=== PATIENT | female | born 1970 | race Caucasian/White ===

== ENCOUNTER 2024-06-26 07:58 | Outpatient (CLI) | payer OTHER, SELFPAY ==
--- NOTE | 2024-06-26 08:01 | CA_ITS ---
APPROVED REPORT EXAM: Comprehensive 2D, Doppler, and color-flow Echocardiogram English Composition Teacher: Shiloh Harris CRT Ht: 5 ft 6 in Wt: 234lbs BSA: 2.14 BP: 126/82 mmHg Indications: Shortness of Breath, Peripheral Edema, Hyperlipidemia, smoker 2D Dimensions LA Volume 71.40 mL LA Volume Index 33.36 mL/m2 (M/F) 16-34 M-Mode Dimensions RVDd 1.89 cm (0.9-2.6) LA Diam 3.93 cm (1.9-4.0) LVDd 4.62 cm (3.5-5.7) LVDs 3.33 cm (3.5-5.7) IVSd 1.93 cm (0.6-1.1) PWd 1.04 cm (0.6-1.1) EF (Teich) 54.10% FS 27.90% EDV (Teich) 98.30 mL TAPSE 2.78 (<1.7) ESV (Teich) 45.10 mL LV Diastology E Decel Time 417 (160-240 msec) E/A Ratio 1.0 MED A' 6.30 cm/s LAT A' 9.20 cm/s Aortic Valve AO Peak GR. 8.80 mmHg Mitral Valve MV E Max Mo. 171.0 (40-130 cm/s) MV A Velocity 169.0 (40-130 cm/s) E/A Ratio 1.01 MV Mean Gr. 5.90 (<2mmHg) MV PHT 122.0 ms Pulmonary Valve PV Peak Velocity 158.0 (50-150 cm/s) Tricuspid Valve TR P. Velocity 321.00 cm/s RAP Estimate 10.00 mmHg RVSP 51.20 mmHg Left Ventricle The left ventricle is normal size. The left ventricular systolic function is normal. The left ventricular ejection fraction is within the normal range. There is increased LV wall thickness. There is normal LV segmental wall motion. The left ventricular diastolic function is normal. LVEF is 60%. Right Ventricle The right ventricle is normal size. The right ventricular systolic function is normal. Atria Left atrium is mildly dilated. The right atrium size is normal. There is no Doppler evidence of interatrial shunt. Aortic Valve The aortic valve is mildly thickened. There is no aortic valvular stenosis. No aortic regurgitation is present. Mitral Valve Mild mitral annular calcification is present. The mitral valve leaflets are mildly thickened. The posterior MV leaflet is restricted in mobility. The mitral valve is possibly rheumatic. Mild mitral stenosis. Mean MV gradient is 6 mmHg (HR 74 bpm). MVA by PHT method is 1.8 cm2. Mild mitral regurgitation. Tricuspid Valve The tricuspid valve leaflets are thin and pliable. Mild tricuspid regurgitation. RVSP is 30-35 mmHg. Pulmonic Valve The pulmonary valve is normal in structure. Trace pulmonic regurgitation. Great Vessels The aortic root is normal in size. The ascending aorta is not well-visualized. IVC is normal in size and collapses >50% with inspiration. Pericardium There is no pericardial effusion. Other Information Study Quality: Fair Conclusion Normal biventricular systolic function. Mild LA dilation. Mild mitral annular calcification. The MV leaflets are possibly rheumatic. The posterior MV leaflet is restricted in mobility. Mild MR. Mild MS (mean MV gradient is 6 mmHg (HR 74 bpm). MVA by PHT method is 1.8 cm2). Electronically signed by : Ana Holloway MD 07/01/2024 13:26:36
== END 2024-06-26 23:59 | disposition home or self-care (01) ==
LOC: RT 07:59
PROVIDERS: PCP Nurse Practitioner Family; Visit Provider Internal Medicine
DX: R06.02 Shortness of breath (principal); R60.9 Edema, unspecified; F17.210 Nicotine dependence, cigarettes, uncomplicated
CPT/HCPCS: 93306

== ENCOUNTER 2024-08-12 10:40 | Outpatient (CLI) | payer OTHER, SELFPAY ==
--- NOTE | 2024-08-12 10:46 | XR_ITS ---
FINAL REPORT CLINICAL HISTORY: Acute cough FINDINGS: Two views of the chest were obtained. The heart size and pulmonary vascularity are within normal limits. The mediastinum is normal. There is bronchial wall thickening consistent with bronchitis. There is a small right pleural effusion. There is no pneumothorax. The bony thorax is intact. IMPRESSION: Bronchial wall thickening consistent with bronchitis and a small right pleural effusion. Reviewed, Interpreted and Dictated by Steven Cross III, MD Transcribed by Mona Manrique Authenticated and [facility]
== END 2024-08-12 23:59 | disposition home or self-care (01) ==
LOC: RAD 10:42
PROVIDERS: PCP Nurse Practitioner Family; Visit Provider Nurse Practitioner
DX: R05.9 Cough, unspecified (principal)
CPT/HCPCS: 71046

== ENCOUNTER 2025-03-06 10:00 | Emergency (ER) | payer OTHER, SELFPAY ==
--- OUTSIDE RECORDS SUMMARY | 2025-03-06 10:06 | XMS_ITS | Clinical Summary ---
Author Organization 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 10/07/2020 Active SYMBICORT 160-4.5 mcg/actuation Inhl HFA Aerosol Inhaler Inhale 2 Puffs into the lungs every 12 hours. 09/27/2020 Active PROVENTIL HFA 90 mcg/actuation Inhl HFA Aerosol Inhaler Inhale 2 Puffs into the lungs every 4 hours as needed. 09/15/2020 Active omeprazole (PRILOSEC) 40 mg Oral Capsule, Delayed Release(E.C.) Take 40 mg by mouth daily. 09/27/2020 Active ergocalciferol (DRISDOL) 1,250 mcg (50,000 unit) Oral Capsule Take 50,000 Units by mouth daily. 09/27/2020 Active montelukast (SINGULAIR) 10 mg Oral Tablet Take 10 mg by mouth daily. 09/27/2020 Active medroxyPROGESTER one (DEPO-PROVERA) 150 mg/mL IM Suspension Inject 150 mg into the muscle Every 90 Days. 09/15/2020 Active aspirin (ASPIRIN) 81 mg Oral Tablet, Chewable Take 1 Tab by mouth daily. 30 Tab 11 10/25/2020 Active atorvastatin (LIPITOR) 10 mg Oral Tablet Take 1 Tab by mouth nightly. 30 Tab 11 10/25/2020 Active Active Problems Problem Noted Date Diagnosed Date Coronary artery disease of n ative artery of [place] heart with stable angina pectoris 10/25/2020 Overview (10/25/2020): CAD BY CHEST CT Other emphysema 10/25/2020 Dyspnea on exertion 10/25/2020 Smoker 10/25/2020 Family History Medical History Relation Name Comments Heart Disease Brother 1 Heart Failure Brother 2 Heart Disease Mother Relation Name Status Comments Brother 1 Brother 2 Mother Social History Tobacco Use Types Packs/Day Years Used Date Smoking Tobacco: Every Day Cigarettes Smokeless Tobacco: Former Comments:down from 2 packs/d ay Alcohol Use Standard Drinks/Week Comments Yes 0 (1 standard drink = 0.6 oz pur e alcohol) very rarely Comments No Sex and Gender Information Value Date Recorded Sex Assigned at Not on file Legal Sex Female 10:13 AM EST Gender Identity Not on file Sexual Orientation Not on file Obstetrics History Last Filed Vital Signs Vital Sign Reading Time Taken Comments Blood Pressure 122/68 01/13/2021 11:51 AM EDT Pulse 87 01/13/2021 11:51 AM EDT Temperature 36.7 C (98 F) 10/25/2020 12:59 PM EST Respiratory Rate 12 11/09/2020 10:3 5 AM EST Oxygen Saturation 96% 01/13/2021 11: 51 AM EDT room air @ rest Inhaled Oxygen Concentration - - Weight 100.2 kg (220 lb 12. 8 oz) 01/13/2021 11:51 AM EDT Height 167.6 cm (5' 6 ) 01/13/2021 11:5 1 AM EDT Body Mass Index 35.64 01/13/2021 11:51 AM EDT Plan of Treatment Health Maintenance Due Date Last Done Comments Annual Wellness Exam 1974 Hepatitis B Vaccine (1 of 3 - 19+ 3-dose series) 1990 Pneumococcal Vaccine 50+ (1 of 2 - PCV) 1990 Cervical Cancer Screening 1992 Pap Smear 1992 HPV/Pap Cotest 2001 Breast Cancer Screening 2011 Cologuard 2016 Colon Cancer Screening 2016 Colonoscopy 2016 FIT 2016 Sigmoidoscopy 2016 Virtual Colonography 2016 DTaP/TDaP/Td (2 - Td or Tdap) 03/21/2020 03/21/2010 Zoster (1 of 2) 2021 COVID-19 Vaccine (1 - 2023-2 5 season) 2024 Influenza Vaccine (Season Ended) 2025 Meningococcal B Vaccine Aged Out No l onger eligible based on patient's age to complete this topic Insurance [employer] OPEN ACCESS [facility]US [facility] [place] MDR [employer] ACCESS PLUS [facility] [place] Care Teams Airplane Dispatcher Relationship Specialty Start Date End Date Nora Hooks NP [facility] [place] [address] PCP - General Nurse Practitioner 10/25/20 Apollo Hernandez MD [address] [place] [address] [place] [id number] Internal Medicine-Cardiovascular Disease 10/25/20
--- OUTSIDE RECORDS SUMMARY | 2025-03-06 10:06 | XMS_ITS | Continuity of Care Document ---
[facility] Address [address] [place] [address] [place] [address] Assessment No assessment recorded. Plan of Treatment Reminders Order Date Submit Date Provider Last Modified By Organization Details Last Modified Time Details Appointments Follow Up 2024 10:00A M Pacheco Krause APRN Not available Not available Not available Lab None recorded. Referral None recorded. Procedures None recorded. Surgeries None recorded. Imaging XR, chest, 2 view - concern for right lower lobe pneumonia 2024 025 [facility], [address] [place] [address] , [place], [address], 01/16/2025 15:33:49 Medication Orders ceftriaxo ne 1 gram intraveno us solution 2024 025 [email or web address] Not available 01/21/2025 09:52:24 Patient TargetsNo targets recorded. Patient Instructions Encounter Date Encounter Id Patient Instructions Last Modified By Organization Details Last Modified Time 01/16/2025 [id number] -take medication s as prescribed - will call with lab results when available to discuss findings, any further evaluation, treatment, or follow up - Otherwise, follow up in 2 weeks for re-evaluation or sooner for worsening of symptoms [email or web address] Not available 01/16/2025 15:09:20 Reason for Referral None Reported. Results Created Date Observation Date Name Description Value Unit Range Abnormal Flag Note LastModifiedBy Organization Detail LastModifiedTime 01/17/20 25 XR, chest , 2 view No observ ation record ed. [email or web address] [address] , [place], [address], 01/19/2025 10:09:23 01/23/20 25 XR, chest , 2 view No observ ation record ed. [address] [place], [address], 01/22/2025 15:27:32 02/13/20 25 XR, chest , 2 view No observ ation record ed. [address] , [place], [address], 02/16/2025 10:47:59 Result Notes None recorded. Problems Name Problem SNOMED Code Status Onset Date Resolution Date Notes Provider Name and Address Organization Details Recorded Time Long-ter m drug therapy Active 2016 depo provera; declines BOB Shine, VALET MANAGER [address], [place], [address] , [place] - [facility] 7 10:59:48 Dyspnea 773264584 Completed 201905/07/2020 Nora Hooks null, [place] - [facility] 0 09:12:40 Vitamin D deficien cy 44960188 Active 2019 Crystal Lotus null, [place] [facility] 0 16:07:20 Pulmonar y emphysem a 78164944 Active 2019 Nora Hooks [place] [facility] 0 16:44:31 Asthma 143960862 Active 2020 Flores Garcia [place], [place] [facility] 1 10:26:19 Chronic obstruct lucie pulmonar y disease 44400300 Active 2020 Flores Garcia [place] [facility] 1 10:26:24 Fibrocys tic disease of breast 74480404 Active 2020 Kristen Shine, VALET MA[employer]GER [address], [place], [address] , [place] - [facility] 1 14:39:41 Suspecte d COVID-19 612482379 Completed 10/11/2020 Removal Reason: Problem added by user from the COVID-19 watch flag Susan Valentine null, [place] - [facility] 1 13:48:16 COVID-19 [id number] Completed 202005/30/2021 Removal Reason: Problem marked historic al by user [email or web address] from the COVID-19 watch flag Pacheco Schmitting, VALET MANAGER [address], [place], [address] , [place] - [facility] 4 11:12:19 COVID-19 [id number] Completed 202005/30/2021 Removal Reason: Problem marked historic al by user from the COVID-19 watch flag Pacheco Krause, VALET MANAGER [address], [place], [address] , [place] - [facility] 4 11:12:19 Suspecte d COVID-19 [id number] Completed 08/02/2021 Removal Reason: Problem marked historic al by user [email or web address] from the COVID-19 watch flag Susan Valentine null, [place] [facility] 1 13:48:16 COVID-19 [id number] Completed 202106/22/2022 Pacheco Schmitting, VALET MANAGER [address], [place], [address] , [place] [facility] 4 11:12:19 Allergic rhinitis 59501388 Active 2021 Crystal Lotus [place] [facility] 2 14:53:22 Acute pharyngi tis 749386040 Completed 202102/09/2023 Crystal Lotus [place] [facility] 3 09:03:10 Acid reflux 665889088 Active 2015 Trudy Miguel Angel [place] [facility] 6 09:53:44 Fibroade nosis of breast 80206494 Active 2015 Trudy Miguel Angel [place] [facility] 6 09:54:02 Lateral epicondy litis 703243116 Completed 201501/24/2017 Abraham Rebollar MD [address], [place], [address] , [place] [facility] 7 13:07:37 Nodule of lung 238949459 Active 2022 Latosha Pavon, VAL[employer] MA[employer]GER [address], [place], [address] , [place] [facility] 3 09:33:01 Seasonal allergic rhinitis 178873714 Active 2022 Latosha Pavon, VALET MANAGER [address], [place], [address] , [place] [facility] 3 09:33:19 Pain of left ankle joint 97181847326 674690 Active 2022 Latosha Pavon, BUBBA [address], [place], [address] , [place] [facility] 3 09:34:47 Pharyngi tis 966393982 Active 2022 Pacheco Krause APRN [address], [place], [address] , [place] [facility] 3 11:35:20 Upper respirat ory infectio n 32360214 Active 2022 Pacheco Krause APRN [address], [place], [address] , [place] [facility] 3 13:36:54 Acute bronchit is 58056620 Active 2022 Pacheco Krause APRN [address], [place], [address] , [place] [facility] 3 14:08:31 Obesity 208903253 Active 2022 Pacheco Krause APRN [address], [place], [address] , [place] [facility] 3 14:25:02 Chronic bronchit is 31064600 Active 2022 Pacheco Krause APRN [address], [place], [address] , [place] [facility] 3 11:41:44 Cough 42347893 Active 2022 Pacheco Krause APRN [address], [place], [address] , [place] [facility] 3 11:45:40 Acute sinusiti s 25872388 Active 2022 Pacheco Krause, BUBBA [address], [place], [address] , [place] [facility] 3 12:57:59 Influenz a caused by Influenz a A virus 598941755 Active 2023 Agustin Rahman, DO [address], [place], [address] , [place] [facility] 4 16:32:14 Sore throat 151687418 Active 2023 Agustin Rahman, DO [address], [place], [address] , [place] [facility] 4 16:33:29 Neuropat hy 852243346 Active 2023 Pacheco Krause APRN [address], [place], [address] , [place] [facility] 4 09:02:03 Candidia sis of mouth 46150349 Active 2023 Pacheco Krause APRN [address], [place], [address] , [place] [facility] 4 09:14:47 Bilatera l lower limb edema 072247564 Active 2023 Pacheco Krause APRN [address], [place], [address] , [place] [facility] 4 16:00:30 Communit y acquired pneumoni a 842409009 Active 2023 Pacheco Krause APRN [address], [place], [address] , [place] [facility] 4 16:15:11 Middle ear effusion 5326173818 Active 2023 Pacheco Krause APRN [address], [place], [address] , [place] [facility] 4 16:23:46 Acute exacerba tion of chronic obstruct lucie pulmonar y disease 670492945 Active 2023 Pacheco Krause APRN [address], [place], [address] , [place] [facility] 4 14:19:15 COVID-19 477976058 Active 2023 Pacheco Krause, VALET MANAGER [address], [place], [address] , [place] [facility] 4 11:12:19 Reducibl e umbilica l hernia 352980510 Active 2023 Pacheco Krause, VAL[employer] MANAGER [address], [place], [address] , [place] [facility] 4 09:26:12 Prediabe candy 954452775 Active 2024 Pacheco Krause, VALET MANAGER [address], [place], [address] , [place] [facility] 5 09:42:06 Hyperlip idemia 48418994 Active 2024 Pacheco Krause, VALET MANAGER [address], [place], [address] , [place] [facility] 5 09:42:39 Visual disturba nce 74197875 Active 2024 Pacheco Krause, VALET MANAGER [address], [place], [address] , [place] [facility] 5 10:00:41 Viral gastroen teritis 952127560 Active 2024 Louis Pool MD [address], [place], [address] , [place] [facility] 5 09:59:31 Low back pain 288648146 Active 2024 Louis Pool MD [address], [place], [address] , [place] [facility] 5 10:00:23 Acute infectiv e bronchit is 167643821 Active 2024 Pacheco Krause, VALET MANAGER [address], [place], [address] , [place] [facility] 5 14:13:08 Acute low back pain 538860409 Active 2024 Pacheco Krause, BUBBA [address], [place], [address] , [place] [facility] 5 10:01:08 Increase d frequenc y of urinatio n 963662406 Active 2024 Pacheco Schmitting, VALET MANAGER [address], [place], [address] , [place] [facility] 5 10:08:15 Acute transuda tive otitis media 32057871 Active 2024 Pacheco Krause, VALET MANAGER [address], [place], [address] , [place] [facility] 5 15:55:33 Nicotine dependen ce 30291636 Active 2016 Dolly fontanez, [place] - [facility] 7 11:36:27 Tendinit is of foot 776991194 Active 2016 Abraham Rebollar MD [address], [place], [address] , [place] [facility] 7 13:07:57 Problem Notes None recorded. Procedures Surgical History Date Name Laterality Status Provider Name and Address Organization Details Recorded Time 05/23/20 21 Medication Reconcilliation completed Crystal Lotus [place] - [facility] 05/23/2021 11:07:57 10/07/19 21 Medication Reconcilliation completed Mainor Garner [place] - [facility] 10/07/2020 10:55:54 09/15/19 21 Systolic B/P less than 130 mm Hg completed Flores Garcia [place] [facility] 09/15/2020 10:33:55 09/15/19 21 Diastolic B/P less than 80 mm Hg completed Flores Garcia [place] [facility] 09/15/2020 10:33:50 09/15/19 21 Date of Last Pap Smear completed Kristen Shine, VALET MA[employer]GER [address], [place], [address], [place] [facility] 09/17/2020 15:27:26 07/01/20 20 Systolic B/P less than 130 mm Hg completed Crystal Lotus [place] [facility] 07/01/2020 13:54:20 07/01/20 20 Diastolic B/P 80-89 mm Hg completed Crystal Lotus [place] [facility] 07/01/2020 13:54:23 05/13/20 20 Systolic B/P less than 130 mm Hg completed Crystal Lotus [place] [facility] 05/13/2020 11:29:49 05/13/20 20 Diastolic B/P 80-89 mm Hg completed Crystal Lotus [place] [facility] 05/13/2020 11:29:52 05/07/20 20 Systolic B/P less than 130 mm Hg completed Crystal Lotus [place] [facility] 05/07/2020 09:06:14 05/07/20 20 Diastolic B/P 80-89 mm Hg completed Crystal Lotus [place] [facility] 05/07/2020 09:06:17 04/27/20 20 Date of Last Mammogram completed Flores Dineroann [place] [facility] 08/10/2020 11:20:32 04/13/20 20 Systolic B/P less than 130 mm Hg completed Crystal Lotus [place] [facility] 04/13/2020 08:29:36 04/13/20 20 Diastolic B/P less than 80 mm Hg completed Crystal Lotus [place] [facility] 04/13/2020 08:29:34 04/01/20 20 Diastolic B/P 80-89 mm Hg completed Crystal Lotus [place] [facility] 04/01/2020 14:18:05 04/01/20 20 Systolic B/P 130-139 mm Hg completed Crystal Lotus [place] [facility] 04/01/2020 14:18:01 12/01/19 20 Diastolic B/P less than 80 mm Hg completed Crystal Lotus [place] [facility] 12/01/2019 11:40:33 12/01/19 20 Diastolic B/P 80-89 mm Hg completed Crystal Lotus [place] [facility] 12/01/2019 11:40:34 12/01/19 20 Medication Reconcilliation completed Crystal Lotus [place] [facility] 12/01/2019 11:35:35 11/24/19 20 Diastolic B/P 80-89 mm Hg completed Crystal Lotus [place] [facility] 11/24/2019 09:27:07 11/24/19 20 Systolic B/P greater than or equal to 140 mm Hg completed Crystal Lotus [place] [facility] 11/24/2019 09:27:04 11/21/19 20 Diastolic B/P less than 80 mm Hg completed Crystal Lotus [place] [facility] 11/21/2019 14:46:34 11/21/19 20 Systolic B/P 130-139 mm Hg completed Crystal Lotus [place] [facility] 11/21/2019 14:46:30 Imaging Results None recorded. Procedure Notes None recorded. Medical Equipment None Reported. Allergies Allergen ID Allergen Name Allergen Category Reaction Reaction Severity Criticality Documentation Date Start Date Code Code System Note Provider Name and Address Organization Details Recorded Time 707217 Trelegy medicatio n facial swelling moderate high 02/12/2023 33045 40 RxNorm [facility] - [facility] 4 16:04:33 Medications Name Sig Start Date Stop Date Status Note LastModified by Organization Details LastModified Time Cleocin HCl 300 mg capsule take one capsule by mouth three times a day 03/29 completed Cleocin 300 mg oral capsule; Prescrib e Status: Prescrib ed on: 02/10/20 15 3:48PM;D iscontin ued Status: Disconti nued on: 03/29/20 8:40AM;U ser: alfonso lamb;Est. Completi on: 02/14/20 15;Pharm acyVerif ied: 02/10/20 3:48PM Not Available Not Available Not Available amoxicill in 500 mg capsule TAKE 1 CAPSULE BY MOUTH EVERY 12 HOURS FOR 10 DAYS . 05/14 completed Not Available Not Available Not Available clotrimaz ole 10 mg julian TAKE ONE (1) TABLET FIVE (5) TIMES A DAY BY ORAL ROUTE NEEDED FOR 14 DAYS. 12/20 completed Not Available Not Available Not Available promethaz ine-DM 6.25 mg-15 mg/5 mL oral syrup TAKE FIVE (5) ML EVERY SIX (6) HOURS BY ORAL ROUTE NEEDED, FOR COUGH. 07/25 completed Not Available Not Available Not Available nystatin 100,000 unit/mL oral suspensio n TAKE FIVE (5) ML FOUR (4) TIMES A DAY BY ORAL ROUTE NEEDED FOR 14 DAYS. 02/20 completed Not Available Not Available Not Available prednison e 10 mg tablet TAKE FOUR (4) TABLETS BY MOUTH FOR 3 DAYS TAKE THREE (3) TABLETS BY MOUTH FOR 3 DAYS TAKE 2 TABLETS BY MOUTH FOR 3 DAYS THEN TAKE 1 TABLET FOR 3 DAYS THEN STOP 01/21 completed Not Available Not Available Not Available doxycycli ne hyclate 100 mg capsule TAKE ONE (1) CAPSULE TWICE A DAY BY ORAL ROUTE FOR 10 DAYS. 01/21 completed Not Available Not Available Not Available ipratropi um 0.5 mg-albute rol 3 mg (2.5 mg base)/3 mL nebulizat ion soln INHALE THREE (3) ML EVERY SIX (6) HOURS BY NEBULIZA TION ROUTE NEEDED FOR 30 DAYS. 02/10 completed Not Available Not Available Not Available albuterol sulfate 2.5 mg/3 mL (0.083 %) solution for nebulizat ion INHALE THREE (3) ML THREE (3) TIMES A DAY BY MOUTH VIA NEBULIZA TION NEEDED active Not Available Not Available No t Available cetirizin e 10 mg tablet TAKE ONE (1) TABLET EVERY DAY BY ORAL ROUTE FOR 30 DAYS. 12/20 completed Not Available Not Available Not Available atorvasta tin 10 mg tablet TAKE 1 TABLET BY MOUTH AT NIGHT 06/22 completed Not Available Not Available Not Available azithromy suzy 250 mg tablet TAKE TWO (2) TABLETS (500 MG) BY ORAL ROUTE ONCE DAILY FOR ONE (1) DAY THEN ONE (1) TABLET (250 MG) BY ORAL ROUTE ONCE DAILY FOR FOUR (4) DAYS 01/16 completed Not Available Not Available Not Available ibuprofen 800 mg tablet TAKE ONE (1) TABLET THREE (3) TIMES A DAY BY ORAL ROUTE NEEDED. 06/22 completed Not Available Not Available Not Available fluconazo le 150 mg tablet TAKE 1 TABLET BY MOUTH ONCE NOW AND REPEAT IN 72 HOURS 06/22 completed Not Available Not Available Not Available benzonata te 200 mg capsule Take 1 capsule 3 times a day by oral route as needed for 7 days, for COUGH. 09/26 completed Not Available Not Available Not Available Celestone Soluspan 6 mg/mL suspensio n for injection Take 6 mg by injectio n route. 08/02 completed Not Available Not Available Not Available Keflex 500 mg capsule take 1 capsule (500 mg) by oral route every 12 hours for 7 days 12/09 completed Not Available Not Available Not Available prednison e 20 mg tablet TAKE 1 TABLET BY MOUTH EVERY DAY 09/26 completed Not Available Not Available Not Available prednison e 5 mg tablet 11/08 completed Not Available Not Available Not Available promethaz ine 6.25 mg-codein e 10 mg/5 mL syrup TAKE FIVE (5) ML EVERY SIX (6) HOURS BY ORAL ROUTE NEEDED. 08/09 completed Not Available Not Available Not Available ceftriaxo ne 1 gram intraveno us solution give 1 g injectio n IM once 01/21 completed Not Available Not Available Not Available omeprazol e 40 mg capsule,d elayed release TAKE ONE (1) CAPSULE TWICE A DAY BY ORAL ROUTE FOR 90 DAYS. active Not Available Not Available No t Available Nicotrol 10 mg inhalatio n cartridge Max: 16 cartridg es/day; Info: stop cigarett e use at start of tx; use frequent continuo us puffing x20min for each cartridg e (80 deep inhalati ons over 20min releases 4 mg nicotine of which 2 mg is absorbed ) 10/07 completed Not Available Not Available Not Available amoxicill in 500 mg tablet TAKE 1 TABLET BY MOUTH EVERY 12 HOURS FOR 10 DAYS 05/14 completed Not Available Not Available Not Available ondansetr on 8 mg disintegr ating tablet PLACE ONE (1) TABLET ON TOP OF TONGUE WHERE IT WILL DISSOLVE EVERY EIGHT (8) HOURS NEEDED FOR 5 DAYS 06/22 completed Not Available Not Available Not Available Depo-Medr ol 80 mg/mL suspensio n for injection Take 1 mL by injectio n route. 05/30 completed Not Available Not Available Not Available Bicillin C-R 1,200,000 unit/2 mL intramusc ular syringe Inject 2 mL every day by intramus cular route for 1 day. 09/26 completed Not Available Not Available Not Available ceftriaxo ne 1 gram solution for injection give 1 g ceftriax one injectio n IM once 02/12 completed Not Available Not Available Not Available amoxicill in 875 mg tablet Take 1 tablet every 12 hours by oral route for 7 days. 02/09 completed Not Available Not Available Not Available potassium chloride ER 20 mEq tablet,ex tended release(p art/cryst ) TAKE ONE (1) TABLET EVERY DAY BY ORAL ROUTE FOR 7 DAYS. 05/30 completed Not Available Not Available Not Available famotidin e 20 mg tablet TAKE 1 TABLET BY MOUTH AT BEDTIME NEEDED 06/22 completed Not Available Not Available Not Available Depo-Prov era 150 mg/mL intramusc ular suspensio n Inject 1 mL every 12 weeks 06/22 completed Not Available Not Available Not Available nicotine (polacril ex) 4 mg gum CHEW ONE (1) PIECE BY MOUTH NEEDED FOR SMOKING CESSATIO N. 02/10 completed Not Available Not Available Not Available diazepam 2 mg tablet Take 1 tablet twice a day by oral route as needed for 15 days. 02/10 completed Not Available Not Available Not Available benzonata te 100 mg capsule TAKE ONE (1) CAPSULE THREE (3) TIMES A DAY BY ORAL ROUTE NEEDED FOR 14 DAYS. 09/07 completed Not Available Not Available Not Available oseltamiv ir 75 mg capsule TAKE 1 CAPSULE BY MOUTH EVERY 12 HOURS FOR 5 DAYS 11/25 completed Not Available Not Available Not Available Lincocin 300 mg/mL injection solution Take 1 mL by injectio n route. 06/04 completed Not Available Not Available Not Available promethaz ine 25 mg tablet TAKE 1 TABLET BY MOUTH EVERY SIX (6) HOURS NEEDED FOR NAUSEA 05/30 completed Not Available Not Available Not Available indometha suzy 25 mg capsule Take 1 capsule 3 times a day by oral route as needed for 30 days. 02/10 completed Not Available Not Available Not Available nicotine 21 mg/24 hr daily transderm al patch APPLY ONE (1) PATCH TO SKIN EVERY DAY FOR TWO (2) WEEKS 02/10 completed Not Available Not Available Not Available sertralin e 25 mg tablet Take 1 tablet every day by oral route for 30 days. 02/10 completed Not Available Not Available Not Available omeprazol e 20 mg capsule,d elayed release take 1 capsule (20 mg) by oral route once daily before a meal 11/08 completed Not Available Not Available Not Available aspirin 81 mg chewable tablet TAKE 1 TABLET BY MOUTH EVERY DAY 06/22 completed Not Available Not Available Not Available diclofena c sodium 75 mg tablet,de layed release TAKE ONE (1) TABLET TWICE A DAY BY ORAL ROUTE NEEDED FOR 30 DAYS. active Not Available Not Available No t Available monteluka st 10 mg tablet TAKE ONE (1) TABLET EVERY DAY BY ORAL ROUTE AT BEDTIME FOR 30 DAYS. 08/29 completed Not Available Not Available Not Available furosemid e 20 mg tablet TAKE 1 TABLET (20 MG) BY MOUTH EVERY DAY active Not Available Not Available No t Available ergocalci ferol (vitamin D2) 1,250 mcg (50,000 unit) capsule TAKE ONE (1) CAPSULE EVERY WEEK BY ORAL ROUTE FOR 90 DAYS, FOR VITAMIN D DEFICIEN CY. active Not Available Not Available No t Available dexametha sone sodium phosphate 4 mg/mL injection solution Inject 1 mL by intramus cular route. 07/26 completed Not Available Not Available Not Available Nasonex 50 mcg/actua tion Crumpton Crumpton 2 sprays every day by intranas al route for 7 days. 12/09 completed Not Available Not Available Not Available prednison e 5 mg tablets in a dose pack Take 1 dose pk every day by oral route as directed for 6 days. 07/18 completed Not Available Not Available Not Available levofloxa suzy 500 mg tablet TAKE ONE (1) TABLET EVERY 24 HOURS BY ORAL ROUTE FOR 7 DAYS. 08/09 completed Not Available Not Available Not Available levofloxa suzy 750 mg tablet TAKE ONE (1) TABLET EVERY DAY BY ORAL ROUTE FOR 7 DAYS. 02/20 completed Not Available Not Available Not Available methylpre dnisolone 4 mg tablets in a dose pack FOLLOW PACKAGE DIRECTIO NS 01/16 completed Not Available Not Available Not Available albuterol sulfate HFA 90 mcg/actua tion aerosol inhaler INHALE TWO (2) PUFFS EVERY FOUR (4) HOURS BY INHALATI ON ROUTE NEEDED FOR 30 DAYS. active Not Available Not Available No t Available ketorolac 60 mg/2 mL intramusc ular solution Inject 60 mg by intramus cular route. 05/23 completed Not Available Not Available Not Available cefdinir 300 mg capsule Take 1 capsule every 12 hours by oral route for 10 days. 09/26 completed Not Available Not Available Not Available dexametha sone sodium phosphate 10 mg/mL injection solution give 1 ml injectio n IM once 02/205 completed Not Available Not Available Not Available fluoxetin e 20 mg capsule 11/08 completed Not Available Not Available Not Available fluticaso ne propionat e 50 mcg/actua tion nasal spray,katerin pension SPRAY ONE (1) SPRAY EVERY DAY BY INTRANAS AL ROUTE FOR 30 DAYS. active Not Available Not Available No t Available doxycycli ne hyclate 100 mg tablet TAKE 1 TABLET BY MOUTH EVERY 12 HOURS 09/07 completed Not Available Not Available Not Available amoxicill in 875 mg-potass ium clavulana te 125 mg tablet TAKE ONE (1) TABLET EVERY 12 HOURS BY ORAL ROUTE FOR 7 DAYS. 01/21 completed Not Available Not Available Not Available Bactrim DS 800 mg-160 mg tablet take 1 tablet by oral route 2 times per day for 10 days 11/24 completed Bactrim DS 800-160 mg oral tablet;R ecorded Status: Recorded on: 11/13/19 13 10:25AM; Disconti nued Status: Disconti nued on: 11/25/19 14 8:37AM;U ser: [email or web address];Es t. Completi on: 11/23/19 13;Print ed: 11/13/19 13 Not Available Not Available Not Available TobraDex 0.3 %-0.1 % eye drops,katerin pension Instill 1 drop 3 times a day by ophthalm ic route for 7 days. 07/01 completed Not Available Not Available Not Available Depo-Prov era 150 mg/mL intramusc ular syringe inject 1 millilit er (150 mg) by intramus cular route every 3 months 04/27 completed Depo-Pro vera 150 mg/mL intramus cular syringe; Recorded Status: Recorded on: 02/22/20 16 9:38AM;D iscontin ued Status: Disconti nued on: 04/27/20 16 3:37PM;U ser: [email or web address]; Printed: 02/22/20 16 Not Available Not Available Not Available Mucinex 600 mg tablet, extended release TAKE ONE (1) TABLET EVERY 12 HOURS BY ORAL ROUTE NEEDED FOR 7 DAYS. 06/22 completed Not Available Not Available Not Available Prilosec OTC 20 mg tablet,de layed release Take 1 tablet every day by oral route. 11/30 completed Not Available Not Available Not Available Voltaren one bid 06/21 completed voltaren 75 mg.;Marshall rded Status: Recorded on: 05/23/20 15 5:32PM;D iscontin ued Status: Disconti nued on: 06/21/20 15 9:20AM;U ser: [email or web address]; Est. Completi on: 06/12/20 15;Indic ation: pain - (-5) Not Available Not Available Not Available omeprazol e 1 qd am 03/29 completed omperazo le 20mg;Rec orded Status: Recorded on: 12/09/19 14 1:16PM;D iscontin ued Status: Disconti nued on: 03/29/20 15 8:40AM;U ser: alfonso lamb;Est. Completi on: 04/07/20 14;Indic ation: - (-5) Not Available Not Available Not Available prednison e 1 bid x 1 wk then qd x7 02/27 completed predniso ne 10 mg;Recor ded Status: Recorded on: 12/15/19 16 10:39AM; Disconti nued Status: Disconti nued on: 02/28/20 16 9:18AM;U ser: alfonso lamb;Est. Completi on: 12/29/19 16;Indic ation: - (-5) Not Available Not Available Not Available Keflex one tid 05/23 completed keflex 500 mg.;Marshall rded Status: Recorded on: 05/14/20 15 1:16PM;D iscontin ued Status: Disconti nued on: 05/23/20 15 5:32PM;U ser: [email or web address]; Est. Completi on: 05/21/20 15;Indic ation: bronch - (-5) Not Available Not Available Not Available Cleocin 1 tid 03/29 completed cleocin 300 mg;Recor ded Status: Recorded on: 02/10/20 15 3:42PM;D iscontin ued Status: Disconti nued on: 03/29/20 15 8:40AM;U ser: alfonso lamb;Est. Completi on: 02/14/20 15;Indic ation: - (-5) Not Available Not Available Not Available Flexeril 1 tid 02/27 completed flexeril 10 mg;Recor ded Status: Recorded on: 12/15/19 16 10:39AM; Disconti nued Status: Disconti nued on: 02/28/20 16 9:18AM;U ser: [email or web address] [email or web address];Est. Completi on: 12/22/19 16;Indic ation: - (-5) Not Available Not Available Not Available Levaquin one daily 06/21 completed levoquin 500 mg.;Marshall rded Status: Recorded on: 05/23/20 15 5:32PM;D iscontin ued Status: Disconti nued on: 06/21/20 15 9:20AM;U ser: [email or web address]; Est. Completi on: 05/30/20 15;Indic ation: cough - (-5) Not Available Not Available Not Available Phenergan W/Codeine one tsp qid prn 06/21 completed phenerga n with codiene standard ;Recorde d Status: Recorded on: 05/23/20 15 5:32PM;D iscontin ued Status: Disconti nued on: 06/21/20 15 9:20AM;U ser: [email or web address]; Est. Completi on: 05/30/20 15;Indic ation: cough - (-5) Not Available Not Available Not Available dexametha sone sodium phosphate (PF) 10 mg/mL injection solution give 1 ml injectio n IM once 05/30 completed Not Available Not Available Not Available Brovana 15 mcg/2 mL solution for nebulizat ion Inhale 2 mL twice a day by inhalati on route for 30 days. 02/10 completed Not Available Not Available Not Available Symbicort 160 mcg-4.5 mcg/actua tion HFA aerosol inhaler INHALE TWO (2) PUFFS TWICE A DAY BY INHALATI ON ROUTE FOR 30 DAYS. 01/21 completed Not Available Not Available Not Available omeprazol e 20 mg tablet,de layed release take 1 tablet by oral route daily for 30 days 03/29 completed omeprazo le 20 mg oral tablet,d elayed release (/MACHELLE); Prescrib e Status: Prescrib ed on: 12/09/19 14 6:39PM;D iscontin ued Status: Disconti nued on: 03/29/20 15 8:40AM;U ser: alfonso lamb;Est. Completi on: 02/07/20 14;Pharm acyVerif ied: 12/09/19 14 6:39PM Not Available Not Available Not Available diclofena c 1 % topical gel APPLY TWO (2) GRAMS TO THE AFFECTED AREA(S) BY TOPICAL ROUTE FOUR (4) TIMES PER DAY 01/21 completed Not Available Not Available Not Available Cetiri-D 5 mg-120 mg tablet,ex tended release Take 1 tablet twice a day by oral route for 7 days. 12/09 completed Not Available Not Available Not Available azelastin e 205.5 mcg (0.15 %) nasal spray [place] 1 spray twice a day by intranas al route for 30 days, for allergie s. 08/29 completed [facility] is out of this and not sure when they will be getting it. Not Available Not Available Not Available Solu-Medr ol (PF) 125 mg/2 mL solution for injection Give 2 ml injectio n IM once 02/12 completed Not Available Not Available Not Available Allergy Relief (fexofena dine) 180 mg tablet TAKE ONE (1) TABLET EVERY DAY BY ORAL ROUTE FOR 30 DAYS. active Not Available Not Available No t Available Orabase (benzocai ne) 20 % mucosal paste apply as directed for 7 days 03/29 completed Orabase (benzoca ine) 20 % mucous membrane paste;Pr escribe Status: Prescrib ed on: 02/10/20 15 3:49PM;D iscontin ued Status: Disconti nued on: 03/29/20 15 8:40AM;U ser: alfonso lamb;Est. Completi on: 02/17/20 15;Pharm acyVerif ied: 02/10/20 15 3:49PM Not Available Not Available Not Available Chantix Continuin g Month Box 1 mg tablet TAKE ONE (1) TABLET BY MOUTH TWICE DAILY 06/22 completed Not Available Not Available Not Available Chantix Starting Month Box 0.5 mg (11)-1 mg (42) tablets in dose pack Take 1 startr pk by oral route as directed . 05/07 completed Not Available Not Available Not Available Mucus DM Max ER 60 mg-1,200 mg tablet,ex tended release TAKE 1 TABLET BY MOUTH TWICE DAILY 7 DAYS 02/20 completed Not Available Not Available Not Available potassium chloride ER 20 mEq tablet,ex tended release Take 1 tablet every day by oral route for 7 days. 05/30 completed Not Available Not Available Not Available Anoro Ellipta 62.5 mcg-25 mcg/actua tion powder for inhalatio n INHALE ONE (1) PUFF EVERY DAY BY INHALATI ON ROUTE FOR 30 DAYS. 08/29 completed Not Available Not Available Not Available Spiriva Respimat 2.5 mcg/actua tion solution for inhalatio n INHALE TWO (2) PUFFS EVERY DAY BY INHALATI ON ROUTE FOR 30 DAYS. 08/29 completed Not Available Not Available Not Available Trelegy Ellipta 100 mcg-62.5 mcg-25 mcg powder for inhalatio n INHALE ONE (1) PUFF EVERY DAY 01/21 completed Not Available Not Available Not Available Breztri Aerospher e 160 mcg-9mcg- 4.8mcg/ac tuation HFA aerosol inhaler INHALE TWO (2) PUFFS BY MOUTH TWICE A DAY active Not Available Not Available No t Available Wegovy 0.25 mg/0.5 mL subcutane ous pen injector Inject 0.25 mg every week by subcutan eous route as directed for 28 days. 01/21 completed Not Available Not Available Not Available Paxlovid 300 mg (150 mg x 2)-100 mg tablets in a dose pack TAKE ONE (1) DOSE PACKET EVERY DAY BY ORAL ROUTE DIRECTED FOR FIVE (5) DAYS, FOR COVID-19 . 07/25 completed Not Available Not Available Not Available Vitals Date Recorded Body height Body mass index (BMI) Body weight Heart rate Oxygen saturation Oxygen saturation in Arterial blood by Pulse oximetry Respiratory rate Systolic And Diastolic Provider Name and Address Organization Details Last Updated DateTime 5 170.18 cm 34.1 kg/m2 78756.1 4 g 85 /min 94 % 94 % 20 /min 136/84 mm[Hg] Joanne Saenzter [place] - [facility] 5 13:26:22 Social History Question Answer Notes LastModified by Organizat ion Details LastModified Time Tobacco Smoking Status Former Smoker 2 weeks as of 01/16 Joanne fontanez, [place] - [facility] 01/16/2025 13:28:33 Do You Have An Advance Directive? No Information not available 07/18/2017 Are You Blind Or Do You Have Difficulty Seeing? No Information not available 08/17/2016 Is Blood Transfusion Acceptable In An Emergency? Yes Information not available 07/18/2017 What Is Your Level Of Caffeine Consumption? Heavy Information not available 07/18/2017 How Much Tobacco Do You Chew? None Information not available 08/17/2016 In The 14 Days Before Symptom Onset, Have You Had Close Contact With A Laboratory-confir med COVID-19 While That Case Was Ill? No [email or web address] Information not available 12/01/2024 In The 14 Days Before Symptom Onset, Have You Had Close Contact With A Person Who Is Under Investigation For COVID-19 While That Person Was Ill? No [email or web address] Information not available 12/01/2024 Have You Been To An Area Known To Be High Risk For COVID-19? No [email or web address] Information not available 12/01/2024 Are You Deaf Or Do You Have Serious Difficulty Hearing? No Information not available 08/17/2016 What Type Of Diet Are You Following? REGULAR Information not available 08/17/2016 Which Illicit Or Recreational Drugs Have You Used? Denies Information not available 08/17/2016 Have You Processed Blood Or Body Fluids From An Ebola Virus Disease Patient Without Appropriate PPE? No Information not available 12/01/2024 Do You Reside In Or Have You Traveled To An Area Where Ebola Virus Transmission Is Active? No [email or web address] Information not available 12/01/2024 How Many Days Of Moderate To Strenuous Exercise, Like A Brisk Walk, Did You Do In The Last 7 Days? 1 [email or web address] Information not available 05/16/2018 On Those Days That You Engage In Moderate To Strenuous Exercise, How Many Minutes, On Average, Do You Exercise? 1 Information not available 05/16/2018 Have There Been Any Changes To Your Family Or Social Situation? No [email or web address] Information no t available 12/01/2024 Have You Recently Or Are You Planning To Travel To An Area With Zika Virus? No [email or web address] Information not available 12/01/2024 Live Alone Or With Others? With Others Information not available 08/17/2016 Do You Have A Medical Power Of Paper Machine Supervisor? No Information not available 12/01/2024 What Was The Date Of Your Most Recent Tobacco Screening? 02/20/2025 [email or web address] Information not available 02/20/2025 What Is Your Current Pack Years? [email or web address] Information not available 02/12/2023 Performs Monthly Self-breast Exam? Yes Sometimes Information no t available 07/18/2017 What Is Your Relationship Status? Unknown Information not available 08/17/2016 Seat Belts Used Routinely Yes Information not available 07/18/2017 Are You Sexually Active? Yes Information not available 07/18/2017 Do You Have Smoke And Carbon Monoxide Detectors In Your Home? No [email or web address] Information not available 12/01/2024 At What Age Did You Start Smoking Tobacco? 14 Information not available 02/12/2023 Are You Passively Exposed To Smoke? No [email or web address] Information no t available 12/01/2024 How Much Tobacco Do You Smoke? 1.5 PPD Information not available 09/15/2020 Do You Use Sunscreen Routinely? No Information not available 07/18/2017 Has Tobacco Cessation Counseling Been Provided? Yes Information not available 06/22/2022 On What Date Was Tobacco Cessation Counseling Provided? 02/20/2025 [email or web address] Information not available 02/20/2025 How Many Years Have You Smoked Tobacco? 38 [email or web address] Information not available 09/15/2020 Do You Have Difficulty Walking Or Climbing Stairs? No Information not available 08/17/2016 Sex: Female Functional Status Question Answer Note LastModified by Organizat ion Details LastModified Time Do you use any illicit or recreational drugs? No Information not available 10/19/2022 Do you or have you ever used any other forms of tobacco or nicotine? No Information not available 06/22/2022 What is your level of alcohol consumption? None Information not available 08/17/2016 Do you or have you ever used smokeless tobacco? Never used smokeless tobacco [email or web address] Information not available 09/15/2020 Are you currently employed? Yes Information not available 07/18/2017 Urinary incontinence assessment performed? Yes Information not available 05/16/2018 Are you able to walk? [email or web address] Information not available 07/18/2017 Do you have difficulty doing errands alone? No Information not available 08/17/2016 What is your occupation? [employer] Information not available 08/17/2016 Do you have difficulty dressing or bathing? No Information not available 08/17/2016 Do you or have you ever used e-cigarettes or vape? Never used electronic cigarettes [email or web address] Information not available 09/15/2020 What is your exercise level? None Information not available 08/17/2016 Mental Status Question Answer Note LastModified by Organizat ion Details LastModified Time Do you feel stressed (tense, restless, nervous, or anxious, or unable to sleep at night)? [id number] [email or web address] Information not available 05/16/2018 Do you have difficulty concentrating, remembering or making decisions? No Information no t available 08/17/2016 Family History Relationship Description Onset Age of this Age Resolved Age Notes LastModified by Organization Details LastModified Time Father Alzheimer's disease 68 74 ntarter Not available 2015 09:56:08 Mother Alzheimer's disease ntarter Not available 2015 09:56:08 Mother Congestive heart failure ntarter Not available 2015 09:56:16 Maternal Grandmother Malignant neoplasm of ovary ntarter Not available 2015 09:56:28 Medical History Condition Response Acid Reflux (GERD) Y Breast Problem Y Gynecological History Statement/Question Response Last Annual Exam/Provider 09/15/2020 w/DT Date of Last Mammogram 04/27/2020 Date of LMP 09/08/2020 Sexually Active? Y Menses Monthly N Date of Last Pap Smear 09/15/2020 Sexual Problems? 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 Desired Control Method Hormonal In jection Obstetrics History GPAL:G 1 P 1 0 0 1 Type Value Full Term 1 Living 1 Total 1 Immunizations Vaccine Type Date Status Note Provider Name and Address Organization Details Recorded Time RSV, recombinant, protein subunit RSVpreF, adjuvant reconstituted, 0.5 mL, PF 09/26/19 completed Krystle fontanez, [place] - [facility] 09/26/2024 09:47:56 Influenza, split virus, quadrivalent, preservative 09/15/19 cancelled patient objection Kristen Shine, [employer] [address], [place], [address], [place] - [facility] 09/15/2020 11:14:13 zoster recombinant 09/26/19 cancelled patient objection Pacheco Krause, [employer] [address], [place], [address], [place] - [facility] 09/27/2024 09:41:43 Tdap 09/26/19 cancelled patient objection Pacheco Krause, [employer] [address], [place], [address], [place] - [facility] 09/27/2024 09:41:43 Pneumococcal conjugate PCV20, polysaccharide [id number] conjugate, adjuvant, PF 09/26/19 completed Pacheco Krause, [employer] [address], [place], [address], [place] - [facility] 09/27/2024 09:41:43 Influenza, split virus, trivalent, preservative 09/26/19 cancelled patient objection Pacheco Krause, [employer] [address], [place], [address], [place] - [facility] 09/27/2024 09:41:43 Tdap 10/17/19 completed Joanne fontanez, [place] - [facility] 10/17/2024 12:57:12 COVID-19, mRNA, LNP-S, PF, 100 mcg/0.5mL dose or 50 mcg/0.25mL dose 11/25/19 22 completed Crystal Lotus null, [place] - [facility] 06/22/2022 14:44:03 COVID-19, mRNA, LNP-S, PF, 100 mcg/0.5mL dose or 50 mcg/0.25mL dose 11/06/19 22 completed Crystal Lotus null, [place] - [facility] 06/22/2022 14:44:03 Tdap 03/21/20 10 completed Crystal Lotus null, [place] - [facility] 06/22/2022 14:44:03 Past Encounters Encounter ID Performer Location Encounter Start Date Encounter Closed Date Diagnosis/Indication Diagnosis SNOMED-CT Code Diagnosis ICD10 Code Diagnosis Note [id number] Pacheco Krause APRN [address] [place] [address] 01/16/2025 12:52:42 01/16/2025 14:23:37 Acute infective bronchitis 245423569 J20.8 Health Concerns Section Related Observation LastModified by Organization Detai ls LastModified Time None Recorded Concern Status LastModified by Organization Details LastModified Time None Recorded Payers Encounter Date Sequence Insurance Name Policy Number Policy Whaley Covered Member ID Whaley Member ID Guarantor Name 01/16/2025 1 [employer] ([place] [id number] Cassia Rios [id number] Cassia Rios Notes Date Note Type Note Provider Name and Address Organization Details Recorded Time 01/16/2025 text/html Cassia is a 54-year-old female that presents to the office with a chief complaint of pain in her right lung area that has been ongoing since December. She has been on 3 rounds of antibiotics/steroid s without improvement. She feels like it harder to get a full breath of air. 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 She also has not smoked since 01/02. Pacheco Krause, [employer] [address], [place], [address], [place] - [facility] 01/16/2025 15:09:48 OBGyn Episode No OBEpisode recorded.
--- OUTSIDE RECORDS SUMMARY | 2025-03-06 10:06 | XMS_ITS | Data Portability ---
Author Organization [facility], [place] Address [address] [place] [address] Care Team Providers Care Mover Helper Name Role Phone [facility] Primary Care Provider Assessment Encounter Date Assessment Date Assessment LastModified by Organization Details LastModified Time 09/05/2023 09/05/2023 Assessment: 1. Emphysema 2. Dyspnea *PFT (05/10/2023): no restriction, +midflow obstruction, mild MICKEY response *A1AT Genotype (05/10/2023): M/M 3. Symptoms consistent with LAURA: hypersomnia, fatigue, headaches, brain fog, snoring, witnessed apneas *HST 05/10/2023: severe LAURA, AHI:30.9, sleep related hypoxia JOSE ALFREDO 58%, max HR 158 BPM 4. Seasonal allergies *RAST Panel (05/10/2023): +cockroach, ragweed *IgE: 26 5. Current Heavy Smoker 2 ppd x 41 years *LDCT Chest (04/23/2023): no suspicious lung nodules; multiple areas of scarring most notably at the right lung base; few scattered calcified granulomas; emphysematous changes; no evidence of lymphadenopathy 6. Pulmonary Nodules 7. History of vitamin d deficiency, GERD *managed by PCP 8. BMI 35.2 9. Covid +05/13/2023 10. Influenza A (09/02/2023) Plan: 1. Continue Symbicort 160 mcg 2 puffs BID; instructed to rinse mouth after each use *Failed Anoro 2. Continue Albuterol nebs/HFA prn 3. Continue APAP 4-20 cm H20 nightly and prn *Advised not to drive or operate heavy machinery if feeling tired or fatigued 4.Continue Cetirizine daily (RX Renewed) 5. Continue Montelukast daily (RX Renewed) 6. RX Spiriva daily 7. Smoking Cessation 8. Discussed dietary changes, increased physical activity 9. RTO as scheduled Smoking cessation was discussed with the patient for less than 10 minutes. The detrimental effects to the patient's health of continued smoking was explained. Methods to quit smoking were also discussed to include nicotine replacement therapy and pharmacologic treatment. *Discussed tapering method Not available 09/09/2023 14:00:56 06/10/2024 06/10/2024 Imaging Studies Reviewed *LDCT Chest (04/23/2023): no suspicious lung nodules; multiple areas of scarring most notably at the right lung base; few scattered calcified granulomas; emphysematous changes; no evidence of lymphadenopathy Assessment: 1. Emphysema 2. Dyspnea *PFT (05/10/2023): no restriction, +midflow obstruction, mild MICKEY response *Full PFT (06/10/2024): moderate obstruction, no restriction, +midflow obstruction, mildly reduced DLCO/VA, +MICKEY *A1AT Genotype (05/10/2023): M/M 3. LAURA *HST 05/10/2023: severe LARUA, AHI:30.9, sleep related hypoxia JOSE ALFREDO 58%, max HR 158 BPM 4. Seasonal allergies *RAST Panel (05/10/2023): +cockroach, ragweed *IgE: 26 5. Current Heavy Smoker 2 ppd x 41 years 6. Pulmonary Nodules 7. History of vitamin d deficiency, GERD *managed by PCP 8. BMI 35.2 9. Covid +05/13/2023 10. Influenza A (09/02/2023) Plan: 1. Continue Symbicort 160 mcg 2 puffs BID; instructed to rinse mouth after each use; Encouraged compliance with use *Failed Anoro 2. Continue Albuterol nebs/HFA prn (RX Renewed on HFA) 3. Continue APAP 4-20 cm H20 nightly and prn *Order new mask size medium Epiphyte Comfort Gel Blue (sent to [facility]) *Advised not to drive or operate heavy machinery if feeling tired or fatigued 4.Continue Cetirizine daily 5. Continue Montelukast daily 6. Continue Spiriva daily; encouraged compliance with use 7. Smoking Cessation 8. Order LDCT Chest -sent to [facility] per patient request 9. RTO as scheduled, sooner if needed Smoking cessation was discussed with the patient for less than 10 minutes. The detrimental effects to the patient's health of continued smoking was explained. Methods to quit smoking were also discussed to include nicotine replacement therapy and pharmacologic treatment. *Discussed tapering method Portions of this note may be dictated using voice recognition software and or use of a lpn or medical assistant. Variances in spelling and vocabulary are possible and unintentional. Not all errors are caught/corrected. Please notify the author if any discrepancies are noted or if the meaning of any statement is not clear. This is a summary discussion with the patient and in no way is intended to be a verbatum summation of everything discussed. We apologize for any inconvenience. Not available 06/10/2024 12:44:42 08/11/2024 08/11/2024 Imaging Studies Reviewed *LDCT Chest (04/23/2023): no suspicious lung nodules; multiple areas of scarring most notably at the right lung base; few scattered calcified granulomas; emphysematous changes; no evidence of lymphadenopathy Assessment: * Post Covid cough 1. Emphysema 2. Dyspnea *PFT (05/10/2023): no restriction, +midflow obstruction, mild MICKEY response *Full PFT (06/10/2024): moderate obstruction, no restriction, +midflow obstruction, mildly reduced DLCO/VA, +MICKEY *A1AT Genotype (05/10/2023): M/M 3. LAURA *HST 05/10/2023: severe LAURA, AHI:30.9, sleep related hypoxia JOSE ALFREDO 58%, max HR 158 BPM 4. Seasonal allergies *RAST Panel (05/10/2023): +cockroach, ragweed *IgE: 26 5. Current Heavy Smoker 2 ppd x 41 years 6. Pulmonary Nodules 7. History of vitamin d deficiency, GERD *managed by PCP 8. BMI 35.2 9. Covid +05/13/2023; 07/20/2024 10. Influenza A (09/02/2023) Plan: Sick Visit RX Doxycycline 100 mg BID x 10 days Order CXR (patient request to complete at ) 1. Continue Symbicort 160 mcg 2 puffs BID; instructed to rinse mouth after each use; Encouraged compliance with use *Failed Anoro 2. Continue Albuterol nebs/HFA prn 3. Continue APAP 4-20 cm H20 nightly and prn *Advised not to drive or operate heavy machinery if feeling tired or fatigued 4.Continue Cetirizine daily 5. Continue Montelukast daily 6. Spiriva discontinued by patient 7. Smoking Cessation 8. LDCT next due 07/2025 9. RTO as scheduled, sooner if needed Smoking cessation was discussed with the patient for less than 10 minutes. The detrimental effects to the patient's health of continued smoking was explained. Methods to quit smoking were also discussed to include nicotine replacement therapy and pharmacologic treatment. *Discussed tapering method Portions of this note may be dictated using voice recognition software and or use of a lpn or medical assistant. Variances in spelling and vocabulary are possible and unintentional. Not all errors are caught/corrected. Please notify the author if any discrepancies are noted or if the meaning of any statement is not clear. This is a summary discussion with the patient and in no way is intended to be a verbatum summation of everything discussed. We apologize for any inconvenience. Not available 08/11/2024 14:11:52 12/22/2024 12/22/2024 Imaging Studies Reviewed *LDCT Chest (04/23/2023): no suspicious lung nodules; multiple areas of scarring most notably at the right lung base; few scattered calcified granulomas; emphysematous changes; no evidence of lymphadenopathy *LDCT Chest (07/15/2024): stable subcentimeter nodules, emphysema Assessment: 1. Emphysema 2. Dyspnea *PFT (05/10/2023): no restriction, +midflow obstruction, mild MICKEY response *Full PFT (06/10/2024): moderate obstruction, no restriction, +midflow obstruction, mildly reduced DLCO/VA, +MICKEY *A1AT Genotype (05/10/2023): M/M 3. LAURA *HST 05/10/2023: severe LAURA, AHI:30.9, sleep related hypoxia JOSE ALFREDO 58%, max HR 158 BPM 4. Seasonal allergies *RAST Panel (05/10/2023): +cockroach, ragweed *IgE: 26 5. Current Heavy Smoker 2 ppd x 41 years 6. Pulmonary Nodules 7. History of vitamin d deficiency, GERD *managed by PCP 8. BMI 35.2 9. Covid +05/13/2023 10. Influenza A (09/02/2023) Plan: 1. Stop Symbicort; RX Breztri 2 puffs BID; rinse mouth after each use-savings card provided to patient *Failed Anoro 2. Continue Albuterol nebs/HFA prn 3. Continue APAP 4-20 cm H20 nightly and prn; encouraged nightly compliance *Order to Increase humidity sent to DME *Advised not to drive or operate heavy machinery if feeling tired or fatigued 4.Patient discontinued Cetirizine and Montelukast due to itching 5. Smoking Cessation 6. LDCT Chest next due 07/2025 7. RX Zepbound 2.5 mg subcutaneously weekly *Sever LAURA, AHI 30.9 *The goal of treatment is to reduce the risk of major adverse cardiovascular events including but not limited to cardiovascular , non fatal [place] or non fatal stroke 8. RTO in 1 month for medication follow up and weigh in Smoking cessation was discussed with the patient for less than 10 minutes. The detrimental effects to the patient's health of continued smoking was explained. Methods to quit smoking were also discussed to include nicotine replacement therapy and pharmacologic treatment. *Discussed tapering method Portions of this note may be dictated using voice recognition software and or use of a lpn or medical assistant. Variances in spelling and vocabulary are possible and unintentional. Not all errors are caught/corrected. Please notify the author if any discrepancies are noted or if the meaning of any statement is not clear. This is a summary discussion with the patient and in no way is intended to be a verbatum summation of everything discussed. We apologize for any inconvenience. Not available 12/23/2024 12:09:05 01/12/2025 01/12/2025 Imaging Studies Reviewed *LDCT Chest (04/23/2023): no suspicious lung nodules; multiple areas of scarring most notably at the right lung base; few scattered calcified granulomas; emphysematous changes; no evidence of lymphadenopathy *LDCT Chest (07/15/2024): stable subcentimeter nodules, emphysema Assessment: 1. Emphysema 2. Dyspnea *PFT (05/10/2023): no restriction, +midflow obstruction, mild MICKEY response *Full PFT (06/10/2024): moderate obstruction, no restriction, +midflow obstruction, mildly reduced DLCO/VA, +MICKEY *A1AT Genotype (05/10/2023): M/M 3. LAURA *HST 05/10/2023: severe ALURA, AHI:30.9, sleep related hypoxia JOSE ALFREDO 58%, max HR 158 BPM 4. Seasonal allergies *RAST Panel (05/10/2023): +cockroach, ragweed *IgE: 26 5. Current Heavy Smoker 2 ppd x 41 years 6. Pulmonary Nodules 7. History of vitamin d deficiency, GERD *managed by PCP 8. BMI 35.2 9. Covid +05/13/2023 10. Influenza A (09/02/2023) Plan: Sick Visit RX Augmentin 875/125 mg BID x 7 days RX Prednisone 40/30/20/10 mg x 3 days each RX Nystatin four times daily as directed 1. Continue Breztri 2 puffs BID; rinse mouth after each use-savings card provided to patient; discussed thorough oral hygiene after each use to prevent oral thrush *Failed Anoro & Symbicort 2. Continue Albuterol nebs/HFA prn 3. Continue APAP 4-20 cm H20 nightly and prn; encouraged nightly compliance *Order to Increase humidity sent to DME *Advised not to drive or operate heavy machinery if feeling tired or fatigued 4.Patient discontinued Cetirizine and Montelukast due to itching 5. Smoking Cessation-Good JOB!! 6. LDCT Chest next due 07/2025 7. Zepbound not covered by her plan 8. RTO in 3 months Portions of this note may be dictated using voice recognition software and or use of a lpn or medical assistant. Variances in spelling and vocabulary are possible and unintentional. Not all errors are caught/corrected. Please notify the author if any discrepancies are noted or if the meaning of any statement is not clear. This is a summary discussion with the patient and in no way is intended to be a verbatum summation of everything discussed. We apologize for any inconvenience. Not available 01/12/2025 15:38:28 Plan of Treatment Reminders Order Date Submit Date Provider Last Modified By Organization Details Last Modified Time Details Appointments FOLLOW_UP 2024 10:00A Shane Amaral NP Not available Not available Not available Lab None recorded. Referral None recorded. Procedures None recorded. Surgeries None recorded. Imaging LDCT, chest, for lung cancer screening - PATIENT REQUEST TO COMPLETE AT [facility]; PLEASE FAX RESULTS TO [phone] 2024 025 [email or web address] 0 [facility]/[address], [address] [place] [address], [address], 12/24/2024 11:40:14 XR, chest, 2 view - PLEASE FAX RESULTS TO [phone]; ORIGINALL Y REFERRED BY Shane BARRETT (05/10/202023 024 [email or web address] [facility], [address] [place] [address], [address], 08/25/2024 09:13:59 LDCT, chest, for lung cancer screening - PATIENT REQUEST TO COMPLETE AT [facility]; PLEASE FAX RESULTS TO [phone] 2023 024 [facility], [address] [place] [address], [address], 06/18/2024 14:35:02 Medication Orders nystatin 100,000 unit/mL oral suspensio n 2024 025 [facility] [place], [address] [place] [address], [address], 01/12/2025 15:35:13 amoxicill in 875 mg-potass ium clavulana te 125 mg tablet [address], [address], 01/12/2025 15:35:13 prednison e 10 mg tablet [address], [address], 01/12/2025 15:35:12 Zepbound 2.5 mg/0.5 mL subcutane ous pen injector [address], [address], 01/12/2025 16:30:29 Breztri Aerospher e 160 mcg-9mcg- 4.8mcg/ac tuation HFA aerosol inhaler [address], [address], 12/22/2024 15:18:12 doxycycli ne hyclate 100 mg capsule 2023 [email or web address], [address], 01/12/2025 14:43:00 albuterol sulfate HFA 90 mcg/actua tion aerosol inhaler [address], [address], 06/10/2024 10:24:22 Spiriva Respimat 2.5 mcg/actua tion solution for inhalatio n 2023 [email or web address], [address], 12/22/2024 14:43:15 Patient TargetsNo targets recorded. Patient Instructions Encounter Date Encounter Id Patient Instructions Last Modified By Organization Details Last Modified Time 06/10/2024 [id number] LDCT Shared Decision Making The patient was counselled regarding the low dose screening CT requirements. the benefits of screening were discussed to include the potential to reveal a lung malignancy in the early stages where it could possibly be better treated. Potential harms of screening were also discussed to include potential false positive results. It was stressed that they should continue annual screening for 10 years. They state they understand the potential benefits and risks and would like to proceed with screening. Smoking cessation was discussed with the patient for less than 10 minutes. The detrimental effects to the patient's health of continued smoking was explained. Methods to quit smoking were also discussed to include nicotine replacement therapy and pharmacologic treatment. Not available 06/10/2024 12:47:47 12/22/2024 [id number] Smoking cessatio n was discussed with the patient for less than 10 minutes. The detrimental effects to the patient's health of continued smoking was explained. Methods to quit smoking were also discussed to include nicotine replacement therapy and pharmacologic treatment. Not available 12/23/2024 12:16:11 Reason for Referral None Reported. Results Created Date Observation Date Name Description Value Unit Range Abnormal Flag Note LastModifiedBy Organization Detail LastModifiedTime 09/10/1909/02/2023 XR, chest , 2 view No observ ation record ed. [email or web address] [facility] [address] [facility] [place], [address], 09/10/2023 12:50:05 06/10/2005/30/2024 XR, chest , 2 view No observ ation record ed. [facility] (Registration ) [address] [place], [address], 06/11/2024 16:17:35 06/10/2006/05/2024 CPAP compl iance * No observ ation record ed. Not Available 06/11 16:17:48 06/10/2006/10/2024 compl ete PFT* No observ ation record ed. Not Available 06/11 12:37:23 08/11/20 24 07/15/2024 LDCT, chest , for lung cance alejandra benjamin No observ ation record ed. [email or web address] [facility] [facility], [place], [address], 08/11/2024 11:42:17 08/13/20 24 08/12/2024 XR, chest , 2 view No observ ation record ed. [email or web address] [facility] Scheduling Department -New Scheduling Process [address], [place], [address], 08/13/2024 09:22:54 08/14/20 24 08/07/2024 CPAP compl iance * No observ ation record ed. [email or web address] Not Available 2023 12:20:34 12/25/19 25 12/22/2024 compl ete PFT* No observ ation record ed. [email or web address] Not Available 2024 13:19:16 Result Notes None recorded. Problems Name Problem SNOMED Code Status Onset Date Resolution Date Notes Provider Name and Address Organization Details Recorded Time Chronic obstructive pulmonary disease 52868563 Active 2022 keyon fontanez, [place] - [facility] 3 15:24:16 Pulmonary emphysema 10810779 Active 2022 keyon fontanez [place] - [facility] 3 15:24:20 Seasonal allergy 975448404 Active 2022 Cheyanne Amaral NP [address], [place], [address], [place] - [facility] 3 15:50:11 Obstructive sleep apnea syndrome 60331830 Active 2022 Cheyanne Amaral NP [address], [place], [address], [place] [facility] 3 20:25:17 Body mass index 30+ - obesity 896343793 Active 2022 Cheyanne Amaral NP [address], [place], [address], [place] [facility] 3 20:25:31 Acute COVID-19 3212819351 Active 2022 Cheyanne Amaral NP [address], [place], [address], [place] [facility] 3 14:36:09 Cough 53069662 Active 2022 Cheyanne Amaral NP [address], [place], [address], [place] [facility] 3 11:13:05 Acute bronchitis 13208615 Active 2022 [address], [place], [place], [address], [place] [facility] 3 15:39:04 Gastroesophag eal reflux disease 485832685 Active 2022 Cheyanne Amaral NP [address], [place], [address], [place] [facility] 3 09:26:08 Upper respiratory infection 07127146 Active 2022 AN[address], [place], [address], [place] [facility] 3 15:20:25 Candidiasis of mouth 16965282 Active 2023 Cheyanne Amaral NP [address], [place], [address], [place] [facility] 5 15:34:39 Acute sinusitis 11485302 Active 2023 Cheyanne Amaral NP [address], [place], [address], [place] [facility] 5 15:33:50 Problem Notes None recorded. Procedures Surgical History Date Name Laterality Status Provider Name and Address Organization Details Recorded Time biopsy of breast completed [facility] 08/11/2024 10:33:05 Imaging Results None recorded. Procedure Notes None recorded. Medical Equipment None Reported. Allergies Allergen ID Allergen Name Allergen Category Reaction Reaction Severity Criticality Documentation Date Start Date Code Code System Note Provider Name and Address Organization Details Recorded Time Trelegy medicatio n facial swelling Not available Not available 05/10/2023 22365 40 RxNorm keyon víctor null, [facility] 3 15:21:53 35033 ethanol environme nt,medica tion facial swelling Not available Not available 05/10/2023 448 RxNorm keyon víctor null, [facility] 3 15:22:15 Medications Name Sig Start Date Stop Date Status Note LastModified by Organization Details LastModified Time amoxicillin 500 mg capsule TAKE 1 CAPSULE BY MOUTH EVERY 12 HOURS FOR 10 DAYS . 06/10 completed Not Available Not Available Not Available clotrimazol e 10 mg julian TAKE ONE (1) TABLET FIVE (5) TIMES A DAY BY ORAL ROUTE NEEDED FOR 14 DAYS. 07/11 completed Not Available Not Available Not Available nystatin 100,000 unit/mL oral suspension TAKE FIVE (5) ML FOUR (4) TIMES A DAY BY ORAL ROUTE NEEDED FOR 14 DAYS. active Not Available Not Available No t Available prednisone 10 mg tablet TAKE FOUR (4) TABLETS BY MOUTH FOR 3 DAYS TAKE THREE (3) TABLETS BY MOUTH FOR 3 DAYS TAKE 2 TABLETS BY MOUTH FOR 3 DAYS THEN TAKE 1 TABLET FOR 3 DAYS THEN STOP active Not Available Not Available No t Available doxycycline hyclate 100 mg capsule TAKE ONE (1) CAPSULE TWICE A DAY BY ORAL ROUTE FOR 10 DAYS. 01/12 completed Not Available Not Available Not Available albuterol sulfate 2.5 mg/3 mL (0.083 %) solution for nebulizatio n INHALE THREE (3) ML THREE (3) TIMES A DAY BY MOUTH VIA NEBULIZAT ION NEEDED active Not Available Not Available No t Available cetirizine 10 mg tablet TAKE ONE (1) TABLET EVERY DAY BY ORAL ROUTE FOR 30 DAYS. 08/11 completed Not Available Not Available Not Available azithromyci n 250 mg tablet TAKE TWO (2) TABLETS (500 MG) BY ORAL ROUTE ONCE DAILY FOR ONE (1) DAY THEN ONE (1) TABLET (250 MG) BY ORAL ROUTE ONCE DAILY FOR FOUR (4) DAYS 12/22 completed Not Available Not Available Not Available prednisone 20 mg tablet TAKE 1 TABLET BY MOUTH EVERY DAY 12/22 completed Not Available Not Available Not Available omeprazole 40 mg capsule,del ayed release TAKE ONE (1) CAPSULE TWICE A DAY BY ORAL ROUTE FOR 90 DAYS. active Not Available Not Available No t Available amoxicillin 500 mg tablet TAKE 1 TABLET BY MOUTH EVERY 12 HOURS FOR 10 DAYS 06/10 completed Not Available Not Available Not Available amoxicillin 875 mg tablet TAKE ONE (1) TABLET EVERY 12 HOURS BY ORAL ROUTE FOR 7 DAYS. 05/10 completed Not Available Not Available Not Available potassium chloride ER 20 mEq tablet,exte nded release(par t/cryst) TAKE ONE (1) TABLET EVERY DAY BY ORAL ROUTE FOR 7 DAYS. 12/22 completed Not Available Not Available Not Available benzonatate 100 mg capsule TAKE ONE (1) CAPSULE THREE (3) TIMES A DAY BY ORAL ROUTE NEEDED FOR 14 DAYS. 07/11 completed Not Available Not Available Not Available oseltamivir 75 mg capsule TAKE 1 CAPSULE BY MOUTH EVERY 12 HOURS FOR 5 DAYS 08/11 completed Not Available Not Available Not Available diclofenac sodium 75 mg tablet,elly yed release TAKE 1 TABLET BY MOUTH EVERY 12 HOURS 12/22 completed Not Available Not Available Not Available montelukast 10 mg tablet TAKE ONE (1) TABLET EVERY DAY BY ORAL ROUTE AT BEDTIME FOR 30 DAYS. 08/11 completed Not Available Not Available Not Available furosemide 20 mg tablet TAKE 1 TABLET (20 MG) BY MOUTH EVERY DAY active Not Available Not Available No t Available ergocalcife rol (vitamin D2) 1,250 mcg (50,000 unit) capsule TAKE ONE (1) CAPSULE EVERY WEEK BY ORAL ROUTE FOR 90 DAYS, FOR VITAMIN D DEFICIENC Y. active Not Available Not Available No t Available methylpredn isolone 4 mg tablets in a dose pack FOLLOW PACKAGE DIRECTION S 01/12 completed Not Available Not Available Not Available albuterol sulfate HFA 90 mcg/actuati on aerosol inhaler Inhale 2 puffs every 4 hours by inhalatio n route as needed for 30 days. 2023 active Not Available Not Available Not Avai lable fluticasone propionate 50 mcg/actuati on nasal spray,suspe nsion SPRAY ONE (1) SPRAY EVERY DAY BY INTRANASA L ROUTE FOR 30 DAYS. 12/22 completed Not Available Not Available Not Available doxycycline hyclate 100 mg tablet TAKE 1 TABLET BY MOUTH EVERY 12 HOURS 06/10 completed Not Available Not Available Not Available amoxicillin 875 mg-potassiu m clavulanate 125 mg tablet TAKE ONE (1) TABLET EVERY 12 HOURS BY ORAL ROUTE FOR 7 DAYS. active Not Available Not Available No t Available Symbicort 160 mcg-4.5 mcg/actuati on HFA aerosol inhaler INHALE TWO (2) PUFFS TWICE A DAY BY INHALATIO N ROUTE FOR 30 DAYS. 01/12 completed Not Available Not Available Not Available diclofenac 1 % topical gel APPLY TWO (2) GRAMS TO THE AFFECTED AREA(S) BY TOPICAL ROUTE FOUR (4) TIMES PER DAY 12/22 completed Not Available Not Available Not Available Anoro Ellipta 62.5 mcg-25 mcg/actuati on powder for inhalation INHALE ONE (1) PUFF EVERY DAY BY INHALATIO N ROUTE FOR 30 DAYS. 08/11 completed Not Available Not Available Not Available Spiriva Respimat 2.5 mcg/actuati on solution for inhalation INHALE TWO (2) PUFFS EVERY DAY BY INHALATIO N ROUTE FOR 30 DAYS. 12/22 completed Not Available Not Available Not Available Trelegy Ellipta 100 mcg-62.5 mcg-25 mcg powder for inhalation INHALE ONE (1) PUFF EVERY DAY 12/22 completed Not Available Not Available Not Available Breztri Aerosphere 160 mcg-9mcg-4. 8mcg/actuat ion HFA aerosol inhaler INHALE TWO (2) PUFFS BY MOUTH TWICE A DAY active Not Available Not Available No t Available semaglutide (weight loss) 0.25 mg/0.5 mL subcutaneou s pen injector Semagluti de 2mg/1mlDi albertae #1 ml vial, syringes and alcohol wipesSig: Inject 10 units (0.25mg) subcutane ous weekly 01/12 completed Not Available Not Available Not Available Paxlovid 300 mg (150 mg x 2)-100 mg tablets in a dose pack Take 1 dose pk by oral route as directed. 07/11 completed Not Available Not Available Not Available Zepbound 2.5 mg/0.5 mL subcutaneou s pen injector Inject 2.5 mg every week by subcutane ous route for 28 days. 01/12 completed Not Available Not Available Not Available Vitals Date Recorded Body height Provider Name an d Address Organization Details Last Updated DateTime 09/05/2023 170.18 cm Arcelia Brian [facility] 09/05/2023 11:37:02 Date Recorded Body height Body mass index (BMI) Body weight Oxygen saturation Oxygen saturation in Arterial blood by Pulse oximetry Heart rate Respiratory rate Body temperature Systolic And Diastolic Provider Name and Address Organization Details Last Updated DateTime 5 170.18 cm 35.3 kg/m2 324980. 72 g 95 % 95 % 91 /min 20 /min 98.5 [degF] 120/78 mm[Hg] [facility] 5 14:47:22 Date Recorded Body height Oxygen saturation Oxygen saturation in Arterial blood by Pulse oximetry Heart rate Respiratory rate Body temperature Systolic And Diastolic Provider Name and Address Organization Details Last Updated DateTime 5 170.18 cm 98 % 98 % 78 /min 22 /min 97.3 [degF] 142/80 mm[Hg] keyon renee [facility] 5 14:42:02 Date Recorded Body height Body mass index (BMI) Body weight Oxygen saturation Oxygen saturation in Arterial blood by Pulse oximetry Heart rate Respiratory rate Body temperature Systolic And Diastolic Provider Name and Address Organization Details Last Updated DateTime 4 170.18 cm 35.4 kg/m2 609448. 88 g 95 % 95 % 97 /min 18 /min 96.9 [degF] 106/66 mm[Hg] [facility] 4 10:06:49 Date Recorded Body height Body mass index (BMI) Body weight Oxygen saturation Oxygen saturation in Arterial blood by Pulse oximetry Heart rate Respiratory rate Body temperature Systolic And Diastolic Provider Name and Address Organization Details Last Updated DateTime 4 170.18 cm 36 kg/m2 461977. 25 g 92 % 92 % 98 /min 22 /min 96.8 [degF] 126/78 mm[Hg] airamashley norton [facility] 4 10:27:10 Social History Question Answer Notes LastModified by Organizat ion Details LastModified Time Tobacco Smoking Status Current Every Day Smoker keyon fontanez [facility] 05/10/2023 15:23:51 Do You Have An Advance Directive? No [email or web address] Information not available 05/10/2023 Is Your Home Air Conditioned? Yes [email or web address] Information not available 07/11/2023 Where Do You Live? [place]iler Information not available 08/11/2024 Do You Have A Medical Power Of Surveillance Inspector? No [email or web address] Information not available 07/11/2023 What Was The Date Of Your Most Recent Tobacco Screening? 12/22/2024 [email or web address] Information not available 12/22/2024 What Is Your Current Pack Years? 30ormorepac kyears [email or web address] Information not available 07/11/2023 Do You Have Any Pets? Yes Cats And Dogs [email or web address] Information not available 07/11/2023 What Is Your Relationship Status? Information not available 08/11/2024 At What Age Did You Start Smoking Tobacco? 11 [email or web address] Information not available 08/11/2024 Are There Any Smokers In Your House? Yes [email or web address] Information not available 07/11/2023 How Much Tobacco Do You Smoke? 2 PPD [email or web address] Information not available 05/10/2023 Has Tobacco Cessation Counseling Been Provided? Yes [email or web address] Information not available 07/11/2023 On What Date Was Tobacco Cessation Counseling Provided? 12/22/2024 [email or web address] Information not available 12/22/2024 How Many Years Have You Smoked Tobacco? 41 Information not available 05/10/2023 Have You Recently Traveled Abroad? No [email or web address] Information not available 07/11/2023 Are You Currently In School? No [email or web address] Information not available 07/11/2023 Sex: Unknown Functional Status Question Answer Note LastModified by Organizat ion Details LastModified Time Do you or have you ever used any other forms of tobacco or nicotine? No [email or web address] Information not available 07/11/2023 Are you currently employed? 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 Family History Relationship Description Onset Age of this Age Resolved Age Notes LastModified by Organization Details LastModified Time Brother Myocardial infarction [email or web address] Not available 05/2024 10:31:40 Brother Cerebrovascu lar accident Not available 10:31:48 Mother Cerebrovascu lar accident [email or web address] Not available 10:31:48 Father Dementia [email or web address] Not availab le 08/11/2024 10:31:53 Medical History Condition Response Acid Reflux (GERD) Y Gynecological HistoryNo gynecological history recorded. Obstetrics History GPAL:G 0 P 0 0 0 0 Past Encounters Encounter ID Performer Location Encounter Start Date Encounter Closed Date Diagnosis/Indication Diagnosis SNOMED-CT Code Diagnosis ICD10 Code Diagnosis Note [id number] Cheyanne Amaral NP [facility] [address] [place] [address] [address] [place] [address] 05/10/2023 14:50:10 05/10/2023 16:06:21 Chronic obstructive pulmonary disease 57768943 J44.9 Seasonal allergy 1516372 04 J30.2 Pulmonary emphysema 8743 3001 J43.9 Dyspnea 739488683 R06.00 Hypersomnia 71839144 G47 .10 Fatigue 15768760 R53.83 Heavy tobacco smoker 048 0683674 28467 Z72.0 Nodule of lung 109798593 R91.1 [id number] Cheyanne Amaral NP [facility] [address] [place] [address] [address] [place] [id number] 05/11/2023 10:47:00 05/11/2023 11:11:27 Chronic obstructive pulmonary disease 20196075 J44.9 Seasonal allergy 5696648 04 J30.2 Pulmonary emphysema 8743 3001 J43.9 Dyspnea 936637455 R06.00 Hypersomnia 32689047 G47 .10 Fatigue 58787335 R53.83 Heavy tobacco smoker 355 2398678 56445 Z72.0 Nodule of lung 723851000 R91.1 Obstructiv e sleep apnea syndrome 79847751 G47.33 Body mass index 30+ - obesity 719126876 Z68.35 [id number] Cheyanne Amaral NP [address] [place] [id number] 05/14/2023 14:31:15 05/14/2023 14:43:35 Seasonal allergy 441911449 J30.2 Pulmonary emphysema 8743 3001 J43.9 Dyspnea 010705435 R06.00 Hypersomnia 75263081 G47 .10 Fatigue 52300325 R53.83 Heavy tobacco smoker 111 9353140 26598 Z72.0 Nodule of lung 316993516 R91.1 Obstructiv e sleep apnea syndrome 77689376 G47.33 Body mass index 30+ - obesity 834056850 Z68.35 Acute COVID-19 924856746 8 U07.1 Chronic ob structive pulmonary disease 32551524 J44.9 [id number] Cheyanne Amaral NP [address] [place] [id number] 06/05/2023 10:46:51 06/05/2023 11:18:16 Seasonal allergy 627794380 J30.2 Pulmonary emphysema 8743 3001 J43.9 Dyspnea 937689598 R06.00 Hypersomnia 27521396 G47 .10 Fatigue 03414062 R53.83 Heavy tobacco smoker 964 5155138 38844 Z72.0 Nodule of lung 338577580 R91.1 Obstructiv e sleep apnea syndrome 89662261 G47.33 Body mass index 30+ - obesity 175874435 Z68.35 Acute COVID-19 560149288 8 U07.1 Chronic ob structive pulmonary disease 11305656 J44.9 Cough 97603623 R05.9 [id number] Cheyanne Amaral NP [address] [place] [id number] 07/11/2023 08:42:04 07/11/2023 09:22:36 Seasonal allergy 347357403 J30.2 Pulmonary emphysema 8743 3001 J43.9 Dyspnea 966639294 R06.00 Hypersomnia 12298716 G47 .10 Fatigue 68062789 R53.83 Heavy tobacco smoker 749 2091458 82573 Z72.0 Nodule of lung 411346994 R91.1 Obstructiv e sleep apnea syndrome 48551318 G47.33 Body mass index 30+ - obesity 734987520 Z68.35 Acute COVID-19 118232752 8 U07.1 Chronic ob structive pulmonary disease 11783923 J44.9 Cough 26067527 R05.9 Gastroesop hageal reflux disease 318283431 K21.9 [id number] Cheyanne Amaral NP [address] [place] [id number] 09/05/2023 11:36:14 09/05/2023 12:42:45 Obstructive sleep apnea syndrome 49331240 G47.33 Seasonal allergy 0434718 04 J30.2 Pulmonary emphysema 8743 3001 J43.9 Dyspnea 760638964 R06.00 Hypersomnia 57801246 G47 .10 Fatigue 42987945 R53.83 Heavy tobacco smoker 555 1401626 85038 Z72.0 Nodule of lung 652239288 R91.1 Body mass index 30+ - obesity 714342644 Z68.35 Acute COVID-19 305249594 8 U07.1 Chronic ob structive pulmonary disease 24730198 J44.9 Cough 46296771 R05.9 Gastroesop hageal reflux disease 783828715 K21.9 [id number] Junior Multani DO [address] [place] [id number] 06/10/2024 08:49:42 06/10/2024 12:13:55 Pulmonary emphysema 58792797 J43.9 Obstructiv e sleep apnea syndrome 43777703 G47.33 Seasonal allergy 9586494 04 J30.2 Dyspnea 734607605 R06.00 Hypersomnia 06357266 G47 .10 Fatigue 93205873 R53.83 Heavy tobacco smoker 538 2486624 33003 Z72.0 Nodule of lung 787005124 R91.1 Body mass index 30+ - obesity 984085100 Z68.35 Acute COVID-19 746715144 8 U07.1 Chronic ob structive pulmonary disease 21704972 J44.9 Cough 06313175 R05.9 Gastroesop hageal reflux disease 202262132 K21.9 [id number] Junior Multani [address] [place], [place] [id number] 08/11/2024 10:15:48 08/11/2024 10:56:36 Pulmonary emphysema 27308927 J43.9 Obstructiv e sleep apnea syndrome 89283351 G47.33 Seasonal allergy 1593903 04 J30.2 Dyspnea 062604927 R06.00 Hypersomnia 58742239 G47 .10 Fatigue 11647782 R53.83 Heavy tobacco smoker 370 1252001 83793 Z72.0 Nodule of lung 798210779 R91.1 Body mass index 30+ - obesity 621362613 Z68.35 Acute COVID-19 255203837 8 U07.1 Chronic ob structive pulmonary disease 02595750 J44.9 Cough 70668335 R05.9 Gastroesop hageal reflux disease 740139728 K21.9 Acute bronchitis 5461357 2 J20.9 [id number] Junior Multani [address] [place], [place] [id number] 12/22/2024 14:14:12 12/22/2024 15:23:24 Chronic obstructive pulmonary disease 07885143 J44.9 Pulmonary emphysema 8743 3001 J43.9 Obstructiv e sleep apnea syndrome 39953674 G47.33 Seasonal allergy 9762760 04 J30.2 Dyspnea 715015305 R06.00 Hypersomnia 88970396 G47 .10 Fatigue 08576531 R53.83 Heavy tobacco smoker 739 2392203 17324 Z72.0 Nodule of lung 236925702 R91.1 Body mass index 30+ - obesity 949249240 Z68.35 Acute COVID-19 191848300 8 U07.1 Cough 25099132 R05.9 Gastroesop hageal reflux disease 052968197 K21.9 [id number] Junior Multani [facility] [address] [place] [address] [address] [place] [address] 01/12/2025 14:40:27 01/13/2025 10:42:15 Chronic obstructive pulmonary disease 84872213 J44.9 Pulmonary emphysema 8743 3001 J43.9 Obstructiv e sleep apnea syndrome 23811365 G47.33 Seasonal allergy 1102531 04 J30.2 Dyspnea 660178015 R06.00 Hypersomnia 73974062 G47 .10 Fatigue 92061120 R53.83 Heavy tobacco smoker 104 9765403 97697 Z72.0 Nodule of lung 954341363 R91.1 Body mass index 30+ - obesity 405859047 Z68.35 Acute COVID-19 169972355 8 U07.1 Cough 19938567 R05.9 Gastroesop hageal reflux disease 062638335 K21.9 Acute sinusitis 98524044 J01.90 Candidiasis of mouth 797 31648 B37.0 Health Concerns Section Related Observation LastModified by Organization Detai ls LastModified Time None Recorded Concern Status LastModified by Organization Details LastModified Time None Recorded Advance Directives Directive N: Payers Insurance Date Sequence Insurance Name Policy Number Policy Whaley Covered Member ID Whaley Member ID Guarantor Name 12/28/2024 PAYMENT PLAN Cassia Rios 12/22/2024 1 [facility] [employer] Cassiaeliceo Rios [id number] [facility] Date Note Type Note Provider Name and Address Organization Details Recorded Time 09/05/2023 text/html This is a 52 year-old female who presents to the office via telemedicine for ER follow up.The patient reports being in ER on (09/02/2023) for increased shortness of breath, feeling light headed and weakness. Patient tested positive for influenza A and secondary bronchitis. Patient was treated with nebs and IV steroids. She was given prescriptions for Tamiflu, Doxycycline and Prednisone taper. She did not take the Tamiflu prescribed.The patient today complains of chest congestion and shortness of breath. She reports her cough and wheezing have improved. She continues to use symbicort and spiriva as directed. Has been using albuterol inhaler 2 times daily and albuterol nebs every 6 hours on average with positive results.Patient continues to smoke.Denies fever, chills, chest pain, nausea, vomiting, diarrhea. Cheyanne Amaral NP [address], [place], [address], [facility] 09/09/2023 14:02:13 06/10/2024 text/html This 53 year-old female returns to the office for the ongoing management of emphysema, COPD. Patient states that since last visit she was diagnosed with pneumonia several weeks ago and treated with antibiotics. She reports her symptoms have since improved. Patient also had an echocardiogram today due to lower extremity edema. Patient admits to inconsistent use of Symbicort and Spiriva. She reports occasional shortness of breath, non productive cough and wheezing. Denies any nocturnal respiratory symptoms. She has not been using an albuterol inhaler. Patient continues to use her CPAP nightly but would like to try a gel mask. A compliance report was generated for the dates of 05/07/2024- that revealed 10 days (33%) compliance greater than 4 hours, 20/30 days (67%) overall compliance, AHI 0.8 and median leaks 8.7 L/min.Denies fever, chills, chest pain, nausea, vomiting, diarrhea. Cheyanne Amaral NP [address], [place], [address], [facility] 06/10/2024 12:48:01 08/11/2024 text/html This 53 year-old female returns to the office for a sick visit and to review the results of recent LDCT Chest. The patient reports having COVID 07/20/2024. Patient was prescribed Paxlovid and Prednisone but did not take the Paxlovid due to potential adverse effects. Today patient complains of a productive cough (post-COVID) with yellow mucus, shortness of air above her baseline and a sound described as rubbing in the right lung, as noted by one of her co-workers. No complaints of wheezing or nocturnal respiratory symptoms. Patient continues to use Symbicort twice daily and Albuterol nebs twice daily. Denies any recent use of her Albuterol inhaler. Patient is no longer taking Spiriva as she feels it takes her breath away. She has also discontinued the use of Montelukast and Cetirizine. Patient continues to smoke 2 ppd with no current desire to quit. Patient continues to use her CPAP nightly. A compliance report was generated for the dates of (07/09/2024-08/07/20 24) that revealed 5 days (17%) compliance greater than 4 hours, 17/30 days (57%) overall compliance, AHI 0.9 and median leaks 3.3 L/min. Patient states she did not wear her CPAP when she had Covid. Compliance data was discussed during todays visit. Denies fever, chills, chest pain, nausea, vomiting, diarrhea. Cheyanne Amaral NP [address], [place], [address], [facility] 08/11/2024 14:12:20 12/22/2024 text/html This 54 year-old female returns to the office for the ongoing management of emphysema, COPD. Patient denies any significant medical events since her last visit. Patient admits to inconsistent use of Symbicort due to cost. She reports shortness of breath with exertion that is often exacerbated by heat, non productive cough and wheezing. Denies any nocturnal respiratory symptoms. She uses her Albuterol inhaler twice daily and albuterol nebs 1 to 2 times per week. Patient discontinued the use of cetirizine and Montelukast due to itching. Patient is also inconsistent with CPAP use due to a dry mouth. A compliance report was generated for the dates of 11/19/2024- that revealed 1 day (3%) compliance greater than 4 hours, 6/30 days (20%) compliance overall, AHI 0.3 and median leaks 0. Compliance data was discussed during todays visit. Patient continues to smoke 2 ppd with no current desire to quit Denies fever, chills, chest pain, nausea, vomiting, diarrhea. Cheyanne Amaral NP [address], [place], [address], [facility] 12/23/2024 12:18:29 01/12/2025 text/html This 54 year-old female returns to the office for a sick visit. The patient complains of maxillary sinus pressure, right lung pain, and shortness of breath. She also reports developing blisters on her tongue from Breztri. She continues to use Albuterol inhaler once per week, and used an Albuterol neb treatment this morning. The patient reports she quit smoking on January 02. Denies fever, chills, chest pain, nausea, vomiting, diarrhea. Cheyanne Amaral NP [address], [place], [address], [facility] 01/12/2025 15:38:44 OBGyn Episode No OBEpisode recorded.
[2025-03-06 10:07] VITALS: BP 130/83; PULSE 85; RESP 18; TEMP 36.7; O2SAT 98; BMI 35.5
--- OUTSIDE RECORDS SUMMARY | 2025-03-06 10:07 | XMS_ITS | Continuity of Care Document ---
Author Organization [facility] Address [address] [place] [address] [place] [address] Assessment No assessment recorded. Plan of Treatment Reminders Order Date Submit Date Provider Last Modified By Organization Details Last Modified Time Details Appointments Follow Up 2024 10:00A M Pacheco Krause APRN Not available Not available Not available Lab gram stain, sputum 2024 025 [place] [facility], [address], Rob F, [place], [address], 01/24/2025 20:09:19 Referral None recorded. Procedures None recorded. Surgeries None recorded. Imaging XR, chest, 2 view - follow up right middle and lower lobe pneumonia 2024 025 [facility], [address] [place] [address] , [place], [address], 01/22/2025 15:05:59 Medication Orders ceftriaxo ne 1 gram solution for injection 2024 025 [email or web address] Not available 02/12/2025 09:41:22 Solu-Medr ol (PF) 125 mg/2 mL solution for injection 2024 025 [email or web address] Not available 02/12/2025 09:41:27 Patient TargetsNo targets recorded. Patient Instructions Encounter Date Encounter Id Patient Instructions Last Modified By Organization Details Last Modified Time 01/21/2025 [id number] learning about healthy weight [email or web address] Not available 01/21/2025 10:29:04 body mass index: care instructions [email or web address] Not available 01/21/2025 10:29:04 - Continue takin g any prescribed antibiotics as directed - Take any OTC pain medication as needed for discomfort - Rest and avoid strenuous activity - Stay hydrated by drinking plenty of fluids - Monitor for any worsening symptoms such as increased chest pain, shortness of breath, or fever - Follow up in one week for further evaluation and treatment - Keep a record of any changes in symptoms or side effects and report them to your healthcare provider [email or web address] Not available 01/21/2025 10:32:20 Reason for Referral None Reported. Results Created Date Observation Date Name Description Value Unit Range Abnormal Flag Note LastModifiedBy Organization Detail LastModifiedTime 01/17/20 25 XR, chest , 2 view No observ ation record ed. [address] , [place], [address], 01/19/2025 10:09:23 01/23/20 25 XR, chest , 2 view No observ ation record ed. [address] , [place], [address], 01/22/2025 15:27:32 02/13/20 25 XR, chest , 2 view No observ ation record ed. [address] , [place], [address], 02/16/2025 10:47:59 Result Notes None recorded. Problems Name Problem SNOMED Code Status Onset Date Resolution Date Notes Provider Name and Address Organization Details Recorded Time Long-ter m drug therapy Active 2016 depo provera; declines BOB Shine, [employer]OUNDATION [employer] [address], [place], [address] , [place] - [facility] 7 10:59:48 Dyspnea 330237273 Completed 201905/07/2020 Nora Hooks null, [place] - [facility] 0 09:12:40 Vitamin D deficien 43081009 Active 2019 Karen Gautam null, [place] - [facility] 0 16:07:20 Pulmonar y emphysem a 79349384 Active 2019 Nora Hooks null, [place] - [facility] 0 16:44:31 Asthma 726006363 Active 2020 Flores Garcia null, [place] - [facility] 1 10:26:19 Chronic obstruct lucie pulmonar y disease 12145030 Active 2020 Flores Garcia [place] - [facility] 1 10:26:24 Fibrocys tic disease of breast 64798732 Active 2020 Kristen Rl, [employer]ATION [employer]ATOR [address], [place], [address] , [place] - [facility] 1 14:39:41 Suspecte d COVID-19 927179772 Completed 10/11/2020 Removal Reason: Problem added by user from the COVID-19 watch flag Susan Valentine null, [place] - [facility] 1 13:48:16 COVID-19 202770815 Completed 202005/30/2021 Removal Reason: Problem marked historic al by user [email or web address] from the COVID-19 watch flag Pacheco Krause, FOUNDATION CO[employer]INATOR [address], [place], [address] , [place] - [facility] 4 11:12:19 COVID-19 170530716 Completed 202005/30/2021 Removal Reason: Problem marked historic al by user from the COVID-19 watch flag Pacheco Krause, FOUNDATION COORDINATOR [address], [place], [address] , [place] - [facility] 4 11:12:19 Suspecte d COVID-19 121435442 Completed 08/02/2021 Removal Reason: Problem marked historic al by user [email or web address] from the COVID-19 watch flag Susan Valentine null, [place] - [facility] 1 13:48:16 COVID-19 839875640 Completed 202106/22/2022 Pacheco Krause, FOUNDATION COORDINATOR [address], [place], [address] , [place] [facility] 4 11:12:19 Allergic rhinitis 91414876 Active 2021 Crystal Lotus null, [place] - [facility] 2 14:53:22 Acute pharyngi tis 435137432 Completed 202102/09/2023 Crystal Lotus [place] [facility] 3 09:03:10 Acid reflux 365297636 Active 2015 Trudy Miguel Angel null, [place] - [facility] 6 09:53:44 Fibroade nosis of breast 65830173 Active 2015 Trudy Miguel Angel [place] - [facility] 6 09:54:02 Lateral epicondy litis 580478350 Completed 201501/24/2017 Abraham Rebollar MD [address], [place], [address] , [place] [facility] 7 13:07:37 Nodule of lung 533351615 Active 2022 Latosha Pavon, [employer]OUNDATION CO[employer]ATOR [address], [place], [address] , [place] [facility] 3 09:33:01 Seasonal allergic rhinitis 225059305 Active 2022 Latosha Pavon APRN [address], [place], [address] , [place] [facility] 3 09:33:19 Pain of left ankle joint 04797172930 048349 Active 2022 Latosha Pavon APRN [address], [place], [address] , [place] [facility] 3 09:34:47 Pharyngi tis 873290588 Active 2022 Pacheco Krause APRN [address], [place], [address] , [place] [facility] 3 11:35:20 Upper respirat ory infectio n 06628189 Active 2022 Pacheco Krause APRN [address], [place], [address] , [place] [facility] 3 13:36:54 Acute bronchit is 21086149 Active 2022 Pacheco Krause, FOUNDATION CO[employer]ATOR [address], [place], [address] , [place] [facility] 3 14:08:31 Obesity 977164555 Active 2022 Pacheco Krause, FOUNDATION CO[employer]INATOR [address], [place], [address] , [place] [facility] 3 14:25:02 Chronic bronchit is 59772874 Active 2022 Pacheco Krause, FOUNDATION CO[employer]INATOR [address], [place], [address] , [place] [facility] 3 11:41:44 Cough 04129578 Active 2022 Pacheco Krause APRN [address], [place], [address] , [place] [facility] 3 11:45:40 Acute sinusiti s 78207202 Active 2022 Pacheco Krause APRN [address], [place], [address] , [place] - [facility] 3 12:57:59 Influenz a caused by Influenz a A virus 431793109 Active 2023 Agustin Rahman DO [address], [place], [address] , [place] [facility] 4 16:32:14 Sore throat 863309107 Active 2023 Agustin Rahman DO [address], [place], [address] , [place] [facility] 4 16:33:29 Neuropat hy 698171634 Active 2023 Pacheco Krause APRN [address], [place], [address] , [place] [facility] 4 09:02:03 Candidia sis of mouth 78235962 Active 2023 Pacheco Krause APRN [address], [place], [address] , [place] [facility] 4 09:14:47 Bilatera l lower limb edema 267669276 Active 2023 Pacheco Krause APRN [address], [place], [address] , [place] [facility] 4 16:00:30 Communit y acquired pneumoni a 324697996 Active 2023 Pacheco Krause APRN [address], [place], [address] , [place] [facility] 4 16:15:11 Middle ear effusion 6019380032 Active 2023 Pacheco Krause APRN [address], [place], [address] , [place] [facility] 4 16:23:46 Acute exacerba tion of chronic obstruct lucie pulmonar y disease 226351095 Active 2023 Pacheco Krause APRN [address], [place], [address] , [place] [facility] 4 14:19:15 COVID-19 595902040 Active 2023 Pacheco Krause APRN [address], [place], [address] , [place] [facility] 4 11:12:19 Reducibl e umbilica l hernia 358390638 Active 2023 Pacheco Krause APRN [address], [place], [address] , [place] [facility] 4 09:26:12 Prediabe candy 901266506 Active 2024 Pacheco Krause APRN [address], [place], [address] , [place] [facility] 5 09:42:06 Hyperlip idemia 04554868 Active 2024 Pacheco Krause APRN [address], [place], [address] , [place] [facility] 5 09:42:39 Visual disturba nce 05692159 Active 2024 Pacheco Krause APRN [address], [place], [address] , [place] [facility] 5 10:00:41 Viral gastroen teritis 414059055 Active 2024 Louis Pool MD [address], [place], [address] , [place] [facility] 5 09:59:31 Low back pain 076475760 Active 2024 Louis Pool MD [address], [place], [address] , [facility] - [facility] 5 10:00:23 Acute infectiv e bronchit is 172191519 Active 2024 Pacheco Krause, [employer]OUNDATION CO[employer]ATOR [address], [place], [address] , [place] [facility] 5 14:13:08 Acute low back pain 855113211 Active 2024 Pacheco Krause, FOUNDATION CO[employer]ATOR [address], [place], [address] , [facility] - [facility] 5 10:01:08 Increase d frequenc y of urinatio n 432532669 Active 2024 Pacheco Krause, FOUNDATION COORDINATOR [address], [place], [address] , [facility] - [facility] 5 10:08:15 Acute transuda tive otitis media 27188198 Active 2024 Pacheco Krause, FOUNDATION COORDINATOR [address], [place], [address] , [place] [facility] 5 15:55:33 Nicotine dependen ce 57751377 Active 2016 Dolly Champagne [place] - [facility] 7 11:36:27 Tendinit is of foot 209388034 Active 2016 Abraham Rebollar MD [address], [place], [address] , [facility] - [facility] 7 13:07:57 Problem Notes None recorded. Procedures Surgical History Date Name Laterality Status Provider Name and Address Organization Details Recorded Time 05/23/20 Medication Reconcilliation completed Karen Gautam [place] - [facility] 05/23/2021 11:07:57 10/07/19 21 Medication Reconcilliation completed Mainor Garner [place] - [facility] 10/07/2020 10:55:54 09/15/19 21 Systolic B/P less than 130 mm Hg completed Flores Garcia [place] - [facility] 09/15/2020 10:33:55 09/15/19 21 Diastolic B/P less than 80 mm Hg completed Flores Garcia [place] - [facility] 09/15/2020 10:33:50 09/15/19 21 Date of Last Pap Smear completed Kristen Shine APRN [address], [place], [address], [place] [facility] 09/17/2020 15:27:26 07/01/20 20 [...] 20 Date of Last Mammogram completed Flores Garcia [place] - [facility] 08/10/2020 11:20:32 04/13/20 20 [...] Lotus [place] - [facility] 12/01/2019 11:40:34 12/01/19 Medication Reconcilliation completed Crystal Lotus [place] - [facility] 12/01/2019 11:35:35 11/24/19 Diastolic B/P 80-89 mm Hg completed Crystal Lotus [place] - [facility] 11/24/2019 09:27:07 11/24/19 Systolic B/P greater than or equal to 140 mm Hg completed Crystal Lotus [place] - [facility] 11/24/2019 09:27:04 11/21/19 Diastolic B/P less than 80 mm Hg completed Crystal Lotus [place] - [facility] 11/21/2019 14:46:34 11/21/19 Systolic B/P 130-139 mm Hg completed Crystal Lotus [place] - [facility] 11/21/2019 14:46:30 Imaging Results None recorded. Procedure Notes None recorded. Medical Equipment None Reported. Allergies Allergen ID Allergen Name Allergen Category Reaction Reaction Severity Criticality Documentation Date Start Date Code Code System Note Provider Name and Address Organization Details Recorded Time 920618 Trelegy medicatio n facial swelling moderate high 02/12/2023 91283 40 RxNorm Cassandra fontanez, [place] - [facility] 16:04:33 Medications Name Sig Start Date Stop Date Status Note LastModified by Organization Details LastModified Time Cleocin HCl 300 mg capsule take one capsule by mouth three times a day 03/29 completed Cleocin 300 mg oral capsule; Prescrib e Status: Prescrib ed on: 02/10/20 15 3:48PM;D iscontin ued Status: Disconti nued on: 03/29/20 15 8:40AM;U ser: alfonso lamb;EstBakari Completi on: 02/14/20 15;Pharm acyVerif ied: 02/10/20 15 3:48PM Not Available Not Available Not Available [...] Available Not Available Nasonex 50 mcg/actua tion [place] 2 sprays every day by intranas al [...] give 1 ml injectio n IM once 02/20 completed Not Available Not Available Not [...] Disconti nued on: 02/28/20 16 9:18AM;U ser: markrandibe [email or web address];Est. Completi on: 12/29/19 16;Indic ation: - (-5) [...] 16 9:18AM;U ser: alfonso lamb;Est. Completi on: 12/22/19 16;Indic ation: - (-5) [...] le 20 mg oral tablet,d elayed release (/EC); Prescrib e Status: Prescrib ed on: 12/09/19 [...] e 205.5 mcg (0.15 %) nasal spray [place] 1 spray twice a day by intranas [...] paste;Pr escribe Status: Prescrib ed on: 02/10/20 3:49PM;D iscontin ued Status: Disconti nued on: 03/29/20 8:40AM;U ser: alfonso lamb;Est. Completi on: 02/17/20 15;Pharm acyVerif ied: 02/10/20 3:49PM Not Available Not Available Not Available [...] completed Not Available Not Available Not Available Keila Aerospher e 160 mcg-9mcg- 4.8mcg/ac tuation HFA [...] Updated DateTime 5 170.18 cm 34.1 kg/m2 95778.1 4 g 82 /min 95 % 95 % 20 /min 124/76 mm[Hg] Joanne Peace [place] - [facility] 5 09:55:40 Social History Question Answer Notes LastModified by [...] COVID-19 While That Case Was Ill? No [email or web address] Information not available 12/01/2024 In The 14 Days Before Symptom Onset, Have You Had Close Contact With A Person Who Is Under Investigation For COVID-19 While That Person Was Ill? No [email or web address] Information not available 12/01/2024 Have You Been To An Area Known To Be High Risk For COVID-19? No [email or web address] Information not available 12/01/2024 Are You Deaf [...] Where Ebola Virus Transmission Is Active? No [email or web address] Information not available 12/01/2024 How Many Days Of Moderate To Strenuous Exercise, Like A Brisk Walk, Did You Do In The Last 7 Days? 1 [email or web address] Information not available 05/16/2018 On Those Days That You Engage In Moderate To Strenuous Exercise, How Many Minutes, On Average, Do You Exercise? 1 [email or web address] Information not available 05/16/2018 Have There Been Any Changes To Your Family Or Social Situation? No [email or web address] Information no t available 12/01/2024 Have You Recently Or Are You Planning To Travel To An Area With Zika Virus? No Information not available 12/01/2024 Live Alone Or With Others? With Others Information not available 08/17/2016 Do You Have A Medical Power Of Self Storage Manager? No [email or web address] Information not available 12/01/2024 What Was The Date Of Your Most Recent Tobacco Screening? 02/20/2025 [email or web address] Information not available 02/20/2025 What Is Your Current Pack Years? [email or web address] [email or web address] Information not available 02/12/2023 Performs Monthly Self-breast Exam? Yes Sometimes Information no t available 07/18/2017 What Is Your Relationship Status? Unknown Information not available 08/17/2016 Seat Belts Used Routinely Yes Information not available 07/18/2017 Are You Sexually Active? Yes Information not available 07/18/2017 Do You Have Smoke And Carbon Monoxide Detectors In Your Home? No [email or web address] Information not available 12/01/2024 At What Age Did You Start Smoking Tobacco? 14 Information not available 02/12/2023 Are You Passively Exposed To Smoke? No Information no t available 12/01/2024 How Much Tobacco Do You Smoke? 1.5 PPD [email or web address] Information not available 09/15/2020 Do You Use Sunscreen Routinely? No Information not available 07/18/2017 Has Tobacco Cessation Counseling Been Provided? Yes Information not available 06/22/2022 On What Date Was Tobacco Cessation Counseling Provided? 02/20/2025 [email or web address] Information not available 02/20/2025 How Many Years Have You Smoked Tobacco? 38 Information not available 09/15/2020 Do You Have [...] used smokeless tobacco? Never used smokeless tobacco [email or web address] Information not available 09/15/2020 Are you currently employed? Yes Information not available 07/18/2017 Urinary incontinence assessment performed? Yes [email or web address] Information not available 05/16/2018 Are you able to walk? YESWOREST Information not available 07/18/2017 Do you have difficulty doing errands alone? No Information not available 08/17/2016 What is your occupation? [employer] Information not available 08/17/2016 Do you have difficulty dressing or bathing? No Information not available 08/17/2016 Do you or have you ever used e-cigarettes or vape? Never used electronic cigarettes [email or web address] Information not available 09/15/2020 What is your exercise level? None Information not available 08/17/2016 Mental Status Question Answer Note LastModified by Organizat ion Details LastModified Time Do you feel stressed (tense, restless, nervous, or anxious, or unable to sleep at night)? [id number] Information not available 05/16/2018 Do you have [...] 09/15/2020 Sexual Problems? 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 LMP Definite Desired Control Method Hormonal In jection Obstetrics History GPAL:G 1 P 1 0 0 1 Type Value Full Term 1 Living 1 Total 1 Immunizations Vaccine Type Date Status Note Provider Name and Address Organization Details Recorded Time RSV, recombinant, protein subunit RSVpreF, adjuvant reconstituted, 0.5 mL, PF 09/26/19 completed Krystle Oskar fontanez, [place] - [facility] 09/26/2024 09:47:56 Influenza, split virus, quadrivalent, preservative 09/15/19 cancelled patient objection Kristen Shine, FOUNDATION CO[employer]INATOR [address], [place], [address], [place] [facility] 09/15/2020 11:14:13 zoster recombinant 09/26/19 cancelled patient objection Pacheco Krause, FOUNDATION COORDINATOR [address], [place], [address], [place] [facility] 09/27/2024 09:41:43 Tdap 09/26/19 cancelled patient objection Pacheco Krause, FOUNDATION COORDINATOR [address], [place], [address], [place] [facility] 09/27/2024 09:41:43 Pneumococcal conjugate PCV20, polysaccharide [id number] conjugate, adjuvant, PF 09/26/19 completed Pacheco Krause, FOUNDATION COORDINATOR [address], [place], [address], [place] [facility] 09/27/2024 09:41:43 Influenza, split virus, trivalent, preservative 09/26/19 cancelled patient objection Pacheco Krause, FOUNDATION COORDINATOR [address], [place], [address], [place] [facility] 09/27/2024 09:41:43 Tdap 10/17/19 completed Joanne Saenzter null, [place] [facility] 10/17/2024 12:57:12 COVID-19, mRNA, LNP-S, PF, 100 mcg/0.5mL dose or 50 mcg/0.25mL dose 11/25/19 completed Crystal Lotus null, [place] [facility] 06/22/2022 14:44:03 COVID-19, mRNA, LNP-S, PF, 100 mcg/0.5mL dose or 50 mcg/0.25mL dose 11/06/19 completed Crystal Lotus [place] [facility] 06/22/2022 14:44:03 Tdap 03/21/20 completed Crystal Lotus [place] [facility] 06/22/2022 14:44:03 Past Encounters Encounter ID Performer Location Encounter Start Date Encounter Closed Date Diagnosis/Indication Diagnosis SNOMED-CT Code Diagnosis ICD10 Code Diagnosis Note [id number] Pacheco Krause APRN [address] [place] [address] 01/16/2025 12:52:42 01/16/2025 14:23:37 Acute infective bronchitis 362604652 J20.8 [id number] Pacheco Krause APRN [address] [place] [address] 01/21/2025 09:39:37 01/21/2025 10:27:45 Community acquired pneumonia 020532548 J18.9 - Presents for follow up on community acquired pneumonia- Seen on 01/16 with pain in right lower lung area, dyspnea, productive cough- On 3 rounds of antibiotic s/steroids without improvemen t including Augmentin and Prednisone - Chest XR showed right lower and middle lobe pneumonia- Given 1 g ceftriaxon e IM at last visit- Mild improvemen t in pain, dyspnea, productive cough- Administer another 1 g ceftriaxon e IM and solumedrol 125 mg IM- Repeat chest x-ray and obtain sputum culture- Follow up in 1 week Body mass index 30+ - obesity 991820473 E66.9 Obesity 053874156 E66.9 Obese class I 5081291999 73877 E66.811 Health Concerns Section Related Observation LastModified by Organization Detai ls LastModified Time None Recorded Concern Status LastModified by Organization Details LastModified Time None Recorded Payers Encounter Date Sequence Insurance Name Policy Number Policy Whaley Covered Member ID Whaley Member ID Guarantor Name 01/21/[address] [facility] ([id number] Cassia Rios [id number] Cassia Rios Notes Date Note Type Note Provider Name and Address Organization Details Recorded Time 01/21/2025 text/html Cassia is a 54-year-old female presenting for a follow-up on community-acquired pneumonia. She initially presented with right lower lung pain, dyspnea, and a productive cough on 01/16 that started 6 weeks prior. Despite three rounds of antibiotics and steroids, including Augmentin and Prednisone, she has not experienced significant improvement. A chest XR revealed right lower and middle lobe pneumonia, for which she received 1 g ceftriaxone IM. She has now completed her course of antibiotics and steroids. Cassia reports mild improvement in pain, dyspnea, and cough, but has been experiencing night sweats since her last visit. She denies fever, myalgias, and cold chills. Pacheco Krause, FOUNDATION COORDINATOR [address], [place], [address], [facility] - [facility] 01/21/2025 10:32:59 OBGyn Episode No OBEpisode recorded.
--- OUTSIDE RECORDS SUMMARY | 2025-03-06 10:07 | XMS_ITS | Continuity of Care Document ---
Author Organization [facility] Address [address] [place] [address] [place] [address] Assessment No assessment recorded. Plan of Treatment Reminders Order Date Submit Date Provider Last Modified By Organization Details Last Modified Time Details Appointments Follow Up 2024 10:00A M Pacheco Krause, [employer] Not available Not available Not available Lab urinalysi s complete, reflex culture 2024 025 [place] [facility], [address], Rob F, [place], [address], 02/14/2025 06:15:50 microorga nism identific ation, unspecifi ed specimen 2024 025 [facility], [address], [place] [address], [place], [address], 02/26/2025 08:09:43 Referral None recorded. Procedures None recorded. Surgeries None recorded. Imaging XR, chest, 2 view - recent right lower and middle lobe pneumonia that was resolved but symptoms have returned 2024 025 [facility], [address] [place] [address] , [place], [address], 02/12/2025 16:42:51 Medication Orders levofloxa suzy 750 mg tablet 2024 025 [facility], [address] [place] [address], [place], [address], 02/20/2025 15:39:18 dexametha sone sodium phosphate 10 mg/mL injection solution 2024 025 [place] [address] Not available 02/20/2025 15:15:25 dextromet horphan-g uaifenesi n ER 60 mg-1,200 mg tab,exten d release,1 2hr [address], [place], [address], 02/20/2025 15:39:12 Patient TargetsNo targets recorded. Patient Instructions Encounter Date Encounter Id Patient Instructions Last Modified By Organization Details Last Modified Time 02/12/2025 [id number] learning about healthy weight [email or web address] Not available 02/12/2025 10:07:50 body mass index: care instructions [email or web address] Not available 02/12/2025 10:07:50 -take medication s as prescribed -follow up in1 week for re-evaluation [email or web address] Not available 02/12/2025 10:25:02 Reason for Referral None Reported. Results Created Date Observation Date Name Description Value Unit Range Abnormal Flag Note LastModifiedBy Organization Detail LastModifiedTime 01/17/20 25 XR, chest , 2 view No observ ation record ed. [address] , [place], [address], 01/19/2025 10:09:23 01/23/20 25 XR, chest , 2 view No observ ation record ed. [address] , [place], [address], 01/22/2025 15:27:32 02/13/20 25 XR, chest , 2 view No observ ation record ed. [address] , [place], [address], 02/16/2025 10:47:59 Result Notes None recorded. Problems Name Problem SNOMED Code Status Onset Date Resolution Date Notes Provider Name and Address Organization Details Recorded Time Long-ter m drug therapy Active 2016 depo provera; declines BOB Shine, [employer] [address], [place], [address] , [place] [facility] 7 10:59:48 Dyspnea 579539947 Completed 201905/07/2020 Nora Hooks null, [place] [facility] 0 09:12:40 Vitamin D deficien cy 23326458 Active 2019 Crystal Lotus [place], [place] [facility] 0 16:07:20 Pulmonar y emphysem a 26490466 Active 2019 Nora Hooks [place] [facility] 0 16:44:31 Asthma 986129227 Active 2020 Flores Garcia [place] [facility] 1 10:26:19 Chronic obstruct lucie pulmonar y disease 11354812 Active 2020 Flores Garcia [place] [facility] 1 10:26:24 Fibrocys tic disease of breast 15233614 Active 2020 Kristen Shine, [employer] [address], [place], [address] , [place] [facility] 1 14:39:41 Suspecte d COVID-19 983666856 Completed 10/11/2020 Removal Reason: Problem added by user from the COVID-19 watch flag Susan Valentine null[place] [facility] 1 13:48:16 COVID-19 [id number] Completed 202005/30/2021 Removal Reason: Problem marked historic al by user [email or web address] from the COVID-19 watch flag Pacheco Krause, [employer] [address], [place], [address] , [place] [facility] 4 11:12:19 COVID-19 371674219 Completed 202005/30/2021 Removal Reason: Problem marked historic al by user from the COVID-19 watch flag Pacheco Krause, [employer] [address], [place], [address] , [place] [facility] 4 11:12:19 Suspecte d COVID-19 066111558 Completed 08/02/2021 Removal Reason: Problem marked historic al by user [email or web address] from the COVID-19 watch flag Susan Valentine [place] [facility] 1 13:48:16 COVID-19 642618028 Completed 202106/22/2022 Pacheco Krause, [employer] [address], [place], [address] , [place] [facility] 4 11:12:19 Allergic rhinitis 25982738 Active 2021 Crystal Lotus [place] [facility] 2 14:53:22 Acute pharyngi tis 829892655 Completed 202102/09/2023 Crystal Lotus [place] [facility] 3 09:03:10 Acid reflux 884098284 Active 2015 Trudycassandra Michelle [place] [facility] 6 09:53:44 Fibroade nosis of breast 00966403 Active 2015 Trudy Miguel Angel [place] [facility] 6 09:54:02 Lateral epicondy litis 105879301 Completed 201501/24/2017 Abraham Rebollar MD [address], [place], [address] , [place] [facility] 7 13:07:37 Nodule of lung 698797359 Active 2022 Latosha Pavon APRN [address], [place], [address] , [place] [facility] 3 09:33:01 Seasonal allergic rhinitis 300601129 Active 2022 Latosha Pavon APRN [address], [place], [address] , [place] [facility] 3 09:33:19 Pain of left ankle joint 77761271960 199142 Active 2022 Latosha Pavon APRN [address], [place], [address] , [place] [facility] 3 09:34:47 Pharyngi tis 158698156 Active 2022 Pacheco Krause, [employer] [address], [place], [address] , [place] [facility] 3 11:35:20 Upper respirat ory infectio n 27848631 Active 2022 Pacheco Krause, [employer] [address], [place], [address] , [place] [facility] 3 13:36:54 Acute bronchit is 98964362 Active 2022 Pacheco Krause, [employer] [address], [place], [address] , [place] [facility] 3 14:08:31 Obesity 186876880 Active 2022 Pacheco Krause, BUBBA [address], [place], [address] , [place] [facility] 3 14:25:02 Chronic bronchit is 50306654 Active 2022 Pacheco Krause, [employer] [address], [place], [address] , [place] [facility] 3 11:41:44 Cough 76162055 Active 2022 Pacheco Krause, BUBBA [address], [place], [address] , [place] [facility] 3 11:45:40 Acute sinusiti s 87605908 Active 2022 Pacheco Krause, BUBBA [address], [place], [address] , [place] [facility] 3 12:57:59 Influenz a caused by Influenz a A virus 288574409 Active 2023 Agustin Rahman, DO [address], [place], [address] , [place] [facility] 4 16:32:14 Sore throat 654947867 Active 2023 Agustin Rhaman, DO [address], [place], [address] , [place] [facility] 4 16:33:29 Neuropat hy 906572558 Active 2023 Pacheco Krause APRN [address], [place], [address] , [place] [facility] 4 09:02:03 Candidia sis of mouth 66616140 Active 2023 Pacheco Krause [employer] [address], [place], [address] , [place] [facility] 4 09:14:47 Bilatera l lower limb edema 484698982 Active 2023 Pacheco Krause APRN [address], [place], [address] , [place] [facility] 4 16:00:30 Communit y acquired pneumoni a 383537961 Active 2023 Pacheco Krause APRN [address], [place], [address] , [place] [facility] 4 16:15:11 Middle ear effusion 0479344641 Active 2023 Pacheco Krause APRN [address], [place], [address] , [place] [facility] 4 16:23:46 Acute exacerba tion of chronic obstruct lucie pulmonar y disease 689191147 Active 2023 Pacheco Krause APRN [address], [place], [address] , [place] [facility] 4 14:19:15 COVID-19 798776094 Active 2023 Pacheco Krause APRN [address], [place], [address] , [place] [facility] 4 11:12:19 Reducibl e umbilica l hernia 082210074 Active 2023 Pacheco Krause APRN [address], [place], [address] , [place] [facility] 4 09:26:12 Prediabe candy 138050006 Active 2024 Pacheco Krause APRN [address], [place], [address] , [place] [facility] 5 09:42:06 Hyperlip idemia 50247903 Active 2024 Pacheco Krause APRN [address], [place], [address] , [place] [facility] 5 09:42:39 Visual disturba nce 55888543 Active 2024 Pacheco Krause, [employer] [address], [place], [address] , [place] [facility] 5 10:00:41 Viral gastroen teritis 082376547 Active 2024 Louis Pool MD [address], [place], [address] , [place] [facility] 5 09:59:31 Low back pain 214904334 Active 2024 Louis Pool MD [address], [place], [address] , [place] [facility] 5 10:00:23 Acute infectiv e bronchit is 744588132 Active 2024 Pacheco Krause APRN [address], [place], [place], [address] , [place] [facility] 5 14:13:08 Acute low back pain 213192253 Active 2024 Pacheco Krause APRN [address], [place] , [place], [address] , [place] [facility] 5 10:01:08 Increase d frequenc y of urinatio n 214545412 Active 2024 Pacheco Krause APRN [address], [place], [place], [address] , [place] [facility] 5 10:08:15 Acute transuda tive otitis media 51822515 Active 2024 Pacheco Krause, BUBBA [address], [place], [place], [address] , [place] [facility] 5 15:55:33 Nicotine dependen ce 12076201 Active 2016 Dolly Champagne [facility], [place] - [facility] 7 11:36:27 Tendinit is of foot 601501245 Active 2016 Abraham Rebollar MD [address], [place], [address] , [place] [facility] 7 13:07:57 Problem Notes None recorded. Procedures Surgical History Date Name Laterality Status Provider Name and Address Organization Details Recorded Time 05/23/20 21 Medication Reconcilliation completed Crystal Lotus [place] [facility] 05/23/2021 11:07:57 10/07/19 21 Medication Reconcilliation completed Mainor Patsy [place] [facility] 10/07/2020 10:55:54 09/15/19 21 Systolic B/P less than 130 mm Hg completed Flores Garcia [place] [facility] 09/15/2020 10:33:55 09/15/19 21 Diastolic B/P less than 80 mm Hg completed Flores Garcia [place] [facility] 09/15/2020 10:33:50 09/15/19 21 Date of Last Pap Smear completed Kristen Shine, BUBBA [address], [place], [address], [place] [facility] 09/17/2020 15:27:26 07/01/20 20 [...] Lotus [place] [facility] 04/13/2020 08:29:34 04/01/20 Diastolic B/P 80-89 mm Hg completed Crystal Lotus [place] [facility] 04/01/2020 14:18:05 04/01/20 Systolic B/P 130-139 mm Hg completed Crystal Lotus [place] [facility] 04/01/2020 14:18:01 12/01/19 Diastolic B/P less than 80 mm Hg completed Crystal Lotus [place] [facility] 12/01/2019 11:40:33 12/01/19 Diastolic B/P 80-89 mm Hg completed Crystal [...] Name and Address Organization Details Recorded Time [id number] Trelegy medicatio n facial swelling moderate high 02/12/2023 59148 40 RxNorm Cassandra [place], [place] - [facility] 4 16:04:33 Medications Name Sig [...] Available Not Available Nasonex 50 mcg/actua tion Clarkson Clarkson 2 sprays every day by intranas al [...] Disconti nued on: 06/21/20 15 9:20AM;U ser: [email or web address]; Est. Completi on: 06/12/20 15;Indic ation: pain - (-5) Not Available Not Available Not Available omeprazol e 1 qd am 03/29 completed omperazo le 20mg;Rec orded Status: Recorded on: 12/09/19 14 1:16PM;D iscontin ued Status: Disconti nued on: 03/29/20 15 8:40AM;U ser: [email or web address] ryh;Est. Completi on: 04/07/20 14;Indic ation: - (-5) Not Available Not Available Not Available prednison e 1 bid x 1 wk then qd x7 02/27 completed predniso ne 10 mg;Recor ded Status: Recorded on: 12/15/19 16 10:39AM; Disconti nued Status: Disconti nued on: 02/28/20 16 9:18AM;U ser: [email or web address] ryh;Est. Completi on: 12/29/19 16;Indic ation: - (-5) Not Available Not Available Not Available Keflex one tid 05/23 completed keflex 500 mg.;Marshall rded Status: Recorded on: 05/14/20 15 1:16PM;D iscontin ued Status: Disconti nued on: 05/23/20 15 5:32PM;U ser: [email or web address]; Est. Completi on: 05/21/20 15;Indic ation: bronch - (-5) Not Available Not Available Not Available Cleocin 1 tid 03/29 completed cleocin 300 mg;Recor ded Status: Recorded on: 02/10/20 15 3:42PM;D iscontin ued Status: Disconti nued on: 03/29/20 15 8:40AM;U ser: markesbe ryh;Est. Completi on: 02/14/20 15;Indic ation: - (-5) Not Available Not Available Not Available Flexeril 1 tid 02/27 completed flexeril 10 mg;Recor ded Status: Recorded on: 12/15/19 16 10:39AM; Disconti nued Status: Disconti nued on: 02/28/20 16 9:18AM;U ser: markesbe ryh;Est. Completi on: 12/22/19 16;Indic ation: - (-5) [...] nued on: 03/29/20 15 8:40AM;U ser: alfonso leviEst. Completi on: 02/07/20 14;Pharm acyVerif ied: 12/09/19 [...] e 205.5 mcg (0.15 %) nasal spray Clarkson 1 spray twice a day by intranas [...] Details Last Updated DateTime 5 170.18 cm 35.1 kg/m2 895259. 69 g 92 /min 95 % 95 % 20 /min 152/94 mm[Hg] Joanne Peace [place] - [facility] 5 09:41:05 Social History Question Answer Notes LastModified by Organizat ion Details LastModified Time Tobacco Smoking Status Former Smoker 2 weeks as of 01/16 Joanne fontanez [place] - [facility] 01/16/2025 13:28:33 Do You [...] COVID-19 While That Case Was Ill? No [email or web address] Information not available 12/01/2024 In The 14 Days Before Symptom Onset, Have You Had Close Contact With A Person Who Is Under Investigation For COVID-19 While That Person Was Ill? No [email or web address] Information not available 12/01/2024 Have You Been To An Area Known To Be High Risk For COVID-19? No Information not available 12/01/2024 Are You Deaf Or Do You Have Serious Difficulty Hearing? No Information not available 08/17/2016 What Type Of Diet Are You Following? REGULAR Information not available 08/17/2016 Which Illicit Or Recreational Drugs Have You Used? Denies Information not available 08/17/2016 Have You Processed Blood Or Body Fluids From An Ebola Virus Disease Patient Without Appropriate PPE? No [email or web address] Information not available 12/01/2024 Do You Reside In Or Have You Traveled To An Area Where Ebola Virus Transmission Is Active? No Information not available 12/01/2024 How Many Days Of Moderate To Strenuous Exercise, Like A Brisk Walk, Did You Do In The Last 7 Days? 1 Information not available 05/16/2018 On Those Days That You Engage In Moderate To Strenuous Exercise, How Many Minutes, On Average, Do You Exercise? 1 [email or web address] Information not available 05/16/2018 Have There Been Any Changes To Your Family Or Social Situation? No [email or web address] Information no t available 12/01/2024 Have You Recently Or Are You Planning To Travel To An Area With Zika Virus? No [email or web address] Information not available 12/01/2024 Live Alone Or With Others? With Others Information not available 08/17/2016 Do You Have A Medical Power Of Kettle Operator? No [email or web address] Information not available 12/01/2024 What Was The Date Of Your Most Recent Tobacco Screening? 02/20/2025 [email or web address] Information not available 02/20/2025 What Is Your Current Pack Years? 30mary jane marie Information not available 02/12/2023 Performs Monthly Self-breast Exam? Yes Sometimes Information no t available 07/18/2017 What Is Your Relationship Status? Unknown Information not available 08/17/2016 Seat Belts Used Routinely Yes Information not available 07/18/2017 Are You Sexually Active? Yes Information not available 07/18/2017 Do You Have Smoke And Carbon Monoxide Detectors In Your Home? No [email or web address] Information not available 12/01/2024 At What Age Did You Start Smoking Tobacco? 14 Information not available 02/12/2023 Are You Passively Exposed To Smoke? No Information no t available 12/01/2024 How Much Tobacco Do You Smoke? 1.5 PPD [email or web address] Information not available 09/15/2020 Do You Use Sunscreen Routinely? No Information not available 07/18/2017 Has Tobacco Cessation Counseling Been Provided? Yes Information not available 06/22/2022 On What Date Was Tobacco Cessation Counseling Provided? 02/20/2025 [email or web address] Information not available 02/20/2025 How Many Years [...] used smokeless tobacco? Never used smokeless tobacco Information not available 09/15/2020 Are you currently employed? Yes Information not available 07/18/2017 Urinary incontinence assessment performed? Yes [email or web address] Information not available 05/16/2018 Are you able to walk? [email or web address] Information not available 07/18/2017 Do you have difficulty doing errands alone? No Information not available 08/17/2016 What is your occupation? [employer] Information not available 08/17/2016 Do you have difficulty dressing or bathing? No Information not available 08/17/2016 Do you or have you ever used e-cigarettes or vape? Never used electronic cigarettes [email or web address] Information not available 09/15/2020 What is your exercise level? None Information not available 08/17/2016 Mental Status Question Answer Note LastModified by Organizat ion Details LastModified Time Do you feel stressed (tense, restless, nervous, or anxious, or unable to sleep at night)? [id number] Information not available 05/16/2018 Do you have [...] available 2015 09:56:28 Medical History Condition Response Breast Problem Y Acid Reflux (GERD) Y Gynecological History Statement/Question Response Last Annual Exam/Provider 09/15/2020 w/DT Date of Last Mammogram 04/27/2020 Date of LMP 09/08/2020 Sexually Active? Y Menses Monthly N Date of Last Pap Smear 09/15/2020 Sexual Problems? 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 Definite Desired Control Method Hormonal In jection Obstetrics History GPAL:G 1 P 1 0 0 1 Type Value Full Term 1 Living 1 Total 1 Immunizations Vaccine Type Date Status Note Provider Name and Address Organization Details Recorded Time RSV, recombinant, protein subunit RSVpreF, adjuvant reconstituted, 0.5 mL, PF 09/26/19 25 completed Krystle Oskar fontanez [place] - [facility] 09/26/2024 09:47:56 Influenza, split virus, quadrivalent, preservative 09/15/19 cancelled patient objection Kristen Shine, [employer] [address], [place], [address], [place] [facility] 09/15/2020 11:14:13 zoster recombinant 09/26/19 cancelled patient objection Pacheco Krause, [employer] [address], [place], [address], [place] [facility] 09/27/2024 09:41:43 Tdap 09/26/19 cancelled patient objection Pacheco Krause, [employer] [address], [place], [address], [place] [facility] 09/27/2024 09:41:43 Pneumococcal conjugate PCV20, polysaccharide CDI140 conjugate, adjuvant, PF 09/26/19 completed Pacheco Krause, [employer] [address], [place], [address], [place] [facility] 09/27/2024 09:41:43 Influenza, split virus, trivalent, preservative 09/26/19 cancelled patient objection Pacheco Krause, [employer] [address], [place], [address], [place] [facility] 09/27/2024 09:41:43 Tdap 10/17/19 completed Joanne Peace null, [place] [facility] 10/17/2024 12:57:12 COVID-19, [...] SNOMED-CT Code Diagnosis ICD10 Code Diagnosis Note [id number] Pacheco Krause APRN [address] [place] [address] 01/16/2025 12:52:42 01/16/2025 14:23:37 Acute infective bronchitis 629284962 J20.8 [id number] Pacheco Krause APRN [address] [place] [address] 01/21/2025 09:39:37 01/21/2025 10:27:45 Community acquired pneumonia 592828718 J18.9 - Presents for follow up on [...] week Body mass index 30+ - obesity 906050161 E66.9 Obesity 991362328 E66.9 Obese class I 9113986408 78070 E66.004 [id number] Pacheco Krause APRN [address] [place] [address] 02/12/2025 09:27:49 02/12/2025 10:28:58 Community acquired pneumonia 665133591 J18.9 - Presents for follow up on community acquired pneumonia- Seen on 01/16 with pain in right lower lung area, dyspnea, productive cough; Chest XR showed right lower and middle lobe pneumonia; sputum culture positive for gram negative rods- has been on 3 rounds of oral antibiotic s/steroids without improvemen t including Augmentin and doxycyclin e- Given 1 g ceftriaxon e IM x 2 since PNA dx on 01/16- improvemen t in pain, dyspnea, productive cough after ceftriaxon e but symptoms have returned- start levaquin PO- Repeat chest x-ray and sputum culture- Follow up in 1 week Obese class II 626255177 1 46267 E66.812 Obesity 313477565 E66.9 Increased frequency of urination 602606656 R35.0 Health Concerns Section Related Observation LastModified by Organization Detai ls LastModified Time None Recorded Concern Status LastModified by Organization Details LastModified Time None Recorded Payers Encounter Date Sequence Insurance Name Policy Number Policy Whaley Covered Member ID Whaley Member ID Guarantor Name 02/12/2025 1 [facility] [employer] [facility] [id number] Cassia Rios [id number] aCssia Rios Notes Date Note Type Note Provider Name and Address Organization Details Recorded Time 02/12/2025 text/html Cassia is a 54-year-old female that presents to the office for a follow up on community acquired pneumonia. She initially presented with right lower lung pain, dyspnea, and a productive cough on 01/16 that started 6 weeks prior. Despite three rounds of antibiotics and steroids, including Augmentin and Prednisone, she has not experienced significant improvement. A chest XR revealed right lower and middle lobe pneumonia and her sputum was positive for gram negative rods, for which she received 1 g ceftriaxone IM. She was seen a week later with reports of mild improvement in symptoms. She was given another 1 g ceftriaxone injection as well as a solumedrol injection. Subsequent repeat chest x-ray showed resolution of PNA. She was scheduled for follow up a week later but she missed her appt. Today she reports that she felt a little better for a couple days but has started coughing constantly again with shortness of breath and fatigue. Has a headache and back pain from coughing so much. Denies fever, diarrhea, dysuria, hemoptysis, neck stiffness, vomiting, wheezing. Also reporting issues with her left ear stating it is very stuffy and has a clicking noise in it with sinus congestion and pressure. Denies otalgia, facial pain, numbness, fever, hearing loss, otorrhea, photophobia, vertigo Also reporting back pain and foul smelling urine with urinary frequency. Denies dysuria, urinary urgency, discharge, fever, flank pain, hematuria, suprapubic pain, vomiting Pacheco Krause, [employer]EMAN [address], [place], [address], [place] [facility] 02/12/2025 11:15:52 OBGyn Episode No OBEpisode recorded.
--- OUTSIDE RECORDS SUMMARY | 2025-03-06 10:07 | XMS_ITS | Continuity of Care Document ---
Author Organization [facility] [place], [place] OFFICE Address [address] [place] [address] [place] [address] Care Team Providers Care Baggage Screener Name Role Phone PRIMARY PLUS (FAMILY) Primary Care Provider [phone] Assessment Encounter Date Assessment Date Assessment LastModified by Organization Details LastModified Time 01/12/2025 01/12/2025 Imaging Studies Reviewed *LDCT Chest [...] recognition software and or use of a expert medical writer. Variances in spelling and vocabulary are possible [...] Procedures None recorded. Surgeries None recorded. Imaging None recorded. Medication Orders nystatin 100,000 unit/mL oral suspensio n [address], [address], 01/12/2025 15:35:13 amoxicill in 875 mg-potass ium clavulana te 125 mg tablet [address], [address], 01/12/2025 15:35:13 prednison e 10 mg tablet 2024 025 [facility], [place], [facility], [address] [place] [address], [place], [address], 01/12/2025 15:35:12 Patient TargetsNo targets recorded. Patient InstructionsNo instructions recorded. Reason for Referral None Reported. Results Created Date Observation Date Name Description Value Unit Range Abnormal Flag Note LastModifiedBy Organization Detail LastModifiedTime 12/25/1912/22/2024 compl ete PFT* No observ ation record ed. Not Available 2024 13:19:16 Result Notes None recorded. Problems Name Problem SNOMED Code Status Onset Date Resolution Date Notes Provider Name and Address Organization Details Recorded Time Chronic obstructive pulmonary disease 90388595 Active 2022 keyon renee null, [place] - [facility] 3 15:24:16 Pulmonary emphysema 59886668 Active 2022 keyonjanet renee null, [place] - [facility] 3 15:24:20 Seasonal allergy 962789659 Active 2022 Cheyanne Amaral NP [address], [place], [address], [place] - [facility] 3 15:50:11 Obstructive sleep apnea syndrome 17399796 Active 2022 Cheyanne Amaral NP [address], [place], [address], [place] [facility] 3 20:25:17 Body mass index 30+ - obesity 345275659 Active 2022 Cheyanne Amaral NP [address], [place], [address], [place] - [facility] 3 20:25:31 Acute COVID-19 7565919969 Active 2022 Cheyanne Amaral NP [address], [place], [address], [place] [facility] 3 14:36:09 Cough 14434848 Active 2022 Cheyanne Amaral NP [address], [place], [address], [place] [facility] 3 11:13:05 Acute bronchitis 68773602 Active 2022 Cheyanne Amaral NP [address], [place], [address], [place] [facility] 3 15:39:04 Gastroesophag eal reflux disease 188167501 Active 2022 Cheyanne Amaral NP [address], [place], [address], [place] [facility] 3 09:26:08 Upper respiratory infection 08960472 Active 2022 Cheyanne Amaral NP [address], [place], [address], [place] [facility] 3 15:20:25 Candidiasis of mouth 22255629 Active 2023 Cheyanne Amaral NP [address], [place], [address], [place] [facility] 5 15:34:39 Acute sinusitis 73218755 Active 2023 Cheyanne Amaral NP [address], [place], [address], [place] [facility] 5 15:33:50 Problem Notes None recorded. Procedures Surgical History Date Name Laterality Status Provider Name and Address Organization Details Recorded Time biopsy of breast completed airam norton [place] - [facility] 08/11/2024 10:33:05 Imaging Results None recorded. Procedure Notes None recorded. Medical Equipment None Reported. Allergies Allergen ID Allergen Name Allergen Category Reaction Reaction Severity Criticality Documentation Date Start Date Code Code System Note Provider Name and Address Organization Details Recorded Time Trelegy medicatio n facial swelling Not available Not available 05/10/2023 63924 40 RxNorm keyon víctor null, [place] - [facility] 3 15:21:53 52574 ethanol environme nt,medica tion facial swelling Not available Not available 05/10/2023 448 RxNorm keyon víctor null, [place] - [facility] 3 15:22:15 Medications [...] subcutaneou s pen injector Semagluti de 2mg/1mlDi spense #1 ml vial, syringes and alcohol wipesSig: [...] Not Available Vitals Date Recorded Body height Oxygen saturation Oxygen saturation in Arterial blood by Pulse oximetry Heart rate Respiratory rate Body temperature Systolic And Diastolic Provider Name and Address Organization Details Last Updated DateTime 170.18 cm 98 % 98 % 78 /min 22 /min 97.3 [degF] 142/80 mm[Hg] keyon víctor [employer] [facility] 14:42:02 Social History Question Answer Notes LastModified by Organizat ion Details LastModified Time Tobacco Smoking Status Current Every Day Smoker keyon fontanez [place] - [facility] 05/10/2023 15:23:51 Do You Have An Advance Directive? No [email or web address] Information not available 05/10/2023 Is Your Home Air Conditioned? Yes [email or web address] Information not available 07/11/2023 Where Do You Live? [place]iler Information not available 08/11/2024 Do You Have A Medical Power Of Air Conditioning Engineer? No [email or web address] Information not available 07/11/2023 What Was The Date Of Your Most Recent Tobacco Screening? 12/22/2024 [email or web address] Information not available 12/22/2024 What Is Your Current Pack Years? [email or web address] Information not available 07/11/2023 Do You Have Any Pets? Yes Cats And Dogs [email or web address] Information not available 07/11/2023 What Is Your Relationship Status? [email or web address] Information not available 08/11/2024 At What Age Did You Start Smoking Tobacco? 11 [email or web address] Information not available 08/11/2024 Are There Any Smokers In Your House? Yes Information not available 07/11/2023 How Much Tobacco Do You Smoke? 2 PPD [email or web address] Information not available 05/10/2023 Has Tobacco Cessation Counseling Been Provided? Yes [email or web address] Information not available 07/11/2023 On What Date Was Tobacco Cessation Counseling Provided? 12/22/2024 [email or web address] Information not available 12/22/2024 How Many Years Have You Smoked Tobacco? 41 [email or web address] Information not available 05/10/2023 Have You Recently Traveled Abroad? No [email or web address] Information not available 07/11/2023 Are You Currently In School? No [email or web address] Information not available 07/11/2023 Sex: Unknown Functional Status Question Answer Note LastModified by Organizat ion Details LastModified Time Do you or have you ever used any other forms of tobacco or nicotine? No [email or web address] Information not available 07/11/2023 Are you currently employed? 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 Family History Relationship Description Onset Age of this Age Resolved Age Notes LastModified by Organization Details LastModified Time Brother Myocardial infarction [email or web address] Not available 05/2024 10:31:40 Brother Cerebrovascu lar accident [email or web address] Not available 10:31:48 Mother Cerebrovascu lar accident Not available 10:31:48 Father Dementia [email or web address] Not availab le 08/11/2024 10:31:53 Medical History Condition Response Acid Reflux (GERD) Y Gynecological HistoryNo gynecological history recorded. Obstetrics History GPAL:G 0 P 0 0 0 0 Past Encounters Encounter ID Performer Location Encounter Start Date Encounter Closed Date Diagnosis/Indication Diagnosis SNOMED-CT Code Diagnosis ICD10 Code Diagnosis Note [id number] Junior Multani DO [place] [facility] [address] [place] [address] [address] [place] [address] 12/22/2024 14:14:12 12/22/2024 15:23:24 Chronic obstructive pulmonary disease 75006502 J44.9 Pulmonary emphysema 8743 3001 J43.9 Obstructiv e sleep apnea syndrome 48462241 G47.33 Seasonal allergy 1459854 04 J30.2 Dyspnea 271187830 R06.00 Hypersomnia 35628026 G47 .10 Fatigue 05083600 R53.83 Heavy tobacco smoker 400 1978718 08676 Z72.0 Nodule of lung 311726764 R91.1 Body mass index 30+ - obesity 881123919 Z68.35 Acute COVID-19 204871917 8 U07.1 Cough 87734402 R05.9 Gastroesop hageal reflux disease 492043333 K21.9 [id number] Junior Multani DO [place] [facility] [address] [place] [address] [address] [place] [address] 01/12/2025 14:40:27 01/13/2025 10:42:15 Chronic obstructive pulmonary disease 35191897 J44.9 Pulmonary emphysema 8743 3001 J43.9 Obstructiv e sleep apnea syndrome 22474332 G47.33 Seasonal allergy 6245781 04 J30.2 Dyspnea 416434029 R06.00 Hypersomnia 11147008 G47 .10 Fatigue 96391936 R53.83 Heavy tobacco smoker 977 6680762 29724 Z72.0 Nodule of lung 855015954 R91.1 Body mass index 30+ - obesity 419031707 Z68.35 Acute COVID-19 299247455 8 U07.1 Cough 67870698 R05.9 Gastroesop hageal reflux disease 402166551 K21.9 Acute sinusitis 31958316 J01.90 Candidiasis of mouth 797 43107 B37.0 Health Concerns Section Related Observation LastModified by Organization Detai ls LastModified Time None Recorded Concern Status LastModified by Organization Details LastModified Time None Recorded Payers Encounter Date Sequence Insurance Name Policy Number Policy Whaley Covered Member ID Whaley Member ID Guarantor Name 01/12/2025 1 [facility] [employer] Cassia Rios [id number] Cassia Rios Notes Date Note Type Note Provider Name and Address Organization Details Recorded Time 01/12/2025 text/html This 54 year-old female returns [...] Amaral NP [address], [place], [address], [facility] 01/12/2025 15:38:44 OBGyn Episode No OBEpisode recorded.
--- OUTSIDE RECORDS SUMMARY | 2025-03-06 10:08 | XMS_ITS | Data Portability ---
Author Organization [facility] Address [address] [place] [address] Assessment No assessment recorded. Plan of Treatment Reminders Order Date Submit Date Provider Last Modified By Organization Details Last Modified Time Details Appointments Follow Up 20 2024 10:00A M Pacheco Krause, QUANTITATIVE CONSULTANT Not available Not available Not available Lab urinalysi s complete, reflex culture 2024 025 CHAU [facility], [address], Rob F, [place], [address], 02/14/2025 06:15:50 microorga nism identific ation, unspecifi ed specimen 2024 025 [email or web address] [facility], [address], [address], [place], [address], 02/26/2025 08:09:43 gram stain, sputum 2024 025 CHAU [facility], [address], [address], [place], [address], 01/24/2025 20:09:19 rapid flu (A+B) 2024 025 [email or web address] [facility], [address], [place], [address], 12/01/2024 10:15:12 rapid strep group A, throat [address] [facility], [address], [place], [address], 12/01/2024 10:15:12 rapid SARS CoV + SARS CoV 2 Ag, QL IA, respirato ry specimen 2024 025 [email or web address] [facility], [address], [place], [address], 12/01/2024 10:15:12 Referral None recorded. Procedures None recorded. Surgeries None recorded. Imaging XR, chest, 2 view - recent right lower and middle lobe pneumonia that was resolved but symptoms have returned 2024 025 [facility], [address] [place] [address] , [place], [address], 02/12/2025 16:42:51 XR, chest, 2 view - follow up right middle and lower lobe pneumonia 2024 025 [facility], [address] [place] [address] , [place], [address], 01/22/2025 15:05:59 XR, chest, 2 view - concern for right lower lobe pneumonia 2024 025 [facility], [address] [place] [address] , [place], [address], 01/16/2025 15:33:49 Medication Orders levofloxa suzy 750 mg tablet 2024 025 [facility], [address] [place] [address] Drive, [place], [address], 02/20/2025 15:39:18 dexametha sone sodium phosphate 10 mg/mL injection solution 2024 025 Not available 02/20/2025 15:15:25 dextromet horphan-g uaifenesi n ER 60 mg-1,200 mg tab,exten d release,1 2hr 2024 025 [facility], [address] [place] [address], [address], 02/20/2025 15:39:12 ceftriaxo ne 1 gram solution for injection 2024 025 [email or web address] Not available 02/12/2025 09:41:22 Solu-Medr ol (PF) 125 mg/2 mL solution for injection 2024 025 [email or web address] Not available 02/12/2025 09:41:27 ceftriaxo ne 1 gram intraveno us solution 2024 025 [email or web address] Not available 01/21/2025 09:52:24 diclofena c 1 % topical gel 2024 025 [facility], [address] [place] [address], [address], 01/21/2025 13:07:22 Patient Targets Encounter Date Encounter Id Patient Goals Patient Target Last Modified By Organization Details Last Modified Time 12/01/2024 [id number] Resolution of LBP, n/v/d [email or web address] Not available 12/01/2024 10:14:41 Patient Instructions Encounter Date Encounter Id Patient Instructions Last Modified By Organization Details Last Modified Time 12/01/2024 [id number] low back pain: exercises [email or web address] Not available 12/01/2024 10:15:12 If you experienc e severe shortness of breath or chest pain, please do not hesitate to call the office or go to the nearest ER/Urgent Care location. Not available 12/01/2024 10:14:47 I was present with the resident during the history and exam. I discussed the case with the resident and agree with the findings and plan as documented in the resident's note. [email or web address] Not available 12/01/2024 10:37:05 01/16/2025 [id number] -take medication s as prescribed - will call with lab results when available to discuss findings, any further evaluation, treatment, or follow up - Otherwise, follow up in 2 weeks for re-evaluation or sooner for worsening of symptoms Not available 01/16/2025 15:09:20 01/21/2025 [id number] learning about healthy weight [email or web address] Not available 01/21/2025 10:29:04 body mass index: care instructions Not available 01/21/2025 10:29:04 - Continue takin [...] and report them to your healthcare provider [email or web address] Not available 01/21/2025 10:32:20 02/12/2025 [id number] learning about healthy weight [email or web address] Not available 02/12/2025 10:07:50 body mass index: care instructions Not available 02/12/2025 10:07:50 -take medication s as prescribed -follow up in1 week for re-evaluation Not available 02/12/2025 10:25:02 Reason for Referral None Reported. Results Created Date Observation Date Name Description Value Unit Range Abnormal Flag Note LastModifiedBy Organization Detail LastModifiedTime 12/02/19 25 12/01/2024 rapid SARS CoV + SARS CoV 2 Ag, QL IA, respi rator y speci men SARS CoV antigen Negati ve Not Available [facility] [address], [place], [address], 12/01/2024 10:00:18 12/02/19 25 12/01/2024 rapid strep group A, throa t Strep negati ve Not Available [facility] [address], [place], [address], 12/01/2024 10:00:09 12/02/19 25 12/01/2024 rapid strep group A, throa t Culture No Not Available [facility] [address], [place], [address], 12/01/2024 10:00:09 12/02/19 25 12/01/2024 rapid flu (A+B) Flu negati ve Not Available [facility] [address] [facility], [place], [address], 12/01/2024 10:00:01 12/02/19 25 12/01/2024 rapid flu (A+B) Type Both A & B Not Available [facility] [address] [facility], [place], [address], 12/01/2024 10:00:01 01/22/20 25 01/22/2025 GRAM STAIN W/SPU AZAM CULT RFLX white blood cells Few Not Available [facility]) [address] [place], [address], 01/24/2025 20:09:19 01/22/20 25 01/22/2025 GRAM STAIN W/SPU AZAM CULT RFLX epithelial cells Few Not Available [facility] ([facility]) [address] [place], [address], 01/24/2025 20:09:19 01/22/20 25 01/22/2025 GRAM STAIN W/SPU AZAM CULT RFLX result 1 COMMEN T Moder ate numbe r of gram posit lucie cocci . Not Available [facility] ([facility]) [address] [place], [address], 01/24/2025 20:09:19 01/22/20 25 01/22/2025 GRAM STAIN W/SPU AZAM CULT RFLX result 2 COMMEN T Small amoun t of yeast seen. Not Available [facility] ([facility]) [address] [place], [address], 01/24/2025 20:09:19 01/22/20 25 01/22/2025 GRAM STAIN W/SPU AZAM CULT RFLX result 3 COMMEN T Few gram posit lucie rods. Not Available [facility] ([facility]) [address] [place], [address], 01/24/2025 20:09:19 01/22/20 25 01/22/2025 GRAM STAIN W/SPU AZAM CULT RFLX result 4 Commen t abnormal Rare gram negat lucie rods. Not Available [facility] ([facility]) [address] [facility], [place], [address], 01/24/2025 20:09:19 01/22/20 25 01/22/2025 GRAM STAIN W/SPU AZAM CULT RFLX gram stain evaluation Commen t This speci men is of good quali ty and is accep table for routi ne bacte rial cultu re. Not Available [facility] ([facility]) [address] [facility], [place], [address], 01/24/2025 20:09:19 01/22/20 25 01/24/2025 GRAM STAIN W/SPU AZAM CULT RFLX lower respiratory culture Final report Not Available [facility] ([facility]) [address] [place], [address], 01/24/2025 20:09:19 01/22/20 25 01/24/2025 GRAM STAIN W/SPU AZAM CULT RFLX result 1 COMMEN T Routi ne respi rator y jonny Not Available [facility] ([facility]) [address] [place], [address], 01/24/2025 20:09:19 02/13/20 25 02/13/2025 UA/M W/RFL X CULTU RE, ROUTI NE specific gravity 1.013 1.005- 1.030 normal Not Available [facility] ([facility]) [address] [place], [address], 02/14/2025 06:15:50 02/13/20 25 02/13/2025 UA/M W/RFL X CULTU RE, ROUTI NE pH 6.0 5.0-7. 5 normal Not Available [facility] ([facility]) [address] [place], [address], 02/14/2025 06:15:50 02/13/20 25 02/13/2025 UA/M W/RFL X CULTU RE, ROUTI NE urine-color Yellow yellow Not Available [facility] ([facility]) [address] [place], [address], 02/14/2025 06:15:50 02/13/20 25 02/13/2025 UA/M W/RFL X CULTU RE, ROUTI NE appearance Clear clear Not Available [facility] ([facility]) [address] [place], [address], 02/14/2025 06:15:50 02/13/20 25 02/13/2025 UA/M W/RFL X CULTU RE, ROUTI NE WBC esterase 3+ negati ve abnormal Not Available [facility] ([facility]) [address] [place], [address], 02/14/2025 06:15:50 02/13/20 25 02/13/2025 UA/M W/RFL X CULTU RE, ROUTI NE protein Negati ve negati ve/tra ce Not Available [facility] ([facility]) [address] [place], [address], 02/14/2025 06:15:50 02/13/20 25 02/13/2025 UA/M W/RFL X CULTU RE, ROUTI NE glucose Negati ve negati ve Not Available [facility] ([facility]) [address] [place], [address], 02/14/2025 06:15:50 02/13/20 25 02/13/2025 UA/M W/RFL X CULTU RE, ROUTI NE ketones Negati ve negati ve Not Available [facility] ([facility]) [address] [facility] [place], [address], 02/14/2025 06:15:50 02/13/20 25 02/13/2025 UA/M W/RFL X CULTU RE, ROUTI NE occult blood Trace negati ve abnormal Not Available [facility] ([facility]) [address] [facility], [place], [address], 02/14/2025 06:15:50 02/13/20 25 02/13/2025 UA/M W/RFL X CULTU RE, ROUTI NE bilirubin Negati ve negati ve Not Available [facility] ([facility]) [address] [facility], [place], [address], 02/14/2025 06:15:50 02/13/20 25 02/13/2025 UA/M W/RFL X CULTU RE, ROUTI NE urobilinogen ,semi-qn 0.2 mg/dL 0.2-1. 0 normal Not Available [facility] ([facility]) [address] [facility], [place], [address], 02/14/2025 06:15:50 02/13/20 25 02/13/2025 UA/M W/RFL X CULTU RE, ROUTI NE nitrite, urine Negati ve negati ve Not Available [facility] ([facility]) [address] [facility], [place], [address], 02/14/2025 06:15:50 02/13/20 25 02/13/2025 UA/M W/RFL X CULTU RE, ROUTI NE microscopic examination See below: Micro scopi c was indic ated and was perfo rmed. Not Available [facility] ([facility]) [address] [place], [address], 02/14/2025 06:15:50 02/13/20 25 02/13/2025 UA/M W/RFL X CULTU RE, ROUTI NE WBC >30 /hpf 0 - 5 abnormal Not Available [facility] ([facility]) [address], [place], [address], 02/14/2025 06:15:50 02/13/20 25 02/13/2025 UA/M W/RFL X CULTU RE, ROUTI NE RBC 0-2 /hpf 0 - 2 Not Available [facility] ([facility]) [address], [place], [address], 02/14/2025 06:15:50 02/13/20 25 02/13/2025 UA/M W/RFL X CULTU RE, ROUTI NE epithelial cells (non renal) 0-10 /hpf 0 - 10 Not Available [facility] ([facility]) [address], [place], [address], 02/14/2025 06:15:50 02/13/20 25 02/13/2025 UA/M W/RFL X CULTU RE, ROUTI NE epithelial cells (renal) PRIMING MIXTURE CARRIER Not Available [facility] ([facility]) [address], [place], [address], 02/14/2025 06:15:50 02/13/20 25 02/13/2025 UA/M W/RFL X CULTU RE, ROUTI NE casts None seen /lpf none seen Not Available [facility] ([facility]) [address] [facility], [place], [address], 02/14/2025 06:15:50 02/13/20 25 02/13/2025 UA/M W/RFL X CULTU RE, ROUTI NE cast type PRIMING MIXTURE CARRIER Not Available [facility] ([facility]) [address] [facility], [place], [address], 02/14/2025 06:15:50 02/13/20 25 02/13/2025 UA/M W/RFL X CULTU RE, ROUTI NE crystals PRIMING MIXTURE CARRIER Not Available [facility] ([facility]) [address] [facility], [place], [address], 02/14/2025 06:15:50 02/13/20 25 02/13/2025 UA/M W/RFL X CULTU RE, ROUTI NE crystal type PRIMING MIXTURE CARRIER Not Available [facility]) [address] [facility], [place], [address], 02/14/2025 06:15:50 02/13/20 25 02/13/2025 UA/M W/RFL X CULTU RE, ROUTI NE mucus threads PRIMING MIXTURE CARRIER Not Available [facility] ([facility]) [address] [place], [address], 02/14/2025 06:15:50 02/13/20 25 02/13/2025 UA/M W/RFL X CULTU RE, ROUTI NE bacteria Few none seen/f ew Not Available [facility] ([facility]) [address] [place], [address], 02/14/2025 06:15:50 02/13/20 25 02/13/2025 UA/M W/RFL X CULTU RE, ROUTI NE yeast PRIMING MIXTURE CARRIER Not Available [facility] ([facility]) [address] [place], [address], 02/14/2025 06:15:50 02/13/20 25 02/13/2025 UA/M W/RFL X CULTU RE ROUTI NE trichomonas PRIMING MIXTURE CARRIER Not Available [facility] ([facility]) [address] [place], [address], 02/14/2025 06:15:50 02/13/20 25 02/13/2025 UA/M W/RFL X CULTU RE, ROUTI NE comment PRIMING MIXTURE CARRIER Not Available [facility] ([facility]) [address] [place], [address], 02/14/2025 06:15:50 02/13/20 25 02/13/2025 UA/M W/RFL X CULTU RE ROUTI NE microscopic examination PRIMING MIXTURE CARRIER Not Available [facility] [address] [facility], [place], [address], 02/14/2025 06:15:50 02/13/20 25 02/13/2025 UA/M W/RFL X CULTU RE, ROUTI NE urinalysis reflex Commen t This speci men has refle xed to a Urine Cultu re. Not Available [facility] ([facility]) [address] [facility], [place], [address], 02/14/2025 06:15:50 02/13/20 25 02/14/2025 UA/M W/RFL X CULTU RE, FANNIE NE urine culture, routine Final report Not Available [facility] ([facility]) [address] [facility], [place], [address], 02/14/2025 06:15:50 02/13/20 25 02/14/2025 UA/M W/RFL X CULTU RE, ROUTI NE result 1 No growth Not Available [facility] ([facility]) [address] [facility], [place], [address], 02/14/2025 06:15:50 02/13/20 25 02/13/2025 GRAM STAIN W/SPU AZAM CULT RFLX white blood cells Few Not Available [facility] ([facility]) [address] [facility], [place], [address], 02/16/2025 16:11:21 02/13/20 25 02/13/2025 GRAM STAIN W/SPU AZAM CULT RFLX epithelial cells Few Not Available [facility] ([facility]) [address] [facility], [place], [address], 02/16/2025 16:11:21 02/13/20 25 02/13/2025 GRAM STAIN W/SPU AZAM CULT RFLX result 1 COMMEN T Many gram posit lucie cocci . Not Available [facility] ([facility]) [address] [facility], [place], [address], 02/16/2025 16:11:21 02/13/20 25 02/13/2025 GRAM STAIN W/SPU AZAM CULT RFLX result 2 Commen t Many gram negat lucie rods. Not Available [facility] ([facility]) [address] [facility], [place], [address], 02/16/2025 16:11:21 02/13/20 25 02/13/2025 GRAM STAIN W/SPU AZAM CULT RFLX result 3 COMMEN T Few gram posit lucie rods. Not Available [facility] ([facility]) [address] [facility], [place], [address], 02/16/2025 16:11:21 02/13/20 25 02/13/2025 GRAM STAIN W/SPU AZAM CULT RFLX result 4 Commen t Few gram negat lucie cocci Not Available [facility] ([facility]) [address] [facility], [place], [address], 02/16/2025 16:11:21 02/13/20 25 02/13/2025 GRAM STAIN W/SPU AZAM CULT RFLX gram stain evaluation Commen t This speci men is of good quali ty and is accep table for routi ne bacte rial cultu re. Not Available [facility] ([facility]) [address] [facility], [place], [address], 02/16/2025 16:11:21 02/13/20 25 02/16/2025 GRAM STAIN W/SPU AZAM CULT RFLX lower respiratory culture Final report abnormal Not Available [facility] ([facility]) [address] [place], [address], 02/16/2025 16:11:21 02/13/20 25 02/16/2025 GRAM STAIN W/SPU AZAM CULT RFLX result 1 COMMEN T abnormal Morax koko (bran ander la) catar rhali s Beta lacta arnol posit lucie. [place] [employer] Morax koko catar rhali s are gener ally susjaclyn ptibl e to amoxi cilli n-cla vulan ate, expan ded-s pectr um and broad -spec trum cepha lospo rins (ie, cefur oxime , cefot axime , ceftr iaxon e), macro lides (ie, azith romyc in, yossi throm ycin) , tetra cycli ayala, trime thopr im-montana lfame thoxa zole, and fluor oquin olone s. ([facility] 11th ed, 2015) Heavy growt h Not Available [facility] ([facility]) [address] [facility], [place], [address], 02/16/2025 16:11:21 02/13/20 25 02/16/2025 GRAM STAIN W/SPU AZAM CULT RFLX result 2 COMMEN T Routi ne respi rator y jonny Moder ate growt h Not Available [facility] ([facility]) [address] [facility], [place], [address], 02/16/2025 16:11:21 01/17/20 25 XR, chest , 2 view No observ ation record ed. [address] , [place], [address], 01/19/2025 10:09:23 01/23/20 25 XR, chest , 2 view No observ ation record ed. [address] , [place], [address], 01/22/2025 15:27:32 02/13/20 25 XR, chest , 2 view No observ ation record ed. [address] , [place], [address], 02/16/2025 10:47:59 Result Notes None recorded. Problems Name Problem SNOMED Code Status Onset Date Resolution Date Notes Provider Name and Address Organization Details Recorded Time Long-ter m drug therapy Active 2016 depo provera; declines BOB Shine, QUANTITATIVE CONSULTANT [address], [place], [address] , [place] - [facility] 10:59:48 Dyspnea 736548229 Completed 201905/07/2020 Nora Hooks null, [place] - [facility] 09:12:40 Vitamin D deficien cy 64695067 Active 2019 Crystal Lotus null, [place] - [facility] 16:07:20 Pulmonar y emphysem a 28376142 Active 2019 Nora Hooks null, [place] - [facility] 0 16:44:31 Asthma 890059582 Active 2020 Flores Garcia null, [place] - [facility] 1 10:26:19 Chronic obstruct lucie pulmonar y disease 79141966 Active 2020 Flores Garcia null, [place] - [facility] 1 10:26:24 Fibrocys tic disease of breast 25503675 Active 2020 Kristen Shine, QUANTITATIVE CONSULTANT [address], [place], [address] , [place] [facility] 1 14:39:41 Suspecte d COVID-19 730272011 Completed 10/11/2020 Removal Reason: Problem added by user from the COVID-19 watch flag Susan Valentine null, [place] - [facility] 1 13:48:16 COVID-19 881826334 Completed 202005/30/2021 Removal Reason: Problem marked historic al by user [email or web address] from the vidIQID-19 watch flag Pacheco Krause, QUANTITATIVE CONSULTANT [address], [place], [address] , [place] [facility] 11:12:19 COVID-19 381792874 Completed 202005/30/2021 Removal Reason: Problem marked historic al by user from the COVID-19 watch flag Pacheco Krause, QUANTITATIVE CONSULTANT [address], [place], [address] , [place] [facility] 11:12:19 Suspecte d COVID-19 454969467 Completed 08/02/2021 Removal Reason: Problem marked historic al by user [email or web address] from the COVID-19 watch flag Susan Valentine null, [place] - [facility] 1 13:48:16 COVID-19 021620734 Completed 202106/22/2022 Pacheco Krause, QUANTITATIVE CONSULTANT [address], [place], [address] , [place] [facility] 4 11:12:19 Allergic rhinitis 62248093 Active 2021 Crystal Lotus null, [place] - [facility] 2 14:53:22 Acute pharyngi tis 133478589 Completed 202102/09/2023 Crystal Lotus [place], [place] - [facility] 09:03:10 Acid reflux 279490109 Active 2015 Trudy Miguel [place] null, [place] - [facility] 6 09:53:44 Fibroade nosis of breast 97931646 Active 2015 Trudy Miguel [place], [place] - [facility] 6 09:54:02 Lateral epicondy litis 206463329 Completed 201501/24/2017 Abraham Rebollar MD [address], [place], [address] , [place] [facility] 13:07:37 Nodule of lung 347706732 Active 2022 Latosha Pavon QUANTITATIVE CONSULTANT [address], [place], [address] , [place] [facility] 09:33:01 Seasonal allergic rhinitis 211533711 Active 2022 Latosha Pavon QUANTITATIVE CONSULTANT [address], [place], [address] , [place] [facility] 09:33:19 Pain of left ankle joint 40031182293 483785 Active 2022 Latosha Pavon QUANTITATIVE CONSULTANT [address], [place], [address] , [place] [facility] 09:34:47 Pharyngi tis 710550773 Active 2022 Pacheco Krasue, QUANTITATIVE CONSULTANT [address], [place], [address] , [place] [facility] 11:35:20 Upper respirat ory infectio n 17730467 Active 2022 Pacheco Krause, QUANTITATIVE CONSULTANT [address], [place], [address] , [place] [facility] 13:36:54 Acute bronchit is 96539323 Active 2022 Pacheco Krause, QUANTITATIVE CONSULTANT [address], [place], [address] , [place] [facility] 14:08:31 Obesity 998897899 Active 2022 Pacheco Krause, BUBBA [address], [place], [address] , [place] [facility] 14:25:02 Chronic bronchit is 28424367 Active 2022 Pacheco Krause APRN [address], [place], [address] , [place] [facility] 11:41:44 Cough 66145928 Active 2022 Pacheco Krause, QUANTITATIVE CONSULTANT [address], [place], [address] , [place] [facility] 11:45:40 Acute sinusiti s 39958804 Active 2022 Pacheco Krause, QUANTITATIVE CONSULTANT [address], [place], [address] , [place] [facility] 12:57:59 Influenz a caused by Influenz a A virus 335429838 Active 2023 Agustin Josiah, DO [address], [place], [address] , [place] [facility] 16:32:14 Sore throat 663077440 Active 2023 Agustin Kerrin, DO [address], [place], [address] , [place] [facility] 4 16:33:29 Neuropat hy 445499777 Active 2023 Pacheco Krause, QUANTITATIVE CONSULTANT [address], [place], [address] , [place] [facility] 4 09:02:03 Candidia sis of mouth 74354427 Active 2023 Pacheco Krause, QUANTITATIVE CONSULTANT [address], [place], [address] , [place] - [facility] 4 09:14:47 Bilatera l lower limb edema 882187180 Active 2023 Pacheco Krause, QUANTITATIVE CONSULTANT [address], [place], [address] , [place] - [facility] 4 16:00:30 Communit y acquired pneumoni a 345021436 Active 2023 Pacheco Krause, QUANTITATIVE CONSULTANT [address], [place], [address] , [place] - [facility] 4 16:15:11 Middle ear effusion 5787961878 Active 2023 Pacheco Krause APRN [address], [place], [address] , [place] - [facility] 4 16:23:46 Acute exacerba tion of chronic obstruct lucie pulmonar y disease 053496115 Active 2023 Pacheco Krause, BUBBA [address], [place], [address] , [place] - [facility] 4 14:19:15 COVID-19 776565668 Active 2023 Pacheco Krause APRN [address], [place], [address] , [place] - [facility] 4 11:12:19 Reducibl e umbilica l hernia 803879195 Active 2023 Pacheco Krause APRN [address], [place], [address] , [place] [facility] 4 09:26:12 Prediabe candy 579073368 Active 2024 Pacheco Krause APRN [address], [place], [address] , [place] [facility] 09:42:06 Hyperlip idemia 74298697 Active 2024 Pacheco Krause APRN [address], [place], [address] , [place] [facility] 5 09:42:39 Visual disturba nce 52726443 Active 2024 Pacheco Krause APRN [address], [place], [address] , [place] - [facility] 5 10:00:41 Viral gastroen teritis 000543272 Active 2024 Louis Pool MD [address], [place], [address] , [place] - [facility] 5 09:59:31 Low back pain 051725093 Active 2024 Louis Pool MD [address], [place], [address] , [place] - [facility] 5 10:00:23 Acute infectiv e bronchit is 811851093 Active 2024 Pacheco Krause APRN [address], [place], [address] , [place] [facility] 5 14:13:08 Acute low back pain 343053229 Active 2024 Pacheco Krause APRN [address], [place], [address] , [place] [facility] 5 10:01:08 Increase d frequenc y of urinatio n 414126636 Active 2024 Pacheco Krause APRN [address], [place], [address] , [place] - [facility] 5 10:08:15 Acute transuda tive otitis media 36904879 Active 2024 Pacheco Krause APRN [address], [place], [address] , [place] [facility] 5 15:55:33 Nicotine dependen ce 70575879 Active 2016 Dolly fontanez, [place] - [facility] 7 11:36:27 Tendinit is of foot 564293144 Active 2016 Abraham Rebollar MD [address], [place], [address] , [place] - [facility] 7 13:07:57 Problem [...] of Last Pap Smear completed Kristen Shine, QUANTITATIVE CONSULTANT [address], [place], [address], [place] - [facility] 09/17/2020 15:27:26 07/01/20 20 [...] Name and Address Organization Details Recorded Time 478000 Trelegy medicatio n facial swelling moderate high 02/12/2023 58457 40 RxNorm Cassandra Howard estee, [place] - [facility] 4 16:04:33 Medications Name Sig Start Date Stop Date Status Note LastModified by Organization Details LastModified Time Cleocin HCl 300 mg capsule take one capsule by mouth three times a day 03/29 completed Cleocin 300 mg oral capsule; Prescrib e Status: Prescrib ed on: 02/10/20 3:48PM;D iscontin ued Status: Disconti nued on: 03/29/20 8:40AM;U ser: markrandibe adonis;Est. Completi on: 02/14/20 15;Pharm acyVerif ied: 02/10/20 [...] Available Not Available Nasonex 50 mcg/actua tion Visalia Visalia 2 sprays every day by intranas al [...] Disconti nued on: 05/23/20 15 5:32PM;U ser: aura; Est. Completi on: 05/21/20 15;Indic ation: bronch - (-5) Not Available Not Available Not Available Cleocin 1 tid 03/29 completed cleocin 300 mg;Recor ded Status: Recorded on: 02/10/20 15 3:42PM;D iscontin ued Status: Disconti nued on: 03/29/20 15 8:40AM;U ser: forrestbe jemmah;Est. Completi on: 02/14/20 15;Indic ation: - (-5) Not Available Not Available Not Available Flexeril 1 tid 02/27 completed flexeril 10 mg;Recor ded Status: Recorded on: 12/15/19 16 10:39AM; Disconti nued Status: Disconti nued on: 02/28/20 16 9:18AM;U ser: forrestbe rykarly;Est. Completi on: 12/22/19 16;Indic ation: - (-5) [...] e 205.5 mcg (0.15 %) nasal spray Visalia 1 spray twice a day by intranas [...] Arterial blood by Pulse oximetry Respiratory rate Body temperature Systolic And Diastolic Provider Name and Address Organization Details Last Updated DateTime 5 170.18 cm 34.3 kg/m2 42711.7 3 g 80 /min 96 % 96 % 14 /min 98 [degF] 143/87 mm[Hg] Lauren Patel [place] - [facility] 5 09:47:10 Date Recorded Body height Body mass index (BMI) Body weight Heart rate Oxygen saturation Oxygen saturation in Arterial blood by Pulse oximetry Respiratory rate Systolic And Diastolic Provider Name and Address Organization Details Last Updated DateTime 5 170.18 cm 34.1 kg/m2 86877.1 4 g 85 /min 94 % 94 % 20 /min 136/84 mm[Hg] Joanne ROCA - [facility] 5 13:26:22 Date Recorded Body height Body mass index (BMI) Body weight Heart rate Oxygen saturation Oxygen saturation in Arterial blood by Pulse oximetry Respiratory rate Systolic And Diastolic Provider Name and Address Organization Details Last Updated DateTime 5 170.18 cm 34.1 kg/m2 99387.1 4 g 82 /min 95 % 95 % 20 /min 124/76 mm[Hg] Joanne ROCA - [facility] 5 09:55:40 Date Recorded Body height Body mass index (BMI) Body weight Heart rate Oxygen saturation Oxygen saturation in Arterial blood by Pulse oximetry Respiratory rate Systolic And Diastolic Provider Name and Address Organization Details Last Updated DateTime 5 170.18 cm 35.1 kg/m2 506975. 69 g 92 /min 95 % 95 % 20 /min 152/94 mm[Hg] Joanne ROCA - [facility] 5 09:41:05 Date Recorded Body height Body mass index (BMI) Body weight Heart rate Oxygen saturation Oxygen saturation in Arterial blood by Pulse oximetry Systolic And Diastolic Provider Name and Address Organization Details Last Updated DateTime 5 170.18 cm 34.5 kg/m2 96677.3 2 g 94 /min 98 % 98 % 118/62 mm[Hg] Joanne ROCA - [facility] 5 15:31:34 Social History Question Answer Notes LastModified by Organizat ion Details LastModified Time Tobacco Smoking Status Former Smoker 2 weeks as of 01/16 Joanne fontanez, [place] - [facility] 01/16/2025 13:28:33 Do You Have [...] COVID-19 While That Case Was Ill? No [email or web address] Information not available 12/01/2024 In The 14 Days Before Symptom Onset, Have You Had Close Contact With A Person Who Is Under Investigation For COVID-19 While That Person Was Ill? No [email or web address] Information not available 12/01/2024 Have You Been To An Area Known To Be High Risk For COVID-19? No [email or web address] Information not available 12/01/2024 Are You Deaf Or Do You Have Serious Difficulty Hearing? No Information not available 08/17/2016 What Type Of Diet Are You Following? REGULAR Information not available 08/17/2016 Which Illicit Or Recreational Drugs Have You Used? Denies Information not available 08/17/2016 Have You Processed Blood Or Body Fluids From An Ebola Virus Disease Patient Without Appropriate PPE? No [email or web address] Information not available 12/01/2024 Do You Reside In Or Have You Traveled To An Area Where Ebola Virus Transmission Is Active? No [email or web address] Information not available 12/01/2024 How Many Days Of Moderate To Strenuous Exercise, Like A Brisk Walk, Did You Do In The Last 7 Days? 1 Information not available 05/16/2018 On Those Days That You Engage In Moderate To Strenuous Exercise, How Many Minutes, On Average, Do You Exercise? 1 [email or web address] Information not available 05/16/2018 Have There Been Any Changes To Your Family Or Social Situation? No [email or web address] Information no t available 12/01/2024 Have You Recently Or Are You Planning To Travel To An Area With Zika Virus? No [email or web address] Information not available 12/01/2024 Live Alone Or With Others? With Others Information not available 08/17/2016 Do You Have A Medical Power Of Hydrogen Cell Tender? No [email or web address] Information not available 12/01/2024 What Was The Date Of Your Most Recent Tobacco Screening? 02/20/2025 Information not available 02/20/2025 What Is Your Current Pack Years? [email or web address] Information not available 02/12/2023 Performs Monthly Self-breast Exam? Yes Sometimes Information no t available 07/18/2017 What Is Your Relationship Status? Unknown Information not available 08/17/2016 Seat Belts Used Routinely Yes Information not available 07/18/2017 Are You Sexually Active? Yes Information not available 07/18/2017 Do You Have Smoke And Carbon Monoxide Detectors In Your Home? No [email or web address] Information not available 12/01/2024 At What Age Did You Start Smoking Tobacco? 14 Information not available 02/12/2023 Are You Passively Exposed To Smoke? No [email or web address] Information no t available 12/01/2024 How Much Tobacco Do You Smoke? 1.5 PPD [email or web address] Information not available 09/15/2020 Do You Use Sunscreen Routinely? No Information not available 07/18/2017 Has Tobacco Cessation Counseling Been Provided? Yes Information not available 06/22/2022 On What Date Was Tobacco Cessation Counseling Provided? 02/20/2025 [email or web address] Information not available 02/20/2025 How Many Years Have You Smoked Tobacco? 38 [email or web address] Information not available 09/15/2020 Do You Have [...] used smokeless tobacco? Never used smokeless tobacco [email or web address] Information not available 09/15/2020 Are you currently employed? Yes Information not available 07/18/2017 Urinary incontinence assessment performed? Yes [email or web address] Information not available 05/16/2018 Are you able to walk? [email or web address] Information not available 07/18/2017 Do you have difficulty doing errands alone? No Information not available 08/17/2016 What is your occupation? [employer] Information not available 08/17/2016 Do you have difficulty dressing or bathing? No Information not available 08/17/2016 Do you or have you ever used e-cigarettes or vape? Never used electronic cigarettes [email or web address] Information not available 09/15/2020 What is your exercise level? None Information not available 08/17/2016 Mental Status Question Answer Note LastModified by Organizat ion Details LastModified Time Do you feel stressed (tense, restless, nervous, or anxious, or unable to sleep at night)? [id number] [email or web address] Information not available 05/16/2018 Do you have [...] 09/15/2020 Sexual Problems? 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 Method Depo-Manager Review a LMP Definite Desired Control Method Hormonal In jection Obstetrics History GPAL:G 1 P 1 0 0 1 Type Value Full Term 1 Living 1 Total 1 Immunizations Vaccine Type Date Status Note Provider Name and Address Organization Details Recorded Time RSV, recombinant, protein subunit RSVpreF, adjuvant reconstituted, 0.5 mL, PF 09/26/19 completed Krystle Oskar fontanez, [place] - [facility] 09/26/2024 09:47:56 Influenza, split virus, quadrivalent, preservative 09/15/19 cancelled patient objection Kristen Shine, QUANTITATIVE CONSULTANT [address], [place], [address], [place] - [facility] 09/15/2020 11:14:13 zoster recombinant 09/26/19 cancelled patient objection Pacheco Krause, QUANTITATIVE CONSULTANT [address], [place], [address], [place] [facility] 09/27/2024 09:41:43 Tdap 09/26/19 cancelled patient objection Pacheco Krause, QUANTITATIVE CONSULTANT [address], [place], [address], [place] - [facility] 09/27/2024 09:41:43 Pneumococcal conjugate PCV20, polysaccharide [id number] conjugate, adjuvant, PF 09/26/19 completed Pacheco Schmitting, QUANTITATIVE CONSULTANT [address], [place], [address], [place] [facility] 09/27/2024 09:41:43 Influenza, split virus, trivalent, preservative 09/26/19 cancelled patient objection Pacheco Schmitting, QUANTITATIVE CONSULTANT [address], [place], [address], [place] [facility] 09/27/2024 09:41:43 Tdap 10/17/19 [...] SNOMED-CT Code Diagnosis ICD10 Code Diagnosis Note [id number] Kristen Shine, BUBBA Hutchison CANDY SPREADER HELPER [address] [facility] [place] [address] 08/17/2016 10:21:26 08/17/2016 10:58:03 Contraception care management 279240329 Z30.9 [id number] Abraham Rebollar MD [facility] [address] [place] [place] [address] 08/17/2016 15:28:43 08/18/2016 09:48:20 Lateral epicondylitis 022183329 M77.11 Adult heal th examination 621396894 Z00.00 [id number] BUBBA Adam CANDY SP[employer]ER HELPER [address] [place] [address] [place] [address] 11/08/2016 09:08:11 11/08/2016 09:41:36 Contraception care management 287539512 Z30.9 [id number] Abraham Rebollar MD [address] [place] [address] 01/24/2017 11:02:41 01/24/2017 12:08:31 Body mass index 30+ - obesity 577139937 Z68.39 Nicotine dependence 5629 4008 F17.200 Pain in right foot 30578 33906 54287 M79.671 Tendinitis of foot 75632 2008 M77.9 Acid reflux 860915920 K2 1.9 Lateral epicondylitis 20 8070012 M77.11 [id number] BUBBA Adam CANDY SP[employer]ER HELPER [address] [place] [address] [place] [address] 01/31/2017 08:48:43 01/31/2017 09:12:30 Contraception care management 528702625 Z30.9 [id number] BUBBA Adam CANDY SPREADER HELPER [address] [place] [address] [place] [address] 04/25/2017 08:36:37 04/25/2017 09:20:14 Contraception care management 979876749 Z30.9 [id number] Nora Hooks QUANTITATIVE CONSULTANT [address] [place] [place] [address] 06/01/2017 15:54:30 06/01/2017 17:05:33 Nicotine dependence 75219955 F17.200 Body mass index 30+ - obesity 888499169 Z68.32 Cough 29609680 R05 [id number] Nora Hooks QUANTITATIVE CONSULTANT [address] [place] [place] [address] 06/04/2017 13:27:34 06/04/2017 15:00:36 Cough 81804271 R05 Nicotine dependence 5629 4008 F17.200 Body mass index 30+ - obesity 633024529 Z68.32 Acute bronchitis 6404631 2 J20.9 [id number] Abraham Rebollar MD [facility] [address] [place] [address] 06/20/2017 10:54:13 06/20/2017 13:19:06 Foot pain 49553444 M79.672 Tendinitis of foot 74702 2008 M77.9 Acid reflux 513161787 K2 1.9 Lateral epicondylitis 20 5705361 M77.11 [id number] BUBBA Adam CANDY SPREADER HELPER [address] [place] [address] [place] [address] 07/18/2017 08:45:48 07/18/2017 09:36:42 Routine gynecologic examination done 7356501353 9101 Z01.419 Depression screening 171 079287 Z13.89 Hypertensi on screening 503919435 Z13.6 Screening for malignant neoplasm of cervix 060128427 Z12.4 Diet education 80554027 Z71.3 Encourage healthy eating/dec reased fats, sugars, fried foods Screening for malignant neoplasm of breast 111086475 Z12.31 declines mammogram Counseling 339580964 Z71 .9 Encouraged regular exercise 30-40 min/day 4-5 days/wk Contracept ion care management 801659687 Z30.9 Body mass index 30+ - obesity 340293806 Z68.32 Cigarette smoker 6379756 7 F17.239 [id number] Nora Hooks [facility] [address] [place] [address] 09/27/2017 15:28:02 09/27/2017 16:14:54 Upper respiratory infection 85676300 J06.9 [id number] BUBBA Adam CANDY SPREADER HELPER [address] [place] [address] [place] [address] 10/11/2017 10:54:37 10/11/2017 11:05:48 Contraception care management 634146762 Z30.9 [id number] BUBBA Adam CANDY SPREADER HELPER [address] [place] [address] [place] [address] 01/02/2018 10:06:52 01/02/2018 10:20:07 Contraception care management 086798784 Z30.9 [id number] Gibran Marinelli MD [address] [place] [address] 05/13/2018 12:54:55 05/13/2018 15:37:26 Pain in lumbar spine 799060808 M54.5 Low back pain 184005482 M54.5 [id number] Debi Nolen [address] [place] [address] 10/28/2018 08:21:09 10/28/2018 09:29:52 Pharyngitis 613212975 J02.9 Influenza- like symptoms 557631884 R68.89 Otitis media 80496767 H6 6.92 [id number] Nora Jessee [address] [place] [address] 12/09/2018 08:22:19 12/09/2018 10:20:07 Cough 04381064 R05 Costal chondritis 668139 04 M94.0 [id number] Nora Hooks [address] [place] [address] 11/21/2019 14:41:06 11/21/2019 15:24:45 Body mass index 30+ - obesity 787708784 Z68.30 Cough 00818346 R05 Pharyngitis 244008583 J0 2.9 Acute bronchitis 6667130 2 J20.9 [id number] Nora oHoks [address] [place] [address] 11/24/2019 09:13:26 11/24/2019 10:19:16 Dyspnea 137025870 R06.00 Acute bronchitis 5317572 2 J20.9 Smoker 48571621 F17.855 [id number] Nora Hooks [address] [place] [address] 12/01/2019 11:33:06 12/01/2019 12:04:02 Community acquired pneumonia 227715969 J18.9 Acute exac erbation of chronic obstructive pulmonary disease 253881304 J44.1 Candidiasis of mouth 797 43415 B37.0 Anxiety 62172775 F41.9 Gastroesop hageal reflux disease 847951495 K21.9 Chronic ob structive pulmonary disease 56703287 J44.9 [id number] Nora Hooks[address] [place] [address] 03/19/2020 09:47:31 03/19/2020 11:34:06 Pain of shoulder region 18123195 M25.512 Viral screening 94693789 4 Z11.59 Smoker 54680105 F17.947 [id number] Nora Hooks [address] [place] [address] 04/01/2020 14:08:21 04/01/2020 15:09:39 Upper respiratory infection 97570472 J06.9 Fatigue 43319394 R53.83 Dyspnea 481121048 R06.00 Screening for cardiovascular system disease 185879344 Z13.6 Excessive thirst 5613351 7 R63.1 Smoker 00134525 F17.200 Acute bronchitis 9660157 2 J20.9 Gastroesop hageal reflux disease 155215638 K21.9 Allergic rhinitis 719993 04 J30.9 [id number] Nora Hooks[address] [place] [address] 04/13/2020 08:17:01 04/13/2020 08:52:52 Viral screening 717471858 Z11.59 [id number] Nora Jessee[address] [place] [address] 05/07/2020 08:44:29 05/07/2020 09:46:24 Low back pain 925973295 M54.5 Smoker 02147721 F17.200 Pulmonary emphysema 8743 3001 J43.9 [id number] Nora Hooks[address] [place] [address] 05/13/2020 11:09:28 05/13/2020 12:06:50 Conjunctivitis 3243442 H10.9 Smoker 50152692 F17.200 Pharyngitis 803749892 J0 2.9 [id number] Nora Hooks [facility] [address] [place], [place] [address] [address] 07/01/2020 13:42:01 07/01/2020 14:25:33 Pharyngitis 830404618 J02.9 Pulmonary emphysema 8743 3001 J43.9 Smoker 26545858 F17.834 [id number] BUBBA Adam CANDY SPREADER HELPER [address] [place] [address] [place] [address] 09/15/2020 10:18:07 09/15/2020 12:25:11 Routine gynecologic examination done 7321983820 9101 Z01.419 Depression screening 171 294625 Z13.89 Hypertensi on screening 976575694 Z13.6 Screening for malignant neoplasm of cervix 492335013 Z12.4 Diet education 45703104 Z71.3 Encourage healthy eating/dec reased fats, sugars, fried foods Counseling 607733067 Z71 .82 Encouraged regular exercise 30-40min/d ay 4-5 days/wk Examinatio n of blood pressure 352888321 Z01.30 Vaccine de clined by patient 3803328915 02 Z28.21 Pt declined flu vaccine today. Body mass index 30+ - obesity 596435102 Z68.33 Uses depot contraception 771261221 Z30.013 Cigarette smoker 1085081 7 F17.210 Fibrocysti c disease of breast 34525360 N60.19 [id number] Nora Hooks [address] [place] [address] 10/07/2020 10:53:41 10/07/2020 11:45:44 Chronic obstructive pulmonary disease 86966057 J44.9 Pulmonary emphysema 8743 3001 J43.9 Dyspnea 954616342 R06.00 Viral screening 75811286 4 Z11.59 Fatigue 89954479 R53.83 [id number] BUBBA Adam CANDY SPREADER HELPER [address] [place] [address] [place] [address] 12/08/2020 10:18:59 12/08/2020 10:28:37 Uses depot contraception 238148902 Z30.467 [id number] Nora Hooks [address] [place] [address] 02/10/2021 08:42:33 02/10/2021 10:08:16 Chronic obstructive pulmonary disease 04035956 J44.9 Vitamin D deficiency 347 60944 E55.9 Smoker 71317080 F17.200 Strain of rotator cuff of shoulder 041791199 S46.011A [id number] Lorrie Mann APRN [place] CANDY SP[employer]ER HELPER [address] [place] [address] [place] [address] 03/01/2021 11:21:08 03/01/2021 11:30:46 Uses depot contraception 339532472 Z30.42 [id number] Nora Hooks [address] [place] [address] 4 05/23/2021 10:29:28 05/23/2021 11:39:55 COVID-19 501527984 U07.1 Pneumonia caused by SARS-CoV-2 8242561111 93468325 J12.82 Hypokalemia 22799601 E87 .6 [id number] Nora Hooks [address] [place] [address] 05/30/2021 10:16:33 05/30/2021 11:33:40 COVID-19 362710436 U07.1 Viral pneumonia 72846510 J12.9 Hypokalemia 33057647 E87 .6 [id number] Nora Hooks [address] [place] [address] 07/25/2021 14:37:57 07/25/2021 15:46:33 Viral screening 036240584 Z11.59 Acute exac erbation of chronic obstructive pulmonary disease 437031935 J44.1 [id number] Nora Hooks [address] [address] 08/09/2021 07:55:08 08/09/2021 08:30:27 Candidiasis of mouth 92492543 B37.0 [id number] Arcelia Stafford [address] [place] [address] 09/23/2021 15:43:54 11/29/2021 15:37:25 COVID-19 906834043 U07.1 [id number] Yasmin Fryekarina [address] [place] [address] 02/21/2022 09:04:33 02/21/2022 09:43:41 Acid reflux 644355967 K21.9 Difficulty swallowing 28 1500386 R13.10 Nasal congestion 2756147 0 R09.81 Feeling of lump in throat 130739175 F45.8 [id number] Latoshaservando Pavon [address] [place] [address] 06/22/2022 14:16:56 06/22/2022 15:35:40 Body mass index 30+ - obesity 664358729 Z68.32 Obesity 146973218 E66.3 Acid reflux 783952133 K2 1.9 Allergic rhinitis 067378 04 J30.9 Acute pharyngitis 245590 003 J02.9 [id number] Latosha Pavon[address] [place] [address] 10/19/2022 09:47:26 10/19/2022 10:34:58 Allergic rhinitis 33600811 J30.9 Acid reflux 952879191 K2 1.9 Viral screening 51500426 4 Z11.59 negative for influenza A&B per rapid screen [id number] Latoshaservando Pavon[address] [place] [address] 02/09/2023 08:25:51 02/09/2023 10:25:35 Body mass index 30+ - obesity 655316245 Z68.33 Obesity 482538344 E66.9 Nicotine dependence 5629 4008 F17.200 Nodule of lung 864655582 R91.1 Seasonal a llergic rhinitis 856706142 J30.2 Pain of le ft ankle joint 7329077604 6852234 M25.572 Chronic ob structive pulmonary disease 46772873 J44.9 Endocrine/ metabolic screening 165656906 Z13.228 Screening for cardiovascular system disease 423666447 Z13.6 [id number] Pacheco Krause [address] [place] [address] 04/18/2023 13:19:22 04/18/2023 14:22:03 Pharyngitis 780223205 J02.9 Body mass index 30+ - obesity 785388263 Z68.35 Obesity 874550488 E66.9 Upper resp iratory infection 61980712 J06.9 Acute bronchitis 7396199 2 J20.9 [id number] Pacheco Krause APR[address] [place] [address] 04/27/2023 11:13:29 04/27/2023 13:00:12 Bronchitis 12959562 J40 Pulmonary emphysema 8743 3001 J43.9 [id number] Pacheco Krause [address] [place] [address] 05/31/2023 12:20:24 05/31/2023 13:06:40 Viral screening 242214248 Z11.52 Z11.59 Acute sinusitis 31714418 J01.90 Patient likely has an acute bacterial sinusitis. Will treat as below.No signs of preseptal or orbital cellulitis , meningismu s, or neurologic changes concerning for intracrani al process. Instructed family to monitor patient closely and call office for any of these symptoms.S upportive care reviewed: raising HOB, humidifier use, saline nasal spray, rest, encourage PO fluids and monitor hydration status, infection control measures.R ecommended acetaminop hen/ibupro fen PRN pain, fever; reviewed appropriat e doses.Foll ow-up as below. [id number] Agustin Rahman DO [facility] [address] [place] [address] 09/07/2023 16:05:52 09/07/2023 16:35:50 Sore throat 025770910 J02.9 Pharyngiti s. Strep testing was negative. Do believe most likely related to postnasal drainage and cobbleston ing. Supportive care including antipyreti cs, antiinflam matory, and throat spray discussed in detail. Patient to maintain adequate hydration. Influenza caused by Influenza A virus 519914123 J09.X2 Flu A. Conservati ve management reviewed with patient. Resolving, patient no longer febrile. Chronic ob structive pulmonary disease 58485481 J44.9 COPD exacerbati on. Improved. Patient advised to finish the antibiotic s as well as steroids as written. Patient advised to continue her inhalers as prescribed and follow-up with her pulmonolog ist as scheduled. [id number] Pacheco Krause APRN [address] [place] [address] 11/26/2023 15:57:11 11/26/2023 16:47:48 Acute sinusitis 42055053 J01.90 Patient likely has an acute bacterial sinusitis. Will treat as below.No signs of preseptal or orbital cellulitis , meningismu s, or neurologic changes concerning for intracrani al process. Instructed family to monitor patient closely and call office for any of these symptoms.S upportive care reviewed: raising HOB, humidifier use, saline nasal spray, rest, encourage PO fluids and monitor hydration status, infection control measures.R ecommended acetaminop hen/ibupro fen PRN pain, fever; reviewed appropriat e doses.Foll ow-up as below. [id number] Pacheco Krause APRN [address] [place] [address] 12/21/2023 08:39:20 12/21/2023 09:16:07 Chronic obstructive pulmonary disease 02676110 J44.9 Vitamin D deficiency 347 40310 E55.9 Candidiasis of mouth 797 50189 B37.0 -reports frequent thrush with inhalers and keeps a nystatin for when she needs it. Body mass index 30+ - obesity 389445216 Z68.35 Obesity 523874332 E66.9 Anemia screening 3441272 07 Z13.0 Diabetes m ellitus screening 321017826 Z13.1 Thyroid di sorder screening 037197171 Z13.29 Screening for cardiovascular system disease 341904644 Z13.6 Neuropathy 576537228 G62 .9 Allergic rhinitis 660089 04 J30.9 [id number] Yasmin Aguirre [facility] [address] [place] [address] 03/28/2024 16:13:51 03/28/2024 16:58:29 Viral screening 188503428 Z11.59 Pharyngitis 299609097 J0 2.9 Acute bila teral otitis media 157328970 H66.93 Cough 77434082 R05.9 Chest pain 76735126 R07. 9 [id number] Pacheco Krause [address] [place] [address] 05/14/2024 15:21:33 05/14/2024 16:38:12 Body mass index 30+ - obesity 193987514 Z68.35 Obesity 177330832 E66.9 Pharyngitis 757798033 J0 2.9 Rapid strep obtained in clinic today and was not positive. Recommend patient to gargle frequently with warm salt water, lozenges or sprays, and saline nasal spray as needed. Advised ibuprofen or acetaminop hen as needed for pain control. Should symptoms persists or become worse, RTC for reevaluati on. Begin all meds as written today. Bilateral lower limb edema 952350736 R60.0 Community acquired pneumonia 160514400 J18.9 Middle ear effusion 1004 038030 H74.8X9 [id number] Pacheco Krause [employer]SULT[employer] [address] [place] [address] 05/30/2024 13:41:09 05/30/2024 14:34:44 Body mass index 30+ - obesity 241277089 Z68.35 Obesity 503735040 E66.9 Acute exac erbation of chronic obstructive pulmonary disease 425201766 J44.1 Worsened cough, dyspnea, increased sputum production /purulence - IM steroid given in office- Continue Nebulized Albuterol q4-6hrs PRN at home- Counseled on trigger avoidance and smoking cessation- Continue start regimen: Z-talib, oral corticoste roids- Emergency Department warnings given if complicati ons or symptoms become severe- Follow-up in 3 days; sooner if needed [id number] Pacheco Krause APRN [address] [place] [address] 07/25/2024 09:04:18 07/25/2024 09:27:31 Body mass index 30+ - obesity 687556405 Z68.35 Obesity 031911789 E66.9 Reducible umbilical hernia 997979960 K42.9 - small reducible umbilical hernia- based on Pt work and pulmonary history foresee this being a chronic issue- US to further assess contents of hernia- refer to surgeon for evaluation and possible surgical treatment [id number] Elizabeth Villanueva APRN [facility] [address] [place] [address] 08/29/2024 13:12:11 08/29/2024 15:20:59 Viral screening 936359181 Z11.52 Influenza- like illness 86222007 B34.9 Pharyngitis 880326185 J0 2.9 Body mass index 30+ - obesity 954307736 Z68.36 Obesity 011112634 E66.9 Chronic ob structive pulmonary disease 64907460 J44.9 Acute exac erbation of chronic obstructive pulmonary disease 310034690 J44.1 [id number] Karolina Villanueva APRN [address] [place] [address] 09/01/2024 15:33:07 09/01/2024 16:57:12 Chronic obstructive pulmonary disease 11235584 J44.9 Acute exac erbation of chronic obstructive pulmonary disease 219234614 J44.1 Cough 85673704 R05.9 [id number] Pacheco Krause APRN [address] [place] [address] 09/26/2024 08:21:33 09/26/2024 09:20:01 General examination of patient 454473300 Z00.01 Screening mammography 24 755618 Z12.31 - pt refuses mammogram screening at this time Dietary ma nagement surveillance 238640636 Z71.3 Administra tion of pneumococcal vaccine 94089302 Z23 - pt agreeable to pneumococc al vaccine Thyroid di sorder screening 884448908 Z13.29 Screening for cardiovascular system disease 614404663 Z13.6 Anemia screening 4307885 07 Z13.0 Diabetes m ellitus screening 137327356 Z13.1 Vitamin D deficiency 347 29617 E55.9 Body mass index 30+ - obesity 677070833 Z68.36 Obesity 825569317 E66.9 - pt wishing to explore GLP-1 medication s for weight loss- pt has a history of obesity, prediabete s and severe COPD. Weight loss could greatly improve her quality of life and reduce her risk for serious medical conditions such as heart disease, diabetes, kidney disease, and cancer.- Will prescribe wegovy for weight loss and see if covered by insurance. Tetanus di phtheria and acellular pertussis vaccination declined [id number] 2885136 Z28.20 - pt refuses Tdap at this time due getting other vaccines today, but is willing to come back in 2-3 weeks to get the Tdap vaccine Herpes zos ter vaccination declined 2101767613 102 Z28.20 - pt refuses herpes zoster vaccine at this time due getting other vaccines today, but is willing to come back in 2-3 weeks to get the herpes zoster vaccine Influenza vaccination declined 690824259 Z28.21 - pt refuses influenza vaccine, states she became very ill following a flu shot several years ago Requires r espiratory syncytial virus vaccination 709603004 Z28.39 - pt agreeable to RSV vaccine Screening for malignant neoplasm of colon 462060556 Z12.11 - pt agreeable to cologuard for colon cancer screening- pt denies any family history of colon cancer as well as any chronic abdominal pain, nausea, vomiting, diarrhea, constipati on, melena, or bloody stools. Depression screening 171 115057 Z13.31 -PHQ-2 administer ed, score 0 depression severity none to minimal-Fo llow up in 1 year for re-evaluat ion [id number] Pacheco Krause APRN [address] [place] , [place] [address] 10/17/2024 09:09:22 10/17/2024 11:10:19 Administration of diphtheria, pertussis, and tetanus vaccine 569605658 Z23 Body mass index 30+ - obesity 869156109 Z68.35 Obesity 711350376 E66.9 Acute bronchitis 7625098 2 J20.9 - No signs of pneumonia or other complicati ons.- Prescribe a 5-day course of azithromyc in- Advise patient to drink plenty of fluids, rest, and avoid smoking.- Schedule a follow-up visit in 1 weeks to monitor recovery and rule out any secondary infections . Reducible umbilical hernia 757716202 K42.9 - small reducible umbilical hernia- based on Pt work and pulmonary history foresee this being a chronic issue- US confirmed- refer to surgeon for evaluation and possible surgical treatment Vitamin D deficiency 347 94121 E55.9 - establishe d diagnosis- vitamin D level 14.5 (09/2024)- restart on supplement at 50k u weekly Acid reflux 266606754 K2 1.9 Visual disturbance 36765 001 H53.9 - No red flag symptoms such as acute onset of vision loss, double vision, eye pain, or significan t headache.- Reviewed prior labs, imaging, notes, and records. A1c 6.4%, no significan t findings on CBC or CMP drawn 3 weeks ago.- Differenti al diagnosis for blurred vision was discussed and includes refractive errors, cataracts, glaucoma, macular degenerati on, diabetic retinopath y, and neurologic al conditions - Referral to an optometris t or ophthalmol ogist for a comprehens lucie eye exam. Patient Education: Importance of regular eye examinatio ns.Awarene ss of symptoms indicating worsening vision or potential emergencie s.Lifestyl e modificati ons for overall eye health, including diet and smoking cessation. Follow-Up: Patient is to schedule a follow-up visit in 4 weeks, or sooner if symptoms worsen. Depression screening positive [id number] 97313 Z13.31 Patient with symptoms concerning for depression . PHQ-9 score: 7. Denies SI/HI. No other safety concerns at this time.Will not start medication at this time. Follow-up in 1 month [id number] Joe Jones DO [facility] [address] [place] [address] 12/01/2024 09:37:31 12/01/2024 10:18:31 Viral gastroenteritis 727790119 A08.4 resolved/r esolving n/v/d. Likely viral, now that symptoms have resolved. Encouraged adequate hydration. Encouraged zofran as needed for n/v, but pt declined at this time. Cough 72752655 R05.9 Resolved, negative for flu/covid/ strep. Low back pain 992811223 M54.50 Chronic, diclofenac , heat, positionin g, reviewed LBP exercises with pt, she verbalized understand ing. Elevated blood-pressure reading without diagnosis of hypertension 225814007 R03.0 acute pain complicati ng; recommend patient check outside readings particular ly outside of acute low back pain and if persistent ly above 140/90 recommend f/u w/ PCP [id number] Pacheco Krause APRN [address] [place] [address] 01/16/2025 12:52:42 01/16/2025 14:23:37 Acute infective bronchitis 704156839 J20.8 [id number] Pacheco Krause APRN [address] [place] [address] 01/21/2025 09:39:37 01/21/2025 10:27:45 Community acquired pneumonia 596658330 J18.9 - Presents for follow up on [...] week Body mass index 30+ - obesity 171339968 E66.9 Obesity 056668091 E66.9 Obese class I 4974270068 50294 E66.815 [id number] Pacheco Krause APRN [address] [place] [address] 02/12/2025 09:27:49 02/12/2025 10:28:58 Community acquired pneumonia 515575311 J18.9 - Presents for follow up on [...] up in 1 week Obese class II 755738345 1 89793 E66.812 Obesity 748073937 E66.9 Increased frequency of urination 187757963 R35.0 [id number] Pacheco Krause APRN [address] [place] [address] 02/20/2025 14:59:37 02/20/2025 16:16:11 Community acquired pneumonia 928385882 J18.9 - resolved Body mass index 30+ - obesity 505015868 Z68.34 Obesity 717381949 E66.9 Lateral ep icondylitis of left humerus 7700649790 95239 M77.12 Acute rodriguez sudative otitis media 57945555 H65.192 Health Concerns Section Related Observation LastModified by Organization Detai ls LastModified Time None Recorded Concern Status LastModified by Organization Details LastModified Time None Recorded Advance Directives Directive N: Payers Insurance Date Sequence Insurance Name Policy Number Policy Whaley Covered Member ID Whaley Member ID Guarantor Name 06/09/2022 2 [facility] Cassia Gabriel [id number] Cassia Rios 12/30/2020 [place] Cassia Rios [id number] Cassia Rios 02/04/2025 1 [facility] - [place]IGNA (PPO) [id number] Cassiaeliceo Rios [id number] Cassia Rios 12/08/2020 1 [employer] [place] Cassia Rios [id number] Cassia Rios 12/08/2020 [place] Cassia Rios [id number] Cassia Rios 12/01/2024 1 [employer] - [facility]CS (PPO) [id number] Cassia Rios [id number] Cassia Rios 09/05/2023 1 [facility] Cassia Rios [id number] Cassia Rios 01/21/2025 2 [employer] Cassia Rios [id number] Cassia Rios 02/02/2025 2 [employer] Cassia Rios [id number] Cassia Rios 01/21/2025 2 [employer] - [employer] HE[employer] STRATEGIES - CIGNA (PPO) Cassia Rios [id number] Cassia Rios 02/04/2025 1 [employer] - PHCS (PPO) [id number] Cassia Rios [id number] Cassia Rios 02/02/2025 2 [facility]-CIGNA - S&S HEALTHCARE STRATEGIES - CIGNA (PPO) Cassia Rios [id number] Cassia Rios 12/08/2020 [place] Cassia Rios [id number] Cassia Rios 06/09/2022 2 [place] [facility] CHOICES - FFS/TRADITIONAL Cassia Rios [id number] Cassia Rios 03/25/2020 1 *SELF PAY* Fl orence Rios 02/09/2023 1 *SELF PAY* Fl orence Rios 10/31/2016 1 UNSPECIFIED REMIT PAYOR Cassia Iros 10/08/2023 [place] [facility]Q[place] [id number] Cassia Rios [id number] Cassia Rios 06/15/2021 [place] Cassia Rios [id number] Cassia Rios 02/10/2021 [place] Cassia Rios [id number] Cassia Rios 10/08/2023 1 [employer] [id number] Cassia Rios [id number] Cassia Rios Notes Date Note Type Note Provider Name and Address Organization Details Recorded Time 12/01/2024 text/html Pt is 54yoF w/ P MHx of COPD, lung nodule, HLD, prediabetes, obesity, Vit D Deficiency, who presents for new onset diarrhea. From 10/17: She started with a little cough and dyspnea yesterday. She states that she does not feel bad. She also has had 2-3 episodes of blurry vision, she will see little triangles . She checked her blood pressure when this happened and it was 110/70.Denies dizziness. Cassia also reports a knot inside her naval. She noticed it yesterday, It is painful.She has been coughing a lot so not sure if she pulled something. 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 Spent 25+min reviewing acute and chronic conditions, evaluation of patient, cooridnation of care, delivery of care and documentation on date of service. Joe Jones, DO [address], [place], [address], [employer] [facility] 12/01/2024 10:43:52 01/16/2025 text/html Cassia is a 54-year-old female [...] breath or cough.She was seen by her digital director on Sunday and is currently on Augmentin and prednisone. She also has not smoked since 01/02. Pacheco Krause, QUANTITATIVE CONSULTANT [address], [place], [address], [employer] [facility] 01/16/2025 15:09:48 01/21/2025 text/html Cassia is a 54-year-old female [...] denies fever, myalgias, and cold chills. Pacheco Jimi, BUBBA [address], [place], [address], [place] [facility] 01/21/2025 10:32:59 02/12/2025 text/html Cassia is a 54-year-old female [...] flank pain, hematuria, suprapubic pain, vomiting Pacheco Krause APRN [address], [place], [address], [place] [facility] 02/12/2025 11:15:52 OBGyn Episode No OBEpisode recorded.
--- NOTE | 2025-03-06 10:21 | XR_ITS ---
PROCEDURE INFORMATION: Exam: XR Right Ankle Exam date and time: 03/06/2025 10:26 AM Age: 54 years old Clinical indication: Injury or trauma; Other: Inversion injruy TECHNIQUE: Imaging protocol: Radiologic exam of the right ankle. Views: 3 or more views. Total images: 3 COMPARISON: No relevant prior studies available. FINDINGS: Bones/joints: Displaced fracture of the distal lateral malleolus with moderate overlying soft tissue swelling. Small joint effusion. Calcaneal spurs are present. No evidence of acute dislocation. Calcification noted distal to the medial malleolus may represent old avulsion fracture. Soft tissues: See Bones/joints finding. IMPRESSION: 1. Displaced fracture of the distal lateral malleolus with moderate overlying soft tissue swelling. 2. No evidence of acute dislocation.
--- NOTE | 2025-03-06 10:22 | HMH.EDGENADL ---
Discharge Plan Disposition Patient Disposition: Home, Self-Care Prescriptions Prescriptions: New hydrocodone-acetaminophen 5-325 mg tablet 1 tab PO Q8H PRN (Reason: pain (scale score 7-10)) Qty: 9 0RF Rx Instructions: Please take after 600 mg of ibuprofen and 650 mg of Tylenol have been ineffective. No Action omeprazole 40 mg capsule,delayed release(DR/EC) 40 mg PO BID Patient Comments: TAKE 1 CAPSULE BY MOUTH TWICE DAILY Spiriva Respimat 2.5 mcg/actuation mist 2 puff inhalation DAILY Patient Comments: INHALE TWO (2) PUFFS EVERY DAY BY INHALATION ROUTE FOR 30 DAYS. budesonide-formoterol 160-4.5 mcg/actuation HFA aerosol inhaler 2 puff inhalation DAILY Patient Comments: INHALE TWO (2) PUFFS TWICE DAILY fexofenadine [Allergy Relief (fexofenadine)] 180 mg tablet 180 mg PO DAILY Patient Comments: TAKE ONE (1) TABLET EVERY DAY BY ORAL ROUTE FOR 30 DAYS. diclofenac sodium 75 mg tablet,delayed release (DR/EC) 75 mg PO BID Patient Comments: TAKE ONE (1) TABLET TWICE A DAY BY ORAL ROUTE NEEDED FOR 30 DAYS. fluticasone propionate 50 mcg/actuation spray,suspension 1 spray INTRANASAL DAILY Patient Comments: SPRAY ONE (1) SPRAY EVERY DAY BY INTRANASAL ROUTE FOR 30 DAYS. furosemide [Lasix] 20 mg tablet 20 mg PO WEEKLY Referrals Follow up/Referrals: Pacheco Krause APRN [Primary Care Provider, Medical] - See instructions Activity Restrictions/Add. Instructions Additional Instructions/Restrictions: At this time it was felt you are safe to be discharged home. If new or worsening symptoms please do not hesitate to return the emergency department. Bear weight as tolerated on your affected foot with your crutches and boot. Please take Tylenol and ibuprofen every 6 hours with little bit of food for pain. If you have severe breakthrough pain please take your oxycodone as prescribed. Clinical Impressions Clinical Impression: Ankle fracture, lateral malleolus, closed Print Language Print Language: Portuguese Discharge ED Provider: Pranay Henson General Adult HPI General Chief complaint: Extremity Injury, Lower Stated complaint: AO 03/06/25 0945, fell, inj rt ankle Time Seen by Provider: 03/06/25 10:13 Mode of Arrival: Family Vehicle Source of Information: Patient and Medical Record Description of Symptoms (Recalled from ER Triage Doc. by RN): Pt c/o pain to R lateral ankle & foot after falling down her porch steps at approx 0930a. She does have an abrasion & bruising to Left knee. But states, that don't bother me . She is having difficulty bearing weight to R foot/ankle and pain with movement. Swelling to lateral ankle. Denies any blood tihnners. 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 History of Present Illness HPI narrative: Patient is a 54-year-old female no pertinent past medical history who presents emergency department for evaluation of inversion injury to her right ankle. She suffered a mechanical fall, no other with the exception of slight abrasion to her left knee which she states she is not having any pain. No other acute complaints at this time Please note that above description of symptoms, in this electronic medical record under categorization of recalled from ER triage doctor by RN are reflective of an initial nursing assessment, however, is not reflective of my full history and physical exam that was personally taken and clarified. Consequentially, this preceding description of symptoms, which may include the patient's categorized chief complaint in the EMR, do not reflect my personal clinical impression, and the ultimate description of history of present illness and patient stated complaints should be deferred to this section of the note. Unless stated otherwise or congruent with this section of the note, additional signs, symptoms, or incongruence should be interpreted as inaccurate with my clinical impression. Related Data Home Medications ?Medication ?Instructions ?Recorded ?Confirmed budesonide-formoterol HFA 160 2 puff inhalation DAILY 06/10/24 03/06/25 mcg-4.5 mcg/actuation aerosol inhaler omeprazole 40 mg capsule,delayed 40 mg PO BID 06/10/24 03/06/25 release tiotropium bromide 2.5 2 puff inhalation DAILY 06/10/24 03/06/25 mcg/actuation mist for inhalation (Spiriva Respimat) diclofenac sodium 75 mg 75 mg PO BID 03/06/25 03/06/25 tablet,delayed release fexofenadine 180 mg tablet 180 mg PO DAILY 03/06/25 03/06/25 (Allergy Relief (fexofenadine)) fluticasone propionate 50 1 spray intranasal DAILY 03/06/25 03/06/25 mcg/actuation nasal spray,suspension furosemide 20 mg tablet (Lasix) 20 mg PO WEEKLY 03/06/25 03/06/25 Previous Rx's ?Medication ?Instructions ?Recorded hydrocodone 5 mg-acetaminophen 325 1 tab PO Q8H PRN pain (scale score 03/06/25 mg tablet 7-10) #9 tabs Allergies Allergy/AdvReac Type Severity Reaction Status Date / Time alcohol Allergy Mild Verified 09/17/24 14:14 [facility] Disclaimer: The information contained in this section may have been updated after the patient was seen, as this information can be updated by other users. Medical History Shortness of breath Pitting edema Pulmonary nodules Social History Smoking Status: Current every day smoker tobacco type: cigarettes packs per day: 1 alcohol intake: former current occupational status: employed Travel in the last 8 weeks?: None Have you lived/traveled outside US in past 30 days?: No Contact w/someone who lives/traveled outside US past 30 days?: No Exposure to someone with infectious disease in past 14 days?: No Do you have a fever (greater than 100.4 F or 38 C)?: No Have you tested positive for COVID-19?: No Exposed to someone with COVID-19 in past 14 days?: No Do you have a sore throat?: No Do you have a cough?: No Do you have any weakness?: No Do you have any diarrhea?: No Are you experiencing any unusual bleeding?: No Do you have any muscle aches/pain?: No Do you have any abdominal pain?: No Are you experiencing loss of taste or smell?: No Other Medical History Have you received the Pneumonia Vaccine: No ROS Obtained: Yes Systems reviewed as appropriate & no additional complaints except as documented Physical Exam General General appearance: alert and in no apparent distress Head Head exam: atraumatic and normocephalic Eye Eye exam: Present PERRL and EOMI ENT ENT exam: Present mucous membranes moist Neck Neck exam: Present normal inspection Chest Chest inspection: Present normal inspection and symmetric chest wall rise Respiratory Respiratory exam: Absent respiratory distress Cardiovascular Cardiovascular exam: Present regular rate and normal rhythm Extremities Exam Extremities exam: Present other (Swelling over the medial lateral malleolus of the right ankle. Distally neurovascular intact right lower extremity. Palpable dorsal pedal pulse. No tenderness over the remainder of the lower extremities.) Neurological Exam Neurological exam: Present alert Psychiatric Psychiatric exam: Present normal affect Skin Skin exam: Present warm and dry Medical Decision Making Medical Records Screening: Per USPSTF and CDC recommendations, given the prevalence of disease in our region, it is our hospital?s policy to screen for HIV and viral Hepatitis for all patients aged 18 and over and those with ongoing risk factors. Tyson Inquiry Pt receiving controlled substance: No Vital Signs: 03/06/25 10:07 03/06/25 10:31 03/06/25 11:00 Temperature 98.1 F Temperature Source Oral Pulse Rate 79 89 Pulse Rate [Right] 85 Respiratory Rate 18 Blood Pressure 141/86 H 154/98 H Blood Pressure [Right Arm] 130/83 Blood Pressure Mean [Right Arm] 98 Blood Pressure Source [Right Arm] Automatic Cuff 02 Sat by Pulse Oximetry 98 97 97 Oxygen Delivery Method Room Air Room Air Room Air 03/06/25 11:30 Temperature Temperature Source Pulse Rate 81 Pulse Rate [Right] Respiratory Rate Blood Pressure 144/88 H Blood Pressure [Right Arm] Blood Pressure Mean [Right Arm] Blood Pressure Source [Right Arm] 02 Sat by Pulse Oximetry 97 Oxygen Delivery Method Room Air Orders (Tests/Meds): ED MEDICATIONS Discontinued Medications Generic Name Dose Route Start Last Admin Trade Name Hemaq PRN Reason Stop Dose Admin Acetaminophen 1,000 mg 03/06/25 10:21 03/06/25 10:47 Acetaminophen 500mg Tab PO 03/06/25 10:22 1,000 mg ONCE ONE Administration Ibuprofen 800 mg 03/06/25 10:21 03/06/25 10:47 Ibuprofen 400 Mg Tablet PO 03/06/25 10:22 800 mg ONCE ONE Administration ORDERS Category Date Time Status Ankle XR -Right minimum 3 Views [XR ankle RT min 3V] Exams 03/06/25 10:21 Completed Stat Medical Decision Narrative: In summary patient is a 54-year-old female with past medical history Feliciano above who presents emergency department for evaluation of traumatic injury sustained in an inversion injury. Patient is hemodynamically stable nontoxic-appearing arrival, afebrile. Based on history and physical exam limited trauma survey will be conducted with plain film of the right ankle. Initial inventions include Tylenol and ibuprofen. X-rays of other extremities were considered but patient is nontender has full active and passive range of motion with the exception of right ankle will be deferred. X-ray informally inter by me there acute to be a lateral malleolus fracture. Formal read shows displaced fracture lateral malleolus with moderate overlying soft tissue swelling. Case discussed with [facility] Dr. Traore, this is a stable fracture and can be put in as a walking boot and crutches and weightbearing as tolerated until follow-up. Patient we discharged with short course of pain control and was given return precautions. Critical Care Critical Care Time Critical Care Time: No
[2025-03-06 10:31] VITALS: BP 141/86; PULSE 79; O2SAT 97
[2025-03-06] MEDS: IBUPROFEN 400 MG TABLET 800 MG PO (10:47)
[2025-03-06] MEDS: ACETAMINOPHEN 500MG TAB 1000 MG PO (10:47)
[2025-03-06 11:00] VITALS: BP 154/98; PULSE 89; O2SAT 97
--- NOTE | 2025-03-06 11:27 | PC.NURSE ---
images have been shared with [facility]
[2025-03-06 11:30] VITALS: BP 144/88; PULSE 81; O2SAT 97
--- NOTE | 2025-03-06 11:31 | PC.NURSE ---
currently on phone with [facility] per Dr Henson for orth consult for right ankle displaced fracture. [facility] will call back.
--- NOTE | 2025-03-06 11:35 | PC.NURSE ---
Dr Henson is currently on phone with at this time
--- NOTE | 2025-03-06 11:47 | PC.NURSE ---
DR Henson On to phone with lina QIU @ this time
[2025-03-06 12:26] VITALS: BP 112/78; PULSE 58; RESP 18; TEMP 36.7; O2SAT 98
[2025-03-06 12:27] VITALS: BP 112/78; PULSE 59; RESP 13; TEMP 36.7; O2SAT 98
== END 2025-03-06 12:27 | disposition home or self-care (01) ==
PROVIDERS: Emergency Provider Emergency Medicine; PCP Nurse Practitioner Family
DX: S82.61XA Displaced fracture of lateral malleolus of right fibula, initial encounter for closed fracture (principal); F17.210 Nicotine dependence, cigarettes, uncomplicated; W10.8XXA Fall (on) (from) other stairs and steps, initial encounter
CPT/HCPCS: 73610; 99283

== ENCOUNTER 2025-05-24 16:01 | Emergency (ER) | payer OTHER, SELFPAY ==
[2025-05-24 16:08] VITALS: BP 137/80; PULSE 82; RESP 16; TEMP 36.7; O2SAT 100; BMI 35.5
[2025-05-24 16:11] VITALS: BP 128/78; PULSE 74; O2SAT 97
--- OUTSIDE RECORDS SUMMARY | 2025-05-24 16:17 | XMS_ITS | Clinical Summary ---
Author Organization Healthcare Address [address] [place] [address] Care Team Providers Care Vegetable Cutter Name Role Phone Unavailable Primary Care Provider Unavailabl e Encounters Date Type Department Care Team Description 03/06/2025 Orders Only External Location [address] [place] [id number] Pranay Henson MD from Last 3 Months Social History Tobacco Use Types Packs/Day Years Used Date Smoking Tobacco: Never Assessed Comments Unknown Sex and Gender Information Value Date Recorded Sex Assigned at Not on file Legal Sex Female 8:41 PM EDT Gender Identity Not on file Sexual Orientation Not on file Plan of Treatment Health Maintenance Due Date Last Done Comments [facility]-Depression Screening 1971 [facility]-Infant/Child/Adol SDOH Screenings 1971 [facility]- SDOH Screenings 1989 [facility]-Adult SDOH Screenings 1989 [facility]-Hepatitis B Vaccines (1 of 3 - 19+ 3-dose series) 1990 [facility]-Pap Smear 1992 [facility]-Cervical Cancer Screening 2001 [facility]-HPV/Cotest 2001 CT Colonography 2016 Colonoscopy 2016 FIT-DNA 2016 FIT 2016 FOBT 2016 Sigmoidoscopy 2016 [facility]-Colorectal Cancer Screening 2016 [facility]-Zoster Vaccines (1 of 2) 2021 [id number] Vaccine (3 - 2024- season) 2025 11/24/2021, 11/05/2021 [facility]-Influenza Vaccine (#1) 2025 [facility]-DTaP,Tdap,and Td Vaccine s (3 - Td or Tdap) 10/17/2034 10/17/2024, 03/21/2010 [facility]-Pneumococcal Vaccine: 50 + Years Completed 09/26/2024 HPV Vaccines Aged Out No longer eligi ble based on patient's age to complete this topic [facility]-HIB Vaccines Aged Out No longer e ligible based on patient's age to complete this topic [facility]-Hepatitis A Vaccines Aged Out No longer eligible based on patient's age to complete this topic [facility]-IPV Vaccines Aged Out No longer e ligible based on patient's age to complete this topic [facility]-Rotavirus Vaccines Aged Out No lo nger eligible based on patient's age to complete this topic Procedures Procedure Name Priority Date/Time Associated Diagnosis Comments XR OUTSIDE IMAGES 03/06/2025 10:26 AM EDT from Last 3 Months Results * XR OUTSIDE IMAGES (03/06/2025 10:26 AM EDT) Anatomical Region Laterality Modality Radiographic Kasey ging 03/06/2025 10:2 6 AM EDT Pranay Henson MD IMG XR PROCEDURES Final Result from Last 3 Months
--- NOTE | 2025-05-24 16:30 | HMH.EDGENADL ---
Discharge Plan Disposition Patient Disposition: Home, Self-Care Condition: Good Prescriptions Prescriptions: No Action omeprazole 40 mg capsule,delayed release(DR/EC) 40 mg PO BID Patient Comments: TAKE 1 CAPSULE BY MOUTH TWICE DAILY Spiriva Respimat 2.5 mcg/actuation mist 2 puff inhalation DAILY Patient Comments: INHALE TWO (2) PUFFS EVERY DAY BY INHALATION ROUTE FOR 30 DAYS. budesonide-formoterol 160-4.5 mcg/actuation HFA aerosol inhaler 2 puff inhalation DAILY Patient Comments: INHALE TWO (2) PUFFS TWICE DAILY fexofenadine [Allergy Relief (fexofenadine)] 180 mg tablet 180 mg PO DAILY Patient Comments: TAKE ONE (1) TABLET EVERY DAY BY ORAL ROUTE FOR 30 DAYS. diclofenac sodium 75 mg tablet,delayed release (DR/EC) 75 mg PO BID Patient Comments: TAKE ONE (1) TABLET TWICE A DAY BY ORAL ROUTE NEEDED FOR 30 DAYS. fluticasone propionate 50 mcg/actuation spray,suspension 1 spray INTRANASAL DAILY Patient Comments: SPRAY ONE (1) SPRAY EVERY DAY BY INTRANASAL ROUTE FOR 30 DAYS. furosemide [Lasix] 20 mg tablet 20 mg PO WEEKLY hydrocodone-acetaminophen 5-325 mg tablet 1 tab PO Q8H PRN (Reason: pain (scale score 7-10)) Qty: 9 0RF Rx Instructions: Please take after 600 mg of ibuprofen and 650 mg of Tylenol have been ineffective. Referrals Follow up/Referrals: Pacheco Krause APRN [Primary Care Provider, Medical] - See instructions Activity Restrictions/Add. Instructions Additional Instructions/Restrictions: Return to the ER if needed. Stay well hydrated, rest as needed. Clinical Impressions Clinical Impression: Weakness Stand Alone Forms Stand Alone Forms: Work/School Release Print Language Print Language: French Discharge ED Provider: Yasmin Ramirez General Adult HPI General Chief complaint: Weakness Stated complaint: Spell yesterday evening; Weakness; SOB Time Seen by Provider: 05/24/25 16:30 Mode of Arrival: Ambulatory Source of Information: Patient Description of Symptoms (Recalled from ER Triage Doc. by RN): Patient reports Sunday while at work she got really hot felt like her heart was racing and blood pressure kept going up and down. States since then she has been really weak and tired. History of Present Illness HPI narrative: Patient is a 54-year-old female with a past medical history of pitting edema who presented to the emergency department with weakness and fatigue. Patient states that yesterday while at work she got hot felt like her heart was racing and has been more tired since then. Patient denies any chest pain or shortness of breath. Patient denies any headaches or vision changes. Patient denies any abdominal pain nausea vomiting or diarrhea. Patient denies any significant lower extremity swelling. Patient denies any fevers cough or other upper respiratory symptoms. Patient has not had any further episodes of heart racing since yesterday. Patient denies any urinary symptoms. Radiation: abdomen Related Data Home Medications ?Medication ?Instructions ?Recorded ?Confirmed budesonide-formoterol HFA 160 2 puff inhalation DAILY 06/10/24 03/06/25 mcg-4.5 mcg/actuation aerosol inhaler omeprazole 40 mg capsule,delayed 40 mg PO BID 06/10/24 03/06/25 release tiotropium bromide 2.5 2 puff inhalation DAILY 06/10/24 03/06/25 mcg/actuation mist for inhalation (Spiriva Respimat) diclofenac sodium 75 mg 75 mg PO BID 03/06/25 03/06/25 tablet,delayed release fexofenadine 180 mg tablet 180 mg PO DAILY 03/06/25 03/06/25 (Allergy Relief (fexofenadine)) fluticasone propionate 50 1 spray intranasal DAILY 03/06/25 03/06/25 mcg/actuation nasal spray,suspension furosemide 20 mg tablet (Lasix) 20 mg PO WEEKLY 03/06/25 03/06/25 Previous Rx's ?Medication ?Instructions ?Recorded hydrocodone 5 mg-acetaminophen 325 1 tab PO Q8H PRN pain (scale score 03/06/25 mg tablet 7-10) #9 tabs Allergies Allergy/AdvReac Type Severity Reaction Status Date / Time alcohol Allergy Mild Verified 09/17/24 14:14 [facility] Disclaimer: The information contained in this section may have been updated after the patient was seen, as this information can be updated by other users. Medical History Shortness of breath Pitting edema Pulmonary nodules Social History Smoking Status: Current every day smoker tobacco type: cigarettes packs per day: 1 alcohol intake: former current occupational status: employed Travel in the last 8 weeks?: None Have you lived/traveled outside US in past 30 days?: No Contact w/someone who lives/traveled outside US past 30 days?: No Exposure to someone with infectious disease in past 14 days?: No Do you have a fever (greater than 100.4 F or 38 C)?: No Have you tested positive for COVID-19?: No Exposed to someone with COVID-19 in past 14 days?: No Do you have a sore throat?: No Do you have a cough?: No Do you have any weakness?: No Do you have any diarrhea?: No Are you experiencing any unusual bleeding?: No Do you have any muscle aches/pain?: No Do you have any abdominal pain?: No Are you experiencing loss of taste or smell?: No Other Medical History Have you received the Pneumonia Vaccine: No ROS Obtained: Yes All systems reviewed & no additional complaints except as documented and Yes Systems reviewed as appropriate & no additional complaints except as documented Physical Exam General General appearance: alert and in no apparent distress Head Head exam: atraumatic, normocephalic and normal inspection Eye Eye exam: Present normal appearance, PERRL and EOMI; Absent scleral icterus ENT ENT exam: Present normal exam and normal external ear exam Neck Neck exam: Present normal inspection and full ROM Chest Chest inspection: Present normal inspection and symmetric chest wall rise Respiratory Respiratory exam: Present normal lung sounds bilaterally; Absent respiratory distress or wheezes Cardiovascular Cardiovascular exam: Present regular rate, normal rhythm and normal heart sounds Abdominal Exam Abdominal exam: Present soft and distention; Absent tenderness, guarding or rebound Extremities Exam Extremities exam: Present normal inspection and full ROM Back Exam Back exam: Present normal inspection and full ROM Neurological Exam Neurological exam: Present alert and oriented X3 Psychiatric Psychiatric exam: Present normal affect and normal mood Skin Skin exam: Present warm and dry Medical Decision Making Medical Records Medical records reviewed: Yes I reviewed the patient's medical records. Screening: Per USPSTF and CDC recommendations, given the prevalence of disease in our region, it is our hospital?s policy to screen for HIV and viral Hepatitis for all patients aged 18 and over and those with ongoing risk factors. Tyson Inquiry Pt receiving controlled substance: No Vital Signs: 05/24/25 16:08 05/24/25 16:11 05/24/25 18:00 Temperature 98.0 F Temperature Source Oral Pulse Rate 74 80 Pulse Rate [Radial] 82 Respiratory Rate 16 22 Blood Pressure 128/78 125/79 Blood Pressure [Right Arm] 137/80 Blood Pressure Mean [Right Arm] 99 Blood Pressure Source [Right Arm] Automatic Cuff Blood Pressure Position [Right Arm] Sitting 02 Sat by Pulse Oximetry 100 97 94 L Oxygen Delivery Method Room Air 05/24/25 18:30 05/24/25 19:00 05/24/25 19:46 Temperature 98.1 F Temperature Source Pulse Rate 81 86 79 Pulse Rate [Radial] Respiratory Rate 22 14 20 Blood Pressure 120/77 123/77 125/79 Blood Pressure [Right Arm] Blood Pressure Mean [Right Arm] Blood Pressure Source [Right Arm] Blood Pressure Position [Right Arm] 02 Sat by Pulse Oximetry 94 L 96 Oxygen Delivery Method Room Air Lab Data Lab results reviewed: Yes I reviewed the patient's lab results. Lab Results 05/24/25 16:16: SARS-CoV-2 (PCR) Not detected, Influenza A Untype (PCR) Not detected, Influenza Type B (PCR) Not detected 05/24/25 17:10: WBC 8.1, RBC 4.68, Hgb 12.6, Hct 38.9, MCV 83.1, MCH 26.9 L, MCHC 32.4, RDW 14.5, Plt Count 262, MPV 10.7 H, Neut % (Auto) 56.0, Lymph % (Auto) 34.9, Gray % (Auto) 6.8, Eos % (Auto) 1.6, Baso % (Auto) 0.6, Neut # (Auto) 4.5, Lymph # (Auto) 2.8, Gray # (Auto) 0.6, Eos # (Auto) 0.1, Baso # (Auto) 0.1, D-Dimer 0.86 H, Sodium 137, Potassium 4.0, Chloride 104, Carbon Dioxide 24, Anion Gap 13.0, BUN 15, Creatinine 0.70, Estimated Creat Clear 146, Estimated GFR 88, Est GFR ( Amer) 106, Glucose 98, Calcium 8.8, Magnesium 2.1, Total Bilirubin 0.5, AST 25, ALT 17, Alkaline Phosphatase 104, Troponin I < 0.01, NT-Pro-B Natriuret Pep 519 H, Total Protein 7.3, Albumin 4.1, Globulin 3.2, Albumin/Globulin Ratio 1.3, Lipase 79, HCV Ab ANNIE w/Rflx PCR Qn Negative, HIV Ag/Ab Combo Qual Negative 05/24/25 17:10 05/24/25 17:10 Orders (Tests/Meds): ORDERS Category Date Time Status CXR 2 view (NOT portable) [XR chest 2V] Stat Exams 05/24/25 17:00 Completed BNP [NT Pro Brain Natriuretic Pep.] Stat Lab 05/24/25 17:10 Completed CBC w/Auto Diff [Complete Blood Count Auto Diff] Stat Lab 05/24/25 17:10 Completed CMP [Comprehensive Metabolic Panel] Stat Lab 05/24/25 17:10 Completed D-Dimer Stat Lab 05/24/25 17:10 Completed HIV Combo Stat Lab 05/24/25 17:10 Completed Hepatitis C Ab Qual. W/ RFX Stat Lab 05/24/25 17:10 Completed Lipase Stat Lab 05/24/25 17:10 Completed MAG [Magnesium] Stat Lab 05/24/25 17:10 Completed Rapid PCR Covid and Flu A/B Stat Lab 05/24/25 16:16 Completed Trop I [Troponin I] Stat Lab 05/24/25 17:10 Completed Medical Decision Narrative: Patient is a 54-year-old female with a past medical history of pitting edema who presented to the emergency department with with weakness and feeling tired. On arrival, patient was hemodynamically stable with unremarkable vital signs. Differential includes but not limited to ACS/[place], pulmonary embolism, electrolyte abnormalities, pneumonia, respiratory illness, volume overload, amongst others. Patient's labs were reviewed and interpreted by myself: CBC showed no leukocytosis, hemoglobin was stable. CMP was unremarkable. Lipase was normal. Initial troponin less than 0.01. BNP mildly elevated at 500. D-dimer mildly elevated at 0.85. Chest x-ray was reviewed and interpreted by myself and showed no acute focal consolidation, pneumothorax, pleural effusion or other acute cardiopulmonary process. Respiratory panel was negative. Although patient's D-dimer mildly elevated at 0.85 patient was negative by years criteria. Therefore patient was not further investigated with CT PE. Patient's EKG showed normal sinus rhythm without acute ST or T wave changes concerning for ischemia. At this time, given patient's otherwise unremarkable workup in the emergency department, patient was discharged home in stable condition, return precautions were discussed. Critical Care Critical Care Time Critical Care Time: No
[2025-05-24 16:31] LABS: Coronavirus 19, PCR Not Detected (NotDetected); Influenza A, PCR Not Detected (NotDetected); Influenza B, PCR Not Detected (NotDetected)
--- NOTE | 2025-05-24 16:59 | ECG_ITS ---
APPROVED REPORT Exam: Resting ECG HR:72 bpm ECG Measurements Heart Rate 72 AXES MN 156 P 50 QRSd 85 QRS 34 QT 404 T 56 QTc 428 Conclusion Normal sinus rhythm at [address] or T wave changes concerning for ischemia Electronically signed by : Yasmin Ramirez, 05/25/2025 00:47:27
--- NOTE | 2025-05-24 17:00 | XR_ITS ---
PROCEDURE INFORMATION: Exam: XR Chest Exam date and time: 05/24/2025 5:08 PM Age: 54 years old Clinical indication: Shortness of breath; Additional info: Shortness of breath/weakness TECHNIQUE: Imaging protocol: Radiologic exam of the chest. Views: 2 views. COMPARISON: CR XR CHEST 2V 08/12/2024 10:47 AM FINDINGS: Lungs: Flattening of the hemidiaphragms and increase in the AP diameter of the chest suggest COPD. Mildly increased bibasilar opacities, right greater than left, are stable suggesting parenchymal scarring. No focal areas of consolidation. Pleural spaces: Mild blunting of the right lateral costophrenic angle stable which may reflect pleural fluid or pleural scarring. Negative for pneumothorax. Heart/Mediastinum: Cardiac silhouette and pulmonary vasculature are within range of normal. Mild fullness of the right hilar region is stable of uncertain clinical significance. Bones/joints: There is no evidence of acute fracture. There is an area of sclerosis involving the pedicle/posterior elements of a lower thoracic vertebral body, possibly T10. This appears unchanged when compared with prior study. Remaining vertebral body heights appear preserved. IMPRESSION: 1. Flattening of the hemidiaphragms and increase in the AP diameter of the chest suggest COPD. 2. Mild stable bibasilar opacities, right greater than left, suggesting parenchymal scarring. 3. Mild stable blunting of the right lateral costophrenic angle stable suggesting either small pleural fluid or pleural scarring. 4. Area of sclerosis involving the pedicle/posterior elements of a lower thoracic vertebral body, possibly T10. This appears unchanged when compared with prior study. Correlate clinically. 5. Mild stable fullness of the right hilar region since 08/12/2024. Correlate clinically. Consider CT scanning for further evaluation.
[2025-05-24 17:30] LABS: Hematocrit 38.9 % (37.0-47.0); Hemoglobin 12.6 g/dL (12.2-16.2); Immature Granulocytes % 0.1 %; Mean Corpuscular HGB Conc 32.4 g/dL (31.8-35.4); Mean Corpuscular Hemoglobin 26.9 pg (27.0-31.2); Mean Corpuscular Volume 83.1 fl (81-99); Nucleated Red Blood Cells % 0 %; Platelet Count 262 K/mm3 (142-424); Red Blood Count 4.68 M/mm3 (4.20-5.40); Red Cell Distribution Width-SD 43.2 fL; White Blood Count 8.1 K/mm3 (4.8-10.8)
[2025-05-24 17:35] LABS: Albumin Level 4.1 g/dl (3.5-5.0); Chloride 104 mmol/L (98-107); Potassium 4.0 mmoL/L (3.5-5.1); Sodium 137 mmol/L (136-145)
[2025-05-24 17:38] LABS: Alanine Aminotransferase 17 U/L (12-78); Albumin/Globulin Ratio 1.3 (1.1-1.8); Alkaline Phosphatase 104 U/L (38-126); Anion Gap 13.0 mEq/L (5-15); Aspartate Amino Transferase 25 U/L (14-36); Bilirubin,Total 0.5 mg/dl (0.2-1.3); Blood Urea Nitrogen 15 mg/dl (7-17); Calcium 8.8 mg/dl (8.4-10.2); Carbon Dioxide 24 mmol/L (22.0-30.0); Creatinine Clearance Estimated 146 mL/min (50-200); Creatinine,Serum 0.70 mg/dl (0.52-1.04); Estimated Glomerular Filt Rate 88 ml/min (>60); GFR (African American) 106 ML/MIN (>60); Globulin 3.2 g/dL (1.3-3.2); Glucose 98 mg/dl (74-100); Lipase 79 U/L (23-300); Total Protein,Serum 7.3 g/dl (6.3-8.2)
[2025-05-24 17:39] LABS: Magnesium 2.1 mg/dl (1.6-2.3)
[2025-05-24 17:42] LABS: D-Dimer 0.86 ug/mL (0.0-0.5)
[2025-05-24 17:47] LABS: NT Pro Brain Natriuretic Pep. 519 pg/mL (0-125)
[2025-05-24 17:54] LABS: Troponin I < 0.01 ng/ml (0.00-0.034)
[2025-05-24 18:00] VITALS: BP 125/79; PULSE 80; RESP 22; O2SAT 94
[2025-05-24 18:30] VITALS: BP 120/77; PULSE 81; RESP 22; O2SAT 94
[2025-05-24 19:00] VITALS: BP 123/77; PULSE 86; RESP 14; O2SAT 96
[2025-05-24 19:05] LABS: Hepatitis C Ab Qual. W/ RFX NEGATIVE (Negative)
[2025-05-24 19:46] VITALS: BP 125/79; PULSE 79; RESP 20; TEMP 36.7; O2SAT 96
== END 2025-05-24 19:50 | disposition home or self-care (01) ==
PROVIDERS: Emergency Provider Student in an Organized Health Care Education/Training Program; PCP Nurse Practitioner Family
DX: R06.02 Shortness of breath (principal); R53.1 Weakness; F17.210 Nicotine dependence, cigarettes, uncomplicated
CPT/HCPCS: 71046; 80053; 83690; 83735; 83880; 84484; 85025; 85378; 86803; 87389; 87636; 93005; 99284

== ENCOUNTER 2025-07-19 09:58 | Emergency (ER) | payer OTHER, SELFPAY ==
[2025-07-19 10:00] VITALS: BP 130/87; PULSE 98; RESP 18; TEMP 37.4; O2SAT 94; BMI 36.3
--- OUTSIDE RECORDS SUMMARY | 2025-07-19 10:06 | XMS_ITS | Continuity of Care Document ---
Author Organization [facility] Address [address] [place] [address] Assessment Encounter Date Assessment Date Assessment LastModified by Organization Details LastModified Time 07/06/2025 07/06/2025 Patient presents with signs/symptom s of otitis media. Will treat as below. Supportive care reviewed: humidifier use, raise HOB, saline nasal spray, encourage PO fluids. Recommended acetaminophen /ibuprofen PRN pain/fever Follow up as below. Discussed garling in warm salt water, rest, increase PO fluids. [email or web address] Not available 07/06/2025 09:32:17 Plan of Treatment Reminders Order Date Submit Date Provider Last Modified By Organization Details Last Modified Time Details Appointments Establish ed Patient 20 2024 08:40A M Pacheco Krause APRN Not available Not available Not available Establish ed Patient 20 2024 09:00A M Jody Chen MD Not available Not available Not available Lab None recorded. Referral None recorded. Procedures None recorded. Surgeries None recorded. Imaging None recorded. Medication Orders brompheni ramine-ps eudoephed rine-DM 2 mg-30 mg-10 mg/5 mL oral syrup [address], [address], 07/06/2025 09:28:53 doxycycli ne hyclate 100 mg capsule [address], [address], 07/06/2025 09:28:54 dexametha sone sodium phosphate 10 mg/mL injection solution 2024 025 Not available 07/06/2025 11:51:32 Diflucan 150 mg tablet 2024 025 [facility] [place], [address] [place] [address], [place], [address], 07/06/2025 09:28:54 Patient TargetsNo targets recorded. Patient Instructions Encounter Date Encounter Id Patient Instructions Last Modified By Organization Details Last Modified Time 07/06/2025 [id number] vaginal yeast infection: care instructions [email or web address] Not available 07/06/2025 09:28:50 chronic obstructive pulmonary disease (COPD): care instructions [email or web address] Not available 07/06/2025 09:28:50 learning about copd and how to prevent lung infections Not available 07/06/2025 09:28:50 Reason for Referral None Reported. Problems Name Problem SNOMED Code Status Onset Date Resolution Date Notes Provider Name and Address Organization Details Recorded Time Suspecte d COVID-19 919287176 Completed 10/11/2020 Removal Reason: Problem added by user from the [employer] flag Susan fontanez, [place] - [facility] 13:48:16 Suspecte d COVID-19 911561363 Completed 08/02/2021 Removal Reason: Problem marked historic al by user [email or web address] from the [employer] flag Susan fontanez, [place] - [facility] 13:48:16 Acid reflux 752900486 Active 2015 Trudy Miguel Angel null, [place] - [facility] 6 09:53:44 Fibroade nosis of breast 25722541 Active 2015 Trudy Miguel Angel null, [place] - [facility] 6 09:54:02 Lateral epicondy litis 614628077 Completed 201501/24/2017 Abraham Rebollar MD [address], [place], [address] , [place] - [facility] 7 13:07:37 Nicotine dependen ce 97034650 Active 2016 Dolly Champagne null, [place] - [facility] 7 11:36:27 Tendinit is of foot 643182846 Active 2016 Abraham Rebollar MD [address], [place], [address] , [place] - [facility] 7 13:07:57 Long-ter m drug therapy Active 2016 depo provera; declines DEXA Kristen Shine, NOTEREADER [address], [place], [address] , [place] - [facility] 7 10:59:48 Dyspnea 377827103 Completed 201905/07/2020 Nora Hooks null, [place] - [facility] 0 09:12:40 Vitamin D deficien cy 82720812 Active 2019 Crystal Lotus null, [place] [facility] 0 16:07:20 Pulmonar y emphysem a 46979726 Active 2019 Nora Hooks [place] [facility] 0 16:44:31 Asthma 136159180 Active 2020 Flores Garcia null, [place] - [facility] 1 10:26:19 Chronic obstruct joan pulmonar y disease 22355181 Active 2020 Jody Chen MD [address], [place], [address] , [place] [facility] 5 10:38:22 Fibrocys tic disease of breast 95055497 Active 2020 Kristen Shine, NOTEREADER [address], [place], [address] , [place] [facility] 1 14:39:41 COVID-19 104773618 Completed 202005/30/2021 Removal Reason: Problem marked historic al by user [email or web address] from the COVID-19 watch flag Pacheco Jimi, NOTEREADER [address], [place], [address] , [place] - [facility] 4 11:12:19 COVID-19 062595988 Completed 202005/30/2021 Removal Reason: Problem marked historic al by user from the COVID-19 watch flag Pacheco Krause, NOTEREADER [address], [place], [address] , [place] [facility] 4 11:12:19 COVID-19 539178181 Completed 202106/22/2022 Pacheco Krause, NOTEREADER [address], [place], [address] , [place] [facility] 4 11:12:19 Allergic rhinitis 86975036 Active 2021 Crystal Lotus null, [place] [facility] 2 14:53:22 Acute pharyngi tis 479380144 Completed 202102/09/2023 Crystal Lotus null[place] - [facility] 3 09:03:10 Nodule of lung 291034308 Active 2022 Latosha Pavon, NOTEREADER [address], [place], [address] , [place] [facility] 3 09:33:01 Seasonal allergic rhinitis 516980883 Active 2022 Latosha Pavon, NOTEREADER [address], [place], [address] , [place] [facility] 3 09:33:19 Pain of left ankle joint 41934270613 999181 Active 2022 Latosha Pavon, NOTEREADER [address], [place], [address] , [place] [facility] 3 09:34:47 Pharyngi tis 533919251 Active 2022 Pacheco Krause, NOTEREADER [address], [place], [address] , [place] [facility] 3 11:35:20 Upper respirat ory infectio n 01918950 Active 2022 Pacheco Krause, NOTEREADER [address], [place], [address] , [place] [facility] 3 13:36:54 Acute bronchit is 62090449 Active 2022 Pacheco Krause APRN [address], [place], [address] , [place] [facility] 3 14:08:31 Obesity 683407314 Active 2022 Pacheco Krause, NOTEREADER [address], [place], [address] , [place] [facility] 3 14:25:02 Chronic bronchit is 61082485 Active 2022 Pacheco Krause, NOTEREADER [address], [place], [address] , [place] [facility] 3 11:41:44 Cough 43049460 Active 2022 Pacheco Krause, NOTEREADER [address], [place], [address] , [place] [facility] 3 11:45:40 Acute sinusiti s 52789295 Active 2022 Pacheco Krause, NOTEREADER [address], [place], [address] , [place] [facility] 3 12:57:59 Influenz a caused by Influenz a A virus 252127114 Active 2023 Agustin Rahman, DO [address], [place], [address] , [place] [facility] 4 16:32:14 Sore throat 593224764 Active 2023 Agustin Rahman, DO [address], [place], [address] , [place] [facility] 4 16:33:29 Neuropat hy 358318818 Active 2023 Pacheco Krause, BUBBA [address], [place], [address] , [place] [facility] 4 09:02:03 Candidia sis of mouth 16721409 Active 2023 Pacheco Krause, NOTEREADER [address], [place], [address] , [place] [facility] 4 09:14:47 Bilatera l lower limb edema 841583594 Active 2023 Pacheco Krause APRN [address], [place], [address] , [place] [facility] 4 16:00:30 Communit y acquired pneumoni a 736127887 Active 2023 Pacheco Krause, NOTEREADER [address], [place], [address] , [place] [facility] 4 16:15:11 Middle ear effusion 6768862152 Active 2023 Pacheco Krause, NOTEREADER [address], [place], [address] , [place] [facility] 4 16:23:46 Acute exacerba tion of chronic obstruct joan pulmonar y disease 565177453 Active 2023 Pacheco Krause, NOTEREADER [address], [place], [address] , [place] [facility] 4 14:19:15 COVID-19 188249876 Active 2023 Pacheco Krause APRN [address], [place], [address] , [place] [facility] 4 11:12:19 Reducibl e umbilica l hernia 419998179 Active 2023 Pacheco Krause, BUBBA [address], [place], [address] , [place] [facility] 4 09:26:12 Prediabe candy 338104819 Active 2024 Pacheco Krause APRN [address], [place], [address] , [place] [facility] 5 09:42:06 Hyperlip idemia 64217531 Active 2024 Pacheco Krause APRN [address], [place], [address] , [place] [facility] 5 09:42:39 Visual disturba nce 04590340 Active 2024 Pacheco Krause, NOTEREADER [address], [place], [address] , [place] [facility] 5 10:00:41 Viral gastroen teritis 297827459 Active 2024 Louis Pool MD [address], [place], [address] , [place] [facility] 5 09:59:31 Low back pain 304678691 Active 2024 Louis Pool MD [address], [place], [address] , [place] [facility] 5 10:00:23 Acute infectiv e bronchit is 870566051 Active 2024 Pacheco Krause APRN [address], [place], [address] , [place] [facility] 5 14:13:08 Acute low back pain 749478053 Active 2024 Pacheco Krause APRN [address], [place], [address] , [place] [facility] 5 10:01:08 Increase d frequenc y of urinatio n 447638002 Active 2024 Pacheco Krause APRN [address], [place], [address] , [place] [facility] 5 10:08:15 Acute transuda tive otitis media 18772466 Active 2024 Pacheco Krause APRN [address], [place], [address] , [place] [facility] 5 15:55:33 Pleural effusion 78582404 Active 2024 Pacheco Krause APRN [address], [place], [address] , [place] [facility] 5 15:16:19 Mixed hyperlip idemia 046053306 Active 2024 Pachceo Krause APRN [address], [place], [address] , [place] [facility] 5 06:38:37 Obstruct joan sleep apnea syndrome 24924721 Active 2024 Jody Chen MD [address], [place], [address] , [place] [facility] 5 10:41:00 CT of chest abnormal 61988246533 289546 Active 2024 Jody Chen MD [address], [place], [address] , [place] [facility] 5 10:41:13 Otalgia of left ear 7519244031 Active 2024 Karolina Villanueva APRN [address], [place], [address] , [place] [facility] 5 21:20:09 Acute non-supp urative serous otitis media 145011782 Active 2024 Kraolina Villanueva NOTEREADER [address], [place], [address] , [place] [facility] 5 09:25:13 Candidia sis of vagina 94011077 Active 2024 Karolina Villanueva NOTEREADER [address], [place], [address] , [place] [facility] 5 09:26:18 Acute cough Active 2024 Karolina Villanueva APRN [address], [place], [address] , [place] [facility] 5 09:26:48 Problem Notes None recorded. Procedures Surgical History [...] of Last Pap Smear completed Kristen Shine, NOTEREADER [address], [place], [address], [place] [facility] 09/17/2020 15:27:26 07/01/20 20 [...] 20 Date of Last Mammogram completed Flores Jose [place] - [facility] 08/10/2020 11:20:32 04/13/20 20 [...] Name and Address Organization Details Recorded Time 094704 Trelegy medicatio n facial swelling moderate high 02/12/2023 41697 40 RxNorm Cassandra Howard null, [place] - [facility] 4 16:04:[address] medicatio n dyspnea Not available high 05/19/2025 95158 36 [facility] Regi Serrano null, [place] - [facility] 5 14:51:22 Medications Name Sig Start Date Stop Date [...] DAY BY ORAL ROUTE FOR 10 DAYS. active Not Available Not Available No t Available atorvasta tin 20 mg tablet TAKE 1 TABLET BY MOUTH IN THE EVENING FOR HIGH CHOLESTE ROL active Not Available Not Available No t Available ipratropi um 0.5 mg-albute rol 3 [...] ROUTE ONCE DAILY FOR FOUR (4) DAYS active Not Available Not Available No t Available ibuprofen 800 mg tablet TAKE ONE (1) TABLET THREE (3) TIMES A DAY BY ORAL ROUTE NEEDED. 06/22 completed Not Available Not Available Not Available fluconazo le 150 mg tablet TAKE 1 TABLET BY MOUTH FOR ONE (1) DAY, REPEAT IN 72 HOURS NEEDED active Not Available Not Available No t Available benzonata te 200 mg capsule Take 1 capsule 3 times a day by oral route as needed for 7 days, for COUGH. 09/26 completed Not Available Not Available Not Available hydrocodo ne 5 mg-acetam inophen 325 mg tablet TAKE 1 TABLET BY MOUTH EVERY 8 HOURS NEEDED FOR PAIN (SCALE SCORE 7-10) PLEASE TAKE AFTER 600MG OF IBUPROFE N AND 650MG OF TYLENOL HAVE BEEN INEFFECT JOAN 03/20 completed Not Available Not Available Not Available Celestone Soluspan 6 mg/mL suspensio n for injection Take 6 mg by injectio n route. 08/02 completed Not Available Not Available Not Available Keflex 500 mg capsule take 1 capsule (500 mg) by oral route every 12 hours for 7 days 12/09 completed Not Available Not Available Not Available prednison e 20 mg tablet Take 3 tablets every day by oral route for 5 days. 07/15 completed Not Available Not Available Not Available prednison e 5 mg tablet 11/08 completed Not Available Not Available Not Available promethaz ine 6.25 mg-codein e 10 mg/5 mL syrup TAKE FIVE (5) ML EVERY SIX (6) HOURS BY ORAL ROUTE NEEDED. 08/09 completed Not Available Not Available Not Available ceftriaxo ne 1 gram intraveno us solution give 1 g injectio n IM once 2024 active Not Available Not Available Not Avai lable omeprazol e 40 mg capsule,d elayed release TAKE 1 CAPSULE BY MOUTH TWICE DAILY active Not Available Not Available No t [...] g ceftriax one injectio n IM once 05/19 completed Not Available Not Available Not Available [...] SKIN EVERY DAY FOR TWO (2) WEEKS 06/10 /2021 completed Not Available Not Available Not Available [...] Not Available Not Available No t Available bumetanid e 1 mg tablet TAKE 1 TABLET BY MOUTH EVERY DAY NEEDED FOR EDEMA active Not Available Not Available No t [...] 90 DAYS, FOR VITAMIN D DEFICIEN CY. 03/20 completed Not Available Not Available Not Available dexametha sone sodium phosphate 4 mg/mL injection solution Inject 1 mL by intramus cular route. 07/26 completed Not Available Not Available Not Available Nasonex 50 mcg/actua tion [place] 2 sprays every day by intranas al [...] FOUR (4) HOURS BY INHALATI ON ROUTE NEEDED. active Not Available Not Available No t Available ketorolac 60 mg/2 mL intramusc ular solution Inject 60 mg by intramus cular route. 05/23 completed Not Available Not Available Not Available brompheni ramine-ps eudoephed rine-DM 2 mg-30 mg-10 mg/5 mL oral syrup TAKE 10 ML EVERY FOUR (4) HOURS BY ORAL ROUTE NEEDED, FOR COUGH. active Not Available Not Available No t Available cefdinir 300 mg capsule Take 1 capsule every 12 hours by oral route for 10 days. 09/26 completed Not Available Not Available Not Available dexametha sone sodium phosphate 10 mg/mL injection solution give 1 ml injectio n IM once 2024 active Not Available Not Available Not Avai lable fluoxetin e 20 mg capsule 11/08 completed [...] mg-potass ium clavulana te 125 mg tablet Take 1 tablet every 12 hours by oral route for 5 days. 04/04 completed Not Available Not Available Not Available [...] 15 9:20AM;U ser: morrisj; Est. Completi on: 05/30/20 15;Indic ation: cough [...] completed Not Available Not Available Not Available cholecalc iferol (vitamin D3) 1,250 mcg (50,000 unit) capsule TAKE 1 CAPSULE BY MOUTH EVERY WEEK DIRECTED FOR VITAMIN D DIFICIEN CY active Not Available Not Available No t Available omeprazol e 20 mg tablet,de layed [...] e 205.5 mcg (0.15 %) nasal spray [place] 1 spray twice a day by intranas al route for 30 days, for allergie s. 08/29 completed [facility] is out of this and not sure when they will be getting it. Not Available Not Available Not Available Solu-Medr ol (PF) 125 mg/2 mL solution for injection Give 2 ml injectio n IM once 2024 active Not Available Not Available Not Avai lable Allergy Relief (fexofena dine) 180 mg tablet [...] BY INHALATI ON ROUTE FOR 30 DAYS. 12/27 /2024 completed Not Available Not Available Not Available Spiriva Respimat 2.5 mcg/actua tion solution for inhalatio n INHALE TWO (2) PUFFS EVERY DAY BY INHALATI ON ROUTE FOR 30 DAYS. 08/29 completed Not Available Not Available Not Available Trelegy Ellipta 100 mcg-62.5 mcg-25 mcg powder for inhalatio n INHALE ONE (1) PUFF EVERY DAY 01/21 completed Not Available Not Available Not Available roflumila st 250 mcg tablet TAKE ONE (1) TABLET EVERY DAY BY ORAL ROUTE DIRECTED FOR 28 DAYS, FOR COPD. 05/19 completed Not Available Not Available Not Available [...] completed Not Available Not Available Not Available Leqvio 284 mg/1.5 mL subcutane ous syringe Inject 1.5 mL every 3 months by subcutan eous route as directed , for high choleste rol. 07/01 completed Not Available Not Available Not Available Vitals Date Recorded Body height Body mass index (BMI) Body weight Respiratory rate Pain severity - 0-10 verbal numeric rating [Score] - Reported Heart rate Oxygen saturation Oxygen saturation in Arterial blood by Pulse oximetry Systolic And Diastolic Provider Name and Address Organization Details Last Updated DateTime 5 170.18 cm 34.9 kg/m2 579613. 1 g 16 /min 0 82 /min 98 % 98 % 128/76 mm[Hg] Estelita Christensen [place] - [facility] 5 09:15:37 Social History Question Answer Notes LastModified by [...] COVID-19 While That Case Was Ill? No Information not available 12/01/2024 In The 14 Days Before Symptom Onset, Have You Had Close Contact With A Person Who Is Under Investigation For COVID-19 While That Person Was Ill? No [email or web address] Information not available 12/01/2024 Have You Been [...] Virus Disease Patient Without Appropriate PPE? No [email or web address] Information not available 12/01/2024 Do You Reside In Or Have You Traveled To An Area Where Ebola Virus Transmission Is Active? No [email or web address] Information not available 12/01/2024 How Many Days Of Moderate To Strenuous Exercise, Like A Brisk Walk, Did You Do In The Last 7 Days? 1 [email or web address] Information not available 05/16/2018 On Those Days That You Engage In Moderate To Strenuous Exercise, How Many Minutes, On Average, Do You Exercise? 1 [email or web address] Information not available 05/16/2018 Have There Been Any Changes To Your Family Or Social Situation? No Information no t available 12/01/2024 Have You Recently Or Are You Planning To Travel To An Area With Zika Virus? No Information not available 12/01/2024 Live Alone Or With Others? With Others Information not available 08/17/2016 Do You Have A Medical Power Of [place]? No [email or web address] Information not available 12/01/2024 What Was The Date Of Your Most Recent Tobacco Screening? 07/06/2025 Information not available 07/06/2025 What Is Your Current Pack Years? 30ormorepac [email or web address] Information not available 02/12/2023 Performs Monthly Self-breast Exam? Yes Sometimes Information no t available 07/18/2017 What Is Your Relationship Status? Unknown Information not available 08/17/2016 Seat Belts Used Routinely Yes Information not available 07/18/2017 Are You Sexually Active? Yes Information not available 07/18/2017 Do You Have Smoke And Carbon Monoxide Detectors In Your Home? No [email or web address] Information not available 12/01/2024 At What Age Did You Start Smoking Tobacco? 14 Information not available 02/12/2023 Are You Passively Exposed To Smoke? No [email or web address] Information no t available 12/01/2024 How Much Tobacco Do You Smoke? 1.5 PPD [email or web address] Information not available 09/15/2020 Do You Use Sunscreen Routinely? No Information not available 07/18/2017 Has Tobacco Cessation Counseling Been Provided? Yes Information not available 06/22/2022 On What Date Was Tobacco Cessation Counseling Provided? 05/19/2025 [email or web address] Information not available 05/19/2025 How Many Years Have You Smoked Tobacco? 38 [email or web address] Information not available 09/15/2020 Do You Have Difficulty Walking Or Climbing Stairs? No Information not available 08/17/2016 Sex: Female Functional Status Question Answer Note LastModified by Organizat ion Details LastModified Time Do you or have you ever used smokeless tobacco? Never used smokeless tobacco [email or web address] Information not available 09/15/2020 Are you currently employed? Yes Information not available 07/18/2017 Do you have transportation difficulties? No Information not available 03/20/2025 Urinary incontinence assessment performed? Yes [email or web address] Information not available 05/16/2018 Are you able to care for yourself independently? Yes Information not available 03/20/2025 Do you have difficulty dressing, bathing, grooming, or toileting? No Information not available 08/17/2016 Do you or have you ever used e-cigarettes or vape? Never used electronic cigarettes [email or web address] Information not available 09/15/2020 What is your exercise level? None Information not available 08/17/2016 Do you use any illicit or recreational drugs? No Information not available 10/19/2022 Do you or have you ever used any other forms of tobacco or nicotine? No Information not available 06/22/2022 What is your level of alcohol consumption? None Information not available 08/17/2016 Are you able to walk independently without assistance or assistive devices? [email or web address] Information not available 07/18/2017 Do you have difficulty doing errands alone? No Information not available 08/17/2016 What is your occupation? [employer] Information not available 08/17/2016 Mental Status Question Answer Note LastModified by Organizat ion Details LastModified Time Do you feel stressed (tense, restless, nervous, or anxious, or unable to sleep at night)? [id number] [email or web address] Information not available 05/16/2018 Do you have [...] 09/15/2020 Sexual Problems? 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 Desired Control Method Hormonal In jection Obstetrics History GPAL:G 1 P 1 0 0 1 Type Value Full Term 1 Living 1 Total 1 Immunizations Vaccine Type Date Status Note Provider Name and Address Organization Details Recorded Time RSV, recombinant, protein subunit RSVpreF, adjuvant reconstituted, 0.5 mL, PF 09/26/19 completed Krystle Brittany null, [place] - [facility] 09/26/2024 09:47:56 Influenza, split virus, quadrivalent, preservative 09/15/19 cancelled patient objection Kristen Shine, NOTEREADER [address], [place], [address], [place] [facility] 09/15/2020 11:14:13 zoster recombinant 09/26/19 cancelled patient objection Pacheco Krause, NOTEREADER [address], [place], [address], [place] [facility] 09/27/2024 09:41:43 Tdap 09/26/19 cancelled patient objection Pacheco Krause, NOTEREADER [address], [place], [address], [place] [facility] 09/27/2024 09:41:43 Pneumococcal conjugate PCV20, polysaccharide [id number] conjugate, adjuvant, PF 09/26/19 completed Pacheco Krause, NOTEREADER [address], [place], [address], [place] [facility] 09/27/2024 09:41:43 Influenza, split virus, trivalent, preservative 09/26/19 cancelled patient objection Pacheco Krause, NOTEREADER [address], [place], [address], [place] [facility] 09/27/2024 09:41:43 Tdap 10/17/19 completed Joanne Peace null, [place] - [facility] 10/17/2024 12:57:12 COVID-19, mRNA, LNP-S, PF, 100 mcg/0.5mL dose or 50 mcg/0.25mL dose 11/25/19 completed Karen Gautam null[place] [facility] 06/22/2022 14:44:03 COVID-19, mRNA, LNP-S, PF, 100 mcg/0.5mL dose or 50 mcg/0.25mL dose 11/06/19 22 completed Crystal Lotus null, [place] [facility] 06/22/2022 14:44:03 Tdap 03/21/20 10 completed Crystal Lotus null[place] [facility] 06/22/2022 14:44:03 Past Encounters Encounter ID Performer Location Encounter Start Date Encounter Closed Date Diagnosis/Indication Diagnosis SNOMED-CT Code Diagnosis ICD10 Code Diagnosis IMO Codes Diagnosis Note [id number] Karolina Villanueva APRN [address] [place] [address] 07/03/2025 14:26:00 07/03/2025 16:04:31 Acute exacerbation of chronic obstructive pulmonary disease 601360193 J44.1 Otalgia of left ear 1010 773404 H92.02 [id number] Karolina Villanueva APRN [address] [place] [address] 07/06/2025 09:00:48 07/06/2025 09:42:30 Chronic obstructive pulmonary disease 91222068 J44.9 59503395 Acute non- suppurative serous otitis media 513151511 H65.03 4099055687 Candidiasis of vagina 72 641461 B37.31 24079 Acute cough 9386274621 71008520 R05.2 [id number] Health Concerns Section Related Observation LastModified by Organization Detai ls LastModified Time None Recorded Concern Status LastModified by Organization Details LastModified Time None Recorded Payers Encounter Date Sequence Insurance Name Policy Number Policy Whaley Covered Member ID Whaley Member ID Guarantor Name 07/06/2025 1 [employer] - [facility] [id number] Cassia Rios [id number] Cassia Rios Notes Date Note Type Note Provider Name and Address Organization Details Recorded Time 07/06/2025 text/html ROS as noted in the HPI Cassia presents to the office today for follow up for cough, congestion, dizziness and ear pressure. - Onset was 1 week ago- Symptoms described as worsening sinus pressure, headache, nasal congestion, fever, pharyngitis,purule nt rhinorrhea- Occurs constant- Severity is moderate- Aggravating factors: leaning forward- Alleviating factors: none - Associated medical history: COPD, recent URI- Associated social history: tobacco use was seen 07/03-requested rocephin-ineffecti ve, on zpack-still having increased facial pressure. Wheezing is better.- Karolina Villanueva, NOTEREADER [address], [place], [address], [facility] - [facility] 07/06/2025 09:33:00 OBGyn Episode No OBEpisode recorded.
--- OUTSIDE RECORDS SUMMARY | 2025-07-19 10:07 | XMS_ITS | Continuity of Care Document ---
Author Organization [facility] Address [address] [place] [address] Assessment Encounter Date Assessment Date Assessment LastModified by Organization Details LastModified Time 07/03/2025 07/03/2025 Patient presente d with symptoms of COPD exacerbation. Advised to drink plenty of fluids, run a cool-mist humidifier in room at night, gargle salt water for sore throat, and get plenty of rest. Patient should avoid over-exertion and reduce exposure to irritants such as smoke, cold, dry air, and dust. Treatment currently involves symptomatic relief. Patient may take acetaminophen or ibuprofen as directed to reduce fever and body aches. Antihistamine and decongestant usage was discussed and recommendations made. Patient understood these instructions and will follow up in the office in 10 days to 2 weeks if symptoms not improving. [email or web address] Not available 07/03/2025 21:20:01 Plan of Treatment Reminders Order Date Submit Date Provider Last Modified By Organization Details Last Modified Time Details Appointments Angel rubin Patient 20 2024 08:40A Shane Krause APRN Not available Not available Not available Angel caryn Patient 20 2024 09:00A Shane Chen MD Not available Not available Not available Lab None recorde d. Referral None recorde d. Procedures None recorde d. Surgeries None recorde d. Imaging None recorde d. Medication Orders Solu-Me drol (PF) 125 mg/2 mL solutio n for injecti on 2024 025 [email or web address] Not available 07/03/2025 15:40:16 ceftria xone 1 gram intrave nous solutio n 2024 [email or web address] Not available 07/03/2025 15:38:08 prednis one 20 mg tablet 2024 [facility] [place], [address] [place] [address], [id number], 07/15/2025 05:02:01 azithro mycin 250 mg tablet 2024 [facility] [place], [address] [place] [address], [id number], 07/03/2025 15:25:34 Patient TargetsNo targets recorded. Patient InstructionsNo instructions recorded. Reason for Referral None Reported. Problems Name Problem SNOMED Code Status Onset Date Resolution Date Notes Provider Name and Address Organization Details Recorded Time Suspecte d [employer]ID-19 [id number] Completed 10/11/2020 Removal Reason: Problem added by user from the [employer] watch flag Susan Valentine null, [place] - [facility] 13:48:16 Suspecte d [employer]ID-19 [id number] Completed 08/02/2021 Removal Reason: Problem marked historic al by user [email or web address] from the [employer]19 watch flag Susan Valentine null, [place] - [facility] 13:48:16 Acid reflux 127610809 Active 2015 Trudy Miguel Angel null, [place] - [facility] 6 09:53:44 Fibroade nosis of breast 17371888 Active 2015 Trudy Miguel Angel null, [place] - [facility] 6 09:54:02 Lateral epicondy litis 927037374 Completed 201501/24/2017 Abraham Rebollar MD [address], [place], [address] , [place] - [facility] 7 13:07:37 Nicotine dependen ce 82159769 Active 2016 Dolly Champagne null, [place] - [facility] 7 11:36:27 Tendinit is of foot 796224394 Active 2016 Abraham Rebollar MD [address], [place], [address] , [place] - [facility] 7 13:07:57 Long-ter m drug therapy Active 2016 depo provera; declines BOB Shine, COLLECTION AGENT [address], [place], [address] , [place] [facility] 7 10:59:48 Dyspnea 058596875 Completed 201905/07/2020 Nora Hooks null, [place] - [facility] 0 09:12:40 Vitamin D deficien cy 01982471 Active 2019 Crystal Lotus null, [place] - [facility] 0 16:07:20 Pulmonar y emphysem a 83384840 Active 2019 Nora Hooks [place], [place] [facility] 0 16:44:31 Asthma 233530934 Active 2020 Flores Jose null, [place] - [facility] 1 10:26:19 Chronic obstruct joan pulmonar y disease 92786924 Active 2020 Jody Chen MD [address], [place], [address] , [place] [facility] 5 10:38:22 Fibrocys tic disease of breast 84186793 Active 2020 Kristen Shine, COLLECTION AGENT [address], [place], [address] , [place] [facility] 1 14:39:41 COVID-19 625109376 Completed 202005/30/2021 Removal Reason: Problem marked historic al by user [email or web address] from the [employer] watch flag Pacheco Krause, COLLECTION AGENT [address], [place], [address] , [place] [facility] 4 11:12:19 COVID-19 862148551 Completed 202005/30/2021 Removal Reason: Problem marked historic al by user from the [employer] watch flag Pacheco Krause, COLLECTION AGENT [address], [place], [address] , [place] [facility] 4 11:12:19 COVID-19 488495444 Completed 202106/22/2022 Pacheco Krause, COLLECTION AGENT [address], [place], [address] , [place] [facility] 4 11:12:19 Allergic rhinitis 77784444 Active 2021 Crystal Lotus null, [place] - [facility] 2 14:53:22 Acute pharyngi tis 337930569 Completed 202102/09/2023 Crystal Lotus null, [place] - [facility] 3 09:03:10 Nodule of lung 927157560 Active 2022 Latosha Pavon, COLLECTION AGENT [address], [place], [address] , [place] [facility] 3 09:33:01 Seasonal allergic rhinitis 202589347 Active 2022 Latosha Pavon, BUBBA [address], [place], [address] , [place] [facility] 3 09:33:19 Pain of left ankle joint 59667800991 047806 Active 2022 Latosha Pavon, COLLECTION AGENT [address], [place], [address] , [place] [facility] 3 09:34:47 Pharyngi tis 449810151 Active 2022 Pacheco Krause APRN [address], [place], [address] , [place] [facility] 3 11:35:20 Upper respirat ory infectio n 98585617 Active 2022 Pacheco Krause APRN [address], [place], [address] , [place] [facility] 3 13:36:54 Acute bronchit is 03931373 Active 2022 Pacheco Krause APRN [address], [place], [address] , [place] [facility] 3 14:08:31 Obesity 618057653 Active 2022 Pacheco Krause APRN [address], [place], [address] , [place] [facility] 3 14:25:02 Chronic bronchit is 45726578 Active 2022 Pacheco Krause, COLLECTION AGENT [address], [place], [address] , [place] [facility] 3 11:41:44 Cough 30351446 Active 2022 Pacheco Krause, COLLECTION AGENT [address], [place], [address] , [place] [facility] 3 11:45:40 Acute sinusiti s 38877554 Active 2022 Pacheco Krause, COLLECTION AGENT [address], [place], [address] , [place] - [facility] 3 12:57:59 Influenz a caused by Influenz a A virus 412327698 Active 2023 Agustin Rahman, DO [address], [place], [address] , [place] - [facility] 4 16:32:14 Sore throat 803923301 Active 2023 Agustin Rahman, DO [address], [place], [address] , [place] [facility] 4 16:33:29 Neuropat hy 392835855 Active 2023 Pacheco Krause, COLLECTION AGENT [address], [place], [address] , [place] [facility] 4 09:02:03 Candidia sis of mouth 52870608 Active 2023 Pacheco Krause APRN [address], [place], [address] , [place] [facility] 4 09:14:47 Bilatera l lower limb edema 394842343 Active 2023 Pacheco Krause APRN [address], [place], [address] , [place] [facility] 4 16:00:30 Communit y acquired pneumoni a 859787395 Active 2023 Pacheco Krause APRN [address], [place], [address] , [place] [facility] 4 16:15:11 Middle ear effusion 3490649574 Active 2023 Pacheco Krause, COLLECTION AGENT [address], [place], [address] , [place] [facility] 4 16:23:46 Acute exacerba tion of chronic obstruct joan pulmonar y disease 615288629 Active 2023 Pacheco Krause, COLLECTION AGENT [address], [place], [address] , [place] [facility] 4 14:19:15 COVID-19 626693244 Active 2023 Pacheco Krause, COLLECTION AGENT [address], [place], [address] , [place] [facility] 4 11:12:19 Reducibl e umbilica l hernia 147075458 Active 2023 Pacheco Krause APRN [address], [place], [address] , [place] [facility] 4 09:26:12 Prediabe candy 632215700 Active 2024 Pacheco Krause, BUBBA [address], [place], [address] , [place] [facility] 5 09:42:06 Hyperlip idemia 56100711 Active 2024 Pacheco Krause, COLLECTION AGENT [address], [place], [address] , [place] [facility] 5 09:42:39 Visual disturba nce 76268126 Active 2024 Pacheco Krause APRN [address], [place], [address] , [place] [facility] 5 10:00:41 Viral gastroen teritis 188252618 Active 2024 Louis Pool MD [address], [place], [address] , [place] [facility] 5 09:59:31 Low back pain 193044555 Active 2024 Louis Pool MD [address], [place], [address] , [place] [facility] 5 10:00:23 Acute infectiv e bronchit is 297067201 Active 2024 Pacheco Krause APRN [address], [place], [address] , [place] [facility] 5 14:13:08 Acute low back pain 662958382 Active 2024 Pacheco Krause APRN [address], [place], [address] , [place] [facility] 5 10:01:08 Increase d frequenc y of urinatio n 345317839 Active 2024 Pacheco Krause APRN [address], [place], [address] , [place] [facility] 5 10:08:15 Acute transuda tive otitis media 23930209 Active 2024 Pacheco Krause APRN [address], [place], [address] , [place] [facility] 5 15:55:33 Pleural effusion 02434036 Active 2024 Pacheco Krause APRN [address], [place], [address] , [place] [facility] 5 15:16:19 Mixed hyperlip idemia 641155465 Active 2024 Pacheco Krause APRN [address], [place], [address] , [place] [facility] 5 06:38:37 Obstruct joan sleep apnea syndrome 73685511 Active 2024 Jody Chen MD [address], [place], [address] , [place] [facility] 5 10:41:00 CT of chest abnormal 92551521320 525040 Active 2024 Jody Chen MD [address], [place], [address] , [place] [facility] 5 10:41:13 Otalgia of left ear 2937772546 Active 2024 Karolina Villanueva APRN [address], [place], [address] , [place] [facility] 5 21:20:09 Acute non-supp urative serous otitis media 705307717 Active 2024 Karolina Villanueva, COLLECTION AGENT [address], [place], [address] , [place] [facility] 5 09:25:13 Candidia sis of [facility] 91841728 Active 2024 Karolina Villanueva, COLLECTION AGENT [address], [place], [address] , [place] - [facility] 5 09:26:18 Acute cough Active 2024 Karolina Villanueva, COLLECTION AGENT [address], [place], [address] , [place] [facility] 5 09:26:48 Problem Notes None recorded. Procedures Surgical History Date Name Laterality Status Provider Name and Address Organization Details Recorded Time 05/23/20 Medication Reconcilliation completed Crystal Lotus [place] - [facility] 05/23/2021 11:07:57 10/07/19 Medication Reconcilliation completed Manior Garner [place] - [facility] 10/07/2020 10:55:54 09/15/19 21 Systolic B/P less than 130 mm Hg completed Flores Garcia [place] - [facility] 09/15/2020 10:33:55 09/15/19 21 Diastolic B/P less than 80 mm Hg completed Flores Garcia [place] [facility] 09/15/2020 10:33:50 09/15/19 21 Date of Last Pap Smear completed Kristen Shine, COLLECTION AGENT [address], [place], [address], [place] [facility] 09/17/2020 15:27:26 07/01/20 20 [...] Name and Address Organization Details Recorded Time 351597 Trelegy medicatio n facial swelling moderate high 02/12/2023 53420 40 RxNorm Cassandra Howard null, [place] - [facility] 4 16:04:[id number] medicatio n dyspnea Not available high 05/19/2025 46172 36 RxNorm Regi Serrano null, [place] - [...] Available Not Available Nasonex 50 mcg/actua tion [place] 2 sprays every day by intranas al [...] nued on: 02/28/20 16 9:18AM;U ser: markrandibe adonis;Est. Completi on: 12/29/19 16;Indic ation: - (-5) [...] e 205.5 mcg (0.15 %) nasal spray [place] 1 spray twice a day by intranas al route for 30 days, for allergie s. 04/25/ 2024 12/27 /2024 completed PPP is out of this and [...] Organization Details Last Updated DateTime 170.18 cm 34.9 kg/m2 501474. 1 g 96 % 96 % 18 /min 98 [degF] 118/70 mm[Hg] Juanis bryan [place] - [facility] 14:50:38 Social History Question Answer Notes LastModified by [...] COVID-19 While That Case Was Ill? No [email or web address] Information not available 12/01/2024 In The 14 Days Before Symptom Onset, Have You Had Close Contact With A Person Who Is Under Investigation For COVID-19 While That Person Was Ill? No Information not available 12/01/2024 Have You Been [...] Virus Disease Patient Without Appropriate PPE? No [email or web address] Information not available 12/01/2024 Do You Reside In Or Have You Traveled To An Area Where Ebola Virus Transmission Is Active? No [email or web address] Information not available 12/01/2024 How Many Days Of Moderate To Strenuous Exercise, Like A Brisk Walk, Did You Do In The Last 7 Days? 1 [email or web address] Information not available 05/16/2018 On Those Days That You Engage In Moderate To Strenuous Exercise, How Many Minutes, On Average, Do You Exercise? 1 [email or web address] Information not available 05/16/2018 Have There Been Any Changes To Your Family Or Social Situation? No Information no t available 12/01/2024 Have You Recently Or Are You Planning To Travel To An Area With Zika Virus? No [email or web address] Information not available 12/01/2024 Live Alone Or With Others? With Others Information not available 08/17/2016 Do You Have A Medical Power Of Health Care Facility Administrator? No [email or web address] Information not available 12/01/2024 What Was The Date Of Your Most Recent Tobacco Screening? 07/06/2025 [email or web address] Information not available 07/06/2025 What Is Your Current Pack Years? [email or web address] Information not available 02/12/2023 Performs Monthly Self-breast Exam? Yes Sometimes Information no t available 07/18/2017 What Is Your Relationship Status? Unknown Information not available 08/17/2016 Seat Belts Used Routinely Yes Information not available 07/18/2017 Are You Sexually Active? Yes Information not available 07/18/2017 Do You Have Smoke And Carbon Monoxide Detectors In Your Home? No [email or web address] Information not available 12/01/2024 At What Age [...] used smokeless tobacco? Never used smokeless tobacco [email or web address] Information not available 09/15/2020 Are you currently employed? Yes Information not available 07/18/2017 Do you have transportation difficulties? No Information not available 03/20/2025 Urinary incontinence assessment performed? Yes [email or web address] Information not available 05/16/2018 Are you able to care for yourself independently? Yes Information not available 03/20/2025 Do you have difficulty dressing, bathing, grooming, or toileting? No Information not available 08/17/2016 Do you or have you ever used e-cigarettes or vape? Never used electronic cigarettes [email or web address] Information not available 09/15/2020 What is your [...] available 08/17/2016 What is your occupation? [employer] Information not available 08/17/2016 Mental Status Question Answer Note LastModified by Organizat ion Details LastModified Time Do you feel stressed (tense, restless, nervous, or anxious, or unable to sleep at night)? [id number] Information not available 05/16/2018 Do you have [...] 09/15/2020 Sexual Problems? 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 LMP Definite Desired Control Method Hormonal In jection Obstetrics History GPAL:G 1 P 1 0 0 1 Type Value Full Term 1 Living 1 Total 1 Immunizations Vaccine Type Date Status Note Provider Name and Address Organization Details Recorded Time RSV, recombinant, protein subunit RSVpreF, adjuvant reconstituted, 0.5 mL, PF 09/26/19 completed Krystle Brittany null, [place] - [facility] 09/26/2024 09:47:56 Influenza, split virus, quadrivalent, preservative 09/15/19 cancelled patient objection Kristen Shine, COLLECTION AGENT [address], [place], [address], [place] - [facility] 09/15/2020 11:14:13 zoster recombinant 09/26/19 cancelled patient objection Pacheco Krause, COLLECTION AGENT [address], [place], [address], [place] [facility] 09/27/2024 09:41:43 Tdap 09/26/19 cancelled patient objection Pacheco Krause, COLLECTION AGENT [address], [place], [address], [place] [facility] 09/27/2024 09:41:43 Pneumococcal conjugate PCV20, polysaccharide [id number] conjugate, adjuvant, PF 09/26/19 completed Pacheco Krause, COLLECTION AGENT [address], [place], [address], [place] [facility] 09/27/2024 09:41:43 Influenza, split virus, trivalent, preservative 09/26/19 cancelled patient objection Pacheco Krause, COLLECTION AGENT [address], [place], [address], [place] [facility] 09/27/2024 09:41:43 Tdap 10/17/19 completed Joanne Peace null, [place] - [facility] 10/17/2024 12:57:12 COVID-19, mRNA, LNP-S, PF, 100 mcg/0.5mL dose or 50 mcg/0.25mL dose 11/25/19 completed Karen Artrod null, [place] - [facility] 06/22/2022 14:44:03 COVID-19, mRNA, LNP-S, PF, 100 mcg/0.5mL dose or 50 mcg/0.25mL dose 11/06/19 completed Karen Lotus null, [place] - [facility] 06/22/2022 14:44:03 Tdap 03/21/20 10 completed Crystal Lotus null, [place] [facility] 06/22/2022 14:44:03 Past Encounters Encounter ID Performer Location Encounter Start Date Encounter Closed Date Diagnosis/Indication Diagnosis SNOMED-CT Code Diagnosis ICD10 Code Diagnosis IMO Codes Diagnosis Note [id number] Karolina Villanueva APRN [place] [address] [place] [address] 07/03/2025 14:26:00 07/03/2025 16:04:31 Acute exacerbation of chronic obstructive pulmonary disease 455210897 J44.1 Otalgia of left ear 1010 570713 H92.02 721116 Health Concerns Section Related Observation LastModified by Organization Detai ls LastModified Time None Recorded Concern Status LastModified by Organization Details LastModified Time None Recorded Payers Encounter Date Sequence Insurance Name Policy Number Policy Whaley Covered Member ID Whaley Member ID Guarantor Name 07/03/2025 1 [facility] [employer] - [facility] [id number] Cassia Rios [id number] Cassia Rios Notes Date Note Type Note Provider Name and Address Organization Details Recorded Time 07/03/2025 text/html ROS as noted in the HPI Cassia is a 54 yof who presents to the clinic for cough, congestion, and ear pressure. - Onset was several days ago- Symptoms described as sinus pressure, headache, nasal congestion, fever, pharyngitis,purule nt rhinorrhea- Occurs constant- Severity is moderate- Aggravating factors: leaning forward- Alleviating factors: none - Associated medical history: COPD, recent URI- Associated social history: tobacco use- Karolina Villanueva APRN [address], [place], [address], [place] - [facility] 07/03/2025 21:21:28 OBGyn Episode No OBEpisode recorded.
--- OUTSIDE RECORDS SUMMARY | 2025-07-19 10:07 | XMS_ITS | Data Portability ---
Author Organization [facility], [place] Address [address] [place] [address] Care Team Providers Care White Sugar Boiler Name Role Phone PRIMARY PLUS (FAMILY) Primary Care Provider [phone] Assessment Encounter Date Assessment Date Assessment LastModified [...] and prn *Order new mask size medium Leap Motion Comfort Gel Blue (sent to [employer]) *Advised not to drive or operate heavy [...] recognition software and or use of a medical reimbursement manager. Variances in spelling and vocabulary are possible [...] recognition software and or use of a medical reimbursement manager. Variances in spelling and vocabulary are possible [...] not limited to cardiovascular , non fatal ND or non fatal stroke 8. RTO in [...] recognition software and or use of a medical reimbursement manager. Variances in spelling and vocabulary are possible [...] recognition software and or use of a medical reimbursement manager. Variances in spelling and vocabulary are possible [...] Organization Details Last Modified Time Details Appointments None recorded. Lab None recorded. Referral None recorded. Procedures None recorded. Surgeries None recorded. Imaging LDCT, chest, for lung cancer screening - PATIENT REQUEST TO COMPLETE AT [facility]; PLEASE FAX RESULTS TO 2024 025 [email or web address] 10 [facility], [address] [place] [address], [address], 5 11:40:14 XR, chest, 2 view - PLEASE FAX RESULTS TO ; ORIGINALLY REFERRED BY Shane BARRETT (05/10/20232023 024 6 [facility], [address] [place] [address], [address], 4 09:13:59 LDCT, chest, for lung cancer screening - PATIENT REQUEST TO COMPLETE AT [facility]; PLEASE FAX RESULTS TO 2023 024 [email or web address] 6 [facility], [address] [place] [address], [address], 4 14:35:02 Medication Orders nystatin 100,000 unit/mL oral suspension [address], [address], 5 15:35:13 amoxicillin 875 mg-potassiu m clavulanate 125 mg tablet [address], [address], 5 15:35:13 prednisone 10 mg tablet [address], [address], 5 15:35:12 Zepbound 2.5 mg/0.5 mL subcutaneou s pen injector [address], [address], 5 16:30:29 Breztri Aerosphere 160 mcg-9mcg-4. 8mcg/actuat ion HFA aerosol inhaler [address], [address], 5 15:18:12 doxycycline hyclate 100 mg capsule 2023 024 [email or web address] [address], [address], 5 14:43:00 albuterol sulfate HFA 90 mcg/actuati on aerosol inhaler [address], [address], 4 10:24:22 Spiriva Respimat 2.5 mcg/actuati on solution for inhalation 2023 024 [email or web address] [address], [address], 5 14:43:15 Patient TargetsNo targets recorded. Patient Instructions Encounter Date Encounter Id Patient Instructions Last Modified By Organization Details Last Modified Time 06/10/2024 [id number] LDCT Shared Decision Making The patient was [...] include nicotine replacement therapy and pharmacologic treatment. [email or web address] Not available 06/10/2024 12:47:47 12/22/2024 [id number] Smoking cessatio n was discussed with the [...] 2 view No observ ation record ed. [email or web address] [facility] [address] [place], [address], 09/10/2023 12:50:05 06/10/2005/30/2024 XR, chest , 2 view No observ ation record ed. [facility] (Registration ) [address] [place], [address], 06/11/2024 16:17:35 06/10/2006/05/2024 CPAP compl iance * No observ ation record ed. Not Available 06/11 16:17:48 06/10/2006/10/2024 compl ete PFT* No observ ation record ed. [email or web address] Not Available 06/11 12:37:23 08/11/2007/15/2024 LDCT, chest , for lung cance r yung benjamin No observ ation record ed. [email or web address] [facility], [place], [address], 08/11/2024 11:42:17 08/13/20 24 08/12/2024 XR, chest , 2 view No observ ation record ed. [email or web address] [facility] Scheduling Department -New Scheduling Process [address], [place], [address], 08/13/2024 09:22:54 08/14/20 24 08/07/2024 CPAP compl iance * No observ ation record ed. [email or web address] Not Available 2023 12:20:34 12/25/19 25 12/22/2024 compl ete PFT* No observ ation record ed. [email or web address] Not Available 2024 13:19:16 Result Notes None recorded. Problems Name Problem SNOMED Code Status Onset Date Resolution Date Notes Provider Name and Address Organization Details Recorded Time Chronic obstructive pulmonary disease 91455491 Active 2022 keyonjanet fontanez, [place] - [facility] 3 15:24:16 Pulmonary emphysema 73318100 Active 2022 keyonjanet fontanez, [place] - [facility] 3 15:24:20 Seasonal allergy 487345964 Active 2022 Cheyanne Amaral NP [address], [place], [address], [place] - [facility] 3 15:50:11 Obstructive sleep apnea syndrome 71607459 Active 2022 Cheyanne Amaral NP [address], [place], [address], [place] [facility] 3 20:25:17 Body mass index 30+ - obesity 411463330 Active 2022 Cheyanne Amaral NP [address], [place], [address], [place] [facility] 3 20:25:31 Acute COVID-19 3693970226 Active 2022 Cheyanne Amaral NP [address], [place], [place], [address], [place] [facility] 3 14:36:09 Cough 91097201 Active 2022 Cheyanne Amaral NP [address], [place], [place], [address], [place] [facility] 3 11:13:05 Acute bronchitis 48929843 Active 2022 Cheyanne Amaral NP [address], [place], [place], [address], [place] [facility] 3 15:39:04 Gastroesophag eal reflux disease 793697421 Active 2022 Cheyanne Amaral NP [address], [place], [place], [address], [place] [facility] 3 09:26:08 Upper respiratory infection 04232150 Active 2022 Cheyanne Amaral NP [address], [place], [place], [address], [place] [facility] 3 15:20:25 Candidiasis of mouth 91441591 Active 2023 Cheyanne Amaral NP [address], [place], [place], [address], [place] [facility] 5 15:34:39 Acute sinusitis 58674832 Active 2023 Cheyanne Amaral NP [address], [place], [place], [address], [place] [facility] 5 15:33:50 Problem Notes None recorded. Procedures Surgical History Date Name Laterality Status Provider Name and Address Organization Details Recorded Time biopsy of breast completed airam norton [facility] 08/11/2024 10:33:05 Imaging Results None recorded. Procedure Notes None recorded. Medical Equipment None Reported. Allergies Allergen ID Allergen Name Allergen Category Reaction Reaction Severity Criticality Documentation Date Start Date Code Code System Note Provider Name and Address Organization Details Recorded Time 77097 Trelegy medicatio n facial swelling Not available Not available 05/10/2023 24170 40 RxNorm keyon víctor null[place] [facility] 3 15:21:53 58165 ethanol environme nt,medica tion facial swelling Not available Not available 05/10/2023 448 RxNorm [facility] víctor null, [facility] 3 15:22:15 Medications [...] completed Not Available Not Available Not Available atorvastati n 20 mg tablet TAKE 1 TABLET BY MOUTH IN THE EVENING FOR HIGH CHOLESTER OL active Not Available Not Available No t Available albuterol sulfate 2.5 mg/3 mL (0.083 [...] Not Available Not Available No t Available hydrocodone 5 mg-acetamin ophen 325 mg tablet TAKE 1 TABLET BY MOUTH EVERY 8 HOURS NEEDED FOR PAIN (SCALE SCORE 7-10) PLEASE TAKE AFTER 600MG OF IBUPROFEN AND 650MG OF TYLENOL HAVE BEEN INEFFECTI VE active Not Available Not Available No t Available prednisone 20 mg tablet TAKE 1 TABLET BY MOUTH EVERY DAY 12/22 completed Not Available Not Available Not Available omeprazole 40 mg capsule,del ayed release TAKE 1 CAPSULE BY MOUTH TWICE [...] sodium 75 mg tablet,elly yed release TAKE ONE (1) TABLET TWICE A DAY BY ORAL ROUTE NEEDED FOR 30 DAYS. active Not Available Not Available No t Available bumetanide 1 mg tablet TAKE 1 TABLET BY MOUTH EVERY DAY NEEDED FOR EDEMA active Not Available Not Available No t Available montelukast 10 mg tablet TAKE ONE [...] Not Available Not Available No t Available levofloxaci n 750 mg tablet TAKE ONE (1) TABLET EVERY DAY BY ORAL ROUTE FOR 7 DAYS. 04/10 completed Not Available Not Available Not Available methylpredn isolone 4 mg tablets in [...] BY INTRANASA L ROUTE FOR 30 DAYS. active Not Available Not Available No t Available doxycycline hyclate 100 mg tablet TAKE 1 TABLET BY MOUTH EVERY 12 HOURS 06/10 completed Not Available Not Available Not Available amoxicillin 875 mg-potassiu m clavulanate 125 mg tablet TAKE ONE (1) TABLET EVERY 12 HOURS BY ORAL ROUTE FOR FIVE (5) DAYS. active Not Available Not Available No t Available Symbicort 160 mcg-4.5 mcg/actuati on HFA aerosol inhaler INHALE TWO (2) PUFFS TWICE A DAY BY INHALATIO N ROUTE FOR 30 DAYS. 01/12 completed Not Available Not Available Not Available cholecalcif agustin (vitamin D3) 1,250 mcg (50,000 unit) capsule TAKE 1 CAPSULE BY MOUTH EVERY WEEK DIRECTED FOR VITAMIN D DIFICIENC Y active Not Available Not Available No t Available diclofenac 1 % topical gel APPLY TWO (2) GRAMS TO THE AFFECTED AREA(S) BY TOPICAL ROUTE FOUR (4) TIMES PER DAY 12/22 completed Not Available Not Available Not Available Allergy Relief (fexofenadi ne) 180 mg tablet TAKE ONE (1) TABLET EVERY DAY BY ORAL ROUTE FOR 30 DAYS. active Not Available Not Available No t Available Mucus DM Max ER 60 mg-1,200 mg tablet,exte nded release TAKE 1 TABLET BY MOUTH TWICE DAILY 7 DAYS active Not Available Not Available No t Available Anoro Ellipta 62.5 mcg-25 mcg/actuati on [...] completed Not Available Not Available Not Available roflumilast 250 mcg tablet TAKE ONE (1) TABLET EVERY DAY BY ORAL ROUTE DIRECTED FOR 28 DAYS, FOR COPD. active Not Available Not Available No t Available Breztri Aerosphere 160 mcg-9mcg-4. 8mcg/actuat ion [...] Last Updated DateTime 09/05/2023 170.18 cm Arcelia [place] - [facility] 09/05/2023 11:37:02 Date Recorded Body height Body mass index (BMI) Body weight Oxygen saturation Oxygen saturation in Arterial blood by Pulse oximetry Heart rate Respiratory rate Body temperature Systolic And Diastolic Provider Name and Address Organization Details Last Updated DateTime 5 170.18 cm 35.3 kg/m2 357132. 72 g 95 % 95 % 91 /min 20 /min 98.5 [degF] 120/78 mm[Hg] airam norton [place] [facility] 5 14:47:22 Date Recorded Body height Oxygen saturation Oxygen saturation in Arterial blood by Pulse oximetry Heart rate Respiratory rate Body temperature Systolic And Diastolic Provider Name and Address Organization Details Last Updated DateTime 5 170.18 cm 98 % 98 % 78 /min 22 /min 97.3 [degF] 142/80 mm[Hg] keyon renee [place] [facility] 5 14:42:02 Date Recorded Body height Body mass index (BMI) Body weight Oxygen saturation Oxygen saturation in Arterial blood by Pulse oximetry Heart rate Respiratory rate Body temperature Systolic And Diastolic Provider Name and Address Organization Details Last Updated DateTime 4 170.18 cm 35.4 kg/m2 369605. 88 g 95 % 95 % 97 /min 18 /min 96.9 [degF] 106/66 mm[Hg] juan quintanilla [place] [facility] 4 10:06:49 Date Recorded Body height Body mass index (BMI) Body weight Oxygen saturation Oxygen saturation in Arterial blood by Pulse oximetry Heart rate Respiratory rate Body temperature Systolic And Diastolic Provider Name and Address Organization Details Last Updated DateTime 4 170.18 cm 36 kg/m2 859724. 25 g 92 % 92 % 98 /min 22 /min 96.8 [degF] 126/78 mm[Hg] [facility] 4 10:27:10 Social History Question Answer Notes LastModified by Organizat ion Details LastModified Time Tobacco Smoking Status Current Every Day Smoker keyon fontanez [place] [facility] 05/10/2023 15:23:51 Do You Have An Advance Directive? No [email or web address] Information not available 05/10/2023 Is Your Home Air Conditioned? Yes [email or web address] Information not available 07/11/2023 Where Do You Live? [place] [email or web address] Information not available 08/11/2024 Do You Have A Medical Power Of Outpatient Program Coordinator? No [email or web address] Information not available 07/11/2023 What Was The Date Of Your Most Recent Tobacco Screening? 12/22/2024 [email or web address] Information not available 12/22/2024 What Is Your Current Pack Years? 30ormorepac kyears [email or web address] Information not available 07/11/2023 Do You Have Any Pets? Yes Cats And Dogs [email or web address] Information not available 07/11/2023 What Is Your Relationship Status? [email or web address] Information not available 08/11/2024 At What Age Did You Start Smoking Tobacco? 11 Information not available 08/11/2024 Are There Any Smokers In Your House? Yes [email or web address] Information not available 07/11/2023 How Much Tobacco Do You Smoke? 2 PPD [email or web address] Information not available 05/10/2023 Has Tobacco Cessation Counseling Been Provided? Yes [email or web address] Information not available 07/11/2023 On What Date Was Tobacco Cessation Counseling Provided? 12/22/2024 [email or web address] Information not available 12/22/2024 How Many Years Have You Smoked Tobacco? 41 [email or web address] Information not available 05/10/2023 Have You Recently Traveled Abroad? No [email or web address] Information not available 07/11/2023 Are You Currently In School? No [email or web address] Information not available 07/11/2023 Sex: Unknown Functional Status Question Answer Note LastModified by Organizat ion Details LastModified Time Do you or have you ever used any other forms of tobacco or nicotine? No [email or web address] Information not available 07/11/2023 Are you currently employed? 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 Family History Relationship Description Onset Age of this Age Resolved Age Notes LastModified by Organization Details LastModified Time Brother Myocardial infarction Not available 05/2024 10:31:40 Brother Cerebrovascu lar accident [email or web address] Not available 10:31:48 Mother Cerebrovascu lar accident [email or web address] Not available 10:31:48 Father Dementia [email or web address] Not availab le 08/11/2024 10:31:53 Medical History Condition Response Acid Reflux (GERD) Y Gynecological HistoryNo gynecological history recorded. Obstetrics History GPAL:G 0 P 0 0 0 0 Past Encounters Encounter ID Performer Location Encounter Start Date Encounter Closed Date Diagnosis/Indication Diagnosis SNOMED-CT Code Diagnosis ICD10 Code Diagnosis IMO Codes Diagnosis Note [id number] Cheyanne Amaral NP [address] [place] [address] [place] [address] 05/10/2023 14:50:10 05/10/2023 16:06:21 Chronic obstructive pulmonary disease 03788970 J44.9 Seasonal allergy 4634555 04 J30.2 Pulmonary emphysema 8743 3001 J43.9 Dyspnea 842073196 R06.00 Hypersomnia 59568729 G47 .10 Fatigue 94047146 R53.83 Heavy tobacco smoker 955 9453545 72835 Z72.0 Nodule of lung 731299584 R91.1 [id number] Cheyanne Amaral NP [address] [place] [address] [place], [place] [address] 05/11/2023 10:47:00 05/11/2023 11:11:27 Chronic obstructive pulmonary disease 96324008 J44.9 Seasonal allergy 4942362 04 J30.2 Pulmonary emphysema 8743 3001 J43.9 Dyspnea 794085670 R06.00 Hypersomnia 25808922 G47 .10 Fatigue 92620184 R53.83 Heavy tobacco smoker 328 3159565 51572 Z72.0 Nodule of lung 984276427 R91.1 Obstructiv e sleep apnea syndrome 49179916 G47.33 Body mass index 30+ - obesity 919202045 Z68.35 [id number] Cheyanne Amaral NP [address] [place] [address] [place], [place] [address] 05/14/2023 14:31:15 05/14/2023 14:43:35 Seasonal allergy 991928981 J30.2 Pulmonary emphysema 8743 3001 J43.9 Dyspnea 630391087 R06.00 Hypersomnia 67406092 G47 .10 Fatigue 63049348 R53.83 Heavy tobacco smoker 089 9922151 52065 Z72.0 Nodule of lung 881497840 R91.1 Obstructiv e sleep apnea syndrome 30250892 G47.33 Body mass index 30+ - obesity 393935530 Z68.35 Acute COVID-19 654478147 8 U07.1 Chronic ob structive pulmonary disease 12825792 J44.9 [id number] Cheyanne Amaral NP [address] [place] [address] [place], [place] [address] 06/05/2023 10:46:51 06/05/2023 11:18:16 Seasonal allergy 324625819 J30.2 Pulmonary emphysema 8743 3001 J43.9 Dyspnea 731334646 R06.00 Hypersomnia 97908167 G47 .10 Fatigue 90748840 R53.83 Heavy tobacco smoker 852 8042141 12991 Z72.0 Nodule of lung 037766234 R91.1 Obstructiv e sleep apnea syndrome 81602956 G47.33 Body mass index 30+ - obesity 734321323 Z68.35 Acute COVID-19 105729548 8 U07.1 Chronic ob structive pulmonary disease 22929125 J44.9 Cough 63297247 R05.9 [id number] Cheyanne Amaral NP [address] [place] [address] [place] [address] 07/11/2023 08:42:04 07/11/2023 09:22:36 Seasonal allergy 977196553 J30.2 Pulmonary emphysema 8743 3001 J43.9 Dyspnea 689947368 R06.00 Hypersomnia 22333941 G47 .10 Fatigue 08512767 R53.83 Heavy tobacco smoker 922 1024324 62601 Z72.0 Nodule of lung 652537003 R91.1 Obstructiv e sleep apnea syndrome 56258592 G47.33 Body mass index 30+ - obesity 718967576 Z68.35 Acute COVID-19 899133663 8 U07.1 Chronic ob structive pulmonary disease 57784883 J44.9 Cough 90723063 R05.9 Gastroesop hageal reflux disease 527017361 K21.9 [id number] Cheyanne Amaral NP [address] [place] [address] [place], [place] [address] 09/05/2023 11:36:14 09/05/2023 12:42:45 Obstructive sleep apnea syndrome 70024271 G47.33 Seasonal allergy 4110753 04 J30.2 Pulmonary emphysema 8743 3001 J43.9 Dyspnea 411388974 R06.00 Hypersomnia 15189078 G47 .10 Fatigue 19280077 R53.83 Heavy tobacco smoker 057 6204900 19399 Z72.0 Nodule of lung 970382834 R91.1 Body mass index 30+ - obesity 005112779 Z68.35 Acute COVID-19 571192869 8 U07.1 Chronic ob structive pulmonary disease 59743247 J44.9 Cough 54116876 R05.9 Gastroesop hageal reflux disease 622547630 K21.9 [id number] Junior Multani [address] [place] [address] [place] [address] 06/10/2024 08:49:42 06/10/2024 12:13:55 Pulmonary emphysema 68334252 J43.9 Obstructiv e sleep apnea syndrome 10811560 G47.33 Seasonal allergy 9018393 04 J30.2 Dyspnea 913393495 R06.00 Hypersomnia 85096640 G47 .10 Fatigue 91650186 R53.83 Heavy tobacco smoker 539 3971454 83126 Z72.0 Nodule of lung 660495134 R91.1 Body mass index 30+ - obesity 741379300 Z68.35 Acute COVID-19 424707816 8 U07.1 Chronic ob structive pulmonary disease 59069872 J44.9 Cough 42020329 R05.9 Gastroesop hageal reflux disease 997244335 K21.9 [id number] Junior Multani [address] [place] [address] [place] [address] 08/11/2024 10:15:48 08/11/2024 10:56:36 Pulmonary emphysema 88491445 J43.9 Obstructiv e sleep apnea syndrome 26513076 G47.33 Seasonal allergy 0464173 04 J30.2 Dyspnea 898654796 R06.00 Hypersomnia 80841595 G47 .10 Fatigue 09832381 R53.83 Heavy tobacco smoker 325 6313481 48344 Z72.0 Nodule of lung 844557060 R91.1 Body mass index 30+ - obesity 035010625 Z68.35 Acute COVID-19 527343551 8 U07.1 Chronic ob structive pulmonary disease 98042037 J44.9 Cough 72693129 R05.9 Gastroesop hageal reflux disease 674605341 K21.9 Acute bronchitis 6663868 2 J20.9 [id number] Junior Multani [place] [address] 12/22/2024 14:14:12 12/22/2024 15:23:24 Chronic obstructive pulmonary disease 63967387 J44.9 Pulmonary emphysema 8743 3001 J43.9 Obstructiv e sleep apnea syndrome 68659249 G47.33 Seasonal allergy 2719173 04 J30.2 Dyspnea 084943907 R06.00 Hypersomnia 09772566 G47 .10 Fatigue 43033375 R53.83 Heavy tobacco smoker 588 8211345 55877 Z72.0 Nodule of lung 275779438 R91.1 Body mass index 30+ - obesity 218086706 Z68.35 Acute COVID-19 576536759 8 U07.1 Cough 20649483 R05.9 Gastroesop hageal reflux disease 188801108 K21.9 [id number] [place] [address] 01/12/2025 14:40:27 01/13/2025 10:42:15 Chronic obstructive pulmonary disease 15960845 J44.9 Pulmonary emphysema 8743 3001 J43.9 Obstructiv e sleep apnea syndrome 12104276 G47.33 Seasonal allergy 6600688 04 J30.2 Dyspnea 997207390 R06.00 Hypersomnia 82269108 G47 .10 Fatigue 92755674 R53.83 Heavy tobacco smoker 205 5208391 56608 Z72.0 Nodule of lung 488366079 R91.1 Body mass index 30+ - obesity 560255748 Z68.35 Acute COVID-19 790277767 8 U07.1 Cough 84730253 R05.9 Gastroesop hageal reflux disease 986269716 K21.9 Acute sinusitis 28770559 J01.90 522727086 Candidiasis of mouth 797 35292 B37.0 96241 Health Concerns Section Related Observation LastModified by Organization Detai ls LastModified Time None Recorded Concern Status LastModified by Organization Details LastModified Time None Recorded Advance Directives Directive N: Payers Insurance Date Sequence Insurance Name Policy Number Policy Whaley Covered Member ID Whaley Member ID Guarantor Name 12/28/2024 PAYMENT PLAN Cassia Rios 12/22/2024 1 [facility] [employer] Cassia Rios [id number] Cassia Rios Notes Date Note Type Note Provider Name and Address Organization Details Recorded Time 09/05/2023 text/html ROS as noted in the HPI This is a 52 year-old female who [...] Amaral NP [address], [place], [address], [facility] 09/09/2023 14:02:13 06/10/2024 text/html ROS as noted in the HPI This 53 year-old female returns to the [...] Amaral NP [address], [place], [address], [facility] 06/10/2024 12:48:01 08/11/2024 text/html ROS as noted in the HPI This 53 year-old female returns to the [...] Amaral NP [address], [place], [address], [facility] 08/11/2024 14:12:20 12/22/2024 text/html ROS as noted in the HPI This 54 year-old female returns to the [...] Amaral NP [address], [place], [address], [facility] 12/23/2024 12:18:29 01/12/2025 text/html ROS as noted in the HPI This 54 year-old female returns to the [...] Amaral NP [address], [place], [address], [facility] 01/12/2025 15:38:44 OBGyn Episode No OBEpisode recorded.
--- OUTSIDE RECORDS SUMMARY | 2025-07-19 10:07 | XMS_ITS | Continuity of Care Document ---
Author Organization [facility] Address [address] [place] [address] Assessment Encounter Date Assessment Date Assessment LastModified by Organization Details LastModified Time 05/08/2025 05/08/2025 Hyperlipidemia Assessment: patients' lipid panel from March 20, 2025, showed elevated total cholesterol (209), triglycerides (151), and LDL cholesterol (150), with low HDL cholesterol (31). Previous statin therapy resulted in myalgias, and an alternative medication was not approved by insurance. The patient's calculated risk factor for heart disease is 6%, which is below the 7% threshold for medication initiation. Plan: - Patient to try jfbx-vbx-kvhptql options: fish oil and red yeast rice - Recheck cholesterol in a few months - Follow-up appointment in 3 months to reassess cholesterol levels Bilateral Lower Extremity Edema and Pleural Effusion Assessment: Patient was started on bumetanide 2 mg daily on March 20, 2025, for pleural effusion and bilateral lower extremity edema. At the last visit on April 10, she reported marked improvement in symptoms. A chest X-ray on April 10 showed resolution of pleural effusion. Renal panel was normal. Currently, the patient reports further improvement in leg edema with bumetanide taken every other day. Plan: - Continue bumetanide, taken every other day - Continue aspirin (as previously advised) COPD and Asthma Assessment: Patient has a history of worsening COPD and asthma with frequent bronchitis and pneumonia episodes over the last year. She was started on roflumilast and referred to Dr. Jody Chen. Patient experienced severe breathing issues with roflumilast and had to use PRN nebulizers. An upcoming appointment with Dr. Chen is scheduled. Plan: - Follow up with Dr. Jody Chen for pulmonary management - DC roflumilast Not available 05/08/2025 09:37:42 Plan of Treatment Reminders Order Date Submit Date Provider Last Modified By Organization Details Last Modified Time Details Appointments Establish ed Patient 20 2024 08:40A M Pacheco Krause APRN Not available Not available Not available Establish ed Patient 20 2024 09:00A Shane Chen MD Not available Not available Not available Lab None recorded. Referral None recorded. Procedures None recorded. Surgeries None recorded. Imaging None recorded. Medication Orders None recorded. Patient TargetsNo targets recorded. Patient Instructions Encounter Date Encounter Id Patient Instructions Last Modified By Organization Details Last Modified Time 05/08/2025 [id number] Dear Cassia Rios, Thank you for visiting today. Here is a summary of the dior instructions: Medications: - Take bumetanide every other day for leg swelling - Try ygyu-pox-kceaqva fish oil and red yeast rice for cholesterol - DC roflumilast Follow-up: - Return in 3 months to recheck cholesterol - Attend upcoming appointment with Dr. Jody Chen for lung issues Lab Tests: - Recheck cholesterol in a few months Please reach out if you have any questions or concerns. Best Regards, Pacheco Krause APRN, Family Medicine [email or web address] Not available 05/08/2025 09:37:32 Cassia Rios, a 54-year-old female, presented for follow-up on hyperlipidemia, bilateral lower extremity edema, COPD, and asthma. Her history includes pleural effusion and worsening respiratory conditions. Bumetanide, now taken every other day, has improved her edema and pulmonary symptoms. Previous statin therapy caused myalgias. With a heart disease risk factor of 6%, she will try fish oil and red yeast rice for hyperlipidemia. She continues aspirin and roflumilast, with a pending pulmonology follow-up for respiratory management. [email or web address] Not available 05/08/2025 09:34:48 Reason for Referral None Reported. Results Created Date Observation Date Name Description Value Unit Range Abnormal Flag Note LastModifiedBy Organization Detail LastModifiedTime 04/10/20 25 04/11/2025 BASIC METAB OLIC PANEL (8) glucose 68 mg/dL 70-99 below low normal Not Available [facility] ([facility]) [address] [place], [address], 04/11/2025 06:16:06 04/10/20 25 04/11/2025 BASIC METAB OLIC PANEL (8) BUN 14 mg/dL 6-24 normal Not Available [facility] ([facility]) [address] [facility] [place], [address], 04/11/2025 06:16:06 04/10/20 25 04/11/2025 BASIC METAB OLIC PANEL (8) creatinine 0.80 mg/dL 0.57-1 .00 normal Not Available [facility] ([facility]) [address] [place], [address], 04/11/2025 06:16:06 04/10/20 25 04/11/2025 BASIC METAB OLIC PANEL (8) eGFR 88 mL/mi n/1.7 3 >59 normal Not Available [facility] ([facility]) [address] [place], [address], 04/11/2025 06:16:06 04/10/2004/11/2025 BASIC METAB OLIC PANEL (8) BUN/creatini ne ratio 18 9-23 normal Not Available [facility] ([facility]) [address] [place], [address], 04/11/2025 06:16:06 04/10/2004/11/2025 BASIC METAB OLIC PANEL (8) sodium 139 mmol/ L 134-14 4 normal Not Available [facility] ([facility]) [address] [place], [address], 04/11/2025 06:16:06 04/10/20 25 04/11/2025 BASIC METAB OLIC PANEL (8) potassium 4.4 mmol/ L 3.5-5. 2 normal Not Available [facility] ([facility]) [address] [place], [address], 04/11/2025 06:16:06 04/10/20 25 04/11/2025 BASIC METAB OLIC PANEL (8) chloride 103 mmol/ L 96-106 normal Not Available [facility] ([facility]) [address] [facility], [place], [address], 04/11/2025 06:16:06 04/10/20 25 04/11/2025 BASIC METAB OLIC PANEL (8) carbon dioxide, total 22 mmol/ L 20-29 normal Not Available [facility] ([facility]) [address] [facility], [place], [address], 04/11/2025 06:16:06 04/10/20 25 04/11/2025 BASIC METAB OLIC PANEL (8) calcium 9.0 mg/dL 8.7-10 .2 normal Not Available [facility] ([facility]) [address] [facility], [place], [address], 04/11/2025 06:16:06 04/10/20 XR, chest , 2 view No observ ation record ed. [email or web address] , [place], [address], 04/13/2025 09:31:25 05/24/20 25 05/24/2025 XR, chest , 2 view No observ ation record ed. [email or web address], [place], [address], 05/25/2025 08:03:34 05/25/20 25 05/24/2025 elect kia falcon am inter preta tion* No observ ation record ed. [email or web address], [place], [address], 05/25/2025 08:00:53 Result Notes None recorded. Problems Name Problem SNOMED Code Status Onset Date Resolution Date Notes Provider Name and Address Organization Details Recorded Time Suspecte d COVID-19 447954746 Completed 10/11/2020 Removal Reason: Problem added by user from the Huaat[employer]-19 watch flag Susan Meme null, [place] - [facility] 1 13:48:16 Suspecte d COVID-19 574925688 Completed 08/02/2021 Removal Reason: Problem marked historic al by user [email or web address] from the [employer]-19 watch flag Susan Meme null, [place] - [facility] 1 13:48:16 Acid reflux 976978744 Active 2015 Trudy Miguel Angel null, [place] - [facility] 6 09:53:44 Fibroade nosis of breast 53160262 Active 2015 Trudy Miguel Angel [place], [place] [facility] 6 09:54:02 Lateral epicondy litis 978120417 Completed 201501/24/2017 Abraham Rebollar MD [address], [place], [address] , [place] - [facility] 7 13:07:37 Nicotine dependen ce 97255239 Active 2016 Dolly Champagne [place], [place] [facility] 7 11:36:27 Tendinit is of foot 822208531 Active 2016 Abraham Rebollar MD [address], [place], [address] , [place] [facility] 7 13:07:57 Long-ter m drug therapy Active 2016 depo provera; declines BOB Shine, MAIN LINE ASSEMBLER [address], [place], [address] , [place] [facility] 7 10:59:48 Dyspnea 286658175 Completed 201905/07/2020 Nora Hooks null[place] [facility] 0 09:12:40 Vitamin D deficien cy 13266174 Active 2019 Crystal Lotus [place] [facility] 0 16:07:20 Pulmonar y emphysem a 27086338 Active 2019 Nora Hooks [place] [facility] 0 16:44:31 Asthma 492990705 Active 2020 Floresamber Garcia null[place] [facility] 1 10:26:19 Chronic obstruct joan pulmonar y disease 68945026 Active 2020 Jody Chen MD [address], [place], [address] , [place] [facility] 5 10:38:22 Fibrocys tic disease of breast 84215218 Active 2020 Kristen Shine, MAIN LINE ASSEM[employer]ER [address], [place], [address] , [place] [facility] 1 14:39:41 COVID-19 350866048 Completed 202005/30/2021 Removal Reason: Problem marked historic al by user [email or web address] from the [employer]-19 watch flag Pacheco Krause, MAIN LINE ASSEMBLER [address], [place], [address] , [place] [facility] 4 11:12:19 COVID-19 884521161 Completed 202005/30/2021 Removal Reason: Problem marked historic al by user from the [employer]-19 watch flag Pacheco Krause, MAIN LINE ASSEMBLER [address], [place], [address] , [place] [facility] 4 11:12:19 COVID-19 967760538 Completed 202106/22/2022 Pacheco Krause, MAIN LINE ASSEMBLER [address], [place], [address] , [place] [facility] 4 11:12:19 Allergic rhinitis 65823273 Active 2021 Crystal Lotus [place] [facility] 2 14:53:22 Acute pharyngi tis 099474594 Completed 202102/09/2023 Crystal Lotus [place] [facility] 3 09:03:10 Nodule of lung 157121263 Active 2022 Latosha Pavon, MAIN LINE ASSEMBLER [address], [place], [address] , [place] [facility] 3 09:33:01 Seasonal allergic rhinitis 487530501 Active 2022 Latosha Pavon, MAIN LINE ASSEM[employer]ER [address], [place], [address] , [place] [facility] 3 09:33:19 Pain of left ankle joint 70670421579 444643 Active 2022 Latosha Librado, MAIN LINE ASSEMBLER [address], [place], [address] , [place] [facility] 3 09:34:47 Pharyngi tis 455883890 Active 2022 Pacheco Krause, MAIN LINE ASSEMBLER [address], [place], [address] , [place] [facility] 3 11:35:20 Upper respirat ory infectio n 74720883 Active 2022 Pacheco Krause, MAIN LINE ASSEMBLER [address], [place], [address] , [place] [facility] 3 13:36:54 Acute bronchit is 81730126 Active 2022 Pacheco Krause, BUBBA [address], [place], [address] , [place] [facility] 3 14:08:31 Obesity 076900047 Active 2022 Pacheco Krause, MAIN LINE ASSEM[employer]ER [address], [place], [address] , [place] [facility] 3 14:25:02 Chronic bronchit is 72396738 Active 2022 Pacheco Krause APRN [address], [place], [address] , [place] [facility] 3 11:41:44 Cough 55500105 Active 2022 Pacheco Krause, BUBBA [address], [place], [address] , [place] [facility] 3 11:45:40 Acute sinusiti s 94119989 Active 2022 Pacheco Krause, MAIN LINE AS[employer]ER [address], [place], [address] , [place] [facility] 3 12:57:59 Influenz a caused by Influenz a A virus 809926971 Active 2023 Agustin Rahman DO [address], [place], [address] , [place] [facility] 4 16:32:14 Sore throat 831747460 Active 2023 Agustin Rahman DO [address], [place], [address] , [place] [facility] 4 16:33:29 Neuropat hy 577463838 Active 2023 Pacheco Krause, BUBBA [address], [place], [address] , [place] [facility] 4 09:02:03 Candidia sis of mouth 83189513 Active 2023 Pacheco Krause APRN [address], [place], [address] , [place] [facility] 4 09:14:47 Bilatera l lower limb edema 286756723 Active 2023 Pacheco Krause APRN [address], [place], [address] , [place] [facility] 4 16:00:30 Communit y acquired pneumoni a 378584288 Active 2023 Pacheco Krause APRN [address], [place], [address] , [place] [facility] 4 16:15:11 Middle ear effusion 4885078550 Active 2023 Pacheco Krause, BUBBA [address], [place], [address] , [place] [facility] 4 16:23:46 Acute exacerba tion of chronic obstruct joan pulmonar y disease 388754520 Active 2023 Pacheco Krause, BUBBA [address], [place], [address] , [place] [facility] 4 14:19:15 COVID-19 613581207 Active 2023 Pacheco Krause APRN [address], [place], [address] , [place] [facility] 4 11:12:19 Reducibl e umbilica l hernia 143405331 Active 2023 Pacheco Krause APRN [address], [place], [address] , [place] [facility] 4 09:26:12 Prediabe candy 156648369 Active 2024 Pacheco Krause APRN [address], [place], [address] , [place] [facility] 5 09:42:06 Hyperlip idemia 88813094 Active 2024 Pacheco Krause APRN [address], [place], [address] , [place] [facility] 5 09:42:39 Visual disturba nce 82390432 Active 2024 Pacheco Krause APRN [address], [place], [address] , [place] [facility] 5 10:00:41 Viral gastroen teritis 102994414 Active 2024 Louis Pool MD [address], [place], [address] , [place] [facility] 5 09:59:31 Low back pain 611588478 Active 2024 Louis Pool MD [address], [place], [address] , [place] [facility] 5 10:00:23 Acute infectiv e bronchit is 818439846 Active 2024 Pacheco Krause APRN [address], [place], [address] , [place] [facility] 5 14:13:08 Acute low back pain 452864071 Active 2024 Pacheco Krause APRN [address], [place], [address] , [place] [facility] 5 10:01:08 Increase d frequenc y of urinatio n 019143077 Active 2024 Pacheco Krause APRN [address], [place], [address] , [place] [facility] 5 10:08:15 Acute transuda tive otitis media 29629507 Active 2024 Pacheco Krause APRN [address], [place], [address] , [place] [facility] 5 15:55:33 Pleural effusion 23556259 Active 2024 Pacheco Krause APRN [address], [place], [address] , [place] [facility] 5 15:16:19 Mixed hyperlip idemia 428952145 Active 2024 Pacheco Krause, MAIN LINE ASSEMBLER [address], [place], [address] , [place] [facility] 5 06:38:37 Obstruct joan sleep apnea syndrome 90393183 Active 2024 Jody Chen MD [address], [place], [address] , [place] - [facility] 5 10:41:00 CT of chest abnormal 94537287415 971592 Active 2024 Jody Chen MD [address], [place], [address] [place] [address] , [place] [facility] 5 10:41:13 Otalgia of left ear 0790617988 Active 2024 Karolina Villanueva APRN [address], [place], [address] , [place] [facility] 5 21:20:09 Acute non-supp urative serous otitis media 790165628 Active 2024 Karolina Villanueva APRN [address], [place], [address] , [place] [facility] 5 09:25:13 Candidia sis of vagina 73818194 Active 2024 Karolina Villanueva APRN [address], [place], [address] [place] [address] , [place] [facility] 5 09:26:18 Acute cough Active 2024 Karolina Villanueva APRN [address], [place], [address] [place] [address] , [place] [facility] 5 09:26:48 Problem Notes None recorded. Procedures Surgical History Date Name Laterality Status Provider Name and Address Organization Details Recorded Time 05/23/20 Medication Reconcilliation completed Karen Lotus [place] [facility] 05/23/2021 11:07:57 10/07/19 Medication Reconcilliation completed Mainor Garner [place] [facility] 10/07/2020 10:55:54 09/15/19 21 Systolic B/P less than 130 mm Hg completed Flores Garcia [place] [facility] 09/15/2020 10:33:55 09/15/19 21 Diastolic B/P less than 80 mm Hg completed Flores Jose [place] [facility] 09/15/2020 10:33:50 09/15/19 21 Date of Last Pap Smear completed Kristen Shine, MAIN LINE ASSEMBLER [address], [place], [address] [place] - [facility] 09/17/2020 15:27:26 07/01/20 20 [...] Name and Address Organization Details Recorded Time 564494 Trelegy medicatio n facial swelling moderate high 02/12/2023 48948 40 RxNorm Cassandra Howard null, [place] - [facility] 4 16:04:[id number] medicatio n dyspnea Not available high 05/19/2025 96660 36 RxNorm Regi Serrano null, [place] - [...] Status: Disconti nued on: 03/29/20 8:40AM;U ser: markesbe ryh;Est. Completi on: 02/14/20 15;Pharm acyVerif ied: 02/10/20 [...] Available Not Available Nasonex 50 mcg/actua tion [place] 2 sprays every day by intranas al [...] e 205.5 mcg (0.15 %) nasal spray [place] 1 spray twice a day by intranas [...] Not Available Vitals Date Recorded Body height Respiratory rate Body mass index (BMI) Body weight Pain severity - 0-10 verbal numeric rating [Score] - Reported Oxygen saturation Oxygen saturation in Arterial blood by Pulse oximetry Heart rate Body temperature Systolic And Diastolic Provider Name and Address Organization Details Last Updated DateTime 5 170.18 cm 18 /min 34.5 kg/m2 483637. 47 g 0 96 % 96 % 78 /min 98.5 [degF] 118/80 mm[Hg] Orin Lu [place] - [facility] 5 08:43:48 Social History Question Answer Notes LastModified by [employer] ion Details LastModified Time Tobacco Smoking Status [...] COVID-19 While That Case Was Ill? No [email or web address] Information not available 12/01/2024 In The 14 Days Before Symptom Onset, Have You Had Close Contact With A Person Who Is Under Investigation For COVID-19 While That Person Was Ill? No Information not available 12/01/2024 Have You Been To An Area Known To Be High Risk For COVID-19? No [email or web address] Information not available 12/01/2024 Are You Deaf Or Do You Have Serious Difficulty Hearing? No Information not available 08/17/2016 What Type Of Diet Are You Following? REGULAR Information not available 08/17/2016 Which Illicit Or Recreational Drugs Have You Used? Denies Information not available 08/17/2016 Have You Processed Blood Or Body Fluids From An Ebola Virus Disease Patient Without Appropriate PPE? No [email or web address] Information not available 12/01/2024 Do You Reside In Or Have You Traveled To An Area Where Ebola Virus Transmission Is Active? No [email or web address] Information not available 12/01/2024 How Many Days Of Moderate To Strenuous Exercise, Like A Brisk Walk, Did You Do In The Last 7 Days? 1 [email or web address] Information not available 05/16/2018 On Those Days That You Engage In Moderate To Strenuous Exercise, How Many Minutes, On Average, Do You Exercise? 1 Information not available 05/16/2018 Have There Been Any Changes To Your Family Or Social Situation? No [email or web address] Information no t available 12/01/2024 Have You Recently Or Are You Planning To Travel To An Area With Zika Virus? No [email or web address] Information not available 12/01/2024 Live Alone Or With Others? With Others Information not available 08/17/2016 Do You Have A Medical Power Of Frame Table Operator Helper? No [email or web address] Information not available 12/01/2024 What Was The Date Of Your Most Recent Tobacco Screening? 07/06/2025 [email or web address] Information not available 07/06/2025 What Is Your Current Pack Years? [email or web address] Information not available 02/12/2023 Performs Monthly Self-breast Exam? Yes Sometimes Information no t available 07/18/2017 What Is Your Relationship Status? Unknown Information not available 08/17/2016 Seat Belts Used Routinely Yes Information not available 07/18/2017 Are You Sexually Active? Yes Information not available 07/18/2017 Do You Have Smoke And Carbon Monoxide Detectors In Your Home? No [email or web address] Information not available 12/01/2024 At What Age Did You Start Smoking Tobacco? 14 Information not available 02/12/2023 Are You Passively Exposed To Smoke? No [email or web address] Information no t available 12/01/2024 How Much Tobacco Do You Smoke? 1.5 PPD [email or web address] Information not available 09/15/2020 Do You Use Sunscreen Routinely? No Information not available 07/18/2017 Has Tobacco Cessation Counseling Been Provided? Yes Information not available 06/22/2022 On What Date Was Tobacco Cessation Counseling Provided? 05/19/2025 [email or web address] Information not available 05/19/2025 How Many Years Have You Smoked Tobacco? 38 [email or web address] Information not available 09/15/2020 Do You Have Difficulty Walking Or Climbing Stairs? No Information not available 08/17/2016 Sex: Female Functional Status Question Answer Note LastModified by Organizat ion Details LastModified Time Do you or have you ever used smokeless tobacco? Never used smokeless tobacco [email or web address] Information not available 09/15/2020 Are you currently employed? Yes Information not available 07/18/2017 Do you have transportation difficulties? No Information not available 03/20/2025 Urinary incontinence assessment performed? Yes [email or web address] Information not available 05/16/2018 Are you able to care for yourself independently? Yes Information not available 03/20/2025 Do you have difficulty dressing, bathing, grooming, or toileting? No Information not available 08/17/2016 Do you or have you ever used e-cigarettes or vape? Never used electronic cigarettes [email or web address] Information not available 09/15/2020 What is your [...] available 08/17/2016 What is your occupation? [employer] Information not available 08/17/2016 Mental Status Question Answer Note LastModified by Organizat ion Details LastModified Time Do you feel stressed (tense, restless, nervous, or anxious, or unable to sleep at night)? PC4434-4 [email or web address] Information not available 05/16/2018 Do you have [...] 09/15/2020 Sexual Problems? 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 Method Depo-Maintenance Of Way Clerk a LMP Definite Desired Control Method Hormonal In jection Obstetrics History GPAL:G 1 P 1 0 0 1 Type Value Full Term 1 Living 1 Total 1 Immunizations Vaccine Type Date Status Note Provider Name and Address Organization Details Recorded Time RSV, recombinant, protein subunit RSVpreF, adjuvant reconstituted, 0.5 mL, PF 09/26/19 completed Krystle Brittany fontanez, [place] - [facility] 09/26/2024 09:47:56 Influenza, split virus, quadrivalent, preservative 09/15/19 cancelled patient objection Kristen Shine, MAIN LINE ASSEMBLER [address], [place], [address], [place] [facility] 09/15/2020 11:14:13 zoster recombinant 09/26/19 cancelled patient objection Pacheco Krause, MAIN LINE ASSEMBLER [address], [place], [address], [place] [facility] 09/27/2024 09:41:43 Tdap 09/26/19 cancelled patient objection Pacheco Krause, MAIN LINE ASSEMBLER [address], [place], [address], [place] [facility] 09/27/2024 09:41:43 Pneumococcal conjugate PCV20, polysaccharide [id number] conjugate, adjuvant, PF 09/26/19 completed Pacheco Krause, MAIN LINE ASSEMBLER [address], [place], [address], [place] [facility] 09/27/2024 09:41:43 Influenza, split virus, trivalent, preservative 09/26/19 cancelled patient objection Pacheco Krause, MAIN LINE ASSEMBLER [address], [place], [address], [place] [facility] 09/27/2024 09:41:43 Tdap [...] ICD10 Code Diagnosis IMO Codes Diagnosis Note [id number] Pacheco Krause, MAIN LINE ASSEMBLER [address] [place] [address] 04/10/2025 12:38:02 04/10/2025 14:05:43 Pleural effusion 47120884 J90 439478 Hyperlipidemia 14848583 E78.5 - TC 198, TRG 147, HDL 31, LDL 140 (09/2024)- 10-year ASCVD risk 6%- Cannot tolerate statins- Start leqvio- encourage improved diet and exercise; OTC red yeast rice if desired Bilateral lower limb edema 953139369 R60.0 - improved edema with bumetanide 2 mg daily Chronic bronchitis 74544 004 J44.9 [id number] Pacheco Krause APRN [address] [place] [address] 05/08/2025 08:28:26 05/08/2025 09:34:03 Asthma 720455483 J45.909 Hyperlipidemia 25048015 E78.5 Pulmonary emphysema 8743 3001 J43.9 Chronic ob structive pulmonary disease 96565052 J44.9 Bilateral lower limb edema 639804591 R60.0 - improved edema with bumetanide 2 mg daily Depression screening positive [id number] 78547 Z13.31 [id number] Patient with symptoms concerning for depression . PHQ-9 score: 6. Denies SI/HI. No other safety concerns at this time.Will not start medication at this time. Follow-up in 3 months Health Concerns Section Related Observation LastModified by Organization Detai ls LastModified Time None Recorded Concern Status LastModified by Organization Details LastModified Time None Recorded Payers Encounter Date Sequence Insurance Name Policy Number Policy Whaley Covered Member ID Whaley Member ID Guarantor Name 05/08/2025 1 [employer] - [facility] [id number] Cassia Rios [id number] Cassia Rios Notes Date Note Type Note Provider Name and Address Organization Details Recorded Time 05/08/2025 text/html ROS as noted in the HPI Cassia Rios, a 54-year-old female, presents for follow-up on hyperlipidemia, bilateral lower extremity edema, COPD, and asthma. She has been taking bumetanide 2 mg daily since March 20, 2025, for pleural effusion and bilateral lower extremity edema. At her last visit on April 10, Cassia reported marked improvement in her pulmonary symptoms and edema. Today, she notes that her legs are better with bumetanide, which she now takes every other day. Regarding her hyperlipidemia, Cassia experienced myalgias with statin therapy and was prescribed an alternative that was not approved by her insurance. She is here to discuss other options for hyperlipidemia treatment and is considering wuki-ntv-fxkwzto options like fish oil and red yeast rice. Cassia reports worsening COPD and asthma over the past year, with frequent episodes of bronchitis and pneumonia. She was started on roflumilast and referred to Dr. Jody Chen for further management. Cassia mentions experiencing severe breathing issues with a new medication, necessitating the use of PRN nebulizers. She has an upcoming appointment with Dr. Chen to address these concerns. Review of SystemsCardiovascul ar: Negative for leg swelling.Respirator y: Positive for improved pulmonary symptoms.Musculoske letal: Negative for myalgias. Pacheco Krause, MAIN LINE ASSEMBLER [address], [place], [address], [facility] - [facility] 05/08/2025 09:39:22 OBGyn Episode No OBEpisode recorded.
--- OUTSIDE RECORDS SUMMARY | 2025-07-19 10:07 | XMS_ITS | Clinical Summary ---
Author Organization 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 10/25/2020 Overview [...] on file Sexual Orientation Not on file Last Filed Vital Signs Vital Sign Reading [...] of 2) 2021 COVID-19 Vaccine (1 - 2024-2 6 season) 2025 Influenza Vaccine (#1) 2025 Meningococcal B Vaccine Aged Out No l onger eligible based on patient's age to complete this topic Insurance [employer] OPEN ACCESS PLUS [facility] [place] [employer] ACCESS PLUS [facility] [place] Care Teams Personal Financial Planner Relationship Specialty Start Date End Date Nora Hooks NP [address] [place] [address] PCP - General Nurse Practitioner 10/25/20 Apollo Hernandez MD [address] [place] [address] [place] [address] Internal Medicine-Cardiovascular Disease 10/25/20
--- OUTSIDE RECORDS SUMMARY | 2025-07-19 10:07 | XMS_ITS | Clinical Summary ---
Author Organization Healthcare Address [address] 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 Name Role Phone Unavailable Primary Care Provider Unavailabl e Social History Tobacco Use Types Packs/Day Years Used Date Smoking Tobacco: Never Assessed Comments Unknown Sex and Gender Information Value Date Recorded Sex Assigned at Not on file Legal Sex Female 8:41 PM EDT Gender Identity Not on file Sexual Orientation Not on file Plan of Treatment Health Maintenance Due Date Last Done Comments [facility]-Depression Screening 1971 [facility]-/Child/Adol SDOH Screenings 1971 [facility]- SDOH Screenings 1989 [facility]-Adult SDOH Screenings 1989 [facility]-Hepatitis B Vaccines (1 of 3 - 19+ 3-dose series) 1990 [facility]-Pap Smear 1992 [facility]-Cervical Cancer Screening 2001 [facility]-HPV/Cotest 2001 CT Colonography 2016 Colonoscopy 2016 FIT-DNA 2016 FIT 2016 FOBT 2016 Sigmoidoscopy 2016 [facility]-Colorectal Cancer Screening 2016 [facility]-Zoster Vaccines (1 of 2) 2021 [id number] Vaccine (3 - 2024- season) 2025 11/24/2021, [...]
--- OUTSIDE RECORDS SUMMARY | 2025-07-19 10:07 | XMS_ITS | Continuity of Care Document ---
Author Organization [facility] Address [address] [place] [address] Assessment No assessment recorded. Plan of Treatment Reminders Order Date Submit Date Provider Last Modified By Organization Details Last Modified Time Details Appointments Establish ed Patient 20 2024 08:40A M Pacheco Krause APRN Not available Not available Not available Establish ed Patient 2024 09:00A M Jody Chen MD Not available Not available Not available Lab None recorded. Referral None recorded. Procedures None recorded. Surgeries None recorded. Imaging None recorded. Medication Orders Ventolin HFA 90 mcg/actua tion aerosol inhaler 2024 025 [facility], [address] [place] [address], [place], [address], 05/24/2025 10:44:12 Patient TargetsNo targets recorded. Patient Instructions Encounter Date Encounter Id Patient Instructions Last Modified By Organization Details Last Modified Time 05/19/2025 [id number] smoking cessatio n counseling, greater than 3 minutes up to 10 minutes* [email or web address] Not available 06/01/2025 08:33:04 medical record request* - pft results [email or web address] Not available 06/01/2025 08:33:04 Continue current medications Send for spirometry results CT of the chest in July Continue CPAP Call with problems such as increased cough or sputum production Return for follow [email or web address] Not available 05/24/2025 10:43:32 Reason for Referral None Reported. Results Created Date Observation Date Name Description Value Unit Range Abnormal Flag Note LastModifiedBy Organization Detail LastModifiedTime 05/24/2005/24/2025 XR, chest , 2 view No observ ation record ed. [email or web address] [facility] [address], [place], [address], 05/25/2025 08:03:34 05/25/2005/24/2025 karthik falcon am inter preta tion* No observ ation record ed. [email or web address] [facility] [address], [place], [address], 05/25/2025 08:00:53 Result Notes None recorded. Problems Name Problem SNOMED Code Status Onset Date Resolution Date Notes Provider Name and Address Organization Details Recorded Time Suspecte d COVID-19 882540899 Completed 10/11/2020 Removal Reason: Problem added by user from the [employer] watch flag Susan Meme null, [place] - [facility] 13:48:16 Suspecte d COVID-19 134362554 Completed 08/02/2021 Removal Reason: Problem marked historic al by user [email or web address] from the [employer] flag Susan Meme null, [place] - [facility] 13:48:16 Acid reflux 661364960 Active 2015 Trudy Miguel Angel null, [place] - [facility] 6 09:53:44 Fibroade nosis of breast 27145952 Active 2015 Trudy Miguel Angel null, [place] - [facility] 6 09:54:02 Lateral epicondy litis 049836509 Completed 201501/24/2017 Abraham Rebollar MD [address], [place], [address] , [place] [facility] 7 13:07:37 Nicotine dependen ce 61825701 Active 2016 Dolly Champagne null, [place] - [facility] 7 11:36:27 Tendinit is of foot 246799308 Active 2016 Abraham Rebollar MD [address], [place], [address] , [place] - [facility] 7 13:07:57 Long-ter m drug therapy Active 2016 depo provera; declines BOB Willsoliver Shine, [employer] [address], [place], [address] , [place] [facility] 7 10:59:48 Dyspnea 395501427 Completed 201905/07/2020 Nora Hooks null, [place] - [facility] 0 09:12:40 Vitamin D deficien cy 96239094 Active 2019 Crystal Lotus null, [place] - [facility] 0 16:07:20 Pulmonar y emphysem a 95955120 Active 2019 Nora Hooks [place], [place] [facility] 0 16:44:31 Asthma 618216941 Active 2020 Flores Garcia null, [place] - [facility] 1 10:26:19 Chronic obstruct joan pulmonar y disease 82737904 Active 2020 Jody Chen MD [address], [place], [address] , [place] - [facility] 5 10:38:22 Fibrocys tic disease of breast 46331936 Active 2020 Kristenoliver Shine, [employer] [address], [place], [address] , [place] [facility] 1 14:39:41 COVID-19 646783093 Completed 202005/30/2021 Removal Reason: Problem marked historic al by user [email or web address] from the [employer] watch flag Pacheco Krause, [employer] [address], [place], [address] , [place] - [facility] 4 11:12:19 COVID-19 065969850 Completed 202005/30/2021 Removal Reason: Problem marked historic al by user from the [employer] watch flag Pacheco Krause, [employer] [address], [place], [address] , [place] - [facility] 4 11:12:19 COVID-19 965416872 Completed 202106/22/2022 Pacheco Krause APRN [address], [place], [address] , [place] [facility] 4 11:12:19 Allergic rhinitis 22620714 Active 2021 Crystal Lotus null, [place] - [facility] 2 14:53:22 Acute pharyngi tis 365690092 Completed 202102/09/2023 Crystal Lotus [place], [place] - [facility] 3 09:03:10 Nodule of lung 130749125 Active 2022 Latosha Pavon, [employer] [address], [place], [address] , [place] [facility] 3 09:33:01 Seasonal allergic rhinitis 567587648 Active 2022 Latosha Pavon, [employer] [address], [place], [address] , [place] [facility] 3 09:33:19 Pain of left ankle joint 09468427192 837875 Active 2022 Latosha Pavon, [employer] [address], [place], [address] , [place] [facility] 3 09:34:47 Pharyngi tis 151986989 Active 2022 Pacheco Krause, BUBBA [address], [place], [address] , [place] [facility] 3 11:35:20 Upper respirat ory infectio n 82196533 Active 2022 Pacheco Krause APRN [address], [place], [address] , [place] [facility] 3 13:36:54 Acute bronchit is 65765292 Active 2022 Pacheco Krause APRN [address], [place], [address] , [place] [facility] 3 14:08:31 Obesity 265558572 Active 2022 Pacheco Krause APRN [address], [place], [address] , [place] [facility] 3 14:25:02 Chronic bronchit is 42050774 Active 2022 Pacheco Krause [employer] [address], [place], [address] , [place] [facility] 3 11:41:44 Cough 41928280 Active 2022 Pacheco Krause, [employer] [address], [place], [address] , [place] [facility] 3 11:45:40 Acute sinusiti s 97847262 Active 2022 Pacheco Krause APRN [address], [place], [address] , [place] - [facility] 3 12:57:59 Influenz a caused by Influenz a A virus 305100912 Active 2023 Agustin Rahman, DO [address], [place], [address] , [place] - [facility] 4 16:32:14 Sore throat 460377528 Active 2023 Agustin Rahman DO [address], [place], [address] , [place] - [facility] 4 16:33:29 Neuropat hy 227593339 Active 2023 Pacheco Krause APRN [address], [place], [address] , [place] - [facility] 4 09:02:03 Candidia sis of mouth 01027592 Active 2023 Pacheco Krause APRN [address], [place], [address] , [place] - [facility] 4 09:14:47 Bilatera l lower limb edema 170849466 Active 2023 Pacheco Krause APRN [address], [place], [address] , [place] - [facility] 4 16:00:30 Communit y acquired pneumoni a 173467155 Active 2023 Pacheco Krause, BUBBA [address], [place], [address] , [place] [facility] 4 16:15:11 Middle ear effusion 3889766450 Active 2023 Pacheco Krause APRN [address], [place], [address] , [place] [facility] 4 16:23:46 Acute exacerba tion of chronic obstruct joan pulmonar y disease 653156741 Active 2023 Pacheco Krause, [employer] [address], [place], [address] , [place] [facility] 4 14:19:15 COVID-19 694075509 Active 2023 Pacheco Krause, [employer] [address], [place], [address] , [place] [facility] 4 11:12:19 Reducibl e umbilica l hernia 356520841 Active 2023 Pacheco Krause, BUBBA [address], [place], [address] , [place] [facility] 4 09:26:12 Prediabe candy 123848512 Active 2024 Pacheco Krause APRN [address], [place], [address] , [place] [facility] 5 09:42:06 Hyperlip idemia 61736031 Active 2024 Pacheco Krause, [employer] [address], [place], [address] , [place] [facility] 5 09:42:39 Visual disturba nce 23494429 Active 2024 Pacheco Krause, BUBBA [address], [place], [address] , [place] [facility] 5 10:00:41 Viral gastroen teritis 372480293 Active 2024 Louis Pool MD [address], [place], [address] , [place] [facility] 5 09:59:31 Low back pain 031098477 Active 2024 Louis Pool MD [address], [place], [address] , [place] [facility] 5 10:00:23 Acute infectiv e bronchit is 683476459 Active 2024 Pacheco Krause APRN [address], [place], [address] , [place] [facility] 5 14:13:08 Acute low back pain 476894692 Active 2024 Pacheco Krause, BUBBA [address], [place], [address] , [place] [facility] 5 10:01:08 Increase d frequenc y of urinatio n 968077172 Active 2024 Pacheco Krause, [employer] [address], [place], [address] , [place] [facility] 5 10:08:15 Acute transuda tive otitis media 31134591 Active 2024 Pacheco Krause, [employer] [address], [place], [address] , [place] [facility] 5 15:55:33 Pleural effusion 35220216 Active 2024 Pacheco Krause, BUBBA [address], [place], [address] , [place] [facility] 5 15:16:19 Mixed hyperlip idemia 180991765 Active 2024 Pacheco Krause APRN [address], [place], [address] , [place] [facility] 5 06:38:37 Obstruct joan sleep apnea syndrome 34210092 Active 2024 Jody Chen MD [address], [place], [address] , [place] [facility] 5 10:41:00 CT of chest abnormal 36672467542 491728 Active 2024 Jody Chen MD [address], [place], [address] , [place] [facility] 5 10:41:13 Otalgia of left ear 7869857309 Active 2024 Karolina Villanueva APRN [address], [place], [address] , [place] [facility] 5 21:20:09 Acute non-supp urative serous otitis media 670764527 Active 2024 Karolina Villanueva APRN [address], [place], [address] , [place] [facility] 5 09:25:13 Candidia sis of [facility] 68870200 Active 2024 Karolina Villanueva, [employer] [address], [place], [address] , [place] [facility] 5 09:26:18 Acute cough Active 2024 Karolina Villanueva, [employer] [address], [place], [address] , [place] - [facility] 5 09:26:48 Problem [...] Date of Last Pap Smear completed Kristen Reyescker, [employer] [address], [place], [address], [place] [facility] 09/17/2020 15:27:26 07/01/20 20 [...] Name and Address Organization Details Recorded Time 517763 Trelegy medicatio n facial swelling moderate high 02/12/2023 08087 40 RxNorm Cassandra [place], [place] - [facility] 4 16:04:[address] medicatio n dyspnea Not available high 05/19/2025 55408 36 [employer]Norm Regi Serrano null, [place] - [facility] 14:51:22 Medications Name Sig Start Date Stop Date Status Note LastModified by Organization Details LastModified Time Cleocin HCl 300 mg capsule take one capsule by mouth three times a day 03/29 completed Cleocin 300 mg oral capsule; Prescrib e Status: Prescrib ed on: 02/10/20 15 3:48PM;D iscontin ued Status: Disconti nued on: 03/29/20 15 8:40AM;U ser: alfonso lamb;Est. Completi on: 02/14/20 15;Pharm acyVrupertof ied: 02/10/20 3:48PM Not Available Not Available [...] Available Not Available Nasonex 50 mcg/actua tion Freeburn Freeburn 2 sprays every day by intranas al [...] e 205.5 mcg (0.15 %) nasal spray Freeburn 1 spray twice a day by intranas [...] completed Not Available Not Available Not Available Michaeltrsusana Aerospher e 160 mcg-9mcg- 4.8mcg/ac tuation HFA [...] mass index (BMI) Body weight Heart rate Body temperature Oxygen saturation Oxygen saturation in Arterial blood by Pulse oximetry Respiratory rate Pain severity - 0-10 verbal numeric rating [Score] - Reported Systolic And Diastolic Provider Name and Address Organization Details Last Updated DateTime 5 170.18 cm 34.7 kg/m2 150368. 71 g 87 /min 98.4 [degF] 96 % 96 % 20 /min 0 126/85 mm[Hg] Regi Serrano [place] - [facility] 5 14:46:19 Social History Question Answer Notes LastModified by Organizat ion Details LastModified Time Tobacco Smoking Status Former Smoker 2 weeks as of 01/16 Joanne fontaenz [place] - [facility] 01/16/2025 13:28:33 Do You [...] COVID-19 While That Case Was Ill? No [email or web address] Information not available 12/01/2024 In The 14 Days Before Symptom Onset, Have You Had Close Contact With A Person Who Is Under Investigation For COVID-19 While That Person Was Ill? No [email or web address] Information not available 12/01/2024 Have You Been To An Area Known To Be High Risk For COVID-19? No [email or web address] Information not available 12/01/2024 Are You Deaf Or Do You Have Serious Difficulty Hearing? No Information not available 08/17/2016 What Type Of Diet Are You Following? REGULAR Information not available 08/17/2016 Which Illicit Or Recreational Drugs Have You Used? Denies Information not available 08/17/2016 Have You Processed Blood Or Body Fluids From An Ebola Virus Disease Patient Without Appropriate PPE? No [email or web address] Information not available 12/01/2024 Do You Reside In Or Have You Traveled To An Area Where Ebola Virus Transmission Is Active? No Information not available 12/01/2024 How Many Days Of Moderate To Strenuous Exercise, Like A Brisk Walk, Did You Do In The Last 7 Days? 1 [email or web address] Information not available 05/16/2018 On Those Days That You Engage In Moderate To Strenuous Exercise, How Many Minutes, On Average, Do You Exercise? 1 [email or web address] Information not available 05/16/2018 Have There Been Any Changes To Your Family Or Social Situation? No [email or web address] Information no t available 12/01/2024 Have You Recently Or Are You Planning To Travel To An Area With Zika Virus? No Information not available 12/01/2024 Live Alone Or With Others? With Others Information not available 08/17/2016 Do You Have A Medical Power Of Online Communications Manager? No [email or web address] Information not available 12/01/2024 What Was The [...] Carbon Monoxide Detectors In Your Home? No [email or web address] Information not available 12/01/2024 At What Age Did You Start Smoking Tobacco? 14 Information not available 02/12/2023 Are You Passively Exposed To Smoke? No [email or web address] Information no t available 12/01/2024 How Much Tobacco Do You Smoke? 1.5 PPD [email or web address] Information not available 09/15/2020 Do You Use Sunscreen Routinely? No Information not available 07/18/2017 Has Tobacco Cessation Counseling Been Provided? Yes Information not available 06/22/2022 On What Date Was Tobacco Cessation Counseling Provided? 05/19/2025 [email or web address] Information not available 05/19/2025 How Many Years Have You Smoked Tobacco? 38 [email or web address] Information not available 09/15/2020 Do You Have Difficulty Walking Or Climbing Stairs? No Information not available 08/17/2016 Sex: Female Functional Status Question Answer Note LastModified by Organizat ion Details LastModified Time Do you or have you ever used smokeless tobacco? Never used smokeless tobacco [email or web address] Information not available 09/15/2020 Are you currently employed? Yes Information not available 07/18/2017 Do you have transportation difficulties? No Information not available 03/20/2025 Urinary incontinence assessment performed? Yes Information not available 05/16/2018 Are you able to care for yourself independently? Yes Information not available 03/20/2025 Do you have difficulty dressing, bathing, grooming, or toileting? No Information not available 08/17/2016 Do you or have you ever used e-cigarettes or vape? Never used electronic cigarettes [email or web address] Information not available 09/15/2020 What is your [...] available 08/17/2016 What is your occupation? [employer] Information not available 08/17/2016 Mental Status Question Answer Note LastModified by Organizat ion Details LastModified Time Do you feel stressed (tense, restless, nervous, or anxious, or unable to sleep at night)? NH8528-5 [email or web address] Information not available 05/16/2018 Do you have [...] 09/15/2020 Sexual Problems? 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 Method Depo-[employer] a LMP Definite Desired Control Method Hormonal In jection Obstetrics History GPAL:G 1 P 1 0 0 1 Type Value Full Term 1 Living 1 Total 1 Immunizations Vaccine Type Date Status Note Provider Name and Address Organization Details Recorded Time RSV, recombinant, protein subunit RSVpreF, adjuvant reconstituted, 0.5 mL, PF 09/26/19 completed Krystle Brittany null, [place] - [facility] 09/26/2024 09:47:56 Influenza, split virus, quadrivalent, preservative 09/15/19 cancelled patient objection Kristen Shine, [employer] [address], [place], [address], [place] [facility] 09/15/2020 11:14:13 zoster recombinant 09/26/19 cancelled patient objection Pacheco Krause, [employer] [address], [place], [address], [place] [facility] 09/27/2024 09:41:43 Tdap 09/26/19 cancelled patient objection Pacheco Krause, [employer] [address], [place], [address], [facility] - [facility] 09/27/2024 09:41:43 Pneumococcal conjugate PCV20, polysaccharide [id number] conjugate, adjuvant, PF 09/26/19 completed Pacheco Krause, [employer] [address], [place], [address], [place] [facility] 09/27/2024 09:41:43 Influenza, split virus, trivalent, preservative 09/26/19 cancelled patient objection Pacheco Krause, [employer] [address], [place], [address], [place] [facility] 09/27/2024 09:41:43 Tdap 10/17/19 completed Joanne Peace null, [place] - [facility] 10/17/2024 12:57:12 COVID-19, mRNA, LNP-S, [...] ICD10 Code Diagnosis IMO Codes Diagnosis Note [id number] Pacheco Krause APRN [address] [place] [address] 05/08/2025 08:28:26 05/08/2025 09:34:03 Asthma 485434107 J45.909 Hyperlipidemia 12663221 E78.5 Pulmonary emphysema 8743 3001 J43.9 Chronic ob structive pulmonary disease 36914206 J44.9 Bilateral lower limb edema 258287259 R60.0 - improved edema with bumetanide 2 mg daily Depression screening positive 9540872127 04112 Z13.31 [id number] Patient with symptoms concerning for depression . PHQ-9 score: 6. Denies SI/HI. No other safety concerns at this time.Will not start medication at this time. Follow-up in 3 months [id number] Jody Chen MD [address] [place] [address] 05/19/2025 14:41:34 05/19/2025 15:25:39 Chronic obstructive pulmonary disease 13049500 J44.9 30316218 Continue Breztri twice daily with Ventolin rescue inhaler Obstructiv e sleep apnea syndrome 46887378 G47.[address] of chest abnormal [address] of the chest for screening of cancer in ich has already been scheduled Tobacco user 175884761 Z 72.0 210898 Health Concerns Section Related Observation LastModified by Organization Detai ls LastModified Time None Recorded Concern Status LastModified by Organization Details LastModified Time None Recorded Payers Encounter Date Sequence Insurance Name Policy Number Policy Whaley Covered Member ID Whaley Member ID Guarantor Name 05/19/2025 1 [employer] (PPO) [id number] Cassia Rios [id number] Cassia Rios Notes Date Note Type Note Provider Name and Address Organization Details Recorded Time 05/19/2025 text/html ROS as noted in the HPI Ms. Rios is a 54-year-old who is referred for ongoing pulmonary care. She was previously followed by Dr. Amato as well as Cheyanne Amaral. History of COPD/emphysema. Currently on Breztri and Ventolin rescue inhaler which she uses infrequently. She has used Symbicort, Trelegy, Advair and Anoro which were ineffective Patient states that her breathing became worse after a bout of pneumonia which she thinks was COVID in 2018. She has had COVID at least 4 times since then despite vaccinations. She has ongoing use of cigarette smoking 2 packs/day for Her adult life She does have a daily cough with little sputum production. pulmonary function studies done in May 2023 that showed no restriction, mid flow obstruction and a mild bronchodilator response. full pulmonary function studies were done in 06/22/2024 that revealed moderate obstruction, no restriction, mid flow obstruction, reduced DLCO/VA antibiotic a dilator response She has had an alpha-1 antitrypsin level in the past several revealed normal phenotype. History of abnormal CAT scan of her chest with multiple pulmonary nodules LDCT of the chest done in April 2023 showed no suspicious lung nodules, multiple areas of scarring particularly in the right lung base, emphysema and no evidence for lymphadenopathy. She had a repeat CT scan of her chest in July 2024 that showed no change in the nodules History of obstructive sleep apnea treated with CPAP. The patient is been on CPAP for approximately 2 years and is compliant with therapy. HST 05/10/2023: severe LAURA, AHI:30.9, sleep related hypoxia JOSE ALFREDO 58%, max HR 158 BPM History of allergic rhinitis status post a RAST panel in May 2023 that revealed ragweed. At that time her IgE was 26. She has been treated with Zyrtec, montelukast and nasal spray Jody Chen MD [address], [place], [address], [place] - [facility] 05/24/2025 10:44:38 OBGyn Episode No OBEpisode recorded.
--- OUTSIDE RECORDS SUMMARY | 2025-07-19 10:08 | XMS_ITS | Data Portability ---
Author Organization [facility] Address [address] [place] [address] Assessment Encounter Date Assessment Date Assessment LastModified [...] medication initiation. Plan: - Patient to try [id number] options: fish oil and red yeast rice [...] Chen for pulmonary management - DC roflumilast [email or web address] Not available 05/08/2025 09:37:42 07/03/2025 07/03/2025 Patient presente d with symptoms [...] to 2 weeks if symptoms not improving. [email or web address] Not available 07/03/2025 21:20:01 07/06/2025 07/06/2025 Patient presents with signs/symptoms of otitis media. Will treat as below. Supportive care reviewed: humidifier use, raise HOB, saline nasal spray, encourage PO fluids. Recommended acetaminophen/ibup rofen PRN pain/fever Follow up as below. Discussed garling in warm salt water, rest, increase PO fluids. [email or web address] Not available 07/06/2025 09:32:17 Plan of Treatment Reminders Order Date Submit Date Provider Last Modified By Organization Details Last Modified Time Details Appointments Angel rubin Patient 20 2024 08:40A M Pacheco Krause APRN Not available Not available Not available Angel rubin Patient 20 2024 09:00A M Jody Chen MD Not available Not available Not available Lab BMP, serum or plasma 2024 025 CHAU [facility], [address], [place], [place], [address], 04/11/2025 06:16:06 Referral pulmono logist referra l 2024 025 dimitry Chen MD, [address] [place], [address], 05/22/2025 14:53:19 Procedures None recorde d. Surgeries None recorde d. Imaging XR, chest, 2 view - assess status of left sided plueral effusio n discove red on 03/20 [facility], [facility], [address] [place] [address] , [place], [address], 04/10/2025 16:22:49 Medication Orders bromphe niramin e-pseud oephedr ine-DM 2 mg-30 mg-10 mg/5 mL oral syrup 2024 [facility], [address] [place] [address], [place], [address], 07/06/2025 09:28:53 doxycyc line hyclate 100 mg capsule 2024 [facility], [address] [place] [address], [address], 07/06/2025 09:28:54 dexamet hasone sodium phospha te 10 mg/mL injecti on solutio n 2024 Not available 07/06/2025 11:51:32 Difluca n 150 mg tablet 2024 [facility], [address] [place] [address], [address], 07/06/2025 09:28:54 Solu-Me drol (PF) 125 mg/2 mL solutio n for injecti on 2024 [email or web address] Not available 07/03/2025 15:40:16 ceftria xone 1 gram intrave nous solutio n 2024 [email or web address] Not available 07/03/2025 15:38:08 prednis one 20 mg tablet [address], [address], 07/15/2025 05:02:01 azithro mycin 250 mg tablet 2024 025 [facility], [address] [place] [address], [address], 07/03/2025 15:25:34 Ventoli n HFA 90 mcg/act uation aerosol inhaler [address], [address], 05/24/2025 10:44:12 roflumi last 250 mcg tablet [address], [address], 05/19/2025 14:53:03 Leqvio 284 mg/1.5 mL subcuta neous syringe 2024 025 [facility], [address] [place] [address], [address], 07/01/2025 16:03:53 bumetan yanet 1 mg tablet [email or web address] [place] [address], [address], 04/10/2025 15:41:17 Patient TargetsNo targets recorded. Patient Instructions Encounter Date Encounter Id Patient Instructions Last Modified By Organization Details Last Modified Time 05/08/2025 [id number] Dear Cassia Rios, Thank you for visiting today. Here is a summary of the dior instructions: Medications: - Take bumetanide every other day for leg swelling - Try odxo-wvt-nijidck fish oil and red yeast rice for cholesterol - DC roflumilast Follow-up: - Return in 3 months to recheck cholesterol - Attend upcoming appointment with Dr. Jody Chen for lung issues Lab Tests: - Recheck cholesterol in a few months Please reach out if you have any questions or concerns. Best Regards, Pacheco Krause APRN, Family Medicine [email or web address] Not available 05/08/2025 09:37:32 Cassia Rios, a [...] a pending pulmonology follow-up for respiratory management. [email or web address] Not available 05/08/2025 09:34:48 05/19/2025 [id number] smoking cessatio n counseling, greater than 3 minutes up to 10 minutes* [email or web address] Not available 06/01/2025 08:33:04 medical record request* - pft results [email or web address] Not available 06/01/2025 08:33:04 Continue current medications Send for spirometry results CT of the chest in July Continue CPAP Call with problems such as increased cough or sputum production Return for follow [email or web address] Not available 05/24/2025 10:43:32 07/06/2025 [id number] vaginal yeast infection: care instructions [email or web address] Not available 07/06/2025 09:28:50 chronic obstructive pulmonary disease (COPD): care instructions [email or web address] Not available 07/06/2025 09:28:50 learning about copd and how to prevent lung infections Not available 07/06/2025 09:28:50 Reason for Referral [employer] Referral for C hronic bronchitis Referring Physician: Pacheco Krause, Family Medicine, Encounter Date: 04/10/2025 Results Created Date Observation Date Name Description Value Unit Range Abnormal Flag Note LastModifiedBy Organization Detail LastModifiedTime 03/20/2003/21/2025 CBC WITH DIFFE RENTI AL/PL ATELE T WBC 7.7 x10e3 /uL 3.4-10 .8 normal Not Available [facility] ([facility]) [address] [facility], [place], [address], 03/21/2025 08:16:21 03/20/20 25 03/21/2025 CBC WITH DIFFE RENTI AL/PL ATELE T RBC 4.99 x10e6 /uL 3.77-5 .28 normal Not Available [facility] ([facility]) [address] [place], [address], 03/21/2025 08:16:21 03/20/2003/21/2025 CBC WITH DIFFE RENTI AL/PL ATELE T hemoglobin 13.1 g/dL 11.1-1 5.9 normal Not Available [facility] ([facility]) [address] [place], [address], 03/21/2025 08:16:21 03/20/2003/21/2025 CBC WITH DIFFE RENTI AL/PL ATELE T hematocrit 43.8 % 34.0-4 6.6 normal Not Available [facility] ([facility]) [address] [place], [address], 03/21/2025 08:16:21 03/20/2003/21/2025 CBC WITH DIFFE RENTI AL/PL ATELE T MCV 88 fL 79-97 normal Not Available [facility] ([facility]) [address] [place], [address], 03/21/2025 08:16:21 03/20/2003/21/2025 CBC WITH DIFFE RENTI AL/PL ATELE T MCH 26.3 pg 26.6-3 3.0 below low normal Not Available [facility] ([facility]) [address] [place], [address], 03/21/2025 08:16:21 03/20/2003/21/2025 CBC WITH DIFFE RENTI AL/PL ATELE T MCHC 29.9 g/dL 31.5-3 5.7 below low normal Not Available [facility] ([facility]) [address] [place], [address], 03/21/2025 08:16:21 03/20/20 25 03/21/2025 CBC WITH DIFFE RENTI AL/PL ATELE T RDW 15.0 % 11.7-1 5.4 Not Available [facility] ([facility]) [address] [facility], [place], [address], 03/21/2025 08:16:21 03/20/20 25 03/21/2025 CBC WITH DIFFE RENTI AL/PL ATELE T platelets 264 x10e3 /uL 150-45 0 normal Not Available [facility] ([facility]) [address] [facility], [place], [address], 03/21/2025 08:16:21 03/20/20 25 03/21/2025 CBC WITH DIFFE RENTI AL/PL ATELE T neutrophils 59 % not estab. normal Not Available [facility] ([facility]) [address] [facility], [place], [address], 03/21/2025 08:16:21 03/20/20 25 03/21/2025 CBC WITH DIFFE RENTI AL/PL ATELE T lymphs 32 % not estab. normal Not Available [facility] ([facility]) [address] [facility], [place], [address], 03/21/2025 08:16:21 03/20/2003/21/2025 CBC WITH DIFFE RENTI AL/PL ATELE T monocytes 6 % not estab. normal Not Available [facility] ([facility]) [address] [facility], [place], [address], 03/21/2025 08:16:21 03/20/20 25 03/21/2025 CBC WITH DIFFE RENTI AL/PL ATELE T eos 2 % not estab. normal Not Available [facility] ([facility]) [address] [facility], [place], [address], 03/21/2025 08:16:21 03/20/20 25 03/21/2025 CBC WITH DIFFE RENTI AL/PL ATELE T basos 1 % not estab. 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 0 normal Not Available [facility] ([facility]) [address] [place], [address], 03/21/2025 08:16:21 03/20/2003/21/2025 CBC WITH DIFFE RENTI AL/PL ATELE T lymphs (absolute) 2.5 x10e3 /uL 0.7-3. 1 normal Not Available [facility] ([facility]) [address] [place], [address], 03/21/2025 08:16:21 03/20/2003/21/2025 CBC WITH DIFFE RENTI AL/PL ATELE T monocytes(ab solute) 0.5 x10e3 /uL 0.1-0. 9 normal Not Available [facility] ([facility]) [address] [place], [address], 03/21/2025 08:16:21 03/20/20 25 03/21/2025 CBC WITH DIFFE RENTI AL/PL ATELE T eos (absolute) 0.1 x10e3 /uL 0.0-0. 4 normal Not Available [facility] ([facility]) [address] [place], [address], 03/21/2025 08:16:21 03/20/20 25 03/21/2025 CBC WITH DIFFE RENTI AL/PL ATELE T baso (absolute) 0.1 x10e3 /uL 0.0-0. 2 normal Not Available [facility] ([facility]) [address] [facility], [place], [address], 03/21/2025 08:16:21 03/20/20 25 03/21/2025 CBC WITH DIFFE RENTI AL/PL ATELE T immature granulocytes 0 % not estab. Not Available [facility] ([facility]) [address] [facility], [place], [address], 03/21/2025 08:16:21 03/20/20 25 03/21/2025 CBC WITH DIFFE RENTI AL/PL ATELE T immature grans (abs) 0.0 x10e3 /uL 0.0-0. 1 Not Available [facility] ([facility]) [address] [facility], [place], [address], 03/21/2025 08:16:21 03/20/20 25 03/21/2025 CBC WITH DIFFE RENTI AL/PL ATELE T NRBC OCCUPATIONAL ANALYST Not Available [facility] ([facility]) [address] [facility], [place], [address], 03/21/2025 08:16:21 03/20/20 25 03/21/2025 CBC WITH DIFFE RENTI AL/PL ATELE T hematology comments: OCCUPATIONAL ANALYST Not Available [facility] ([facility]) [address] [facility], [place], [address], 03/21/2025 08:16:21 03/20/20 25 03/21/2025 LIPID PANEL cholesterol, total 209 mg/dL 100-19 9 above high normal Not Available [facility] ([facility]) [address] [facility], [place], [address], 03/21/2025 08:16:22 03/20/20 25 03/21/2025 LIPID PANEL triglyceride s 151 mg/dL 0-149 above high normal Not Available [facility] ([facility]) [address] [place], [address], 03/21/2025 08:16:22 03/20/20 25 03/21/2025 LIPID PANEL HDL cholesterol 31 mg/dL >39 below low normal Not Available [facility] ([facility]) [address] [place], [address], 03/21/2025 08:16:22 03/20/20 25 03/21/2025 LIPID PANEL VLDL cholesterol dara 28 mg/dL 5-40 Not Available [facility] ([facility]) [address] [place], [address], 03/21/2025 08:16:22 03/20/20 25 03/21/2025 LIPID PANEL LDL chol calc ([facility]) 150 mg/dL 0-99 above high normal Not Available [facility] ([facility]) [address] [place], [address], 03/21/2025 08:16:22 03/20/2003/21/2025 LIPID PANEL LDL calc comment: OCCUPATIONAL ANALYST Not Available [facility] ([facility]) [address] [place], [address], 03/21/2025 08:16:22 03/20/2003/21/2025 HEMOG LOBIN A1C hemoglobin A1C 6.3 % 4.8-5. 6 above high normal Predi abete s: 5.7 - 6.4 Diabe candy: >6.4 Glyce sandeep contr ol for adult s with diabe candy: <7.0 Not Available [facility] ([facility]) [address] [place], [address], 03/21/2025 08:16:23 03/20/20 25 03/21/2025 VITAM IN D, 25-HY DROXY vitamin D, 25-hydroxy 17.4 NG/mL 30.0-1 00.0 below low normal Vitam in D defic iency has been defin ed by the Insti tute of Medic ine and an Endoc rine Socie ty pract ice guide line as a level of serum 25-OH vitam in D less than 20 ng/mL (1,2) . The Endoc rine Socie ty went on to fur er defin e vitam in D insuf ficie ncy as a level betwe en 21 and 29 ng/mL (2). 1. IOM (Inst itute of Medic ine). 2010. Dieta ry refer ence intak es for calci um and D. Brandie sykes [place]: The [facility] . 2. Coleen byrne MF, Patel chin [place], Augusto off-F gonsalo i PARSON, et al. Evalu ation , treat ment, and preve ntion of vitam in D defic iency : an Endoc rine Socie ty clini dara pract ice guide line. JCEM. 2010; 96(7) :1911 -30. Not Available [facility] ([facility]) [address] [place], [address], 03/21/2025 08:16:23 04/10/2004/11/2025 BASIC METAB OLIC PANEL (8) glucose 68 mg/dL 70-99 below low normal Not Available [facility] ([facility]) [address] [place], [address], 04/11/2025 06:16:06 04/10/20 25 04/11/2025 BASIC METAB OLIC PANEL (8) BUN 14 mg/dL 6-24 normal Not Available [facility] ([facility]) [address] [place], [address], 04/11/2025 06:16:06 04/10/20 25 04/11/2025 BASIC METAB OLIC PANEL (8) creatinine 0.80 mg/dL 0.57-1 .00 normal Not Available [facility] ([facility]) [address] [place], [address], 04/11/2025 06:16:06 04/10/20 25 04/11/2025 BASIC METAB OLIC PANEL (8) eGFR 88 mL/mi n/1.7 3 >59 normal Not Available [facility] ([facility]) [address] [facility], [place], [address], 04/11/2025 06:16:06 04/10/20 25 04/11/2025 BASIC METAB OLIC PANEL (8) BUN/creatini ne ratio 18 9-23 normal Not Available [facility] ([facility]) [address] [facility], [place], [address], 04/11/2025 06:16:06 04/10/20 25 04/11/2025 BASIC METAB OLIC PANEL (8) sodium 139 mmol/ L 134-14 4 normal Not Available [facility] ([facility]) [address] [facility], [place], [address], 04/11/2025 06:16:06 04/10/20 25 04/11/2025 BASIC METAB OLIC PANEL (8) potassium 4.4 mmol/ L 3.5-5. 2 normal Not Available [facility] ([facility]) [address] [facility], [place], [address], 04/11/2025 06:16:06 04/10/20 25 04/11/2025 BASIC METAB OLIC PANEL (8) chloride 103 mmol/ L 96-106 normal Not Available [facility] ([facility]) [address] [place], [address], 04/11/2025 06:16:06 04/10/20 25 04/11/2025 BASIC METAB OLIC PANEL (8) carbon dioxide, total 22 mmol/ L 20-29 normal Not Available [facility] ([facility]) [address] [facility], [place], [address], 04/11/2025 06:16:06 04/10/20 25 04/11/2025 BASIC METAB OLIC PANEL (8) calcium 9.0 mg/dL 8.7-10 .2 normal Not Available [facility] ([facility]) [address], [place], [address], 04/11/2025 06:16:06 03/20/20 25 XR, chest , 2 view No observ ation record ed. [address] , [place], [address], 03/25/2025 09:22:22 04/10/20 25 XR, chest , 2 view No observ ation record ed. [address] , [place], [address], 04/13/2025 09:31:25 05/24/20 25 05/24/2025 XR, chest , 2 view No observ ation record ed. [address], [place], [place], [address], 05/25/2025 08:03:34 05/25/2005/24/2025 elect kia falcon am inter preta tion* No observ ation record ed. [address], [place], [place], [address], 05/25/2025 08:00:53 Result Notes None recorded. Problems Name Problem SNOMED Code Status Onset Date Resolution Date Notes Provider Name and Address Organization Details Recorded Time Suspecte d COVID-19 610952957 Completed 10/11/2020 Removal Reason: Problem added by user from the [employer] watch flag Susan Meme null, [place] - [facility] 13:48:16 Suspecte d COVID-19 595948867 Completed 08/02/2021 Removal Reason: Problem marked historic al by user [email or web address] from the [employer]-19 watch flag Susan Meme null, [place] - [facility] 13:48:16 Acid reflux 023544586 Active 2015 Trudy Michelle null, [place] - [facility] 6 09:53:44 Fibroade nosis of breast 60020173 Active 2015 Trudy Michelle null, [place] - [facility] 6 09:54:02 Lateral epicondy litis 603600675 Completed 201501/24/2017 Abraham Rebollar MD [address], [place], [address] , [place] - [facility] 7 13:07:37 Nicotine dependen ce 80920958 Active 2016 Dolly Champagne null, [place] - [facility] 7 11:36:27 Tendinit is of foot 204193524 Active 2016 Abraham Rebollar MD [address], [place], [address] , [place] - [facility] 7 13:07:57 Long-ter m drug therapy Active 2016 depo provera; declines BOB Shine APRN [address], [place], [address] , [place] - [facility] 7 10:59:48 Dyspnea 059841733 Completed 201905/07/2020 Nora Hooks null, [place] [facility] 0 09:12:40 Vitamin D deficien cy 85098562 Active 2019 Crystal Lotus null, [place] [facility] 0 16:07:20 Pulmonar y emphysem a 74642489 Active 2019 Nora Hooks [place] [facility] 0 16:44:31 Asthma 782521616 Active 2020 Flores Jose null[place] - [facility] 1 10:26:19 Chronic obstruct joan pulmonar y disease 87180520 Active 2020 Jody Chen MD [address], [place], [address] , [place] [facility] 5 10:38:22 Fibrocys tic disease of breast 97999478 Active 2020 Kristen Shine APRN [address], [place], [address] , [place] [facility] 1 14:39:41 COVID-19 965173545 Completed 202005/30/2021 Removal Reason: Problem marked historic al by user [email or web address] from the COVID-19 watch flag Pacheco Krause, SHRIMP PEELER [address], [place], [address] , [place] [facility] 4 11:12:19 COVID-19 930693133 Completed 202005/30/2021 Removal Reason: Problem marked historic al by user from the COVID-19 watch flag Pacheco Krause, SHRIMP PEELER [address], [place], [address] , [place] [facility] 4 11:12:19 COVID-19 940024449 Completed 202106/22/2022 Pacheco Krause, SHRIMP PEELER [address], [place], [address] , [place] [facility] 4 11:12:19 Allergic rhinitis 33823866 Active 2021 Crystal Lotus null, [place] [facility] 2 14:53:22 Acute pharyngi tis 014269685 Completed 202102/09/2023 Crystal Lotus null, [place] [facility] 3 09:03:10 Nodule of lung 905343021 Active 2022 Latosha Pavon, SHRIMP PEELER [address], [place], [address] , [place] [facility] 3 09:33:01 Seasonal allergic rhinitis 716476910 Active 2022 Latosha Pavon, SHRIMP PEELER [address], [place], [address] , [place] [facility] 3 09:33:19 Pain of left ankle joint 57875282941 850792 Active 2022 Latosha Pavon, SHRIMP PEELER [address], [place], [address] , [place] [facility] 3 09:34:47 Pharyngi tis 011064503 Active 2022 Pacheco Krause, SHRIMP PEELER [address], [place], [address] , [place] [facility] 3 11:35:20 Upper respirat ory infectio n 94911826 Active 2022 Pacheco Krause, SHRIMP PEELER [address], [place], [address] , [place] [facility] 3 13:36:54 Acute bronchit is 42045108 Active 2022 Pacheco Krause, SHRIMP PEELER [address], [place], [address] , [place] [facility] 3 14:08:31 Obesity 010028660 Active 2022 Pacheco Krause, SHRIMP PEELER [address], [place], [address] , [place] [facility] 3 14:25:02 Chronic bronchit is 06457684 Active 2022 Pacheco Krause, BUBBA [address], [place], [address] , [place] [facility] 3 11:41:44 Cough 16663334 Active 2022 Pacheco Krause, SHRIMP PEELER [address], [place], [address] , [place] [facility] 3 11:45:40 Acute sinusiti s 05943273 Active 2022 Pacheco Kruase, SHRIMP PEELER [address], [place], [address] , [place] [facility] 3 12:57:59 Influenz a caused by Influenz a A virus 816591857 Active 2023 Agustin Rahman, DO [address], [place], [address] , [place] [facility] 4 16:32:14 Sore throat 022919402 Active 2023 Agustin Rahman, DO [address], [place], [address] , [place] [facility] 4 16:33:29 Neuropat hy 794186425 Active 2023 Pacheco Krause, SHRIMP PEELER [address], [place], [address] , [place] [facility] 4 09:02:03 Candidia sis of mouth 53923685 Active 2023 Pacheco Krause APRN [address], [place], [address] , [place] [facility] 4 09:14:47 Bilatera l lower limb edema 899877222 Active 2023 Pacheco Krause APRN [address], [place], [address] , [place] [facility] 4 16:00:30 Communit y acquired pneumoni a 556373670 Active 2023 Pacheco Krause APRN [address], [place], [address] , [place] [facility] 4 16:15:11 Middle ear effusion 7332886981 Active 2023 Pacheco Krause APRN [address], [place], [address] , [place] [facility] 4 16:23:46 Acute exacerba tion of chronic obstruct joan pulmonar y disease 453871325 Active 2023 Pacheco Krause APRN [address], [place], [address] , [place] [facility] 4 14:19:15 COVID-19 225097133 Active 2023 Pacheco Krause APRN [address], [place], [address] , [place] [facility] 4 11:12:19 Reducibl e umbilica l hernia 238076980 Active 2023 Pacheco Krause APRN [address], [place], [address] , [place] [facility] 4 09:26:12 Prediabe candy 959804741 Active 2024 Pacheco Krause APRN [address], [place], [address] , [place] [facility] 5 09:42:06 Hyperlip idemia 89225462 Active 2024 Pacheco Krause APRN [address], [place], [address] , [place] [facility] 5 09:42:39 Visual disturba nce 51465441 Active 2024 Pacheco Krause APRN [address], [place], [address] , [place] [facility] 5 10:00:41 Viral gastroen teritis 142010746 Active 2024 Louis Pool MD [address], [place], [address] , [place] [facility] 5 09:59:31 Low back pain 739249993 Active 2024 Louis Pool MD [address], [place], [address] , [place] [facility] 5 10:00:23 Acute infectiv e bronchit is 719578595 Active 2024 Pacheco Krause APRN [address], [place], [address] , [place] [facility] 5 14:13:08 Acute low back pain 494528778 Active 2024 Pacheco Krause APRN [address], [place], [address] , [place] [facility] 5 10:01:08 Increase d frequenc y of urinatio n 756879471 Active 2024 Pacheco Krause APRN [address], [place], [address] , [place] [facility] 5 10:08:15 Acute transuda tive otitis media 71883357 Active 2024 Pacheco Krause APRN [address], [place], [address] , [place] [facility] 5 15:55:33 Pleural effusion 68864124 Active 2024 Pacheco Krause APRN [address], [place], [address] , [place] [facility] 5 15:16:19 Mixed hyperlip idemia 143818321 Active 2024 Pacheco Krause APRN [address], [place], [address] , [place] [facility] 5 06:38:37 Obstruct joan sleep apnea syndrome 67254677 Active 2024 Jody Chen MD [address], [place], [address] , [place] - [facility] 5 10:41:00 CT of chest abnormal 39265564308 516358 Active 2024 Jody Chen MD [address], [place], [address] , [place] [facility] 5 10:41:13 Otalgia of left ear 5433977995 Active 2024 Karolina Villanueva APRN [address], [place], [address] , [place] [facility] 5 21:20:09 Acute non-supp urative serous otitis media 589547286 Active 2024 Karolina Villanueva APRN [address], [place], [address] , [place] [facility] 5 09:25:13 Candidia sis of vagina 88434942 Active 2024 Karolina Villanueva APRN [address], [place], [address] , [place] [facility] 5 09:26:18 Acute cough Active 2024 Karolina Villanueva APRN [address], [place], [address] , [place] [facility] 5 09:26:48 Problem Notes None recorded. Procedures Surgical History Date Name Laterality Status Provider Name and Address Organization Details Recorded Time 05/23/20 Medication Reconcilliation completed Karen Lotus [place] [facility] 05/23/2021 11:07:57 10/07/19 Medication Reconcilliation completed Mainor Garner [place] [facility] 10/07/2020 10:55:54 09/15/19 Systolic B/P less than 130 mm Hg completed Flores Garcia [place] [facility] 09/15/2020 10:33:55 09/15/19 Diastolic B/P less than 80 mm Hg completed Flores Garcia [place] [facility] 09/15/2020 10:33:50 09/15/19 Date of Last Pap Smear completed Kristen Shine APRN [address], [place], [address], [place] [facility] 09/17/2020 15:27:26 07/01/20 20 [...] B/P 130-139 mm Hg completed Crystal Lotus [place] - [facility] 11/21/2019 14:46:30 Imaging Results None recorded. Procedure Notes None recorded. Medical Equipment None Reported. Allergies Allergen ID Allergen Name Allergen Category Reaction Reaction Severity Criticality Documentation Date Start Date Code Code System Note Provider Name and Address Organization Details Recorded Time 571451 Trelegy medicatio n facial swelling moderate high 02/12/2023 45289 40 RxNorm Cassandra fontanez, [place] - [facility] 4 16:04:[address] medicatio n dyspnea Not available high 05/19/2025 97876 36 RxNorm Regi fontanez, [place] - [facility] 5 14:51:22 Medications Name Sig [...] Available Not Available Nasonex 50 mcg/actua tion Ratcliff Ratcliff 2 sprays every day by intranas al [...] Disconti nued on: 05/23/20 15 5:32PM;U ser: [email or web address]; Est. Completi on: 05/21/20 15;Indic ation: bronch [...] 15 8:40AM;U ser: [email or web address] ryh;Est. Completi on: 02/07/20 14;Pharm acyVerif ied: 12/09/19 [...] e 205.5 mcg (0.15 %) nasal spray Ratcliff 1 spray twice a day by intranas [...] Disconti nued on: 03/29/20 15 8:40AM;U ser: [email or web address] ryh;Est. Completi on: 02/17/20 15;Pharm acyVerif ied: 02/10/20 [...] height Body mass index (BMI) Body weight Pain severity - 0-10 verbal numeric rating [Score] - Reported Respiratory rate Oxygen saturation Oxygen saturation in Arterial blood by Pulse oximetry Heart rate Systolic And Diastolic Provider Name and Address Organization Details Last Updated DateTime 170.18 cm 35.6 kg/m2 675617. 52 g 0 18 /min 94 % 94 % 82 /min 128/82 mm[Hg] Jose Rkianoliver Lu [place] - [facility] 13:06:41 Date Recorded Body height Respiratory rate Body mass index (BMI) Body weight Pain severity - 0-10 verbal numeric rating [Score] - Reported Oxygen saturation Oxygen saturation in Arterial blood by Pulse oximetry Heart rate Body temperature Systolic And Diastolic Provider Name and Address Organization Details Last Updated DateTime 5 170.18 cm 18 /min 34.5 kg/m2 358951. 47 g 0 96 % 96 % 78 /min 98.5 [degF] 118/80 mm[Hg] Orin Tabitha [place] - [facility] 5 08:43:48 Date Recorded Body height Body mass index (BMI) Body weight Heart rate Body temperature Oxygen saturation Oxygen saturation in Arterial blood by Pulse oximetry Respiratory rate Pain severity - 0-10 verbal numeric rating [Score] - Reported Systolic And Diastolic Provider Name and Address Organization Details Last Updated DateTime 5 170.18 cm 34.7 kg/m2 823140. 71 g 87 /min 98.4 [degF] 96 % 96 % 20 /min 0 126/85 mm[Hg] Regi Rickeyvinicius [place] - [facility] 5 14:46:19 Date Recorded Body height Body mass index (BMI) Body weight Oxygen saturation Oxygen saturation in Arterial blood by Pulse oximetry Respiratory rate Body temperature Systolic And Diastolic Provider Name and Address Organization Details Last Updated DateTime 5 170.18 cm 34.9 kg/m2 557518. 1 g 96 % 96 % 18 /min 98 [degF] 118/70 mm[Hg] Juanis bryan [place] - [facility] 5 14:50:38 Date Recorded Body height Body mass index (BMI) Body weight Respiratory rate Pain severity - 0-10 verbal numeric rating [Score] - Reported Heart rate Oxygen saturation Oxygen saturation in Arterial blood by Pulse oximetry Systolic And Diastolic Provider Name and Address Organization Details Last Updated DateTime 5 170.18 cm 34.9 kg/m2 881818. 1 g 16 /min 0 82 /min 98 % 98 % 128/76 mm[Hg] Estelita Christensen [place] - [facility] 5 09:15:37 Social History Question Answer Notes LastModified by Organizat ion Details LastModified Time Tobacco Smoking Status Former Smoker 2 weeks as of 01/16 Joanne Peace [place], [place] - [facility] 01/16/2025 13:28:33 Do You [...] COVID-19 While That Case Was Ill? No [email or web address] Information not available 12/01/2024 In The 14 Days Before Symptom Onset, Have You Had Close Contact With A Person Who Is Under Investigation For COVID-19 While That Person Was Ill? No [email or web address] Information not available 12/01/2024 Have You Been To An Area Known To Be High Risk For COVID-19? No [email or web address] Information not available 12/01/2024 Are You Deaf Or Do You Have Serious Difficulty Hearing? No Information not available 08/17/2016 What Type Of Diet Are You Following? REGULAR Information not available 08/17/2016 Which Illicit Or Recreational Drugs Have You Used? Denies Information not available 08/17/2016 Have You Processed Blood Or Body Fluids From An Ebola Virus Disease Patient Without Appropriate PPE? No [email or web address] Information not available 12/01/2024 Do You Reside In Or Have You Traveled To An Area Where Ebola Virus Transmission Is Active? No [email or web address] Information not available 12/01/2024 How Many Days Of Moderate To Strenuous Exercise, Like A Brisk Walk, Did You Do In The Last 7 Days? 1 [email or web address] Information not available 05/16/2018 On Those Days That You Engage In Moderate To Strenuous Exercise, How Many Minutes, On Average, Do You Exercise? 1 [email or web address] Information not available 05/16/2018 Have There Been Any Changes To Your Family Or Social Situation? No [email or web address] Information no t available 12/01/2024 Have You Recently Or Are You Planning To Travel To An Area With Zika Virus? No [email or web address] Information not available 12/01/2024 Live Alone Or With Others? With Others Information not available 08/17/2016 Do You Have A Medical Power Of Developer Analyst? No [email or web address] Information not available 12/01/2024 What Was The [...] Carbon Monoxide Detectors In Your Home? No [email or web address] Information not available 12/01/2024 At What Age Did You Start Smoking Tobacco? 14 Information not available 02/12/2023 Are You Passively Exposed To Smoke? No [email or web address] Information no t available 12/01/2024 How Much Tobacco Do You Smoke? 1.5 PPD Information not available 09/15/2020 Do You Use Sunscreen Routinely? No Information not available 07/18/2017 Has Tobacco Cessation Counseling Been Provided? Yes Information not available 06/22/2022 On What Date Was Tobacco Cessation Counseling Provided? 05/19/2025 [email or web address] Information not available 05/19/2025 How Many Years Have You Smoked Tobacco? 38 [email or web address] Information not available 09/15/2020 Do You Have Difficulty Walking Or Climbing Stairs? No Information not available 08/17/2016 Sex: Female Functional Status Question Answer Note LastModified by Organizat ion Details LastModified Time Do you or have you ever used smokeless tobacco? Never used smokeless tobacco [email or web address] Information not available 09/15/2020 Are you currently [...] e-cigarettes or vape? Never used electronic cigarettes [email or web address] Information not available 09/15/2020 What is your [...] not available 08/17/2016 What is your occupation? [employer] Information not available 08/17/2016 Mental Status Question Answer Note LastModified by Organizat ion Details LastModified Time Do you feel stressed (tense, restless, nervous, or anxious, or unable to sleep at night)? [id number] [email or web address] Information not available 05/16/2018 Do you have [...] 09/15/2020 Sexual Problems? 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 Method Depo-Guardian Ad Litem a LMP Definite Desired Control Method Hormonal In jection Obstetrics History GPAL:G 1 P 1 0 0 1 Type Value Full Term 1 Living 1 Total 1 Immunizations Vaccine Type Date Status Note Provider Name and Address Organization Details Recorded Time RSV, recombinant, protein subunit RSVpreF, adjuvant reconstituted, 0.5 mL, PF 09/26/19 completed Krystle Brittany fontanez, [place] - [facility] 09/26/2024 09:47:56 Influenza, split virus, quadrivalent, preservative 09/15/19 cancelled patient objection Kristen Sihne, [employer] [address], [place], [address], [facility] - [facility] 09/15/2020 11:14:13 zoster recombinant 09/26/19 cancelled patient objection Pacheco Krause, [employer] [address], [place], [address], [place] - [facility] 09/27/2024 09:41:43 Tdap 09/26/19 cancelled patient objection Pacheco Krause [employer] [address], [place], [address], [place] - [facility] 09/27/2024 09:41:43 Pneumococcal conjugate PCV20, polysaccharide [id number] conjugate, adjuvant, PF 09/26/19 completed Pacheco Krause APRN [address], [place], [address], [facility] - [facility] 09/27/2024 09:41:43 Influenza, split virus, trivalent, preservative 09/26/19 cancelled patient objection Pacheco Krause [employer] [address], [place], [address], [facility] 09/27/2024 09:41:43 Tdap 02/14/20 25 completed Joanne Peace null, [place] - [facility] [...] ICD10 Code Diagnosis IMO Codes Diagnosis Note [id number] BUBBA Adam [employer] [address] [place] [address] [place] [address] 08/17/2016 10:21:26 08/17/2016 10:58:03 Contraception care management 380074296 Z30.9 [id number] Abraham Rebollar MD [facility] [address] [place] [place] [address] 08/17/2016 15:28:43 08/18/2016 09:48:20 Lateral epicondylitis 262428381 M77.11 Adult heal th examination 752224564 Z00.00 [id number] BUBBA Adam [employer] [address] [place] [address] [place] [address] 11/08/2016 09:08:11 11/08/2016 09:41:36 Contraception care management 503159282 Z30.9 [id number] Abraham Rebollar MD [facility] [address] [place] [address] 01/24/2017 11:02:41 01/24/2017 12:08:31 Body mass index 30+ - obesity 564513035 Z68.39 Nicotine dependence 5629 4008 F17.200 Pain in right foot 16806 52754 79466 M79.671 Tendinitis of foot 62251 2007 M77.9 Acid reflux 395012781 K2 1.9 Lateral epicondylitis 20 2916797 M77.11 [id number] BUBBA Adam [employer] [address] [place] [address] [place] [address] 01/31/2017 08:48:43 01/31/2017 09:12:30 Contraception care management 891348349 Z30.9 [id number] BUBBA [place] [employer] [address] [place] [address] [place] [address] 04/25/2017 08:36:37 04/25/2017 09:20:14 Contraception care management 674492633 Z30.9 [id number] Nora Hooks [address] [place] [address] 06/01/2017 15:54:30 06/01/2017 17:05:33 Nicotine dependence 02854837 F17.200 Body mass index 30+ - obesity 297658289 Z68.32 Cough 38584872 R05 [id number] Nora Hooks [address] [place] [address] 06/04/2017 13:27:34 06/04/2017 15:00:36 Cough 72673763 R05 Nicotine dependence 5629 4008 F17.200 Body mass index 30+ - obesity 722948366 Z68.32 Acute bronchitis 5611340 2 J20.9 [id number] Abraham Rebollar MD [address] [place] [address] 06/20/2017 10:54:13 06/20/2017 13:19:06 Foot pain 22684106 M79.672 Tendinitis of foot 93998 2007 M77.9 Acid reflux 167541218 K2 1.9 Lateral epicondylitis 20 9727937 M77.11 [id number] BUBBA Adam [employer] [address] [place] [address] [place] [address] 07/18/2017 08:45:48 07/18/2017 09:36:42 Routine gynecologic examination done 2789097486 9101 Z01.419 Depression screening 171 321374 Z13.89 Hypertensi on screening 462502281 Z13.6 Screening for malignant neoplasm of cervix 182487419 Z12.4 Diet education 17045043 Z71.3 Encourage healthy eating/dec reased fats, sugars, fried foods Screening for malignant neoplasm of breast 109941995 Z12.31 declines mammogram Counseling 387708061 Z71 .9 Encouraged regular exercise 30-40 min/day 4-5 days/wk Contracept ion care management 358131475 Z30.9 Body mass index 30+ - obesity 204244558 Z68.32 Cigarette smoker 6960689 7 F17.169 [id number] Nora Hooks [address] [place] [address] 09/27/2017 15:28:02 09/27/2017 16:14:54 Upper respiratory infection 90673493 J06.9 [id number] Kristen Shine [employer] [place] [employer] [address] [place] [address] [place] [address] 10/11/2017 10:54:37 10/11/2017 11:05:48 Contraception care management 871381536 Z30.9 [id number] Kristen Shine [employer] [place] [employer] [address] [place] [address] [place] [address] 01/02/2018 10:06:52 01/02/2018 10:20:07 Contraception care management 311849614 Z30.9 [id number] Gibran Marinelli MD [address] [place] [address] 05/13/2018 12:54:55 05/13/2018 15:37:26 Pain in lumbar spine 801691460 M54.5 Low back pain 521978637 M54.5 [id number] Debi Nolen [address] [place] [address] 10/28/2018 08:21:09 10/28/2018 09:29:52 Pharyngitis 609021541 J02.9 Influenza- like symptoms 301928820 R68.89 Otitis media 81406917 H6 6.92 [id number] Nora Hooks [address] [place] [address] 12/09/2018 08:22:19 12/09/2018 10:20:07 Cough 07869176 R05 Costal chondritis 083705 04 M94.0 [id number] Nora Hooks [address] [place] [address] 11/21/2019 14:41:06 11/21/2019 15:24:45 Body mass index 30+ - obesity 394270343 Z68.30 Cough 64729994 R05 Pharyngitis 342435140 J0 2.9 Acute bronchitis 2820574 2 J20.9 [id number] Nora Hooks [address] [place] [address] 11/24/2019 09:13:26 11/24/2019 10:19:16 Dyspnea 865683566 R06.00 Acute bronchitis 9475551 2 J20.9 Smoker 15665018 F17.677 [id number] Nora Hooks [address] [place] [address] 12/01/2019 11:33:06 12/01/2019 12:04:02 Community acquired pneumonia 907970513 J18.9 Acute exac erbation of chronic obstructive pulmonary disease 929806201 J44.1 Candidiasis of mouth 797 50494 B37.0 Anxiety 47111688 F41.9 Gastroesop hageal reflux disease 777261239 K21.9 Chronic ob structive pulmonary disease 18914653 J44.9 [id number] Nora Hooks [address] [place] [address] 03/19/2020 09:47:31 03/19/2020 11:34:06 Pain of shoulder region 06285211 M25.512 Viral screening 86476517 4 Z11.59 Smoker 42806152 F17.567 [id number] Nora Hooks [address] [place] [address] 04/01/2020 14:08:21 04/01/2020 15:09:39 Upper respiratory infection 57619019 J06.9 Fatigue 29211987 R53.83 Dyspnea 330481088 R06.00 Screening for cardiovascular system disease 336060662 Z13.6 Excessive thirst 9359449 7 R63.1 Smoker 37915616 F17.200 Acute bronchitis 6950024 2 J20.9 Gastroesop hageal reflux disease 083094789 K21.9 Allergic rhinitis 692126 04 J30.9 [id number] Nora Hooks [address] [place] [address] 04/13/2020 08:17:01 04/13/2020 08:52:52 Viral screening 916958356 Z11.59 [id number] Nora Hooks [address] [place] [address] 05/07/2020 08:44:29 05/07/2020 09:46:24 Low back pain 997392128 M54.5 Smoker 57022226 F17.200 Pulmonary emphysema 8743 3001 J43.9 [id number] Nora Hooks [address] [place] [address] 05/13/2020 11:09:28 05/13/2020 12:06:50 Conjunctivitis 8898188 H10.9 Smoker 57117880 F17.200 Pharyngitis 643715432 J0 2.9 [id number] Nora Hooks [address] [place] [address] 07/01/2020 13:42:01 07/01/2020 14:25:33 Pharyngitis 511963563 J02.9 Pulmonary emphysema 8743 3001 J43.9 Smoker 72146027 F17.917 [id number] BUBBA Adam [employer] [facility] [place] [address] 09/15/2020 10:18:07 09/15/2020 12:25:11 Routine gynecologic examination done 6304034439 9101 Z01.419 Depression screening 171 795004 Z13.89 Hypertensi on screening 715593983 Z13.6 Screening for malignant neoplasm of cervix 185531443 Z12.4 Diet education 67488050 Z71.3 Encourage healthy eating/dec reased fats, sugars, fried foods Counseling 937811839 Z71 .82 Encouraged regular exercise 30-40min/d ay 4-5 days/wk Examinatio n of blood pressure 655478118 Z01.30 Vaccine de clined by patient 2512892323 02 Z28.21 Pt declined flu vaccine today. Body mass index 30+ - obesity 524191662 Z68.33 Uses depot contraception 934851677 Z30.013 Cigarette smoker 0122086 7 F17.210 Fibrocysti c disease of breast 38203744 N60.19 [id number] Nora Hooks [address] [place] [address] 10/07/2020 10:53:41 10/07/2020 11:45:44 Chronic obstructive pulmonary disease 27997867 J44.9 Pulmonary emphysema 8743 3001 J43.9 Dyspnea 908485977 R06.00 Viral screening 40485657 4 Z11.59 Fatigue 70132830 R53.83 [id number] Kristen Shine APRN [place] [employer] [address] [place] [address] [place] [address] 12/08/2020 10:18:59 12/08/2020 10:28:37 Uses depot contraception 897738369 Z30.164 [id number] Nora Hooks [address] [place] [address] 02/10/2021 08:42:33 02/10/2021 10:08:16 Chronic obstructive pulmonary disease 39692232 J44.9 Vitamin D deficiency 347 53659 E55.9 Smoker 42070369 F17.200 Strain of rotator cuff of shoulder 800930867 S46.011A [id number] Lorrie Mann APRN [place] [employer] [address] [place] [address] [place] [address] 03/01/2021 11:21:08 03/01/2021 11:30:46 Uses depot [facility] 584139151 Z30.42 [id number] Nora Hooks [address] [place] [address] 4 05/23/2021 10:29:28 05/23/2021 11:39:55 COVID-19 197252986 U07.1 Pneumonia caused by SARS-CoV-2 6130749139 35141147 J12.82 Hypokalemia 90836502 E87 .6 [id number] Nora Hooks [address] [place] [address] 4 05/30/2021 10:16:33 05/30/2021 11:33:40 COVID-19 759906887 U07.1 Viral pneumonia 08721686 J12.9 Hypokalemia 35611391 E87 .6 [id number] Nora Hooks [address] [place] [address] 4 07/25/2021 14:37:57 07/25/2021 15:46:33 Viral screening 420658667 Z11.59 Acute exac erbation of chronic obstructive pulmonary disease 559003291 J44.1 [id number] Nora Hooks [address] [place] [address] 4 08/09/2021 07:55:08 08/09/2021 08:30:27 Candidiasis of mouth 49063566 B37.0 [id number] Arcelia Stafford [address] [place] [address] 4 09/23/2021 15:43:54 11/29/2021 15:37:25 COVID-19 711882397 U07.1 [id number] Yasmin Aguirre [address] [place] [address] 4 02/21/2022 09:04:33 02/21/2022 09:43:41 Acid reflux 076823233 K21.9 Difficulty swallowing 28 6344123 R13.10 Nasal congestion 3269480 0 R09.81 Feeling of lump in throat 083282134 F45.8 [id number] Latosha Pavon [address] [place] [address] 06/22/2022 14:16:56 06/22/2022 15:35:40 Body mass index 30+ - obesity 886676814 Z68.32 Obesity 365071716 E66.3 Acid reflux 184470689 K2 1.9 Allergic rhinitis 301286 04 J30.9 Acute pharyngitis 159030 003 J02.9 [id number] Latosha Pavon [address] [place] [address] 10/19/2022 09:47:26 10/19/2022 10:34:58 Allergic rhinitis 25124054 J30.9 Acid reflux 259553408 K2 1.9 Viral screening 17976106 4 Z11.59 negative for influenza A&B per rapid screen [id number] Latosha Pavon [address] [place] [address] 02/09/2023 08:25:51 02/09/2023 10:25:35 Body mass index 30+ - obesity 073572266 Z68.33 Obesity 512592624 E66.9 Nicotine dependence 5629 4008 F17.200 Nodule of lung 466432496 R91.1 Seasonal a llergic rhinitis 962253589 J30.2 Pain of le ft ankle joint 3771574207 0355422 M25.572 Chronic ob structive pulmonary disease 48272221 J44.9 Endocrine/ metabolic screening 758431032 Z13.228 Screening for cardiovascular system disease 697280553 Z13.6 [id number] Pacheco Krause [address] [place] [address] 04/18/2023 13:19:22 04/18/2023 14:22:03 Pharyngitis 779120469 J02.9 Body mass index 30+ - obesity 165835969 Z68.35 Obesity 015560310 E66.9 Upper resp iratory infection 75094704 J06.9 Acute bronchitis 1872922 2 J20.9 [id number] Pacheco Krause APRN [address] [place] [address] 04/27/2023 11:13:29 04/27/2023 13:00:12 Bronchitis 26555696 J40 Pulmonary emphysema 8743 3001 J43.9 [id number] Pacheco Krause APRN [address] [place] [address] 05/31/2023 12:20:24 05/31/2023 13:06:40 Viral screening 077157511 Z11.52 Z11.59 Acute sinusitis 52208208 J01.90 Patient likely has an acute bacterial [...] reviewed appropriat e doses.Foll ow-up as below. [id number] Agustin Rahman DO [facility] [address] [place] [address] 09/07/2023 16:05:52 09/07/2023 16:35:50 Sore throat 064194898 J02.9 Pharyngiti s. Strep testing was negative. Do believe most likely related to postnasal drainage and cobbl[place] ing. Supportive care including antipyreti cs, antiinflam matory, and throat spray discussed in detail. Patient to maintain adequate hydration. Influenza caused by Influenza A virus 041079739 J09.X2 Flu A. Conservati ve management reviewed with patient. Resolving, patient no longer febrile. Chronic ob structive pulmonary disease 43685382 J44.9 COPD exacerbati on. Improved. Patient advised to finish the antibiotic s as well as steroids as written. Patient advised to continue her inhalers as prescribed and follow-up with her pulmonolog ist as scheduled. [id number] Pacheco Krause APRN [address] [place] [address] 11/26/2023 15:57:11 11/26/2023 16:47:48 Acute sinusitis 64398680 J01.90 Patient likely has an acute bacterial [...] reviewed appropriat e doses.Foll ow-up as below. [id number] Pacheco Krause APRN [address] [place] [address] 12/21/2023 08:39:20 12/21/2023 09:16:07 Chronic obstructive pulmonary disease 08036869 J44.9 Vitamin D deficiency 347 36334 E55.9 Candidiasis of mouth 797 20540 B37.0 -reports frequent thrush with inhalers and keeps a nystatin for when she needs it. Body mass index 30+ - obesity 436818512 Z68.35 Obesity 938978534 E66.9 Anemia screening 2749957 07 Z13.0 Diabetes m ellitus screening 353216289 Z13.1 Thyroid di sorder screening 209903105 Z13.29 Screening for cardiovascular system disease 736672511 Z13.6 Neuropathy 306191649 G62 .9 Allergic rhinitis 014562 04 J30.9 [id number] Yasmin Aguirre APRN [facility] [address] [place] [address] 03/28/2024 16:13:51 03/28/2024 16:58:29 Viral screening 996464372 Z11.59 Pharyngitis 855440998 J0 2.9 Acute bila teral otitis media 261519239 H66.93 Cough 49977906 R05.9 Chest pain 86179048 R07. 9 [id number] Pacheco Krause APRN [address] [place] [address] 05/14/2024 15:21:33 05/14/2024 16:38:12 Body mass index 30+ - obesity 497248099 Z68.35 Obesity 486249441 E66.9 Pharyngitis 438273783 J0 2.9 Rapid strep obtained in clinic today and was not positive. Recommend patient to gargle frequently with warm salt water, lozenges or sprays, and saline nasal spray as needed. Advised ibuprofen or acetaminop hen as needed for pain control. Should symptoms persists or become worse, RTC for reevaluati on. Begin all meds as written today. Bilateral lower limb edema 219272775 R60.0 Community acquired pneumonia 199229299 J18.9 Middle ear effusion 1004 058085 H74.8X9 [id number] Pacheco Krause APRN [address] [place] [address] 05/30/2024 13:41:09 05/30/2024 14:34:44 Body mass index 30+ - obesity 853692799 Z68.35 Obesity 062852219 E66.9 Acute exac erbation of chronic obstructive pulmonary disease 728089970 J44.1 Worsened cough, dyspnea, increased sputum production /purulence - IM steroid given in office- Continue Nebulized Albuterol q4-6hrs PRN at home- Counseled on trigger avoidance and smoking cessation- Continue start regimen: Z-talib, oral corticoste roids- Emergency Department warnings given if complicati ons or symptoms become severe- Follow-up in 3 days; sooner if needed [id number] Pacheco Krause APRN [address] [place] [address] 07/25/2024 09:04:18 07/25/2024 09:27:31 Body mass index 30+ - obesity 976917838 Z68.35 Obesity 196125882 E66.9 Reducible umbilical hernia 713586026 K42.9 - small reducible umbilical hernia- based on Pt work and pulmonary history foresee this being a chronic issue- US to further assess contents of hernia- refer to surgeon for evaluation and possible surgical treatment [id number] Elizabeth Villanueva [employer] [address] [place] [address] 08/29/2024 13:12:11 08/29/2024 15:20:59 Viral screening 615752023 Z11.52 Influenza- like illness 03850707 B34.9 Pharyngitis 552933649 J0 2.9 Body mass index 30+ - obesity 632828749 Z68.36 Obesity 854861600 E66.9 Chronic ob structive pulmonary disease 28860406 J44.9 Acute exac erbation of chronic obstructive pulmonary disease 218666460 J44.1 [id number] Karolina Villanueva [address] [place] [address] 09/01/2024 15:33:07 09/01/2024 16:57:12 Chronic obstructive pulmonary disease 24111836 J44.9 Acute exac erbation of chronic obstructive pulmonary disease [id number] J44.1 Cough 86484597 R05.9 [id number] Pacheco Krause [address] [place] [address] 09/26/2024 08:21:33 09/26/2024 09:20:01 General examination of patient 610880915 Z00.01 Screening mammography 24 983473 Z12.31 - pt refuses mammogram screening at this time Dietary ma nagement surveillance 914927147 Z71.3 Administra tion of pneumococcal vaccine 77871679 Z23 - pt agreeable to pneumococc al vaccine Thyroid di sorder screening 789480705 Z13.29 Screening for cardiovascular system disease 887604419 Z13.6 Anemia screening 3493870 07 Z13.0 Diabetes m ellitus screening 882732646 Z13.1 Vitamin D deficiency 347 88869 E55.9 Body mass index 30+ - obesity 212101508 Z68.36 Obesity 412364974 E66.9 - pt wishing to explore GLP-1 [...] di phtheria and acellular pertussis vaccination declined [id number] 3449421 Z28.20 - pt refuses Tdap at this time due getting other vaccines today, but is willing to come back in 2-3 weeks to get the Tdap vaccine Herpes zos ter vaccination declined 1845835968 102 Z28.20 - pt refuses herpes zoster vaccine at this time due getting other vaccines today, but is willing to come back in 2-3 weeks to get the herpes zoster vaccine Influenza vaccination declined 585693262 Z28.21 - pt refuses influenza vaccine, states she became very ill following a flu shot several years ago Requires r espiratory syncytial virus vaccination 970630297 Z28.39 - pt agreeable to RSV vaccine Screening for malignant neoplasm of colon 053914160 Z12.11 - pt agreeable to cologuard for colon cancer screening- pt denies any family history of colon cancer as well as any chronic abdominal pain, nausea, vomiting, diarrhea, constipati on, melena, or bloody stools. Depression screening 171 442084 Z13.31 -PHQ-2 administer ed, score 0 depression severity none to minimal-Fo llow up in 1 year for re-evaluat ion [id number] Pacheco Krause APRN [address] [place] [address] 10/17/2024 09:09:22 10/17/2024 11:10:19 Administration of diphtheria, pertussis, and tetanus vaccine 459844936 Z23 Body mass index 30+ - obesity 279135961 Z68.35 Obesity 345912655 E66.9 Acute bronchitis 2527126 2 J20.9 - No signs of pneumonia or other complicati ons.- Prescribe a 5-day course of azithromyc in- Advise patient to drink plenty of fluids, rest, and avoid smoking.- Schedule a follow-up visit in 1 weeks to monitor recovery and rule out any secondary infections . Reducible umbilical hernia 125913273 K42.9 - small reducible umbilical hernia- based on Pt work and pulmonary history foresee this being a chronic issue- US confirmed- refer to surgeon for evaluation and possible surgical treatment Vitamin D deficiency 347 34690 E55.9 - establishe d diagnosis- vitamin D level 14.5 (09/2024)- restart on supplement at 50k u weekly Acid reflux 216601979 K2 1.9 Visual disturbance 16272 001 H53.9 - No red flag symptoms [...] t or ophthalmol ogist for a comprehens joan eye exam. Patient Education: Importance of regular eye examinatio ns.Awarene ss of symptoms indicating worsening vision or potential emergencie s.Lifestyl e modificati ons for overall eye health, including diet and smoking cessation. Follow-Up: Patient is to schedule a follow-up visit in 4 weeks, or sooner if symptoms worsen. Depression screening positive 0598821809 64791 Z13.31 Patient with symptoms concerning for depression . PHQ-9 score: 7. Denies SI/HI. No other safety concerns at this time.Will not start medication at this time. Follow-up in 1 month [id number] Joe Jones DO [facility] [address] [place] [address] 12/01/2024 09:37:31 12/01/2024 10:18:31 Viral gastroenteritis 533013058 A08.4 resolved/r esolving n/v/d. Likely viral, now that symptoms have resolved. Encouraged adequate hydration. Encouraged zofran as needed for n/v, but pt declined at this time. Cough 35243016 R05.9 Resolved, negative for flu/covid/ strep. Low back pain 846961313 M54.50 Chronic, diclofenac , heat, positionin g, reviewed LBP exercises with pt, she verbalized understand ing. Elevated blood-pressure reading without diagnosis of hypertension 498287906 R03.0 acute pain complicati ng; recommend patient check outside readings particular ly outside of acute low back pain and if persistent ly above 140/90 recommend f/u w/ PCP [id number] Pacheco Krause APRN [address] [place] [address] 01/16/2025 12:52:42 01/16/2025 14:23:37 Acute infective bronchitis 169612730 J20.8 790129 [id number] Pacheco Krause APRN [address] [place] [address] 01/21/2025 09:39:37 01/21/2025 10:27:45 Community acquired pneumonia 770164173 J18.9 - Presents for follow up on [...] week Body mass index 30+ - obesity 480587538 E66.9 21031806 Obesity 007037920 E66.9 Obese class I 5436714403 15559 E66.027 4988859 [id number] Pacheco Krause APRN [address] [place] [address] 02/12/2025 09:27:49 02/12/2025 10:28:58 Community acquired pneumonia 519836942 J18.9 - Presents for follow up on [...] up in 1 week Obese class II 383531730 1 43877 E66.607 5219243 Obesity 650526111 E66.9 Increased frequency of urination 526917252 R35.0 56549 [id number] Pacheco Krause APRN [address] [place] [address] 02/20/2025 14:59:37 02/20/2025 16:16:11 Community acquired pneumonia 006103069 J18.9 - resolved Body mass index 30+ - obesity 114894342 Z68.34 058462 Obesity 510224931 E66.9 Left later al elbow tendinopathy 9864774842 38531 M77.12 2985428 Acute rodriguez sudative otitis media 02912669 H65.192 40904867 [id number] Pacheco Krause APRN [address] [place] [address] 03/20/2025 09:40:52 03/20/2025 11:05:50 Screening mammography 93552197 Z12.31 - pt refuses mammogram screening at this time Dietary ma nagement surveillance 156592704 Z71.3 Acid reflux 896443102 K2 1.9 Hyperlipidemia 95238667 E78.5 - TC 198, TRG 147, HDL 31, LDL 140 (09/2024)- 10-year ASCVD risk 6%- no medication s at this time- encourage improved diet and exercise; OTC red yeast rice if desired Prediabetes 752396075 R7 3.03 Establishe d Diagnosis Uncontroll ed A1c: 6.4% Goals: Prevention of progressio n to diabetes Management : Dietary and lifestyle modificati ons Follow up in 3 months Acute exac erbation of chronic obstructive pulmonary disease 744168080 J44.1 Worsened cough, dyspnea, wheezing, increased sputum production /purulence with left sided pleuritic chest pain- IM steroid and ceftriaxon e given in office- chest xray to rule out pneumonia- Continue Nebulized Albuterol q4-6hrs PRN at home- Counseled on trigger avoidance and smoking cessation- Emergency Department warnings given if complicati ons or symptoms become severe- Follow-up in 3 days; sooner if needed Vitamin D deficiency 347 60775 E55.9 - establishe d diagnosis- vitamin D level 14.5 (09/2024)- restart on supplement at 50k u weekly Allergic rhinitis 869525 04 J30.9 Bilateral lower limb edema 722704354 R60.0 - reports inconsiste nt results from furosemide [id number] Pacheco Krause APRN [address] [place] [address] 03/27/2025 09:56:21 03/27/2025 11:29:28 Mixed hyperlipidemia 523874777 E78.2 23079 - TC 209, TRG 151, HDL 31, LDL 150 (03/2025)- 10-year ASCVD risk 9%- start on statin therapy- encourage improved diet and exercise- repeat lipid panel in 3 months Acute exac erbation of chronic obstructive pulmonary disease 511533322 J44.1 [id number] Pacheco Krause APRN [address] [place] [address] 04/10/2025 12:38:02 04/10/2025 14:05:43 Pleural effusion 03405444 J90 003280 Hyperlipidemia 89042844 E78.5 - TC 198, TRG 147, HDL 31, LDL 140 (09/2024)- 10-year ASCVD risk 6%- Cannot tolerate statins- Start leqvio- encourage improved diet and exercise; OTC red yeast rice if desired Bilateral lower limb edema 066750516 R60.0 - improved edema with bumetanide 2 mg daily Chronic bronchitis 47957 004 J44.9 [id number] Pacheco Krause APRN [address] [place] [address] 05/08/2025 08:28:26 05/08/2025 09:34:03 Asthma 378174691 J45.909 Hyperlipidemia 94392969 E78.5 Pulmonary emphysema 8743 3001 J43.9 Chronic ob structive pulmonary disease 84594144 J44.9 Bilateral lower limb edema 887195831 R60.0 - improved edema with bumetanide 2 mg daily Depression screening positive 3099389262 48594 Z13.31 9905125 Patient with symptoms concerning for depression . PHQ-9 score: 6. Denies SI/HI. No other safety concerns at this time.Will not start medication at this time. Follow-up in 3 months [id number] Jody Chen MD [address] [place] [address] 05/19/2025 14:41:34 05/19/2025 15:25:39 Chronic obstructive pulmonary disease 96323250 J44.9 01840791 Continue Breztri twice daily with Ventolin rescue inhaler Obstructiv e sleep apnea syndrome 83133689 G47.[address] of chest abnormal [address] of the chest for screening of cancer in ich has already been scheduled Tobacco user 792918588 Z 72.0 821390 [id number] Karolina Villanueva APRN [address] [place] [address] 07/03/2025 14:26:00 07/03/2025 16:04:31 Acute exacerbation of chronic obstructive pulmonary disease 953768138 J44.1 Otalgia of left ear 1010 706771 H92.02 318167 [id number] Karolina Villanueva APRN [address] [place] [address] 07/06/2025 09:00:48 07/06/2025 09:42:30 Chronic obstructive pulmonary disease 62869680 J44.9 03665673 Acute non- suppurative serous otitis media 028344856 H65.03 0992939721 Candidiasis of vagina 72 403701 B37.31 59591 Acute cough 7470319090 64359532 R05.3 2618459481 Health Concerns Section Related Observation LastModified by Organization Detai ls LastModified Time None Recorded Concern Status LastModified by Organization Details LastModified Time None Recorded Advance Directives Directive N: Payers Insurance Date Sequence Insurance Name Policy Number Policy Whaley Covered Member ID Whaley Member ID Guarantor Name 06/09/2022 2 [facility] - [place] [facility] Cassia Rios [id number] Cassia Rios 12/30/2020 [place] Cassia Rios [id number] Cassia Rios 02/04/2025 1 [facility]-[employer] - [employer] - CIGNA (PPO) [id number] Cassia Rios [id number] Cassia Rios 12/08/2020 1 [employer] [place] Cassia Rios [id number] Cassia Rios 12/08/2020 [place] Cassia Rios [id number] Cassia Rios 12/01/2024 1 [employer] [facility] (PPO) [id number] Cassia Rios [id number] Cassia Rios 09/05/2023 1 [facility] Cassia Rios [id number] Cassia Rios 01/21/2025 2 [employer] Cassia Rios [id number] Cassia Rios 02/02/2025 2 [employer] Cassia Rios [id number] Cassia Rios 01/21/2025 2 [facility]-[employer] - [employer]ATEGIES - CIGNA (PPO) Cassia Rios [id number] Cassia Rios 02/04/2025 1 [employer] - [facility] (PPO) [id number] Cassia Rios [id number] Cassia Rios 02/02/2025 2 [facility]-[employer] - [employer] STRATEGIES - CIGNA (PPO) Cassia Rios [id number] Cassia Rios 12/08/2020 [place] [facility] [place] Cassia Rios [id number] Cassia Rios 06/09/2022 2 [place] [facility] CHOICES - FFS/TRADITIONAL Cassia Rios [id number] Cassia Rios 03/25/2020 1 *SELF PAY* Fl orence Rios 02/09/2023 1 *SELF PAY* Fl orence Rios 10/31/2016 1 UNSPECIFIED REMIT PAYOR Cassia Rios 10/08/2023 [place] [facility] [place] [id number] Cassia Rios [id number] Cassia Rios 06/15/2021 [place] [id number] Cassia Rios [id number] Cassia Rios 02/10/2021 [id number] Cassia Rios [id number] Cassia Rios 10/08/2023 1 [facility] [id number] Cassia Rios [id number] Cassia Rios Notes Date Note Type Note Provider Name and Address Organization Details Recorded Time 04/10/2025 text/html ROS as noted in the HPI Cassia is a 54yo female who presents to the office for a 2 week follow up on COPD exacerbation and plueral effusion. She was originally seen on 03/20 with complaints of Subsequent X-ray showed She has completed courses of azithromycin and augmentin and has been taking 2 mg of bumetanide a day for the last 3 weeks with States she has been suffering myalgia since starting atorvastatin. Is interested in leqvio Pacheco Krause, BUBBA [address], [place], [address], [place] - [facility] 06/08/2025 15:01:39 05/08/2025 text/html ROS as noted in the [...] options for hyperlipidemia treatment and is considering qivi-ktn-mzumyrg options like fish oil and red yeast [...] symptoms.Musculoske letal: Negative for myalgias. Pacheco Krause, BUBBA [address], [place], [address], [place] - [facility] 05/08/2025 09:39:22 05/19/2025 text/html ROS as noted in the [...] spray Jody Chen MD [address], [place], [address], [place] [facility] 05/24/2025 10:44:38 07/03/2025 text/html ROS as noted in the HPI Cassia is a 54 yof who presents to the clinic for cough, congestion, and ear pressure. - Onset was several days ago- Symptoms described as sinus pressure, headache, nasal congestion, fever, pharyngitis,purulen t rhinorrhea- Occurs constant- Severity is moderate- Aggravating factors: leaning forward- Alleviating factors: none - Associated medical history: COPD, recent URI- Associated social history: tobacco use- Karolina Villanueva APRN [address], [place], [address], [facility] - [facility] 07/03/2025 21:21:28 07/06/2025 text/html ROS as noted in the HPI Cassia presents to the office today for follow up for cough, congestion, dizziness and ear pressure. - Onset was 1 week ago- Symptoms described as worsening sinus pressure, headache, nasal congestion, fever, pharyngitis,purulen t rhinorrhea- Occurs constant- Severity is moderate- Aggravating factors: leaning forward- Alleviating factors: none - Associated medical history: COPD, recent URI- Associated social history: tobacco use was seen 07/03-requested rocephin-ineffectiv e, on zpack-still having increased facial pressure. Wheezing is better.- Karolina Villanueva APRN [address], [place], [address], [facility] - [facility] 07/06/2025 09:33:00 OBGyn Episode No OBEpisode recorded.
--- NOTE | 2025-07-19 10:12 | XR_ITS ---
PROCEDURE INFORMATION: Exam: XR Chest Exam date and time: 07/19/2025 10:09 AM Age: 54 years old Clinical indication: Cough and shortness of breath; Additional info: Shortness of breath, cough TECHNIQUE: Imaging protocol: Radiologic exam of the chest. Views: 2 views. COMPARISON: CR XR CHEST 2V 05/24/2025 5:08 PM FINDINGS: Lungs: Opacity in the right base may represent atelectasis or pneumonia. Pleural spaces: There may be mild bilateral pleural effusions.. Heart/Mediastinum: Unremarkable. No cardiomegaly. Bones/joints: Unremarkable. IMPRESSION: 1. There may be mild bilateral pleural effusions.. 2. Opacity in the right base may represent atelectasis or pneumonia.
--- NOTE | 2025-07-19 10:13 | [facility].EDCP ---
Discharge Plan Disposition Patient Disposition: Home, Self-Care Prescriptions Prescriptions: New benzonatate 100 mg capsule 100 mg PO BID PRN (Reason: cough) Qty: 20 0RF No Action omeprazole 40 mg capsule,delayed release(DR/EC) 40 mg PO BID Patient Comments: TAKE 1 CAPSULE BY MOUTH TWICE DAILY Spiriva Respimat 2.5 mcg/actuation mist 2 puff inhalation DAILY Patient Comments: INHALE TWO (2) PUFFS EVERY DAY BY INHALATION ROUTE FOR 30 DAYS. budesonide-formoterol 160-4.5 mcg/actuation HFA aerosol inhaler 2 puff inhalation DAILY Patient Comments: INHALE TWO (2) PUFFS TWICE DAILY fexofenadine [Allergy Relief (fexofenadine)] 180 mg tablet 180 mg PO DAILY Patient Comments: TAKE ONE (1) TABLET EVERY DAY BY ORAL ROUTE FOR 30 DAYS. diclofenac sodium 75 mg tablet,delayed release (DR/EC) 75 mg PO BID Patient Comments: TAKE ONE (1) TABLET TWICE A DAY BY ORAL ROUTE NEEDED FOR 30 DAYS. fluticasone propionate 50 mcg/actuation spray,suspension 1 spray INTRANASAL DAILY Patient Comments: SPRAY ONE (1) SPRAY EVERY DAY BY INTRANASAL ROUTE FOR 30 DAYS. furosemide [Lasix] 20 mg tablet 20 mg PO WEEKLY hydrocodone-acetaminophen 5-325 mg tablet 1 tab PO Q8H PRN (Reason: pain (scale score 7-10)) Qty: 9 0RF Rx Instructions: Please take after 600 mg of ibuprofen and 650 mg of Tylenol have been ineffective. Referrals Follow up/Referrals: Pacheco Krause APRN [Primary Care Provider, Medical] - See instructions Activity Restrictions/Add. Instructions Additional Instructions/Restrictions: Your workup today shows that you have COVID. Continue to hydrate well over the next several days. I am prescribing Tessalon Perles to help with your cough. Take these as prescribed. You can also take Tylenol and ibuprofen to help with muscle aches and pains. If you develop any new or worsening symptoms, such as fever, worsening cough, shortness of breath, chest pain, or if you become concerned for your health for any reason, return to the emergency department for evaluation. Clinical Impressions Clinical Impression: COVID-19 Print Language Print Language: Azeri Discharge ED Provider: Tex Auguste General Chief Complaint: PAIN Stated Complaint: Body Aches, congestion, phlem, sore throat Time Seen by Provider: 07/19/25 10:05 History of Present Illness HPI narrative: Cassia Rios is a 54-year-old female with a history of COPD who presents to the emergency department for cough, shortness of breath and aching pain in her legs. Patient states that 3 weeks ago, she was diagnosed with a sinus infection with ear pressure and treated with antibiotics and steroids. She states that that did not improve much and she was treated with another round of antibiotics and steroids that she finished yesterday. She states that she has continued to have a cough and sinus congestion and recently started having pain in both of her legs describing them as bone aching. She think she might have the flu or COVID or pneumonia. She denies any chest pain but does state that she is short of breath but has COPD. She reports an increased productive cough with yellow sputum. Related Data Home Medications ?Medication ?Instructions ?Recorded ?Confirmed budesonide-formoterol HFA 160 2 puff inhalation DAILY 06/10/24 03/06/25 mcg-4.5 mcg/actuation aerosol inhaler omeprazole 40 mg capsule,delayed 40 mg PO BID 06/10/24 03/06/25 release tiotropium bromide 2.5 2 puff inhalation DAILY 06/10/24 03/06/25 mcg/actuation mist for inhalation (Spiriva Respimat) diclofenac sodium 75 mg 75 mg PO BID 03/06/25 03/06/25 tablet,delayed release fexofenadine 180 mg tablet 180 mg PO DAILY 03/06/25 03/06/25 (Allergy Relief (fexofenadine)) fluticasone propionate 50 1 spray intranasal DAILY 03/06/25 03/06/25 mcg/actuation nasal spray,suspension furosemide 20 mg tablet (Lasix) 20 mg PO WEEKLY 03/06/25 03/06/25 Previous Rx's ?Medication ?Instructions ?Recorded hydrocodone 5 mg-acetaminophen 325 1 tab PO Q8H PRN pain (scale score 03/06/25 mg tablet 7-10) #9 tabs benzonatate 100 mg capsule 100 mg PO BID PRN cough #20 caps 07/19/25 Allergies Allergy/AdvReac Type Severity Reaction Status Date / Time alcohol Allergy Mild Verified 09/17/24 14:14 [facility] Disclaimer: The information contained in this section may have been updated after the patient was seen, as this information can be updated by other users. Medical History Shortness of breath Pitting edema Pulmonary nodules Family History (Updated 07/19/25 @ 10:07 by Jia Villanueva RN) Other No significant family history Social History Smoking Status: Current every day smoker tobacco type: cigarettes packs per day: 1 alcohol intake: former current occupational status: employed Travel in the last 8 weeks?: None Have you lived/traveled outside [place] in past 30 days?: No Contact w/someone who lives/traveled outside [place] past 30 days?: No Exposure to someone with infectious disease in past 14 days?: No Do you have a fever (greater than 100.4 F or 38 C)?: No Have you tested positive for COVID-19?: No Exposed to someone with COVID-19 in past 14 days?: No Do you have a sore throat?: No Do you have a cough?: No Do you have any weakness?: No Do you have any diarrhea?: No Are you experiencing any unusual bleeding?: No Do you have any muscle aches/pain?: No Do you have any abdominal pain?: No Are you experiencing loss of taste or smell?: No Other Medical History Have you received the Pneumonia Vaccine: No ROS Obtained: Yes Systems reviewed as appropriate & no additional complaints except as documented Physical Exam General General appearance: alert and in no apparent distress Head Head exam: atraumatic Eye Eye exam: Present normal appearance ENT ENT exam: Present normal external ear exam Neck Neck exam: Present full ROM Chest Chest inspection: Present symmetric chest wall rise Respiratory Respiratory exam: Present normal lung sounds bilaterally and other (dry cough); Absent respiratory distress, wheezes or stridor Cardiovascular Cardiovascular exam: Present regular rate and normal rhythm Abdominal Exam Abdominal exam: Present soft; Absent tenderness or guarding Extremities Exam Extremities exam: Present normal inspection Back Exam Back exam: Present normal inspection Neurological Exam Neurological exam: Present alert and oriented X3 Psychiatric Psychiatric exam: Present normal affect Skin Skin exam: Present warm and dry HEART Score HEART Score HEART Score assessment performed?: Yes History (anamnesis): Slightly suspicious ECG: Normal Age: 45-65 years Risk factors: 1-2 risk factors Troponin: </= normal limit HEART Score: 2 Critical Care Critical Care Time Critical Care Time: No Medical Decision Making Tyson Inquiry Pt receiving controlled substance: No Vital Signs Vital Signs: 07/19/25 10:00 07/19/25 10:00 07/19/25 10:30 Temperature 99.4 F 99.4 F Temperature Source Oral Pulse Rate 98 H 92 H Pulse Rate [Right] 98 H Respiratory Rate 18 18 Blood Pressure 130/87 129/81 Blood Pressure [Right Arm] 130/87 Blood Pressure Mean [Right Arm] 101 02 Sat by Pulse Oximetry 94 L 94 L 95 Oxygen Delivery Method Room Air Lab Data Labs: Lab Results 07/19/25 10:07: SARS-CoV-2 (PCR) Detected A, Influenza A Untype (PCR) Not detected, Influenza Type B (PCR) Not detected 07/19/25 10:34: WBC 9.3, RBC 4.94, Hgb 13.1, Hct 41.4, MCV 83.8, MCH 26.5 L, MCHC 31.6 L, RDW 14.5, Plt Count 238, MPV 10.5 H, Neut % (Auto) 75.3, Lymph % (Auto) 16.2, Ross % (Auto) 6.8, Eos % (Auto) 1.0, Baso % (Auto) 0.4, Neut # (Auto) 7.0, Lymph # (Auto) 1.5, Ross # (Auto) 0.6, Eos # (Auto) 0.1, Baso # (Auto) 0.0, VBG pH 7.39, VBG pCO2 39.8, VBG pO2 56.5 H, VBG HCO3 23.3, VBG Total CO2 24.6, VBG O2 Saturation 89.5 H, VBG Base Excess -1.7, VBG Lactic Acid 1.3, Sodium 135 L, Potassium 3.7, Chloride 105, Carbon Dioxide 24, Anion Gap 9.7, BUN 6 L, Creatinine 0.70, Estimated Creat Clear 150, Estimated GFR 88, Est GFR ( Amer) 106, Glucose 113 H, Calcium 8.8, Total Bilirubin 0.6, AST 24, ALT 23, Alkaline Phosphatase 130 H, Total Creatine Kinase 57, Troponin I < 0.01, C-Reactive Protein 38.8 H, NT-Pro-B Natriuret Pep 582 H, Total Protein 7.3, Albumin 3.8, Globulin 3.5 H, Albumin/Globulin Ratio 1.1 07/19/25 10:34 07/19/25 10:34 Response Orders (Tests/Meds): ORDERS Category Date Time Status CXR 2 view (NOT portable) [XR chest 2V] Stat Exams 07/19/25 10:12 Completed BNP [NT Pro Brain Natriuretic Pep.] Stat Lab 07/19/25 10:34 Completed CBC w/Auto Diff [Complete Blood Count Auto Diff] Stat Lab 07/19/25 10:34 Completed CK [Creatine Kinase] Stat Lab 07/19/25 10:34 Completed CMP [Comprehensive Metabolic Panel] Stat Lab 07/19/25 10:34 Completed CRP [C-Reactive Protein] Stat Lab 07/19/25 10:34 Completed Rapid PCR Covid and Flu A/B Stat Lab 07/19/25 10:07 Completed Troponin I Q3H Lab 07/19/25 13:15 Ordered Troponin I Q3H Lab 07/19/25 16:15 Ordered Troponin I Stat Lab 07/19/25 10:34 Completed UA [Urinalysis and Microscopic] Stat Lab 07/19/25 10:12 Ordered VBG [Venous Blood Gas] Stat RT 07/19/25 10:34 Completed EKG Request [ECG Request] Stat Y 07/19/25 10:12 Ordered ECG Data Tracing #1: Attestation: I reviewed this ECG and interpreted as documented below: ECG Narrative: Normal sinus rhythm. No ST elevation or depression. QTc normal at 4 and 5 MDM Narrative Medical Decision Narrative: Cassia Rios is a 54-year-old female with a history of COPD who presents to the emergency department for cough, shortness of breath and aching pain in her legs. Patient states that 3 weeks ago, she was diagnosed with a sinus infection with ear pressure and treated with antibiotics and steroids. She states that that did not improve much and she was treated with another round of antibiotics and steroids that she finished yesterday. She states that she has continued to have a cough and sinus congestion and recently started having pain in both of her legs describing them as bone aching. She think she might have the flu or COVID or pneumonia. She denies any chest pain but does state that she is short of breath but has COPD. She reports an increased productive cough with yellow sputum. On arrival, patient is normotensive, borderline tachycardic, afebrile, oxygen saturation 94% on room air. Physical exam, stated above, revealed nontoxic-appearing female in no distress. She has a dry cough. Lungs are clear bilaterally. Abdomen is soft and nondistended. Differential diagnosis includes, but is not limited to: Viral respiratory illness, COPD exacerbation, pneumonia, pneumothorax, ACS, CHF, among others. The most morbid conditions were considered and workup was based on these. Workup in the emergency department included: A CBC with differential, VBG with lactate, CMP, troponin, CRP, BNP, COVID and flu rapid test, two-view chest x-ray Chest x-ray was interpreted by me personally. Patient has no widening of the mediastinum, no enlarged cardiac silhouette, no pneumothorax. There is increased interstitial opacities in the right and left base, however compared to previous chest x-ray in May, this is largely unchanged. Lab work shows no leukocytosis, normal hemoglobin and hematocrit, platelets within normal limits, VBG unremarkable nonactionable with normal lactate. Mildly low sodium 135 but nonactionable. No FEDE. Initial troponin less than 0.01. CRP is elevated at 38.8, NT proBNP at baseline at 582. Positive COVID-19 on nasal swab. EKG without ischemic changes. See interpretation above. On reassessment, patient remains in stable condition. I do feel that her symptomatology is best explained by her viral COVID infection and given her chest x-ray appears largely unchanged from previous chest x-ray, I feel like pneumonia is less likely. She has been on multiple rounds of antibiotics recently as well as steroids. Will prescribe Tessalon Perles and recommended symptomatic control at home with Tylenol and ibuprofen and to continue hydrating. I encouraged her to follow-up with her primary care doctor. Return precautions were given. All questions were answered. She demonstrated understanding and was in agreement this plan. She was then discharged from the emergency department in stable condition.
[2025-07-19 10:17] LABS: Influenza A, PCR Not Detected (NotDetected); Influenza B, PCR Not Detected (NotDetected)
[2025-07-19 10:30] VITALS: BP 129/81; PULSE 92; O2SAT 95
--- NOTE | 2025-07-19 10:30 | ECG_ITS ---
APPROVED REPORT Exam: Resting ECG HR:91 bpm ECG Measurements Heart Rate 91 AXES TN 150 P 44 QRSd 88 QRS 15 QT 356 T 47 QTc 405 Conclusion SINUS RHYTHM WITH SINUS ARRHYTHMIA POSSIBLE RIGHT VENTRICULAR CONDUCTION DELAY [RSR (QR) IN V1/V2] BORDERLINE ECG UNCONFIRMED REPORT Normal sinus rhythm. No ST elevation or depression. QTc of 4 5 Electronically signed by : HUMA GANN, 07/19/2025 15:23:02
[2025-07-19 10:41] LABS: Hematocrit 41.4 % (37.0-47.0); Hemoglobin 13.1 g/dL (12.2-16.2); Immature Granulocytes % 0.3 %; Mean Corpuscular HGB Conc 31.6 g/dL (31.8-35.4); Mean Corpuscular Hemoglobin 26.5 pg (27.0-31.2); Mean Corpuscular Volume 83.8 fl (81-99); Nucleated Red Blood Cells % 0 %; Platelet Count 238 K/mm3 (142-424); Red Blood Count 4.94 M/mm3 (4.20-5.40); Red Cell Distribution Width-SD 44.0 fL; White Blood Count 9.3 K/mm3 (4.8-10.8)
[2025-07-19 10:44] LABS: Lactate Venous 1.3 mmol/L (0.4-2.0); VBG HCO3 23.3 mmol/L (23-30); VBG PCO2 39.8 mmol/L (35-51); VBG PH 7.39 mmol/L (7.31-7.41); VBG PO2 56.5 mmol/L (28-40)
[2025-07-19 10:47] LABS: Coronavirus 19, PCR Detected (NotDetected)
[2025-07-19 10:53] LABS: Alanine Aminotransferase 23 U/L (12-78); Albumin Level 3.8 g/dl (3.5-5.0); Albumin/Globulin Ratio 1.1 (1.1-1.8); Alkaline Phosphatase 130 U/L (38-126); Anion Gap 9.7 mEq/L (5-15); Aspartate Amino Transferase 24 U/L (14-36); Bilirubin,Total 0.6 mg/dl (0.2-1.3); Blood Urea Nitrogen 6 mg/dl (7-17); Calcium 8.8 mg/dl (8.4-10.2); Carbon Dioxide 24 mmol/L (22.0-30.0); Chloride 105 mmol/L (98-107); Creatine Kinase 57 U/L (30-135); Creatinine Clearance Estimated 150 mL/min (50-200); Creatinine,Serum 0.70 mg/dl (0.52-1.04); Estimated Glomerular Filt Rate 88 ml/min (>60); GFR (African American) 106 ML/MIN (>60); Globulin 3.5 g/dL (1.3-3.2); Glucose 113 mg/dl (74-100); Potassium 3.7 mmoL/L (3.5-5.1); Sodium 135 mmol/L (136-145); Total Protein,Serum 7.3 g/dl (6.3-8.2)
[2025-07-19 10:58] LABS: C-Reactive Protein 38.8 mg/L (0-4)
[2025-07-19 11:11] LABS: NT Pro Brain Natriuretic Pep. 582 pg/mL (0-125)
[2025-07-19 11:15] LABS: Troponin I < 0.01 ng/ml (0.00-0.034)
[2025-07-19 11:37] VITALS: BP 124/83; PULSE 91; RESP 16; TEMP 37.4; O2SAT 94
== END 2025-07-19 11:41 | disposition home or self-care (01) ==
PROVIDERS: Emergency Provider Student in an Organized Health Care Education/Training Program; PCP Nurse Practitioner Family
DX: U07.1 COVID-19 (principal)
CPT/HCPCS: 71046; 80053; 82550; 82803; 83880; 84484; 85025; 86140; 87636; 93005; 99284